=== PATIENT | female | born 1980 | race Caucasian/White ===

== ENCOUNTER 2016-11-13 19:53 | Emergency (ER) | payer BC ==
[~2016-11-13] VITALS: Ht 160 cm; Wt 61.2 kg
[~2016-11-13 19:53] MED LIST: ALPR-557 PO; ATN50T PO; DESV50TA PO; ESCI5TAB; HCTZ12.5T; LABETALOL HCL; LABETOLOL; PROP1TAB77; VALS1TAB43 PO; VLS80C; [UNRECOGNIZED DRUG - CODE] PO
[2016-11-13] MEDS ORDERED: ACETAMINOPHEN 325 MG TABLET/CAPLET (TYLENOL) PO STA (20:29)
[2016-11-13 20:39] LABS: BASOPHILS % (AUTO) 1 % (0-10); EOSINOPHILS # (AUTO) 0.2 10^3/uL (0.0-0.3); EOSINOPHILS % (AUTO) 2 % (0-10); LYMPHOCYTES # (AUTO) 2.6 X 10^3 (1.0-4.0); LYMPHOCYTES % (AUTO) 39 % (12-44); MEAN CORPUSCULAR HEMOGLOBIN 31 PG (25-34); MEAN CORPUSCULAR HGB CONC 35 G/DL (32-36); MEAN CORPUSCULAR VOLUME 88 FL (80-99); MEAN PLATELET VOLUME 9.2 FL (7.4-10.4); MONOCYTES # (AUTO) 0.8 X 10^3 (0.0-1.0); MONOCYTES % (AUTO) 13 % (0-12); NEUTROPHILS % (AUTO) 45 % (42-75); PLATELET COUNT 260 10^3/uL (130-400); RED BLOOD COUNT 4.29 10^6/uL (4.35-5.85); RED CELL DISTRIBUTION WIDTH 12.3 % (10.0-14.5); WHITE BLOOD COUNT 6.5 10^3/uL (4.3-11.0)
--- NOTE | 2016-11-13 20:43 | ED EENT ---
History of Present Illness General Chief Complaint: Oral/Throat Problems Stated Complaint: THROAT PAIN, HEADACHE, CONGESTION Nursing Triage Note: PT TO ED FOR C/O SORE THROAT ONSET X3 DAYS. History of Present Illness Time seen by provider: 20:15 Initial Comments For the past several months patient has had intermittent strep pharyngitis. She reports she'll be off the antibiotic for 2-3 weeks and then get a recurrence. Her teenage son has had 2 cases of strep. Timing/Duration: gradual (over the last 3 days.) Severity: mild Location: throat Prearrival Treatment: over the counter meds (Aleve at 1400) Modifying Factors: Improves With Rest Allergies and Home Medications Allergies Coded Allergies: Penicillins (Verified Allergy, Unknown, 10/25/06) erythromycin base (Verified Allergy, Unknown, 10/25/06) prochlorperazine (Verified Allergy, Unknown, 10/25/06) Home Medications Alprazolam 0.5 Mg Tab, 0.5 MG PO BID PRN for ANXIETY, (Reported) Atenolol 50 Mg Tablet, 50 MG PO DAILY, (Reported) Bupropion Hcl 100 Mg Tabcr, 100 MG PO DAILY, (Reported) Desvenlafaxine Succinate 50 Mg Tab.sr.24h, 50 MG PO DAILY, (Reported) Hctz/Valsartan 1 Tab Tablet, 1 EACH PO DAILY, (Reported) Review of Systems Constitutional: no symptoms reported, see HPI Eyes: No Symptoms Reported, See HPI Ears: No Symptoms Reported, See HPI Nose: no symptoms reported, see HPI Mouth: no symptoms reported, see HPI Throat: see HPI, pain, painful swallowing, denies difficulty with fluids Respiratory: no symptoms reported, see HPI Cardiovascular: no symptoms reported, see HPI Gastrointestinal: no symptoms reported, see HPI Musculoskeletal: no symptoms reported, see HPI Skin: no symptoms reported, see HPI Neurological: No Symptoms Reported, See HPI Hematologic/Lymphatic: No Symptoms Reported, See HPI Immunological/Allergic: no symptoms reported, see HPI All Other Systems Reviewed Negative Unless Noted: Yes Past Rtvkjbp-Wesyhy-Whvdon Hx Patient Social History Alcohol Use: Occasionally Uses Recreational Drug Use: No Smoking Status: Former Smoker Former Smoker/When Quit: Mar 15, 2007 Recent Foreign Travel: No Contact w/Someone Who Travel: No Recent Infectious Disease Expo: No Recent Hopitalizations: No Immunizations Up To Date Tetanus Booster (TDap): More than 5yrs PED Vaccines UTD: No Seasonal Allergies Seasonal Allergies: No Surgeries HX Surgeries: Yes (uterine ablation) Surgeries: Appendectomy Respiratory Hx Respiratory Disorders: No Cardiovascular Hx Cardiac Disorders: Yes (HTN, history of preeclampsia with severe hypertension) Cardiac Disorders: Hypertension Neurological Hx Neurological Disorders: No Reproductive System Hx Reproductive Disorders: No Sexually Transmitted Disease: No HIV/AIDS: No Female Reproductive Disorders: Denies Genitourinary Hx Genitourinary Disorders: No Gastrointestinal Hx Gastrointestinal Disorders: No Musculoskeletal Hx Musculoskeletal Disorders: Yes Musculoskeletal Disorders: Fractures Endocrine Hx Endocrine Disorders: No HEENT HX ENT Disorders: No Cancer Hx Cancer: No Psychosocial Hx Psychiatric Problems: Yes Behavioral Health Disorders: Anxiety, Depression Integumentary HX Skin/Integumentary Disorder: No Blood Transfusions Hx Blood Disorders: No Reviewed Nursing Assessment Reviewed/Agree w Nursing PMH: Yes Family Medical History Significant Family History: Heart Disease, CAD Over 55 Years Old, Hypertension Physical Exam Vital Signs Vital Sign - Last 12Hours 11/13/16 20:03 Temp 98.3 Pulse 74 Resp 18 B/P (MAP) 133/94 Pulse Ox 99 O2 Delivery Room Air General Appearance: WD/WN, no apparent distress Eyes: bilateral eye EOMI, bilateral eye PERRL, bilateral eye normal inspection Ears: bilateral ear TM normal, bilateral ear auricle normal, bilateral ear canal normal Nose: normal inspection, No discharge, No sinus tenderness Mouth/Throat: normal mouth inspection, pharynx normal, No dental tenderness, No mandibular swelling, No maxillary swelling, No pharynx swelling, No pharynx tenderness, No tongue swollen, No tonsillar exudate, No tonsillar swelling, other (no erythema to tonsils.) Neck: non-tender, full range of motion, supple, normal inspection, No lymphadenopathy (R), No lymphadenopathy (L) Cardiovascular: normal peripheral pulses, regular rate, rhythm, no murmur Respiratory: chest non-tender, lungs clear, normal breath sounds Gastrointestinal: normal bowel sounds, non tender, soft Neurologic/Psychiatric: no motor/sensory deficits, alert, normal mood/affect, oriented x 3 Skin: normal color, warm/dry Progress/Results/Core Measures Results/Orders Lab Results Laboratory Tests Test 11/13/16 20:17 11/13/16 20:33 Range/Units Group A Streptococcus Screen NEGATIVE NEGATIVE White Blood Count 6.5 4.3-11.0 10^3/uL Red Blood Count 4.29 L 4.35-5.85 10^6/uL Hemoglobin 13.2 11.5-16.0 G/DL Hematocrit 38 35-52 % Mean Corpuscular Volume 88 80-99 FL Mean Corpuscular Hemoglobin 31 25-34 PG Mean Corpuscular Hemoglobin Concent 35 32-36 G/DL Red Cell Distribution Width 12.3 10.0-14.5 % Platelet Count 260 130-400 10^3/uL Mean Platelet Volume 9.2 7.4-10.4 FL Neutrophils (%) (Auto) 45 42-75 % Lymphocytes (%) (Auto) 39 12-44 % Monocytes (%) (Auto) 13 H 0-12 % Eosinophils (%) (Auto) 2 0-10 % Basophils (%) (Auto) 1 0-10 % Neutrophils # (Auto) 3.0 1.8-7.8 X 10^3 Lymphocytes # (Auto) 2.6 1.0-4.0 X 10^3 Monocytes # (Auto) 0.8 0.0-1.0 X 10^3 Eosinophils # (Auto) 0.2 0.0-0.3 10^3/uL Basophils # (Auto) 0.0 0.0-0.1 10^3/uL Monoscreen NEGATIVE NEGATIVE My Orders Orders - MICHEL HOFFMANN Rapid Strep A Screen (11/13/16 20:16) Cbc With Automated Diff (11/13/16 20:29) Monotest (11/13/16 20:29) Acetaminophen Tablet/Caplet (Tylenol T (11/13/16 20:29) Vital Signs/I&O Vital Sign - Last 12Hours 11/13/16 11/13/16 20:03 21:31 Temp 98.3 Pulse 74 0 Resp 18 0 B/P (MAP) 133/94 Pulse Ox 99 0 O2 Delivery Room Air Blood Pressure Mean: 107 Progress Note : Time: 18:15 Progress Note Initial evaluation completed, discussed with patient that she is afebrile, we will do a CBC, strep screen, and a mono test. Tylenol 650 mg by mouth for pain. We'll reevaluate after studies are completed. 2039 rapid strep A negative 2100 Mon Neg and CBC WNL. 2114 discussed all results with patient, recommended conservative treatment at this time and she agreed with this. Departure Impression Impression: Primary Impression: Sore throat Additional Impression: Viral pharyngitis Disposition: 01 HOME, SELF-CARE Condition: Stable Departure-Patient Inst. Referrals: TAYLOR WRIGHT MD (PCP/Family) Primary Care Physician Patient Instructions: Viral Pharyngitis (DC) Add. Discharge Instructions: All discharge instructions reviewed with patient and/or family. Voiced understanding. Warm salt water gargles every 4-6 hours. Tylenol 650 mg every 6 hours alternating with ibuprofen 600 mg every 8 hours for pain or fever. Follow-up with Dr. Wright if continued throat pain. Return to emergency department if throat pain increases, fever, difficulty breathing, or any other complaints. Copy Copies To 1: TAYLOR WRIGHT MD, [facility] Nov 13, 2016 20:43
[2016-11-13 21:31] VITALS: BP 0/0
--- OUTSIDE RECORDS SUMMARY | 2016-12-07 09:57 | XMS REPORT | Continuity of Care Document ---
Demographics Preferred Language Unknown Marital Status Unknown Baptism Affiliation Unknown Race Unknown Ethnic Group Unknown Author Author [facility] Address Unknown Phone Unavailable Allergies Active Description Code Type Severity Reaction Onset Reported/Identified Relationship to Patient Clinical Status Yes erythromycin base [id number] Drug Allergy Unknown N/A 10/25/2006 Yes Penicillins [id number] Drug Allergy Unknown N/A 10/25/2006 Yes prochlorperazine [id number] Drug Allergy Unknown N/A 10/25/2006 Medications Problems Date Dx Coded Attending Type Code Diagnosis Diagnosed By 08/02/2010 Ot 708.9 URTICARIA NOS 07/18/2012 V04.81 FLU DX (3 YRS AND ABOVE, IM) 04/02/2013 JOHN CONLEY, QUITA Santos Ot 300.00 ANXIETY STATE NOS 04/02/2013 JOHN CONLEY, QUITA Santos Ot 311 DEPRESSIVE DISORDER NEC 04/02/2013 JOHN CONLEY, QUITA Santos Ot 401.9 HYPERTENSION NOS 04/02/2013 JOHN CONLEY, QUITA Santos Ot 786.59 CHEST PAIN NEC 02/19/2015 TAYLOR WRIGHT MD Ot 780.60 02/19/2015 TAYLOR WRIGHT MD Ot 789.09 06/27/2015 Ot V16.3 06/27/2015 Ot V76.12 06/27/2015 Ot 611.71 06/27/2015 Ot V16.3 06/27/2015 Ot 255.9 06/27/2015 Ot 592.0 06/27/2015 Ot 719.41 06/27/2015 Ot 722.4 06/27/2015 Ot 719.41 06/27/2015 Ot 723.1 06/27/2015 TAYLOR WRIGHT MD Ot 784.0 06/27/2015 TAYLOR WRIGHT MD Ot 780.60 06/27/2015 TAYLOR WRIGHT MD Ot 789.09 06/27/2015 LEONEL CONLEY, SARA Vasquez Ot R07.89 OTHER CHEST PAIN 07/22/2015 Ot V16.3 07/22/2015 Ot V76.12 07/22/2015 Ot 611.71 07/22/2015 Ot V16.3 07/22/2015 Ot 255.9 07/22/2015 Ot 592.0 07/22/2015 Ot 719.41 07/22/2015 Ot 722.4 07/22/2015 Ot 719.41 07/22/2015 Ot 723.1 07/22/2015 KYLE CONLEY, TAYLOR Vasquez Ot 784.0 07/22/2015 KYLE CONLEY, TAYLOR Vasquez Ot 780.60 07/22/2015 KYLE CONLEY, TAYLOR Vasquez Ot 789.09 07/22/2015 CASTILLO CONLEY, MOHIT Stevens Ot I10 07/22/2015 CASTILLO CONLEY, MOHIT Stevens Ot R07.9 07/31/2015 CASTILLO CONLEY, MOHIT Stevens Ot I10 07/31/2015 CASTILLO CONLEY, MOHIT Stevens Ot R07.9 10/24/2015 Ot V16.3 10/24/2015 Ot V76.12 10/24/2015 Ot 611.71 10/24/2015 Ot V16.3 10/24/2015 Ot 255.9 10/24/2015 Ot 592.0 10/24/2015 Ot 719.41 10/24/2015 Ot 722.4 10/24/2015 Ot 719.41 10/24/2015 Ot 723.1 10/24/2015 KYLE CONLEY, TAYLOR Vasquez Ot 784.0 10/24/2015 KYLE CONLEY, TAYLOR Vasquez Ot 780.60 10/24/2015 TAYLOR WRIGHT MD Ot 789.09 10/24/2015 CASTILLO CONLEY, MOHIT Stevens Ot I10 10/24/2015 CASTILLO CONLEY, MOHIT Stevens Ot R07.9 12/01/2015 Ot V16.3 FAMILY HX-BREAST MALIG 12/01/2015 Ot V76.12 OTH SCREEN MAMMO-MALIGN NEOPLASM OF AGUSTIN 12/01/2015 Ot 611.71 MASTODYNIA 12/01/2015 Ot V16.3 FAMILY HX-BREAST MALIG 12/01/2015 Ot 255.9 ADRENAL DISORDER N0S 12/01/2015 Ot 592.0 CALCULUS OF KIDNEY 12/01/2015 Ot 719.41 JOINT PAIN-SHLDER 12/01/2015 Ot 722.4 CERVICAL DISC DEGEN 12/01/2015 Ot 719.41 JOINT PAIN-SHLDER 12/01/2015 Ot 723.1 CERVICALGIA 12/01/2015 TAYLOR WRIGHT MD Ot 784.0 HEADACHE 12/01/2015 TAYLOR WRIGHT MD Ot 780.60 FEVER, UNSPECIFIED 12/01/2015 TAYLOR WRIGHT MD Ot 789.09 ABDOMINAL PAIN, OTHER SPECIFIED SITE 12/01/2015 MOHIT CHONG MD Ot I10 ESSENTIAL (PRIMARY) HYPERTENSION 12/01/2015 MOHIT CHONG MD Ot R07.9 CHEST PAIN, UNSPECIFIED 02/02/2016 Ot 255.9 ADRENAL DISORDER N0S 02/02/2016 Ot 592.0 CALCULUS OF KIDNEY 02/02/2016 Ot 719.41 JOINT PAIN-SHLDER 02/02/2016 Ot 722.4 CERVICAL DISC DEGEN 02/02/2016 Ot 719.41 JOINT PAIN-SHLDER 02/02/2016 Ot 723.1 CERVICALGIA 02/02/2016 TAYLOR WRIGHT MD Ot 784.0 HEADACHE 02/02/2016 TAYLOR WRIGHT MD Ot 780.60 FEVER, UNSPECIFIED 02/02/2016 TAYLOR WRIGHT MD Ot 789.09 ABDOMINAL PAIN, OTHER SPECIFIED SITE 02/02/2016 MOHIT CHONG MD Ot I10 ESSENTIAL (PRIMARY) HYPERTENSION 02/02/2016 MOHIT CHONG MD Ot R07.9 CHEST PAIN, UNSPECIFIED 05/18/2016 Ot 719.41 JOINT PAIN-SHLDER 05/18/2016 Ot 722.4 CERVICAL DISC DEGEN 05/18/2016 Ot 719.41 JOINT PAIN-SHLDER 05/18/2016 Ot 723.1 CERVICALGIA 05/18/2016 TAYLOR WRIGHT MD Ot 784.0 HEADACHE 05/18/2016 TAYLOR WRIGHT MD Ot 780.60 FEVER, UNSPECIFIED 05/18/2016 TAYLOR WRIGHT MD Ot 789.09 ABDOMINAL PAIN, OTHER SPECIFIED SITE 05/18/2016 MOHIT CHONG MD Ot I10 ESSENTIAL (PRIMARY) HYPERTENSION 05/18/2016 MOHIT CHONG MD Ot R07.9 CHEST PAIN, UNSPECIFIED 05/20/2016 SHRAVAN DPM, JENI Q Ot S92.351A DISP FX OF FIFTH METATARSAL BONE, RIGHT 05/20/2016 SHRAVAN DPM, JENI Q Ot X58.XXXA EXPOSURE TO OTHER SPECIFIED FACTORS, INI 05/20/2016 SHRAVAN DPM, JENI Q Ot Y99.8 OTHER EXTERNAL CAUSE STATUS 05/20/2016 SHRAVAN DPM, JENI Q Ot Z01.812 ENCOUNTER FOR PREPROCEDURAL LABORATORY E 05/20/2016 SHRAVAN DPM, JENI Q Ot Z11.2 ENCOUNTER FOR SCREENING FOR OTHER BACTER 05/21/2016 SHRAVAN DPM, JENI Q Ot S92.351A DISP FX OF FIFTH METATARSAL BONE, RIGHT 05/21/2016 SHRAVAN DPM, JENI Q Ot X58.XXXA EXPOSURE TO OTHER SPECIFIED FACTORS, INI 05/21/2016 SHRAVAN DPM, JENI Q Ot Y99.8 OTHER EXTERNAL CAUSE STATUS 05/21/2016 SHRAVAN DPM, JENI Q Ot Z01.812 ENCOUNTER FOR PREPROCEDURAL LABORATORY E 05/21/2016 SHRAVAN DPM, JENI Q Ot Z11.2 ENCOUNTER FOR SCREENING FOR OTHER BACTER 05/21/2016 SHRAVAN DPM, JENI Q Ot I10 ESSENTIAL (PRIMARY) HYPERTENSION 05/21/2016 SHRAVAN DPM, JENI Q Ot S92.351A DISP FX OF FIFTH METATARSAL BONE, RIGHT 05/21/2016 SHRAVAN DPM, JENI Q Ot W19.XXXA UNSPECIFIED FALL, INITIAL ENCOUNTER 05/21/2016 SHRAVAN DPM, JENI Q Ot Y99.8 OTHER EXTERNAL CAUSE STATUS 05/24/2016 SHRAVAN DPM, JENI Q Ot I10 ESSENTIAL (PRIMARY) HYPERTENSION 05/24/2016 SHRAVAN DPM, JENI Q Ot S92.351A DISP FX OF FIFTH METATARSAL BONE, RIGHT 05/24/2016 SHRAVAN DPM, JENI Q Ot W19.XXXA UNSPECIFIED FALL, INITIAL ENCOUNTER 05/24/2016 SHRAVAN DPM, JENI Q Ot Y99.8 OTHER EXTERNAL CAUSE STATUS 05/26/2016 SHRAVAN DPM, JENI Q Ot S92.351A DISP FX OF FIFTH METATARSAL BONE, RIGHT 05/26/2016 SHRAVAN DPM, JENI Q Ot X58.XXXA EXPOSURE TO OTHER SPECIFIED FACTORS, INI 05/26/2016 SHRAVAN DPM, JENI Q Ot Y99.8 OTHER EXTERNAL CAUSE STATUS 05/26/2016 SHRAVAN DPM, JENI Q Ot Z01.812 ENCOUNTER FOR PREPROCEDURAL LABORATORY E 05/26/2016 SHRAVAN DPM, JENI Q Ot Z11.2 ENCOUNTER FOR SCREENING FOR OTHER BACTER 06/03/2016 SHRAVAN DPM, JENI Q Ot S92.354A NONDISP FX OF FIFTH METATARSAL BONE, RIG 06/03/2016 SHRAVAN DPM, JENI Q Ot S93.401A SPRAIN OF UNSPECIFIED LIGAMENT OF RIGHT 06/03/2016 SHRAVAN DPM, JENI Q Ot W19.XXXA UNSPECIFIED FALL, INITIAL ENCOUNTER 06/03/2016 SHRAVAN DPM, JENI Q Ot Y92.[address] 06/03/2016 SHRAVAN DPM, JENI Q Ot Y99.8 OTHER EXTERNAL CAUSE STATUS 10/19/2016 Ot 719.41 JOINT PAIN-SHLDER 10/19/2016 Ot 722.4 CERVICAL DISC DEGEN 10/19/2016 Ot 719.41 JOINT PAIN-SHLDER 10/19/2016 Ot 723.1 CERVICALGIA 10/19/2016 KYLE CONLEY, TAYLOR Vasquez Ot 784.0 HEADACHE 10/19/2016 KYLE CONLEY, TAYLOR Vasquez Ot 780.60 FEVER, UNSPECIFIED 10/19/2016 KYLE CONLEY, TAYLOR Vasquez Ot 789.09 ABDOMINAL PAIN, OTHER SPECIFIED SITE 10/19/2016 CASTILLO CONLEY, MOHIT Stevens Ot I10 ESSENTIAL (PRIMARY) HYPERTENSION 10/19/2016 CASTILLO CONLEY, MOHIT Stevens Ot R07.9 CHEST PAIN, UNSPECIFIED 10/19/2016 SHRAVAN DPM, JENI Q Ot S92.354A NONDISP FX OF FIFTH METATARSAL BONE, RIG 10/19/2016 SHRAVAN DPM, JENI Q Ot S93.401A SPRAIN OF UNSPECIFIED LIGAMENT OF RIGHT 10/19/2016 SHRAVAN DPM, JENI Q Ot W19.XXXA UNSPECIFIED FALL, INITIAL ENCOUNTER 10/19/2016 SHRAVAN DPM, JENI Q Ot Y92.[address] 10/19/2016 SHRAVAN DPM, JENI Q Ot Y99.8 OTHER EXTERNAL CAUSE STATUS 10/19/2016 Ot 719.41 JOINT PAIN-SHLDER 10/19/2016 Ot 722.4 CERVICAL DISC DEGEN 10/19/2016 Ot 719.41 JOINT PAIN-SHLDER 10/19/2016 Ot 723.1 CERVICALGIA 10/19/2016 TAYLOR WRIGHT MD Ot 784.0 HEADACHE 10/19/2016 KYLE CONLEY, TAYLOR Vasquez Ot 780.60 FEVER, UNSPECIFIED 10/19/2016 TAYLOR WRIGHT MD Ot 789.09 ABDOMINAL PAIN, OTHER SPECIFIED SITE 10/19/2016 MOHIT CHONG MD Ot I10 ESSENTIAL (PRIMARY) HYPERTENSION 10/19/2016 MOHIT CHONG MD Ot R07.9 CHEST PAIN, UNSPECIFIED 10/19/2016 SHRAVAN DPM, JENI Q Ot S92.354A NONDISP FX OF FIFTH METATARSAL BONE, RIG 10/19/2016 SHRAVAN DPM, JENI Q Ot S93.401A SPRAIN OF UNSPECIFIED LIGAMENT OF RIGHT 10/19/2016 SHRAVAN DPM, JENI Q Ot W19.XXXA UNSPECIFIED FALL, INITIAL ENCOUNTER 10/19/2016 SHRAVAN DPM, JENI Q Ot Y92.[address] 10/19/2016 SHRAVAN DPM, JENI Q Ot Y99.8 OTHER EXTERNAL CAUSE STATUS 11/13/2016 Ot 719.41 JOINT PAIN-SHLDER 11/13/2016 Ot 722.4 CERVICAL DISC DEGEN 11/13/2016 Ot 719.41 JOINT PAIN-SHLDER 11/13/2016 Ot 723.1 CERVICALGIA 11/13/2016 KYLE CONLEY, TAYLOR Vasquez Ot 784.0 HEADACHE 11/13/2016 TAYLOR WRIGHT MD Ot 780.60 FEVER, UNSPECIFIED 11/13/2016 TAYLOR WRIGHT MD Ot 789.09 ABDOMINAL PAIN, OTHER SPECIFIED SITE 11/13/2016 MOHIT CHONG MD Ot I10 ESSENTIAL (PRIMARY) HYPERTENSION 11/13/2016 MOHIT CHONG MD Ot R07.9 CHEST PAIN, UNSPECIFIED 11/13/2016 SHRAVAN DPM, JENI Q Ot S92.354A NONDISP FX OF FIFTH METATARSAL BONE, RIG 11/13/2016 SHRAVAN DPM, JENI Q Ot S93.401A SPRAIN OF UNSPECIFIED LIGAMENT OF RIGHT 11/13/2016 SHRAVAN DPM, JENI Q Ot W19.XXXA UNSPECIFIED FALL, INITIAL ENCOUNTER 11/13/2016 SHRAVAN DPM, JENI Q Ot Y92.[address] 11/13/2016 SHRAVAN DPM, JENI Q Ot Y99.8 OTHER EXTERNAL CAUSE STATUS Procedures Results Test Result Range Urine beta human chorionic gonadotropin (hCG) measurement - 05/20/16 09:20 Urine beta human chorionic gonadotropin (hCG) measurement NEGATIVE NEGATIVE Methicillin resistant Staphylococcus aureus (MRSA) screening culture - 09:20 Methicillin resistant Staphylococcus aureus (MRSA) screening culture NEG [facility] Streptococcus pyogenes antigen detection - 11/13/16 20:17 Streptococcus pyogenes antigen detection NEGATIVE NEGATIVE Bacterial throat culture - 11/13/16 20:17 Bacterial throat culture NBS NRG Complete blood count (CBC) with automated white blood cell (WBC) differential - 11/13/16 20:33 Blood leukocytes automated count (number/volume) 6.5 10*3/ uL 4.3-11.0 Blood erythrocytes automated count (number/volume) 4.29 10*6 /uL 4.35-5.85 Venous blood hemoglobin measurement (mass/volume) 13.2 g/dL 11.5-16.0 Blood hematocrit (volume fraction) 38 % 35-52 Automated erythrocyte mean corpuscular volume 88 [foz_us] 80-99 Automated erythrocyte mean corpuscular hemoglobin (mass per erythrocyte) 31 pg 25-34 Automated erythrocyte mean corpuscular hemoglobin concentration measurement ( mass/volume) 35 g/dL 32-36 Automated erythrocyte distribution width ratio 12.3 % 10.0-14.5 Automated blood platelet count (count/volume) 260 10*3/uL 130-400 Automated blood platelet mean volume measurement 9.2 [foz_us ] 7.4-10.4 Automated blood neutrophils/100 leukocytes 45 % 42-75 Automated blood lymphocytes/100 leukocytes 39 % 12-44 Blood monocytes/100 leukocytes 13 % 0-12 Automated blood eosinophils/100 leukocytes 2 % 0-10 Automated blood basophils/100 leukocytes 1 % 0-10 Blood neutrophils automated count (number/volume) 3.0 10*3 1.8-7.8 Blood lymphocytes automated count (number/volume) 2.6 10*3 1.0-4.0 Blood monocytes automated count (number/volume) 0.8 10*3 0.0-1.0 Automated eosinophil count 0.2 10*3/uL 0.0-0.3 Automated blood basophil count (count/volume) 0.0 10*3/uL 0.0-0.1 Serum heterophile antibody titer - 11/13/16 20:33 Serum heterophile antibody titer NEGATIVE NEGATIVE Encounters ACCT No. Visit Date/Time Discharge Status Pt. Type Provider Facility Loc./Unit Complaint [id number] 07/18/2012 16:04:00 07/18/2012 23: 59:59 CLS Outpatient
== END 2016-11-13 21:31 | disposition home or self-care (01) ==
LOC: EDUNIT# 19:53 → ER 19:55
DX: J02.8 Acute pharyngitis due to other specified organisms (principal)
CPT/HCPCS: 36415; 85025; 86308; 87430; 99283

== ENCOUNTER 2017-05-18 10:05 | Emergency (ER) | payer BC ==
[~2017-05-18] VITALS: Ht 160 cm; Wt 63.5 kg
[2017-05-18] MEDS ORDERED: KETOROLAC 30 MG/ML VIAL IVP STA (10:36)
[2017-05-18] MEDS ORDERED: fentaNYL INJECTION 100 MCG/2 ML AMP IVP STA ×3 (10:36→16:57)
[2017-05-18] MEDS ORDERED: NS IV 1000 ML 1,000 ML IV ONE (10:36)
[2017-05-18 10:43] LABS: BASOPHILS % (AUTO) 0 % (0-10); EOSINOPHILS # (AUTO) 0.1 10^3/uL (0.0-0.3); EOSINOPHILS % (AUTO) 1 % (0-10); LYMPHOCYTES # (AUTO) 1.7 X 10^3 (1.0-4.0); LYMPHOCYTES % (AUTO) 23 % (12-44); MEAN CORPUSCULAR HEMOGLOBIN 30 PG (25-34); MEAN CORPUSCULAR HGB CONC 34 G/DL (32-36); MEAN CORPUSCULAR VOLUME 89 FL (80-99); MEAN PLATELET VOLUME 9.4 FL (7.4-10.4); MONOCYTES # (AUTO) 0.3 X 10^3 (0.0-1.0); MONOCYTES % (AUTO) 4 % (0-12); NEUTROPHILS # (AUTO) 5.1 X 10^3 (1.8-7.8); NEUTROPHILS % (AUTO) 71 % (42-75); PLATELET COUNT 277 10^3/uL (130-400); RED BLOOD COUNT 4.38 10^6/uL (4.35-5.85); RED CELL DISTRIBUTION WIDTH 12.5 % (10.0-14.5); WHITE BLOOD COUNT 7.2 10^3/uL (4.3-11.0)
--- NOTE | 2017-05-18 10:57 | ED General ---
General Chief Complaint: General Problems/Pain Stated Complaint: GENERALIZED PAIN AND NUMBNESS Source of Information: Patient, Family, RN/MD Exam Limitations: No Limitations History of Present Illness Time Seen by Provider: 10:30 Initial Comments Here with complaint of pain and numbness to both sides of her body. This started about 2 weeks ago on the left side and then moved to the right now back to the left. Seen by her primary care provider yesterday and initiated on steroids. Pain is worse today and she feels weakness and tingling in her hands and also now has difficulty swallowing. She is not sure what is going on with all of this. No known injury. Denies fever or chills. Denies nausea, vomiting or diarrhea. Timing/Duration: Changing Over Time, Other (2 weeks) Severity: Moderate Associated Systoms: No Chest Pain, No Fever/Chills, No Headaches, No Nausea/ Vomiting, No Shortness of Air, No Weakness Allergies and Home Medications Allergies Coded Allergies: Penicillins (Verified Allergy, Unknown, 10/25/06) erythromycin base (Verified Allergy, Unknown, 10/25/06) prochlorperazine (Verified Allergy, Unknown, 10/25/06) Home Medications Alprazolam 0.5 Mg Tab, 0.5 MG PO BID PRN for ANXIETY, (Reported) Atenolol 50 Mg Tablet, 50 MG PO DAILY, (Reported) Bupropion Hcl 100 Mg Tabcr, 100 MG PO DAILY, (Reported) Desvenlafaxine Succinate 50 Mg Tab.sr.24h, 50 MG PO DAILY, (Reported) Hctz/Valsartan 1 Tab Tablet, 1 EACH PO DAILY, (Reported) Constitutional: see HPI, No chills, No fever EENTM: no symptoms reported Respiratory: no symptoms reported Cardiovascular: no symptoms reported Gastrointestinal: No nausea, No vomiting Genitourinary: No dysuria, No pain : No Musculoskeletal: no symptoms reported, No back pain, No joint pain, muscle pain , neck pain Skin: No no symptoms reported Psychiatric/Neurological: See HPI, Anxiety, Denies Headache, Paresthesia, Tingling, Denies Weakness Hematologic/Lymphatic: No Symptoms Reported All Other Systems Reviewed Negative Unless Noted: Yes Past Ibadmvs-Pwfygh-Wzymxc Hx Patient Social History Alcohol Use: Occasionally Uses Alcohol Beverage of Choice: Beer Recreational Drug Use: No Smoking Status: Former Smoker Former Smoker, Quit: May 20, 2006 Recent Foreign Travel: No Contact w/Someone Who Travel: No Recent Hopitalizations: No Immunizations Up To Date Tetanus Booster (TDap): More than 5yrs PED Vaccines UTD: No Seasonal Allergies Seasonal Allergies: No Surgeries History of Surgeries: Yes Surgeries: Appendectomy Respiratory History of Respiratory Disorde: Yes Currently Using CPAP: No Currently Using BIPAP: No Cardiovascular History of Cardiac Disorders: Yes Cardiac Disorders: Hypertension Neurological History of Neurological Disord: No Reproductive System : No Hx Reproductive Disorders: No Sexually Transmitted Disease: No HIV/AIDS: No Female Reproductive Disorders: Denies Gastrointestinal History of Gastrointestinal Di: No Musculoskeletal History of Musculoskeletal Dis: Yes Musculoskeletal Disorders: Fractures HEENT History of HEENT Disorders: No Cancer History of Cancer: No Psychosocial History of Psychiatric Problem: Yes Behavioral Health Disorders: Anxiety, Depression Reviewed Nursing Assessment Reviewed/Agree w Nursing PMH: Yes Family Medical History Significant Family History: Heart Disease, CAD Over 55 Years Old, Hypertension Physical Exam Vital Signs Vital Sign - Last 12Hours 05/18/17 10:20 Temp 99.3 Pulse 92 Resp 18 B/P (MAP) 156/87 Pulse Ox 98 Capillary Refill : General Appearance: WD/WN, Anxious, Mild Distress (afraid) HEENT: PERRL/EOMI, Pharynx Normal Neck: Non Tender, Supple Respiratory: Lungs Clear, Normal Breath Sounds Cardiovascular: Regular Rate, Rhythm, No Murmur Gastrointestinal: Non Tender, Soft Back: Normal Inspection, No CVA Tenderness, No Vertebral Tenderness Extremity: Normal Capillary Refill, Normal Inspection, Normal Range of Motion, Non Tender, No Calf Tenderness Neurologic/Psychiatric: Alert, Oriented x3, No Motor/Sensory Deficits, Normal Mood/Affect, order entry representative II-XII Norm as Tested, Other (finger to nose and heel to esparza evaluation normal. No focal deficits on neuro exam. Full strength for all extremities. Gait is normal.) Skin: Normal Color, Warm/Dry Progress/Results/Core Measures Results/Orders Lab Results Laboratory Tests Test 05/18/17 10:30 05/18/17 10:35 Range/Units White Blood Count 7.2 4.3-11.0 10^3/uL Red Blood Count 4.38 4.35-5.85 10^6/uL Hemoglobin 13.3 11.5-16.0 G/DL Hematocrit 39 35-52 % Mean Corpuscular Volume 89 80-99 FL Mean Corpuscular Hemoglobin 30 25-34 PG Mean Corpuscular Hemoglobin Concent 34 32-36 G/DL Red Cell Distribution Width 12.5 10.0-14.5 % Platelet Count 277 130-400 10^3/uL Mean Platelet Volume 9.4 7.4-10.4 FL Neutrophils (%) (Auto) 71 42-75 % Lymphocytes (%) (Auto) 23 12-44 % Monocytes (%) (Auto) 4 0-12 % Eosinophils (%) (Auto) 1 0-10 % Basophils (%) (Auto) 0 0-10 % Neutrophils # (Auto) 5.1 1.8-7.8 X 10^3 Lymphocytes # (Auto) 1.7 1.0-4.0 X 10^3 Monocytes # (Auto) 0.3 0.0-1.0 X 10^3 Eosinophils # (Auto) 0.1 0.0-0.3 10^3/uL Basophils # (Auto) 0.0 0.0-0.1 10^3/uL Sodium Level 138 135-145 MMOL/L Potassium Level 3.6 3.6-5.0 MMOL/L Chloride Level 101 98-107 MMOL/L Carbon Dioxide Level 27 21-32 MMOL/L Anion Gap 10 5-14 MMOL/L Blood Urea Nitrogen 18 7-18 MG/DL Creatinine 0.80 0.60-1.30 MG/DL Estimat Glomerular Filtration Rate > 60 BUN/Creatinine Ratio 23 Glucose Level 98 70-105 MG/DL Calcium Level 9.5 8.5-10.1 MG/DL Total Bilirubin 0.5 0.1-1.0 MG/DL Aspartate Amino Transf (AST/SGOT) 24 5-34 U/L Alanine Aminotransferase (ALT/SGPT) 31 0-55 U/L Alkaline Phosphatase 44 40-136 U/L C-Reactive Protein High Sensitivity 0.09 0.00-0.50 MG/DL Total Protein 7.3 6.4-8.2 GM/DL Albumin 4.3 3.2-4.5 GM/DL Thyroid Stimulating Hormone (TSH) 2.19 0.35-4.94 UIU/ML Urine Color YELLOW Urine Clarity CLEAR Urine pH 6.5 5-9 Urine Specific Hardy 1.010 L 1.016-1.022 Urine Protein NEGATIVE NEGATIVE Urine Glucose (UA) NEGATIVE NEGATIVE Urine Ketones NEGATIVE NEGATIVE Urine Nitrite NEGATIVE NEGATIVE Urine Bilirubin NEGATIVE NEGATIVE Urine Urobilinogen NORMAL NORMAL MG/DL Urine Leukocyte Esterase NEGATIVE NEGATIVE Urine RBC (Auto) NEGATIVE NEGATIVE Urine RBC NONE /HPF Urine WBC NONE /HPF Urine Squamous Epithelial Cells 5-10 /HPF Urine Crystals NONE /LPF Urine Bacteria FEW H /HPF Urine Casts NONE /LPF Urine Mucus NEGATIVE /LPF Urine Culture Indicated NO My Orders Orders - SARA CASTANEDA MD Cbc With Automated Diff (05/18/17 10:36) Comprehensive Metabolic Panel (05/18/17 10:36) Hs C Reactive Protein (05/18/17 10:36) Saline Lock/Iv-Start (05/18/17 10:36) Ns Iv 1000 Ml (Sodium Chloride 0.9%) (05/18/17 10:36) Fentanyl Injection (Sublimaze Injection (05/18/17 10:36) Ketorolac Injection (Toradol Injection) (05/18/17 10:36) Thyroid Stimulating Hormone (05/18/17 10:38) Ct Head W Wo (05/18/17 10:36) Ct Cervical Spine Wo (05/18/17 ) Iohexol Injection (Omnipaque 350 Mg/Ml 1 (05/18/17 11:15) Ns (Ivpb) (Sodium Chloride 0.9% Ivpb Bag (05/18/17 11:15) Ua Culture If Indicated (05/18/17 12:03) Mri Cervical Spine W/O Contras (05/18/17 13:34) Fentanyl Injection (Sublimaze Injection (05/18/17 16:57) Hydrocodone/Apap 7.5/325 Tab (Lortab 7. (05/18/17 16:57) Medications Given in ED Current Medications Medications Dose Ordered Sig/Brigido Route Start Time Stop Time Status Last Admin Dose Admin Iohexol 80 ml ONCE ONCE IV 05/18/17 11:15 05/18/17 11:16 DC 05/18/17 11:22 80 ML Sodium Chloride 100 ml ONCE ONCE IV 05/18/17 11:15 05/18/17 11:16 DC 05/18/17 11:22 80 ML Sodium Chloride 1,000 ml @ 0 mls/hr Q0M ONCE IV 05/18/17 10:36 05/18/17 10:38 DC 05/18/17 10:44 1,000 MLS/HR Vital Signs/I&O Vital Sign - Last 12Hours 05/18/17 10:20 Temp 99.3 Pulse 92 Resp 18 B/P (MAP) 156/87 Pulse Ox 98 Progress Note : Progress Note Seen and evaluated. I did discuss this patient with her primary care doctor, Dr. Wren prior to patient's arrival. He is very concerned about the possibility of a lesion given the difficulty with swallowing. This is reasonable given her presentation. She has no focal weakness or deficit in coordination. MRI is unavailable until later this afternoon. I did discuss the case with the radiologist. We will get initial CT head with and without contrast to evaluate for lesion and we will get CT of the C-spine which will allow for early on initial evaluation given her current presentation. IV, labs and normal saline 1 L bolus ordered. Fentanyl and Toradol ordered for pain. 1200: CT reports noted. I did discuss the case with Dr. Aggarwal. We will get MRI of the C-spine given current findings. There is an open slot at 1445. We will hold patient in the ER pending that slot and have MRI of the C-spine without contrast done and evaluate from there. 1642: MRI results noted. There is no spine orthopedics available to discuss the case. On-call orthopedist has no information and recommends calling somebody else. 1646: I did discuss the case with Dr. Wren, patient's primary care physician. Patient has no surgical emergent needs currently and has full strength to all extremities. She is having difficulty with pain. Dr. Wren will see her in the office tomorrow. Copy of the MRI and emergency department report will be sent to him. 1700: All of the findings were discussed with the patient. Fentanyl 50 g IV ordered and hydrocodone 7.5/325 one tab by mouth given. We will continue outpatient pain medicine. Discharged home with return precautions. Patient verbalize understanding instructions and agreement with plan. Diagnostic Imaging Diagonstic Imaging: CT Plain Films/CT/US/NM/MRI: head Comments NAME: CATRACHO HERNANDEZAlok Gallego MED REC#: [id number] PT STATUS: REG ER : 1980 PHYSICIAN: SARA CASTANEDA MD ADMIT DATE: 05/18/17/ER Signed Date of Exam: 05/18/17 CT HEAD W WO PROCEDURE: CT head with and without contrast. TECHNIQUE: Multiple contiguous axial images were obtained through the brain before and after the administration of intravenous contrast. INDICATION: Left-sided pain and numbness, difficulty swallowing, headache and chills and left hand tingling. 80 mL of Omnipaque 350 administered intravenously. FINDINGS: There is no intracranial hemorrhage, edema, or mass effect. The brain parenchyma and monk-white matter differentiation is preserved. There is no extra-axial fluid collection seen. No enhancing mass is identified. The visualized portions of the paranasal sinuses, orbits and the calvarium appear grossly unremarkable. IMPRESSION: Unremarkable exam. Dictated by: Dictated on workstation # [id number] Dict: 05/18/17 1133 Trans: 05/18/17 1257 Interpreted by: ROSSY AGGARWAL MD Electronically signed by: ROSSY AGGARWAL MD 05/18/17 1257 Diagonstic Imaging: CT Plain Films/CT/US/NM/MRI: c-spine Comments VIA [facility]. [place], [place] NAME: MP HERNANDEZ [facility] REC#: [id number] PT STATUS: REG ER : 1980 PHYSICIAN: SARA CASTANEDA MD ADMIT DATE: 05/18/17/ER Draft Date of Exam:05/18/17 CT CERVICAL SPINE WO PROCEDURE: CT cervical spine without contrast. TECHNIQUE: Multiple contiguous axial images were obtained through the cervical spine without the use of intravenous contrast. Sagittal and coronal reformations were then performed. INDICATION: Generalized neck pain. Left-sided pain and numbness. Trouble swallowing. FINDINGS: There is reversal of the lordotic curvature. The alignment of the posterior spinal line however is satisfactory. There is satisfactory alignment at the facet joints. There is no widening of the predental space. The alignment of the lateral masses of C1 and C2 and at the atlantooccipital joints is satisfactory. The vertebral body heights are preserved. There is no significant disc height loss at any level. There are prominent posterior osteophytes seen at C5/6. Anterior osteophytes are also noted. No significant osteophyte formation at other levels is seen. There is suggestion of disc herniations at C3/4, C4/5, and C5/6 levels. There is suggestion of mild to moderate spinal canal stenosis at C5/6 and suggestion of mild spinal canal stenosis at C4/ 5. This is however better assessed with MRI or CT myelogram. The neural foramina appear to be patent. IMPRESSION: Suggestion of spinal canal stenosis from herniated disc at C4/5 and C5/6 with posterior osteophytes component at C5/6 level. It is probably of moderate degree at C5/6 and of mild degree at C4/5. This can be better evaluated with MRI of the cervical spine if needed. Dictated on workstation # [id number] Dict: 05/18/17 1139 Trans: 05/18/17 1150 [id number] Interpreted by: ROSSY AGGARWAL MD Electronically signed by: Teddy Imaging: MRI Plain Films/CT/US/NM/MRI: c-spine Comments VIA [facility]. [place], [place] NAME: MP HERNANDEZ Julián [facility] REC#: [id number] PT STATUS: REG ER : 1980 PHYSICIAN: SARA CASTANEDA MD ADMIT DATE: 05/18/17/ER Draft Date of Exam:05/18/17 MRI CERVICAL SPINE W/O CONTRAS CLINICAL INDICATION: Patient in the ER 2 weeks ago and had left-sided pain, numbness, and trouble swallowing. Patient now having headaches, chills, left hand tingling, and right side pain. EXAM: MRI of the cervical spine performed without IV contrast. Sequences include sagittal T1, sagittal T2, sagittal stir, axial T2, and axial gradient echo sequence. COMPARISON: CT scan of the cervical spine dated 05/18/2017. MRI of the cervical spine without contrast dated 07/20/2011. FINDINGS: Compared to the prior MRI, there is progression of straightening of the cervical spine posture. There is no acute cervical spine fracture or dislocation. There is again seen suspected intraosseous hemangioma involving the C7 vertebral body. There is progression of cervical spine degenerative spurs anteriorly. The cervical spinal cord has normal anatomic appearance and cord caliber with no abnormal signal. There is no significant paraspinal soft tissue abnormality. Limited visualization of the posterior fossa is unremarkable. C1-C2: Unremarkable. C2-C3: Unremarkable. C3-C4: Interval development of a small broad posterior disc protrusion/herniation which causes moderate central canal narrowing. There is no significant neuroforaminal narrowing. C4-C5: There is slight progression of the diffuse disc bulge with now mild loss of intervertebral disc height. There is slight increased size of the posterior disc herniation component. There is now moderate central canal narrowing which has progressed. There is moderate left neuroforaminal narrowing which has progressed. C5-C6: There is interval progression of a diffuse disc bulge with mild to moderate loss of intervertebral disc height. There is development of a chronic Schmorl's node involving the inferior L5 endplate. There is now moderate to severe central canal narrowing which has developed in the interim. There is no significant neuroforaminal narrowing. C6-C7: There is interval development of a diffuse disc bulge. There is mild to moderate central canal narrowing which has progressed. There is no significant neuroforaminal narrowing. C7-T1: There is mild progression of left facet arthropathy. Otherwise, this level is unremarkable. IMPRESSION: 1: There is interval development of multilevel cervical spine degenerative disease with progression of diffuse disc bulges and posterior disc herniations. This is described in detail above. 2: There is interval progression of multilevel central canal narrowing which is moderate to severe at the C5-C6 level, moderate at the C3-C4 and C4-C5 levels, and mild to moderate at the C6-C7 level which is related to progression of diffuse disc bulge and posterior disc herniations. 3: There is progression of C4-C5 moderate left neuroforaminal narrowing. Dictated on workstation # [id number] Dict: 05/18/17 1515 Trans: 05/18/17 1532 [facility] [id number] Interpreted by: SUSSY THOMPSON MD Electronically signed by: Departure Impression Impression: Primary Impression: Cervical radiculopathy Disposition: 01 HOME, SELF-CARE Condition: Stable Departure-Patient Inst. Referrals: TAYLOR WREN MD (PCP/Family) Primary Care Physician Patient Instructions: Degenerative Disc Disease (DC), Radiculopathy (DC) Add. Discharge Instructions: All discharge instructions reviewed with patient and/or family. Voiced understanding. Continue previously prescribed medications as directed. Take new medications as directed. Follow-up with Dr. Wren tomorrow. Call his office after 8 a.m. for appointment. You do need further evaluation including possible evaluation from a spine surgeon and Dr. Wren will assist you with this. Return for worse pain, fever, vomiting, weakness of the extremities, difficulties with urination or going to the bathroom, or other concerns as needed. Scripts Hydrocodone/Acetaminophen (Hydrocodon -Acetaminophen 5-325) 1 Each Tablet 1-2 EACH PO Q6H Y for PAIN-MODERATE, #20 TAB 0 Refills Prov: SARA CASTANEDA MD 05/18/17 Copy Copies To 1: TAYLOR WREN MD, TIMOTHY D MD May 18, 2017 10:57
[2017-05-18 11:05] LABS: ALANINE AMINOTRANSFERASE 31 U/L (0-55); ALBUMIN 4.3 GM/DL (3.2-4.5); ANION GAP 10 MMOL/L (5-14); ASPARTATE AMINO TRANSFERASE 24 U/L (5-34); BILIRUBIN,TOTAL 0.5 MG/DL (0.1-1.0); BLOOD UREA NITROGEN 18 MG/DL (7-18); BUN/CREATININE RATIO 23; CALCIUM 9.5 MG/DL (8.5-10.1); CARBON DIOXIDE 27 MMOL/L (21-32); CHLORIDE 101 MMOL/L (98-107); GFR ESTIMATED > 60; GLUCOSE 98 MG/DL (70-105); POTASSIUM 3.6 MMOL/L (3.6-5.0); SODIUM 138 MMOL/L (135-145); TOTAL PROTEIN 7.3 GM/DL (6.4-8.2); hs C REACTIVE PROTEIN 0.09 MG/DL (0.00-0.50)
[2017-05-18] MEDS ORDERED: NS 100 ML (IVPB) BAG IV ONE (11:15)
[2017-05-18] MEDS ORDERED: IOHEXOL 350 MG/ML 100 ML (OMNIPAQUE 350) VIAL IV ONE (11:15)
[2017-05-18 11:25] LABS: THYROID STIMULATING HORMONE 2.19 UIU/ML (0.35-4.94)
--- NOTE | 2017-05-18 11:43 | Diagnostic Imaging Report ---
PROCEDURE: CT head with and without contrast. TECHNIQUE: Multiple contiguous axial images were obtained through the brain before and after the administration of intravenous contrast. INDICATION: Left-sided pain and numbness, difficulty swallowing, headache and chills and left hand tingling. 80 mL of Omnipaque 350 administered intravenously. FINDINGS: There is no intracranial hemorrhage, edema, or mass effect. The brain parenchyma and monk-white matter differentiation is preserved. There is no extra-axial fluid collection seen. No enhancing mass is identified. The visualized portions of the paranasal sinuses, orbits and the calvarium appear grossly unremarkable. IMPRESSION: Unremarkable exam. Dictated by: Dictated on workstation # [id number]
--- NOTE | 2017-05-18 11:51 | Diagnostic Imaging Report ---
PROCEDURE: CT cervical spine without contrast. TECHNIQUE: Multiple contiguous axial images were obtained through the cervical spine without the use of intravenous contrast. Sagittal and coronal reformations were then performed. INDICATION: Generalized neck pain. Left-sided pain and numbness. Trouble swallowing. FINDINGS: There is reversal of the lordotic curvature. The alignment of the posterior spinal line however is satisfactory. There is satisfactory alignment at the facet joints. There is no widening of the predental space. The alignment of the lateral masses of C1 and C2 and at the atlantooccipital joints is satisfactory. The vertebral body heights are preserved. There is no significant disc height loss at any level. There are prominent posterior osteophytes seen at C5/6. Anterior osteophytes are also noted. No significant osteophyte formation at other levels is seen. There is suggestion of disc herniations at C3/4, C4/5, and C5/6 levels. There is suggestion of mild to moderate spinal canal stenosis at C5/6 and suggestion of mild spinal canal stenosis at C4/ 5. This is however better assessed with MRI or CT myelogram. The neural foramina appear to be patent. IMPRESSION: Suggestion of spinal canal stenosis from herniated disc at C4/5 and C5/6 with posterior osteophytes component at C5/6 level. It is probably of moderate degree at C5/6 and of mild degree at C4/5. This can be better evaluated with MRI of the cervical spine if needed. Dictated by: Dictated on workstation # [id number]
[2017-05-18 12:08] LABS: BILIRUBIN,URINE NEGATIVE (NEGATIVE); KETONES,URINE NEGATIVE (NEGATIVE); LEUKOCYTE ESTERASE ,URINE NEGATIVE (NEGATIVE); NITRITE,URINE NEGATIVE (NEGATIVE); PH,URINE 6.5 (5-9); PROTEIN,URINE NEGATIVE (NEGATIVE); UROBILINOGEN,URINE NORMAL (NORMAL)
--- NOTE | 2017-05-18 15:32 | Diagnostic Imaging Report ---
CLINICAL INDICATION: Patient in the ER 2 weeks ago and had left-sided pain, numbness, and trouble swallowing. Patient now having headaches, chills, left hand tingling, and right side pain. EXAM: MRI of the cervical spine performed without IV contrast. Sequences include sagittal T1, sagittal T2, sagittal stir, axial T2, and axial gradient echo sequence. COMPARISON: CT scan of the cervical spine dated 05/18/2017. MRI of the cervical spine without contrast dated 07/20/2011. FINDINGS: Compared to the prior MRI, there is progression of straightening of the cervical spine posture. There is no acute cervical spine fracture or dislocation. There is again seen suspected intraosseous hemangioma involving the C7 vertebral body. There is progression of cervical spine degenerative spurs anteriorly. The cervical spinal cord has normal anatomic appearance and cord caliber with no abnormal signal. There is no significant paraspinal soft tissue abnormality. Limited visualization of the posterior fossa is unremarkable. C1-C2: Unremarkable. C2-C3: Unremarkable. C3-C4: Interval development of a small broad posterior disc protrusion/herniation which causes moderate central canal narrowing. There is no significant neuroforaminal narrowing. C4-C5: There is slight progression of the diffuse disc bulge with now mild loss of intervertebral disc height. There is slight increased size of the posterior disc herniation component. There is now moderate central canal narrowing which has progressed. There is moderate left neuroforaminal narrowing which has progressed. C5-C6: There is interval progression of a diffuse disc bulge with mild to moderate loss of intervertebral disc height. There is development of a chronic Schmorl's node involving the inferior L5 endplate. There is now moderate to severe central canal narrowing which has developed in the interim. There is no significant neuroforaminal narrowing. C6-C7: There is interval development of a diffuse disc bulge. There is mild to moderate central canal narrowing which has progressed. There is no significant neuroforaminal narrowing. C7-T1: There is mild progression of left facet arthropathy. Otherwise, this level is unremarkable. IMPRESSION: 1: There is interval development of multilevel cervical spine degenerative disease with progression of diffuse disc bulges and posterior disc herniations. This is described in detail above. 2: There is interval progression of multilevel central canal narrowing which is moderate to severe at the C5-C6 level, moderate at the C3-C4 and C4-C5 levels, and mild to moderate at the C6-C7 level which is related to progression of diffuse disc bulge and posterior disc herniations. 3: There is progression of C4-C5 moderate left neuroforaminal narrowing. Dictated by: Dictated on workstation # [id number]
[2017-05-18] MEDS ORDERED: HYDROcodone/APAP 7.5 MG/325 MG (LORTAB, LORCET PLUS) TABLET PO STA (16:57)
[2017-05-18] MEDS ORDERED: HYDR-3812 PO (17:13)
[2017-05-18 17:19] VITALS: BP 126/64
== END 2017-05-18 17:19 | disposition home or self-care (01) ==
LOC: EDUNIT# 10:05 → ER 10:07
DX: M54.12 Radiculopathy, cervical region (principal); I10 Essential (primary) hypertension; F41.9 Anxiety disorder, unspecified; F32.9 Major depressive disorder, single episode, unspecified; Z87.09 Personal history of other diseases of the respiratory system; Z90.49 Acquired absence of other specified parts of digestive tract; Z87.81 Personal history of (healed) traumatic fracture; Z87.891 Personal history of nicotine dependence; Z82.49 Family history of ischemic heart disease and other diseases of the circulatory system
CPT/HCPCS: 36415; 70470; 72125; 72141; 80053; 81000; 84443; 84703; 85025; 86141; 96361; 96374; 96375; 96376

== ENCOUNTER → 2017-05-26 | Outpatient (CLI) | payer BC ==
[~2017-05-26] MED LIST changes: +HYDR-3812 PO
--- NOTE | 2017-05-27 13:38 | Diagnostic Imaging Report ---
Bilateral screening mammogram 2D views with tomosynthesis. The current study was also evaluated with a Computer Aided Detection (CAD) system. INDICATION: Screening. No current complaints stated on the questionnaire. COMPARISON: 06/26/2010. FINDINGS: The breasts are composed of heterogeneously dense parenchyma which may decrease mammographic sensitivity. There is no mass, architectural distortion or suspicious cluster of calcification. Allowing for technique and positional differences, no suspicious change is seen. IMPRESSION: Dense breasts with no definite change. ACR BI-RADS Category 2: Benign findings. Result letter will be mailed to the patient. Note: At least 10% of breast cancer is not imaged by mammography. Dictated on workstation # [id number]
== END ==
LOC: RAD 13:52
PROVIDERS: ATTEND Internal Medicine
DX: Z12.31 Encounter for screening mammogram for malignant neoplasm of breast (principal)
CPT/HCPCS: 77067

== ENCOUNTER → 2017-05-30 | Outpatient (CLI) | payer BC ==
--- NOTE | 2017-05-30 11:38 | Diagnostic Imaging Report ---
PROCEDURE: MRI lumbar spine. TECHNIQUE: Multiplanar, multisequence MRI of the lumbar spine was performed without contrast. INDICATION: Bilateral arm and leg pain. FINDINGS: There is satisfactory alignment of the lumbar spine at the posterior spinal line. The vertebral body heights are preserved. Disc heights are also preserved. Minimal disc desiccation in the lower lumbar discs is seen. The bone marrow demonstrates no significant abnormality. There is normal appearance of the conus and of the cauda equina. T12-L1: No disc herniation, no spinal canal or foraminal stenosis. L1-L2: No disc herniation. There is mild facet hypertrophy. No central canal, lateral recess, or foraminal stenosis. L2-L3: No disc herniation. There is mild facet hypertrophy. No central canal, lateral recess, or foraminal stenosis. L3-L4: There is minimal disc bulge and mild/ moderate facet hypertrophy. No central canal stenosis. There is minimal bilateral lateral recess stenosis. The foramina demonstrate mild/ moderate stenosis bilaterally. L4-L5: There is mild diffuse disc bulge and an annular tear along the left foraminal aspect of the disc. There is moderate facet hypertrophy. No central canal stenosis. There is bilateral lateral recess stenosis moderate on the left and mild on the right side. The foramina demonstrate moderate stenosis on the left and mild stenosis on the right side. L5-S1: There is no significant disc herniation. There is moderate facet hypertrophy. No central canal stenosis. The lateral recess demonstrates mild/ moderate stenosis on the left and no significant stenosis on the right side. The foramina demonstrates mild stenosis bilaterally. IMPRESSION: There is facet hypertrophy in the mid and lower lumbar spine levels and minimal disc degenerative changes. Moderate lateral recess stenosis on the left at L4-L5 level abutting the descending left L5 nerve root is seen. Other findings as described above. Dictated by: Dictated on workstation # [id number]
--- NOTE | 2017-05-30 11:43 | Diagnostic Imaging Report ---
TECHNIQUE: A multiplanar/multisequence MRI of the thoracic spine was performed without intravenous contrast. INDICATION: Bilateral arm and leg pain. FINDINGS: There is straightening of the thoracic kyphotic curvature which may relate to an element of muscle spasm. The alignment of the posterior spinal line is satisfactory. The AP dimension of the spinal canal is generally around 10 mm which is relatively narrow but does not result in congenital spinal canal stenosis, however. The vertebral bodies have normal height. The discs are also preserved in height. There is mild disc desiccation in the mid thoracic spine, however. At T6-T7, there is a right paracentral disc protrusion with no significant spinal canal stenosis or cord compression, however. The other disc levels demonstrate no significant disc herniation. There is normal caliber, contour, and signal in the spinal cord. The neural foramina appear patent at all levels. The bone marrow demonstrates no suspicious focal lesion or significant marrow edema. Scattered small hemangiomas are seen. The paraspinous soft tissues have normal muscle bulk and signal. IMPRESSION: Right paracentral disc protrusion at the T6-7 level without significant spinal canal stenosis or cord compression seen. No foraminal stenosis is seen at any level. Dictated by: Dictated on workstation # [id number]
== END ==
LOC: RAD 10:01
PROVIDERS: ATTEND Orthopaedic Surgery Orthopaedic Surgery of the Spine
DX: M54.16 Radiculopathy, lumbar region (principal)
CPT/HCPCS: 72146; 72148

== ENCOUNTER 2017-07-14 09:36 | Outpatient (RCR) | payer BC ==
[~2017-07-14 09:36] MED LIST changes: +ACHD5005 PO; -HYDR-3812 PO
== END 2017-08-17 10:07 | disposition home or self-care (01) ==
PROVIDERS: ATTEND Physician Assistant
DX: M48.02 Spinal stenosis, cervical region (principal); M54.12 Radiculopathy, cervical region; M54.16 Radiculopathy, lumbar region

== ENCOUNTER 2017-08-19 05:30 | Outpatient (CLI) | payer BC ==
[~2017-08-19] VITALS: Ht 160 cm; Wt 63.5 kg
[2017-08-19] MEDS ORDERED: VALS1TAB76 PO (15:07)
[2017-08-19] MEDS ORDERED: DESV50TA18 PO (15:07)
[2017-08-19] MEDS ORDERED: ALPR0.5T7 PO (15:07)
[2017-08-19] MEDS ORDERED: ATEN50TA PO (15:07)
[2017-08-19] MEDS ORDERED: BUPR100T15 PO (15:07)
== END 2017-08-19 15:11 ==
LOC: PREOP 05:30
PROVIDERS: ATTEND Internal Medicine
DX: Z01.818 Encounter for other preprocedural examination (principal); K62.5 Hemorrhage of anus and rectum

== ENCOUNTER → 2017-08-26 | Day surgery (SDC) | payer BC ==
--- NOTE | 2017-08-19 06:38 | HISTORY AND PHYSICAL ---
DATE OF SERVICE: COLONOSCOPY HISTORY AND PHYSICAL DATE OF ADMISSION: 08/26/2017 HISTORY OF PRESENT ILLNESS: The patient is a 37-year-old white female who presented to the office on 08/16/2017 reporting burning, especially post-intercourse. This has been going on for the past month. She was concerned that she may have a urinary tract infection. She denies increased frequency, chills or fever. In addition, she has also noted intermittent bright red blood per rectum denying constipation, diarrhea, tenesmus or melena. It has been reportedly small volume on several occasions over the past several weeks. There is a family history of colon cancer and her grandmother diagnosed in her 70s. She has not had period since endometrial ablation, but has noted increasing hot flashes over the last six months. PAST MEDICAL HISTORY: Hypertension for which she takes Diovan HCT 160/25 and atenolol 50 mg daily. She has a history of depression for which she takes Pristiq 100 mg daily. FAMILY HISTORY: Also pertinent for breast cancer in her mother and for this reason she just as soon avoid oral estrogen therapy. SOCIAL HISTORY: She has no past smoking history and no significant alcohol intake. 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 PHYSICAL EXAMINATION: GENERAL: Reveals normal weight white female who does not appear to be in acute distress. VITAL SIGNS: Blood pressure 122/92 at the beginning of the interview, 116/84 at the end of the interview. CHEST: Clear. CARDIOVASCULAR: Regular rate and rhythm without murmur, S3 or S4. ABDOMEN: Soft, supple without mass, organomegaly or tenderness. EXTREMITIES: Reveal no cyanosis, clubbing or edema. HEENT: Oral cavity reveals Mallampati class 2 oropharyngeal configuration without evidence for erythema or exudate. UA: Dipstick revealed no abnormalities. Microscopic evaluation revealed 5 to 10 epithelial cells with no white cells, red cells, bacteria or cast. ASSESSMENT AND PLAN: 1. Likely atrophic vaginitis with borderline early ovarian failure. Estradiol vaginal tablets will be initiated. Expectations were discussed. 2. Bright red blood per rectum with the family history of colon cancer as well as breast cancer. The patient was set up for diagnostic colonoscopy on 08/26/2017. Prep instructions were given and questions were answered. Job ID: [id number] DocumentID: [id number] Dictated Date: 08/16/2017 18:25:46 Surgical Dressing Maker Date: 08/16/2017 19:13:23 Dictated By: TAYLOR WRIGHT MD
[~2017-08-26] VITALS: Ht 160 cm; Wt 63.5 kg
[~2017-08-26] MED LIST changes: +1/2 NS IV SOLUTION 1,000 ML IV PRN; +ALPR0.5T7 PO; +ATEN50TA PO; +BUPR100T15 PO; +DESV50TA18 PO; +LIDOCAINE JELLY 2% (XYLOCAINE) 5 ML TUBE MM PRN; +LIDOCAINE JELLY 2% (XYLOCAINE) 5 ML TUBE ONE; +MIDAZOLAM 2 MG/2 ML (VERSED) VIAL ONE; +VALS1TAB76 PO; +fentaNYL INJECTION 100 MCG/2 ML AMP ONE
[2017-08-26 08:00] VITALS: BP 131/89
--- NOTE | 2017-08-26 08:39 | Pre-Op Note & Conscious Sedat ---
Pre-Operative Progress Note H&P Reviewed The H&P was reviewed, patient examined and no changes noted. Date H&P Reviewed: Aug 26, 2017 Time H&P Reviewed: 08:38 Conscious Sedation Pre-Proced ASA Class: 2 Airway Mallampati Classification: ([place] appropriate class) I. II. III, IV Lungs Heart ASA score ASA 1: a normal healthy patient ASA 2: a patient with a mild systemic disease (mid diabetes, controlled hypertension, obesity ASA 3: a patient with a severe systemic disease that limits activity (angina , COPD, prior Myocardial infarction) ASA 4: a patient with an incapacitating disease that is a constant threat to life (CHF, renal failure) ASA 5: a moribund patient not expected to survive 24 hrs. (ruptured aneurysm) ASA 6: a declared brain patient whose organs are being harvested. For emergent operations, add the letter E after the classification Grade 2 Sedation Plan: Analgesia, Amnesia, Plan communicated to team members, Discussed options with patient/fam, Discussed risks with patient/fam Note The patient is an appropriate candidate to undergo the planned procedure, sedation, and anesthesia. The patient immediately re-assessed prior to indication. TAYLOR WRIGHT MD Aug 26, 2017 08:39
[2017-08-26] MEDS: fentaNYL INJECTION 100 MCG/2 ML AMP IVP PRN ×4 (09:25→09:43)
[2017-08-26] MEDS: MIDAZOLAM 2 MG/2 ML (VERSED) VIAL IVP PRN ×2 (09:30→09:32)
[2017-08-26 10:20] VITALS: BP 125/80
[2017-08-26 10:50] VITALS: BP 123/83
[2017-08-26 11:07] VITALS: BP 123/83
--- NOTE | 2017-08-26 17:26 | OPERATIVE REPORT ---
DATE OF SERVICE: COLONOSCOPY SUMMARY INDICATION FOR THE PROCEDURE: Bright red blood per rectum. FAMILY HISTORY: Colon cancer. The patient was placed in the left lateral decubitus position. Prior to undergoing colonoscopy, digital rectal evaluation was performed. Anal sphincter tone was normal and the perianal reflex was intact. No abnormalities, no additional inspection of the anal canal or distal rectal vault. The colonoscope was then inserted into the rectum and under direct visualization advanced to the cecum. The cecum was identified by identification of the ileocecal valve cecal strap. Photographic documentation of the appendiceal orifice was obtained. Careful inspection was made as the colonoscope was withdrawn. The patient did have an irritable bowel type response to air insufflation and colonic manipulation. FINDINGS: There was no evidence for internal or external hemorrhoids and the rectum, sigmoid colon, descending colon, transverse colon, ascending colon and cecum were normal. ASSESSMENT: Normal colonoscopy to the cecum. The patient had also had exposure to pinworms. There was no evidence for pinworms on careful inspection of the rectum and anal canal. She was reassured by today's findings. Job ID: [id number] DocumentID: [id number] Dictated Date: 08/26/2017 10:10:55 Metal Caster Date: 08/26/2017 17:26:07 Dictated By: TAYLOR WRIGHT MD
== END | disposition home or self-care (01) ==
LOC: ENDO 07:56
PROVIDERS: ATTEND Internal Medicine
DX: K62.5 Hemorrhage of anus and rectum (principal); Z80.0 Family history of malignant neoplasm of digestive organs; Z20.7 Contact with and (suspected) exposure to pediculosis, acariasis and other infestations; I10 Essential (primary) hypertension; F32.9 Major depressive disorder, single episode, unspecified; Z79.899 Other long term (current) drug therapy
CPT/HCPCS: 84703

== ENCOUNTER 2017-10-29 13:02 | Emergency (ER) | payer BC ==
[~2017-10-29] VITALS: Ht 160 cm; Wt 67.6 kg
[~2017-10-29 13:02] MED LIST changes: -1/2 NS IV SOLUTION 1,000 ML IV PRN; -LIDOCAINE JELLY 2% (XYLOCAINE) 5 ML TUBE MM PRN; -LIDOCAINE JELLY 2% (XYLOCAINE) 5 ML TUBE ONE; -MIDAZOLAM 2 MG/2 ML (VERSED) VIAL ONE; -fentaNYL INJECTION 100 MCG/2 ML AMP ONE
--- OUTSIDE RECORDS SUMMARY | 2017-10-29 13:08 | XMS REPORT | Continuity of Care Document ---
Demographics Preferred Language Unknown Marital Status Unknown Voodoo Affiliation Unknown Race Unknown Ethnic Group Unknown Author Author [facility] Address Unknown Phone Unavailable Allergies Active Description Code Type Severity Reaction Onset Reported/Identified Relationship to Patient Clinical Status Yes erythromycin base [id number] Drug Allergy Unknown N/A 10/25/2006 Yes Penicillins [id number] Drug Allergy Unknown N/A 10/25/2006 Yes prochlorperazine [id number] Drug Allergy Unknown N/A 10/25/2006 Medications There is no data. Problems Date Dx Coded Attending Type Code Diagnosis Diagnosed By 07/14/1006 HELENA NAVARRO Ot M48.02 SPINAL STENOSIS, CERVICAL REGION 07/14/1006 HELENA NAVARRO Ot M54.12 RADICULOPATHY, CERVICAL REGION 07/14/1006 HELENA NAVARRO Ot M54.16 RADICULOPATHY, LUMBAR REGION 08/02/2010 Ot 708.9 URTICARIA NOS 07/18/2012 V04.81 [...] 06/27/2015 TAYLOR WRIGHT MD Ot 784.0 06/27/2015 KYLE CONLEY, TAYLOR Vasquez Ot 780.60 06/27/2015 KYLE CONLEY, TAYLOR Vasquez Ot 789.09 06/27/2015 LEONEL CONLEY, SARA Vasquez [...] KYLE CONLEY, TAYLOR Vasquez Ot 780.60 10/24/2015 KYLE CONLEY, TAYLOR Vasquez Ot 789.09 10/24/2015 CASTILLO CONLEY, MOHIT Stevens Ot I10 10/24/2015 CASTILLO CONLEY, MOHIT Stevens Ot R07.9 12/01/2015 Ot V16.3 FAMILY HX- BREAST MALIG 12/01/2015 Ot V76.12 OTH SCREEN MAMMO-MALIGN NEOPLASM OF AGUSTIN 12/01/2015 Ot 611.71 MASTODYNIA 12/01/2015 Ot V16.3 FAMILY HX- BREAST MALIG 12/01/2015 Ot 255.9 ADRENAL DISORDER N0S 12/01/2015 Ot 592.0 CALCULUS OF KIDNEY 12/01/2015 Ot 719.41 JOINT PAIN- SHLDER 12/01/2015 Ot 722.4 CERVICAL DISC DEGEN 12/01/2015 Ot 719.41 JOINT PAIN- SHLDER 12/01/2015 Ot 723.1 CERVICALGIA 12/01/2015 TAYLOR WRIGHT [...] CALCULUS OF KIDNEY 02/02/2016 Ot 719.41 JOINT PAIN- SHLDER 02/02/2016 Ot 722.4 CERVICAL DISC DEGEN 02/02/2016 Ot 719.41 JOINT PAIN- SHLDER 02/02/2016 Ot 723.1 CERVICALGIA 02/02/2016 TAYLOR WRIGHT MD Ot 784.0 HEADACHE 02/02/2016 TAYLOR WRIGHT MD Ot 780.60 FEVER, UNSPECIFIED 02/02/2016 TAYLOR WRIGHT MD Ot 789.09 ABDOMINAL PAIN, OTHER SPECIFIED SITE 02/02/2016 MOHIT CHONG MD Ot I10 ESSENTIAL (PRIMARY) HYPERTENSION 02/02/2016 MOHIT CHONG MD Ot R07.9 CHEST PAIN, UNSPECIFIED 05/18/2016 Ot 719.41 JOINT PAIN- SHLDER 05/18/2016 Ot 722.4 CERVICAL DISC DEGEN 05/18/2016 Ot 719.41 JOINT PAIN- SHLDER 05/18/2016 Ot 723.1 CERVICALGIA 05/18/2016 TAYLOR WRIGHT MD Ot 784.0 HEADACHE 05/18/2016 TAYLOR WRIGHT MD Ot 780.60 FEVER, UNSPECIFIED 05/18/2016 TAYLOR WRIGHT MD Ot 789.09 ABDOMINAL PAIN, OTHER SPECIFIED SITE 05/18/2016 MOHIT CHONG MD Ot I10 ESSENTIAL (PRIMARY) HYPERTENSION 05/18/2016 CASTILLO CONLEY, MOHIT Stevens Ot R07.9 CHEST PAIN, UNSPECIFIED 05/20/2016 SHRAVAN [...] EXTERNAL CAUSE STATUS 10/19/2016 Ot 719.41 JOINT PAIN- SHLDER 10/19/2016 Ot 722.4 CERVICAL DISC DEGEN 10/19/2016 Ot 719.41 JOINT PAIN- SHLDER 10/19/2016 Ot 723.1 CERVICALGIA 10/19/2016 KYLE CONLEY, [...] EXTERNAL CAUSE STATUS 10/19/2016 Ot 719.41 JOINT PAIN- SHLDER 10/19/2016 Ot 722.4 CERVICAL DISC DEGEN 10/19/2016 Ot 719.41 JOINT PAIN- SHLDER 10/19/2016 Ot 723.1 CERVICALGIA 10/19/2016 TAYLOR WRIGHT MD Ot 784.0 HEADACHE 10/19/2016 TAYLOR WRIGHT MD Ot 780.60 FEVER, UNSPECIFIED 10/19/2016 TAYLOR WRIGHT [...] Ot Y99.8 OTHER EXTERNAL CAUSE STATUS 11/13/2016 MICHEL HOFFMANNP Ot J02.8 ACUTE PHARYNGITIS DUE TO OTHER SPECIFIED 11/13/2016 MICHEL HOFFMANNP Ot J02.9 ACUTE PHARYNGITIS, UNSPECIFIED 11/13/2016 Ot 719.41 JOINT PAIN- SHLDER 11/13/2016 Ot 722.4 CERVICAL DISC DEGEN 11/13/2016 Ot 719.41 JOINT PAIN- SHLDER 11/13/2016 Ot 723.1 CERVICALGIA 11/13/2016 KYLE CONLEY, TAYLOR Vasquez Ot 784.0 HEADACHE 11/13/2016 TAYLOR WRIGHT MD Ot 780.60 FEVER, UNSPECIFIED 11/13/2016 TAYLOR WRIGHT MD Ot 789.09 ABDOMINAL PAIN, OTHER SPECIFIED SITE 11/13/2016 MOHIT CHONG MD Ot I10 ESSENTIAL (PRIMARY) HYPERTENSION 11/13/2016 CASTILLO MD, BASHAR J Ot R07.9 CHEST PAIN, UNSPECIFIED 11/13/2016 SHRAVAN [...] Q Ot Y99.8 OTHER EXTERNAL CAUSE STATUS 02/01/2017 KYLE CONLEY, TAYLOR Vasquez Ot 784.0 HEADACHE 02/01/2017 KYLE CONLEY, TAYLOR Vasquez Ot 780.60 FEVER, UNSPECIFIED 02/01/2017 TAYLOR WRIGHT MD Ot 789.09 ABDOMINAL PAIN, OTHER SPECIFIED SITE 02/01/2017 MOHIT CHONG MD, Ot I10 ESSENTIAL (PRIMARY) HYPERTENSION 02/01/2017 MOHIT CHONG MD, Ot R07.9 CHEST PAIN, UNSPECIFIED 02/01/2017 SHRAVAN DPM, JENI Q Ot S92.354A NONDISP FX OF FIFTH METATARSAL BONE, RIG 02/01/2017 SHRAVAN DPM, JENI Q Ot S93.401A SPRAIN OF UNSPECIFIED LIGAMENT OF RIGHT 02/01/2017 SHRAVAN DPM, JENI Q Ot W19.XXXA UNSPECIFIED FALL, INITIAL ENCOUNTER 02/01/2017 SHRAVAN DPM, JENI Q Ot Y92.[address] 02/01/2017 SHRAVAN DPM, JENI Q Ot Y99.8 OTHER EXTERNAL CAUSE STATUS 02/01/2017 KYLE CONLEY, TAYLOR Vasquez Ot 784.0 HEADACHE 02/01/2017 TAYLOR WRIGHT MD Ot 780.60 FEVER, UNSPECIFIED 02/01/2017 TAYLOR WRIGHT MD Ot 789.09 ABDOMINAL PAIN, OTHER SPECIFIED SITE 02/01/2017 MOHIT CHONG MD, Ot I10 ESSENTIAL (PRIMARY) HYPERTENSION 02/01/2017 MOHIT CHONG MD Ot R07.9 CHEST PAIN, UNSPECIFIED 02/01/2017 SHRAVAN DPM, JENI Q Ot S92.354A NONDISP FX OF FIFTH METATARSAL BONE, RIG 02/01/2017 SHRAVAN DPM, JENI Q Ot S93.401A SPRAIN OF UNSPECIFIED LIGAMENT OF RIGHT 02/01/2017 SHRAVAN DPM, JENI Q Ot W19.XXXA UNSPECIFIED FALL, INITIAL ENCOUNTER 02/01/2017 SHRAVAN DPM, JENI Q Ot Y92.[address] 02/01/2017 SHRAVAN DPM, JENI Q Ot Y99.8 OTHER EXTERNAL CAUSE STATUS 05/18/2017 KYLE CONLEY, TAYLOR Vasquez Ot 784.0 HEADACHE 05/18/2017 TAYLOR WRIGHT MD Ot 780.60 FEVER, UNSPECIFIED 05/18/2017 TAYLOR WRIGHT MD Ot 789.09 ABDOMINAL PAIN, OTHER SPECIFIED SITE 05/18/2017 MOHIT CHONG MD Ot I10 ESSENTIAL (PRIMARY) HYPERTENSION 05/18/2017 MOHIT CHONG MD Ot R07.9 CHEST PAIN, UNSPECIFIED 05/18/2017 SHRAVAN DPM, JENI Q Ot S92.354A NONDISP FX OF FIFTH METATARSAL BONE, RIG 05/18/2017 SHRAVAN DPM, JENI Q Ot S93.401A SPRAIN OF UNSPECIFIED LIGAMENT OF RIGHT 05/18/2017 SHRAVAN DPM, JENI Q Ot W19.XXXA UNSPECIFIED FALL, INITIAL ENCOUNTER 05/18/2017 SHRAVAN DPM, JENI Q Ot Y92.[address] 05/18/2017 SHRAVAN DPM, JENI Q Ot Y99.8 OTHER EXTERNAL CAUSE STATUS 05/18/2017 SARA CASTANEDA MD Ot F32.9 MAJOR DEPRESSIVE DISORDER, SINGLE EPISOD 05/18/2017 SARA CASTANEDA MD, Ot F41.9 ANXIETY DISORDER, UNSPECIFIED 05/18/2017 SARA CASTANEDA MD Ot I10 ESSENTIAL (PRIMARY) HYPERTENSION 05/18/2017 SARA CASTANEDA MD Ot M54.12 RADICULOPATHY, CERVICAL REGION 05/18/2017 SARA CASTANEDA MD Ot R20.0 ANESTHESIA OF SKIN 05/18/2017 SARA CASTANEDA MD Ot Z82.49 FAMILY HX OF ISCHEM HEART DIS AND OTH DI 05/18/2017 SARA CASTANEDA MD, Ot Z87.09 PERSONAL HISTORY OF OTHER DISEASES OF TH 05/18/2017 SARA CASTANEDA MD, Ot Z87.81 PERSONAL HISTORY OF (HEALED) TRAUMATIC F 05/18/2017 SARA CASTANEDA MD Ot Z87.891 PERSONAL HISTORY OF NICOTINE DEPENDENCE 05/18/2017 SARA CASTANEDA MD Ot Z90.49 ACQUIRED ABSENCE OF OTHER SPECIFIED PART 05/20/2017 SARA CASTANEDA MD Ot F32.9 MAJOR DEPRESSIVE DISORDER, SINGLE EPISOD 05/20/2017 SARA CASTANEDA MD, Ot F41.9 ANXIETY DISORDER, UNSPECIFIED 05/20/2017 SARA CASTANEDA MD Ot I10 ESSENTIAL (PRIMARY) HYPERTENSION 05/20/2017 SARA CASTANEDA MD Ot M54.12 RADICULOPATHY, CERVICAL REGION 05/20/2017 SARA CASTANEDA MD Ot R20.0 ANESTHESIA OF SKIN 05/20/2017 SARA CASTANEDA MD Ot Z82.49 FAMILY HX OF ISCHEM HEART DIS AND OTH DI 05/20/2017 SARA CASTANEDA MD Ot Z87.09 PERSONAL HISTORY OF OTHER DISEASES OF TH 05/20/2017 SARA CASTANEDA MD Ot Z87.81 PERSONAL HISTORY OF (HEALED) TRAUMATIC F 05/20/2017 SARA CASTANEDA MD Ot Z87.891 PERSONAL HISTORY OF NICOTINE DEPENDENCE 05/20/2017 SARA CASTANEDA MD Ot Z90.49 ACQUIRED ABSENCE OF OTHER SPECIFIED PART 05/30/2017 RENAY KUMARI MD Ot M54.16 RADICULOPATHY, LUMBAR REGION 06/09/2017 TAYLOR WRIGHT MD Ot Z12.31 ENCNTR SCREEN MAMMOGRAM FOR MALIGNANT NE 06/09/2017 RENAY KUMARI MD Ot M54.16 RADICULOPATHY, LUMBAR REGION 06/13/2017 HELENA ANVARRO Ot M48.02 SPINAL STENOSIS, CERVICAL REGION 06/13/2017 HELENA NAVARRO Ot M54.12 RADICULOPATHY, CERVICAL REGION 06/13/2017 HELENA NAVARRO Ot M54.16 RADICULOPATHY, LUMBAR REGION 07/06/2017 HELENA NAVARRO Ot M48.02 SPINAL STENOSIS, CERVICAL REGION 07/06/2017 HELENA NAVARRO Ot M54.12 RADICULOPATHY, CERVICAL REGION 07/06/2017 HELENA NAVARRO Ot M54.16 RADICULOPATHY, LUMBAR REGION 08/30/2017 TAYLOR WRIGHT MD Ot F32.9 MAJOR DEPRESSIVE DISORDER, SINGLE EPISOD 08/30/2017 TAYLOR WRIGHT MD Ot I10 ESSENTIAL (PRIMARY) HYPERTENSION 08/30/2017 TAYLOR WRIGHT MD Ot K62.5 HEMORRHAGE OF ANUS AND RECTUM 08/30/2017 TAYLOR WRIGHT MD Ot Z20.7 CNTCT W EXPSR TO PEDICULOSIS, ACARIASI 08/30/2017 TAYLOR WRIGHT MD Ot Z79.899 OTHER SENIOR CARE (CURRENT) DRUG THERAPY 08/30/2017 TAYLOR WRIGHT MD Ot Z80.0 FAMILY HISTORY OF MALIGNANT NEOPLASM OF 09/01/2017 TAYLOR WRIGHT MD Ot F32.9 MAJOR DEPRESSIVE DISORDER, SINGLE EPISOD 09/01/2017 TAYLOR WRIGHT MD Ot I10 ESSENTIAL (PRIMARY) HYPERTENSION 09/01/2017 TAYLOR WRIGHT MD Ot K62.5 HEMORRHAGE OF ANUS AND RECTUM 09/01/2017 TAYLOR WRIGHT MD Ot Z20.7 CNTCT W EXPSR TO PEDICULOSIS, ACARIASI 09/01/2017 TAYLOR WRIGHT MD Ot Z79.899 OTHER SENIOR CARE (CURRENT) DRUG THERAPY 09/01/2017 TAYLOR WRIGHT MD Ot Z80.0 FAMILY HISTORY OF MALIGNANT NEOPLASM OF 09/07/2017 TAYLOR WRIGHT MD Ot F32.9 MAJOR DEPRESSIVE DISORDER, SINGLE EPISOD 09/07/2017 TAYLOR WRIGHT MD Ot I10 ESSENTIAL (PRIMARY) HYPERTENSION 09/07/2017 TAYLOR WRIGHT MD Ot K62.5 HEMORRHAGE OF ANUS AND RECTUM 09/07/2017 TAYLOR WRIGHT MD Ot Z20.7 CNTCT W EXPSR TO PEDICULOSIS, ACARIASI 09/07/2017 TAYLOR WRIGHT MD Ot 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 Results Test Result Range Urine beta human chorionic gonadotropin (hCG) measurement - 05/20/16 09:20 Urine beta human chorionic gonadotropin (hCG) measurement NEGATIVE NEGATIVE Methicillin resistant Staphylococcus aureus (MRSA) screening culture - 10/06/ 16 09:20 Methicillin resistant Staphylococcus aureus (MRSA) screening culture NEG NR Streptococcus pyogenes antigen detection - 11/13/16 20:17 Streptococcus pyogenes antigen detection NEGATIVE NEGATIVE Bacterial throat culture - 11/13/16 20:17 Bacterial throat culture [facility] Complete blood count (CBC) with automated white blood cell (WBC) differential - 11/13/16 20:33 Blood leukocytes automated count (number/volume) 6.5 10*3/uL 4.3-11.0 Blood erythrocytes automated count (number/volume) 4.29 10*6/uL 4.35-5.85 Venous blood hemoglobin measurement (mass/volume) 13.2 [...] Automated blood platelet mean volume measurement 9.2 [foz_us] 7.4-10.4 Automated blood neutrophils/100 leukocytes 45 % [...] 20:33 Serum heterophile antibody titer NEGATIVE NEGATIVE Complete blood count (CBC) with automated white blood cell (WBC) differential - 05/18/17 10:30 Blood leukocytes automated count (number/volume) 7.2 10*3/uL 4.3-11.0 Blood erythrocytes automated count (number/volume) 4.38 10*6/uL 4.35-5.85 Venous blood hemoglobin measurement (mass/volume) 13.3 g/dL 11.5-16.0 Blood hematocrit (volume fraction) 39 % 35-52 Automated erythrocyte mean corpuscular volume 89 [foz_us] 80-99 Automated erythrocyte mean corpuscular hemoglobin (mass per erythrocyte) 30 pg 25-34 Automated erythrocyte mean corpuscular hemoglobin concentration measurement ( mass/volume) 34 g/dL 32-36 Automated erythrocyte distribution width ratio 12.5 % 10.0-14.5 Automated blood platelet count (count/volume) 277 10*3/uL 130-400 Automated blood platelet mean volume measurement 9.4 [foz_us] 7.4-10.4 Automated blood neutrophils/100 leukocytes 71 % 42-75 Automated blood lymphocytes/100 leukocytes 23 % 12-44 Blood monocytes/100 leukocytes 4 % 0-12 Automated blood eosinophils/100 leukocytes 1 % 0-10 Automated blood basophils/100 leukocytes 0 % 0-10 Blood neutrophils automated count (number/volume) 5.1 10*3 1.8-7.8 Blood lymphocytes automated count (number/volume) 1.7 10*3 1.0-4.0 Blood monocytes automated count (number/volume) 0.3 10*3 0.0-1.0 Automated eosinophil count 0.1 10*3/uL 0.0-0.3 Automated blood basophil count (count/volume) 0.0 10*3/uL 0.0-0.1 Comprehensive metabolic panel - 05/18/17 10:30 Serum or plasma sodium measurement (moles/volume) 138 mmol/L 135-145 Serum or plasma potassium measurement (moles/volume) 3.6 mmol/L 3.6-5.0 Serum or plasma chloride measurement (moles/volume) 101 mmol/L 98-107 Carbon dioxide 27 mmol/L 21-32 Serum or plasma anion gap determination (moles/volume) 10 mmol/L 5-14 Serum or plasma urea nitrogen measurement (mass/volume) 18 mg/dL 7-18 Serum or plasma creatinine measurement (mass/volume) 0.80 mg/dL 0.60-1.30 Serum or plasma urea nitrogen/creatinine mass ratio 23 NRG Serum or plasma creatinine measurement with calculation of estimated glomerular filtration rate > NRG Serum or plasma glucose measurement (mass/volume) 98 mg/dL 70-105 Serum or plasma calcium measurement (mass/volume) 9.5 mg/dL 8.5-10.1 Serum or plasma total bilirubin measurement (mass/volume) 0.5 mg/dL 0.1-1.0 Serum or plasma alkaline phosphatase measurement (enzymatic activity/volume) 44 U/L 40-136 Serum or plasma aspartate aminotransferase measurement (enzymatic activity/ volume) 24 U/L 5-34 Serum or plasma alanine aminotransferase measurement (enzymatic activity/volume ) 31 U/L 0-55 Serum or plasma protein measurement (mass/volume) 7.3 g/dL 6.4-8.2 Serum or plasma albumin measurement (mass/volume) 4.3 g/dL 3.2-4.5 THYROID STIMULATING HORMONE - 05/18/17 10:30 THYROID STIMULATING HORMONE 2.19 u[iU]/mL 0.35-4.94 Serum or plasma C reactive protein measurement (mass/volume) - 05/18/17 10:30 Serum or plasma C reactive protein measurement (mass/volume) 0.09 mg /dL 0.00-0.50 Complete urinalysis with reflex to culture - 05/18/17 10:35 Urine color determination YELLOW NRG Urine clarity determination CLEAR NRG Urine pH measurement by test strip 6.5 5-9 Specific gravity of urine by test strip 1.010 1.016- 1.022 Urine protein assay by test strip, semi-quantitative NEGATIVE NEGATIVE Urine glucose detection by automated test strip NEGATIVE NEGATIVE Erythrocytes detection in urine sediment by light microscopy NEGATIVE NEGATIVE Urine ketones detection by automated test strip NEGATIVE NEGATIVE Urine nitrite detection by test strip NEGATIVE NEGATIVE Urine total bilirubin detection by test strip NEGATIVE NEGATIVE Urine urobilinogen measurement by automated test strip (mass/volume) NORMAL NORMAL Urine leukocyte esterase detection by dipstick NEGATIVE NEGATIVE Automated urine sediment erythrocyte count by microscopy (number/high power field) NONE NRG Automated urine sediment leukocyte count by microscopy (number/high power field ) NONE NRG Bacteria detection in urine sediment by light microscopy FEW NRG Squamous epithelial cells detection in urine sediment by light microscopy 5-10 NRG Crystals detection in urine sediment by light microscopy NONE NRG Casts detection in urine sediment by light microscopy NONE NRG Mucus detection in urine sediment by light microscopy NEGATIVE NRG Complete urinalysis with reflex to culture NO NRG Urine beta human chorionic gonadotropin (hCG) measurement - 08/26/17 08:07 Urine beta human chorionic gonadotropin (hCG) measurement NEGATIVE NEGATIVE Encounters ACCT No. Visit Date/Time Discharge Status Pt. Type Provider Facility Loc./Unit Complaint [id number] 07/18/2012 16:04:00 07/18/2012 23:59:59 CLS Outpatient [id number] 08/26/2017 07:56:00 08/26/2017 23:59:59 CLS Outpatient TAYLOR WRIGHT MD [facility] ENDO RECTAL BLEEDING [id number] 08/19/2017 05:30:00 08/19/2017 15:11:00 DIS Outpatient TAYLOR WRIGHT MD [facility] PREOP COLONOSCOPY [id number] 07/14/2017 09:36:00 08/17/2017 10:07:00 DIS Outpatient HELENA NAVARRO [facility] REHAB CERV STENOSIS W RADICULOPATHY;LUMBAGO;LUMBAR RADIC [id number] 05/30/2017 10:01:00 05/30/2017 23:59:59 CLS Outpatient RENAY KUMARI MD [facility] RAD LUMBAGO [id number] 05/26/2017 13:52:00 05/26/2017 23:59:59 CLS Outpatient TAYLOR WRIGHT MD [facility] RAD SCREENING [id number] 05/18/2017 10:07:00 05/18/2017 17:19:00 DIS Emergency SARA CASTANEDA MD [facility] ER GENERALIZED PAIN AND NUMBNESS [id number] 11/13/2016 19:55:00 11/13/2016 21:31:00 DIS Emergency MICHEL HOFFMANN [facility] ER THROAT PAIN, HEADACHE, CONGESTION [id number] 05/21/2016 11:24:00 05/21/2016 17:15:00 DIS Outpatient SHRAVAN DPM JENI Q [facility] SDC RIGHT 5TH METATARSAL FRACTURE [id number] 05/20/2016 08:55:00 05/20/2016 09:30:00 DIS Outpatient SHRAVAN DPM JENI Q [facility] PREOP RIGHT 5TH METATARSAL FRACTURE [id number] 05/17/2016 15:56:00 05/17/2016 23:59:59 CLS Outpatient SHRAVAN DPM, JENI Q [facility] RAD ANKLE SPRAIN [id number] 07/16/2015 08:22:00 07/16/2015 23:59:59 CLS Outpatient CASTILLO CONLEY, MOHIT Stevens [facility] CARD HTN [id number] 06/27/2015 06:12:00 06/27/2015 07:45:00 DIS Emergency SARA CASTANEDA MD [facility] ER CHEST PAIN [id number] 02/03/2015 12:48:00 02/03/2015 23:59:59 CLS Outpatient TAYLOR WRIGHT MD [facility] LAB PLANK PAIN WITH FEVER [id number] 05/20/2014 16:00:00 05/20/2014 23:59:59 CLS Outpatient TAYLOR WRIGHT MD [facility] RAD SUDDEN ONSET SEVERE LEFT HEADACHE [id number] 04/02/2013 09:09:00 04/02/2013 13:16:00 DIS Emergency JOHN CONLEY, QUITA Santos [facility] ER CHEST PAIN [id number] 07/20/2011 12:37:00 Document Registration [id number] 07/19/2011 10:09:00 Document Registration [id number] 10/29/2010 12:14:00 Document Registration [id number] 08/05/2010 10:55:00 Document Registration [id number] 08/02/2010 09:06:00 Document Registration [id number] 06/26/2010 11:05:00 Document Registration
[2017-10-29] MEDS ORDERED: PRD20T PO (13:23)
[2017-10-29] MEDS ORDERED: HYDR-757 PO (13:23)
--- NOTE | 2017-10-29 13:24 | ED General ---
General Stated Complaint: NECK PAIN/SPASMS Source of Information: Patient Exam Limitations: No Limitations History of Present Illness Date Seen by Provider: Oct 29, 2017 Time Seen by Provider: 13:19 Initial Comments To ER with neck spasms and tightness for about 2-3 days. Pain is worse with any palpation of the neck or turning of the head. She has a history of cervical radiculopathy, she has completed physical therapy here at [facility] for this, she has seen Dr. Recio at [facility] and was told this was nonsurgical at this point. She does occasionally have flareups of pain like this. This pain occasionally radiates down both upper arms. No loss of bowel or bladder control. Timing/Duration: 2-3 Days Severity: Moderate Allergies and Home Medications Allergies Coded Allergies: Penicillins (Verified Allergy, Unknown, 10/25/06) erythromycin base (Verified Allergy, Unknown, 10/25/06) prochlorperazine (Verified Allergy, Unknown, 10/25/06) Home Medications Alprazolam 0.5 Mg Tablet, 0.5 MG PO BID PRN for ANXIETY, (Reported) Atenolol 50 Mg Tablet, 100 MG PO DAILY, (Reported) take 2 (50mg) tabs Bupropion HCl 100 Mg Tablet, 200 MG PO DAILY, (Reported) take 2 (100mg) tab Desvenlafaxine Succinate 50 Mg Tab.er.24h, 50 MG PO DAILY, (Reported) Valsartan/Hydrochlorothiazide 1 Each Tablet, 1 EACH PO DAILY, (Reported) Patient Home Medication List Home Medication List Reviewed: Yes Constitutional: see HPI EENTM: see HPI Respiratory: no symptoms reported Cardiovascular: no symptoms reported Genitourinary: no symptoms reported Musculoskeletal: see HPI, neck pain Skin: no symptoms reported Psychiatric/Neurological: No Symptoms Reported Past Scgzaeq-Axrzij-Ewfhci Hx Patient Social History Alcohol Beverage of Choice: Beer Former Smoker, Quit: May 20, 2006 Recent Foreign Travel: No Contact w/Someone Who Travel: No Recent Hopitalizations: No Immunizations Up To Date Tetanus Booster (TDap): More than 5yrs PED Vaccines UTD: No Date of Influenza Vaccine: May 19, 2017 Seasonal Allergies Seasonal Allergies: No Surgeries History of Surgeries: Yes Surgeries: Appendectomy Respiratory History of Respiratory Disorde: Yes Currently Using CPAP: No Currently Using BIPAP: No Cardiovascular History of Cardiac Disorders: Yes Cardiac Disorders: Hypertension Neurological History of Neurological Disord: No Reproductive System Hx Reproductive Disorders: No Sexually Transmitted Disease: No HIV/AIDS: No Female Reproductive Disorders: Denies Gastrointestinal History of Gastrointestinal Di: No Musculoskeletal History of Musculoskeletal Dis: Yes Musculoskeletal Disorders: Fractures Endocrine History of Endocrine Disorders: No HEENT History of HEENT Disorders: No Cancer History of Cancer: No Psychosocial History of Psychiatric Problem: Yes Behavioral Health Disorders: Anxiety, Depression Integumentary History of Skin or Integumenta: No Blood Transfusions History of Blood Disorders: No Family Medical History Significant Family History: Heart Disease, CAD Over 55 Years Old, Hypertension Physical Exam Vital Signs Capillary Refill : General Appearance: No Apparent Distress, WD/WN Eyes: Bilateral Eye Normal Inspection, Bilateral Eye PERRL, Bilateral Eye EOMI HEENT: PERRL/EOMI Neck: Limited Range of Motion, Tender Lateral Respiratory: Normal Breath Sounds, No Accessory Muscle Use, No Respiratory Distress Cardiovascular: Regular Rate, Rhythm, Normal Peripheral Pulses Gastrointestinal: Normal Bowel Sounds, Non Tender, Soft Extremity: Normal Capillary Refill, Normal Inspection Neurologic/Psychiatric: Alert, Oriented x3, No Motor/Sensory Deficits Skin: Normal Color, Warm/Dry Progress/Results/Core Measures Suspected Sepsis SIRS Temperature: Pulse: Respiratory Rate: Blood Pressure / Mean: Results/Orders My Orders Orders - JAREK BIRD APRN Ketorolac Injection (Toradol Injection) (10/29/17 13:30) Orphenadrine Injection (Norflex Injectio (10/29/17 13:30) Vital Signs/I&O Capillary Refill : Departure Impression Impression: Primary Impression: Torticollis, acute Disposition: 01 HOME, SELF-CARE Condition: Stable Departure-Patient Inst. Decision time for Depature: 13:21 Referrals: TAYLOR WRIGHT MD (PCP) Primary Care Physician Patient Instructions: Torticollis, Adult Add. Discharge Instructions: 1. Return to ER for any worsening 2. Follow-up with your doctor on Tuesday 3. Warm compresses to her neck as tolerated. Scripts Hydrocodone/Acetaminophen (Corona 5-325 Tablet) 1 Each Tablet 1 EACH PO Q4H Y for PAIN-MODERATE TO SEVERE, #14 TAB Prov: JAREK BIRD APRN 10/29/17 Prednisone (Prednisone) 20 Mg Tab 40 MG PO DAILY, #8 TAB Prov: JAREK BIRD APRN 10/29/17 JAREK BIRD [employer]ICER Oct 29, 2017 13:24
[2017-10-29] MEDS ORDERED: ORPHENADRINE 60 MG/2 ML (NORFLEX) AMP IM ONE (13:30)
[2017-10-29] MEDS ORDERED: KETOROLAC 60 MG/2 ML VIAL IM ONE (13:30)
[2017-10-29 13:33] VITALS: BP 171/96
== END 2017-10-29 13:33 | disposition home or self-care (01) ==
LOC: EDUNIT# 13:02 → ER 13:03
DX: M43.6 Torticollis (principal); I10 Essential (primary) hypertension; F41.9 Anxiety disorder, unspecified; F32.9 Major depressive disorder, single episode, unspecified; Z82.49 Family history of ischemic heart disease and other diseases of the circulatory system; Z88.0 Allergy status to penicillin; Z88.1 Allergy status to other antibiotic agents; Z88.8 Allergy status to other drugs, medicaments and biological substances; Z87.891 Personal history of nicotine dependence; Z90.49 Acquired absence of other specified parts of digestive tract
CPT/HCPCS: 96372; 99284

== ENCOUNTER 2018-04-18 10:07 | Emergency (ER) | payer BC ==
[~2018-04-18] VITALS: Ht 160 cm; Wt 68.0 kg
[~2018-04-18 10:07] MED LIST changes: +HYDR-4226 PO; +PRD20T PO
--- OUTSIDE RECORDS SUMMARY | 2018-04-18 10:12 | XMS REPORT ---
Author Author NANCY RILEY Organization [facility] Address [address] [place] [address] Care Team Providers Care Scoreboard Operator Name Role Phone NANCY RILEY Unavailable PROBLEMS Type Condition ICD9-CM Code [id number] Code Onset Dates Condition Status SNOMED Code Problem Acute reaction to stress F43.0 Active 79756028 Problem Need for prophylactic vaccination and inoculation, Influenza V04.81 Active [id number] ALLERGIES No Information ENCOUNTERS Encounter Location Date Diagnosis [place] [id number] [address] Aug, [facility] [address] [address] Jul, [facility] [address] [address] Jul, Parasites in stool B82.9 [facility] WALK IN [address] [address] Jul, Parasites in stool B82.9 [facility] WALK IN [place] [address] [place] [id number] [place] [address] Jul, [facility] WALK IN [facility] [address] [place] [id number] [place] [phone] Jul, Pinworms B80 [facility] [address] [place] [id number] [place] [address] Jul, Acute reaction to stress F43.0 [facility] [address] [address] Jul, [facility] [address] [address] Jul, IMMUNIZATIONS No Known Immunizations SOCIAL HISTORY Never Assessed REASON FOR VISIT Requesting return call PLAN OF CARE VITAL SIGNS MEDICATIONS Medication Instructions Dosage Frequency Start Date End Date Duration Status Biltricide 600 MG Orally Once a day 1 tablet 24h Aug, 1 dose Active RESULTS No Results PROCEDURES No Known procedures INSTRUCTIONS MEDICATIONS ADMINISTERED No Known Medications MEDICAL (GENERAL) HISTORY Type Description Date Surgical History appendectomy
--- OUTSIDE RECORDS SUMMARY | 2018-04-18 10:12 | XMS REPORT ---
Author Author NANCY RILEY Organization [facility] Address [address] [place] [address] Care Team Providers Care Laborer Pipeline Name Role Phone NANCY RILEY Unavailable PROBLEMS Type Condition ICD9-CM Code [id number] Code Onset Dates Condition Status SNOMED Code Problem Acute reaction to stress F43.0 Active 83659966 Problem Need for prophylactic vaccination and inoculation, Influenza V04.81 Active 156724725 ALLERGIES No Information ENCOUNTERS Encounter Location Date Diagnosis [place] [id number] [address] Aug, [facility] [address] [address] Jul, [facility] [address] [address] Jul, Parasites in stool B82.9 [facility] WALK IN [address] [address] Jul, Parasites in stool B82.9 [facility] WALK IN [place] [address] [place] [id number] [place] [phone] Jul, [facility] WALK IN [facility] [address] [place] [id number] [place] [phone] Jul, Pinworms B80 [facility] [address] [place] [id number] [place] [address] Jul, Acute reaction to stress F43.0 [facility] [address] [address] Jul, [facility] [address] [address] Jul, IMMUNIZATIONS No Known Immunizations SOCIAL HISTORY Never Assessed REASON FOR VISIT Lab PLAN OF CARE VITAL SIGNS MEDICATIONS Unknown Medications RESULTS No Results PROCEDURES Procedure Date Ordered Result Body Site OVA AND PARASITES SMEARS Aug 04, 2017 SMEAR, COMPLEX STAIN Aug 04, 2017 INSTRUCTIONS MEDICATIONS ADMINISTERED No Known Medications MEDICAL (GENERAL) HISTORY Type Description Date Surgical History appendectomy
--- OUTSIDE RECORDS SUMMARY | 2018-04-18 10:13 | XMS REPORT ---
Author Author NANCY RILEY Organization [facility] Address [address] [place] [address] Care Team Providers Care Supervisor Typesetting Name Role Phone NANCY RILEY Unavailable PROBLEMS Type Condition ICD9-CM Code [id number] Code Onset Dates Condition Status SNOMED Code Problem Acute reaction to stress F43.0 Active 84543343 Problem Need for prophylactic vaccination and inoculation, Influenza V04.81 Active 278883921 ALLERGIES Substance Reaction Event Type Date Status Compazine Unknown Drug Allergy Jul, Active Penicillin G Sodium Unknown Drug Allergy Jul, Active ENCOUNTERS Encounter Location Date Diagnosis [facility] [address] [place] [id number] [place] [address] Aug, [facility] [address] [place] [id number] [place] [address] Jul, [facility] [address] [address] Jul, Parasites in stool B82.9 [facility] [address] [place] [id number] [place] [phone] Jul, Parasites in stool B82.9 [facility] [address] [place] [id number] [place] [phone] Jul, [facility] [address] [place] [id number] [place] [phone] Jul, Pinworms B80 [facility] [address] [place] [id number] [place] [address] Jul, Acute reaction to stress F43.0 [facility] [address] [place] [id number] [place] [address] Jul, [facility] [address] [place] [id number] [place] [phone] Jul, IMMUNIZATIONS No Known Immunizations SOCIAL HISTORY Never Assessed REASON FOR VISIT Thinks she has pinworms- Edgardo Peter RN PLAN OF CARE VITAL SIGNS Height 63 in 2017-08-03 Weight 145 lbs 2017-08-03 Temperature 98.6 degrees Fahrenheit 2017-08-03 Heart Rate 72 bpm 2017-08-03 Respiratory Rate 2017-08-03 BMI 25.68 kg/m2 2017-08-03 Blood pressure systolic 134 mmHg 2017-08-03 Blood pressure diastolic 78 mmHg 2017-08-03 MEDICATIONS Medication Instructions Dosage Frequency Start Date End Date Duration Status BuPROPion HCl 100 MG Orally Once a day 1 tablet 24h Active Atenolol 100 MG Orally Once a day 1 tablet 24h Active Diovan HCT 80-12.5 MG Orally Once a day 1 tablet 24h Active Pristiq 100 MG Orally Once a day 1 tablet 24h Active RESULTS No Results PROCEDURES No Known procedures INSTRUCTIONS MEDICATIONS ADMINISTERED No Known Medications MEDICAL (GENERAL) HISTORY Type Description Date Surgical History appendectomy
--- OUTSIDE RECORDS SUMMARY | 2018-04-18 10:13 | XMS REPORT ---
Author Author MARYSOL SOTELO Organization [facility] Address [address] [place] [address] Care Team Providers Care Manager User Interface Name Role Phone DEEPAKMAYMARYSOL Unavailable PROBLEMS Type Condition ICD9-CM Code UPP85-[id number] Code Onset Dates Condition Status SNOMED Code Problem Acute reaction to stress F43.0 Active 04331476 Problem Need for prophylactic vaccination and inoculation, Influenza V04.81 Active 600108397 ALLERGIES Substance Reaction Event Type Date Status Compazine Unknown Drug Allergy Jul, Active Penicillin G Sodium Unknown Drug Allergy Jul, Active ENCOUNTERS Encounter Location Date Diagnosis [place] [id number] [address] Aug, [facility] [address] [place] [id number] [place] [address] Jul, [facility] [address] [address] Jul, Parasites in stool B82.9 [facility]ARE [address] [place] [id number] [place] [phone] Jul, Parasites in stool B82.9 [facility] [address] [address] Jul, [facility] [address] [place] [id number] [place] [address] Jul, Pinworms B80 [facility] [address] [address] Jul, Acute reaction to stress F43.0 [facility] [address] [address] Jul, [facility] [address] [facility] [id number] [address] Jul, IMMUNIZATIONS No Known Immunizations SOCIAL HISTORY Never Assessed REASON FOR VISIT Pt daughter has pinworms- pt now is having symptoms. JStrasserRN PLAN OF CARE Activity Details Follow Up prn Reason:est care VITAL SIGNS Height 63 in 2017-07-18 Weight 146 lbs 2017-07-18 Temperature 98.1 degrees Fahrenheit 2017-07-18 Heart Rate 62 bpm 2017-07-18 Respiratory Rate 18 2017-07-18 BMI 25.86 kg/m2 2017-07-18 Blood pressure systolic 140 mmHg 2017-07-18 Blood pressure diastolic 92 mmHg 2017-07-18 MEDICATIONS Medication Instructions Dosage Frequency Start Date End Date Duration Status Diovan HCT 80-12.5 MG Orally Once a day 1 tablet 24h Active Albenza 200 mg Orally Once a day 2 tablets today and repeat in 2 weeks 24h Jul, Jul, 2 days Active Pristiq 100 MG Orally Once a day 1 tablet 24h Active BuPROPion HCl 100 MG Orally Once a day 1 tablet 24h Active Atenolol 100 MG Orally Once a day 1 tablet 24h Active RESULTS No Results PROCEDURES No Known procedures INSTRUCTIONS MEDICATIONS ADMINISTERED No Known Medications MEDICAL (GENERAL) HISTORY Type Description Date Surgical History appendectomy
--- OUTSIDE RECORDS SUMMARY | 2018-04-18 10:14 | XMS REPORT ---
Author Author NANCY RILEY Organization [facility] Address [address] [place] [address] Care Team Providers Care Appointment Scheduler Name Role Phone NANCY RILEY Unavailable PROBLEMS Type Condition ICD9-CM Code [id number] Code Onset Dates Condition Status SNOMED Code Problem Acute reaction to stress F43.0 Active 29524309 Problem Need for prophylactic vaccination and inoculation, Influenza V04.81 Active [id number] ALLERGIES No Information ENCOUNTERS Encounter Location Date Diagnosis [place] [address] [address] Aug, [facility] [address] [address] Jul, [facility] [address] [address] Jul, Parasites in stool B82.9 [facility] WALK IN [address] [address] Jul, Parasites in stool B82.9 [facility] WALK IN [place] [address] [address] [place] [id number] [place] [address] Jul, [facility] WALK IN [facility] [address] [place] [id number] [place] [address] Jul, Pinworms B80 [facility] [address] [place] [id number] [place] [address] Jul, Acute reaction to stress F43.0 [facility] [address] [address] Jul, [facility] [address] [address] Jul, IMMUNIZATIONS No Known Immunizations SOCIAL HISTORY Never Assessed REASON FOR VISIT Requests return call PLAN OF CARE VITAL SIGNS MEDICATIONS Unknown Medications RESULTS No Results PROCEDURES No Known procedures INSTRUCTIONS MEDICATIONS ADMINISTERED No Known Medications MEDICAL (GENERAL) HISTORY Type Description Date Surgical History appendectomy
--- OUTSIDE RECORDS SUMMARY | 2018-04-18 10:14 | XMS REPORT ---
Author Author ALICE DINERO [facility] Address [address] [place] [address] Care Team Providers Care Insole Cementer Name Role Phone ALICE DINERO Unavailable PROBLEMS Type Condition ICD9-CM Code [id number] Code Onset Dates Condition Status SNOMED Code Problem Acute reaction to stress F43.0 Active 75824769 Problem Need for prophylactic vaccination and inoculation, Influenza V04.81 Active 151148229 ALLERGIES No Information ENCOUNTERS Encounter Location Date Diagnosis [facility] [address] [address] Aug, [facility] [address] [address] Jul, [facility] [address] [address] Jul, Parasites in stool B82.9 [facility] WALK IN [facility] [address] [address] Jul, Parasites in stool B82.9 [facility] WALK IN [facility] [address] [place] [id number] [place] [address] Jul, [facility] IN [facility]ARE [address] [address] Jul, Pinworms B80 [facility] [address] [address] Jul, Acute reaction to stress F43.0 [facility] [address] [address] Jul, [facility] [address] [address] Jul, IMMUNIZATIONS No Known Immunizations SOCIAL HISTORY Never Assessed REASON FOR VISIT intake PLAN OF CARE Activity Details Follow Up prn Reason: VITAL SIGNS MEDICATIONS Unknown Medications RESULTS No Results PROCEDURES Procedure Date Ordered Result Body Site Psych diagnostic evaluation, established patient Jul 15, 2017 INSTRUCTIONS MEDICATIONS ADMINISTERED No Known Medications MEDICAL (GENERAL) HISTORY Type Description Date Surgical History appendectomy
--- OUTSIDE RECORDS SUMMARY | 2018-04-18 10:14 | XMS REPORT ---
Author Author MARYSOL SOTELO Organization [facility] Address [address] [place] [address] Care Team Providers Care Completion Manager Name Role Phone SOTELOMARYSOL Jalloh Unavailable PROBLEMS Type Condition ICD9-CM Code [id number] Code Onset Dates Condition Status SNOMED Code Problem Acute reaction to stress F43.0 Active 96040787 Problem Need for prophylactic vaccination and inoculation, Influenza V04.81 Active 236709041 ALLERGIES No Information ENCOUNTERS Encounter Location Date Diagnosis [facility] [address] [address] Aug, [facility] [address] [address] Jul, [facility] [address] [address] Jul, Parasites in stool B82.9 [facility] WALK IN [place] [address] [address] Jul, Parasites in stool B82.9 [facility] WALK IN [facility] [address] [place] [id number] [place] [phone] Jul, [facility] WALK IN [facility] [address] [address] Jul, Pinworms B80 [facility] [address] [address] Jul, Acute reaction to stress F43.0 [facility] [address] [address] Jul, [facility] [address] [address] Jul, IMMUNIZATIONS No Known Immunizations SOCIAL HISTORY Never Assessed REASON FOR VISIT Rx request PLAN OF CARE VITAL SIGNS MEDICATIONS Unknown Medications RESULTS No Results PROCEDURES No Known procedures INSTRUCTIONS MEDICATIONS ADMINISTERED No Known Medications MEDICAL (GENERAL) HISTORY Type Description Date Surgical History appendectomy
--- OUTSIDE RECORDS SUMMARY | 2018-04-18 10:17 | XMS REPORT | Continuity of Care Document ---
Demographics Preferred Language Unknown Marital Status Unknown Yazidism Affiliation Unknown Race Unknown Ethnic Group Unknown Author Author [facility] Address Unknown Phone Unavailable Allergies Active Description Code Type Severity Reaction Onset Reported/Identified Relationship to Patient Clinical Status Yes erythromycin base [id number] Drug Allergy Unknown N/A 10/25/2006 Yes Penicillins [id number] Drug Allergy Unknown N/A 10/25/2006 Yes prochlorperazine [id number] Drug Allergy Unknown N/A 10/25/2006 Medications There [...] TAYLOR Vasquez Ot 789.09 07/22/2015 CASTILLO CONLEY, MOHTI Stevens Ot I10 07/22/2015 CASTILLO CONLEY, MOHIT [...] MD, Ot I10 ESSENTIAL (PRIMARY) HYPERTENSION 02/01/2017 MOHTI CHONG MD, Ot R07.9 CHEST PAIN, UNSPECIFIED [...] Ot M54.16 RADICULOPATHY, LUMBAR REGION 06/13/2017 HELENA NAVARRO Ot M48.02 SPINAL STENOSIS, CERVICAL REGION 06/13/2017 HELENA NAVARRO Ot M54.12 RADICULOPATHY, CERVICAL REGION 06/13/2017 HELENA NAVARRO Ot M54.16 RADICULOPATHY, LUMBAR REGION 07/06/2017 HELENA NAVARRO Ot M48.02 SPINAL STENOSIS, CERVICAL REGION 07/06/2017 HELENA NAVARRO Ot M54.12 RADICULOPATHY, CERVICAL REGION 07/06/2017 HELENA NAVARRO Ot M54.16 RADICULOPATHY, LUMBAR REGION 08/17/2017 HELENA NAVARRO Ot M48.02 SPINAL STENOSIS, CERVICAL REGION 08/17/2017 HELENA NAVARRO Ot M54.12 RADICULOPATHY, CERVICAL REGION 08/17/2017 HELENA NAVARRO Ot M54.16 RADICULOPATHY, LUMBAR REGION 08/19/2017 TAYLOR WRIGHT MD Ot K62.5 HEMORRHAGE OF ANUS AND RECTUM 08/19/2017 TAYLOR WRIGHT MD Ot Z01.818 ENCOUNTER FOR OTHER PREPROCEDURAL EXAMIN 08/30/2017 TAYLOR WRIGHT MD Ot F32.9 MAJOR DEPRESSIVE DISORDER, SINGLE EPISOD 08/30/2017 TAYLOR WRIGHT MD Ot I10 ESSENTIAL (PRIMARY) HYPERTENSION 08/30/2017 TAYLOR WRIGHT MD Ot K62.5 HEMORRHAGE OF ANUS AND RECTUM 08/30/2017 TAYLOR WRIGHT MD Ot Z20.7 CNTCT W EXPSR TO PEDICULOSIS, ACARIASI 08/30/2017 TAYLOR WRIGHT MD Ot Z79.899 OTHER HOUSING MANAGER (CURRENT) DRUG THERAPY 08/30/2017 TAYLOR WRIGHT MD [...] 09/01/2017 TAYLOR WRIGHT MD Ot Z79.899 OTHER [facility] (CURRENT) DRUG THERAPY 09/01/2017 TAYLOR WRIGHT MD [...] 09/07/2017 TAYLOR WRIGHT MD Ot Z79.899 OTHER [facility] (CURRENT) DRUG THERAPY 09/07/2017 TAYLOR WRIGHT MD Ot Z80.0 FAMILY HISTORY OF MALIGNANT NEOPLASM OF 10/29/2017 JAREK BIRD APRN Ot F32.9 MAJOR DEPRESSIVE DISORDER, SINGLE EPISOD 10/29/2017 JAREK BIRD APRN Ot F41.9 ANXIETY DISORDER, UNSPECIFIED 10/29/2017 JAREK BIRD APRN Ot I10 ESSENTIAL (PRIMARY) HYPERTENSION 10/29/2017 JAREK BIRD APRN Ot M43.6 TORTICOLLIS 10/29/2017 JAREK BIRD APRN Ot M62.838 OTHER MUSCLE SPASM 10/29/2017 JAREK BIRD APRN Ot Z82.49 FAMILY HX OF ISCHEM HEART DIS AND OTH DI 10/29/2017 JAREK BIRD APRN Ot Z87.891 PERSONAL HISTORY OF NICOTINE DEPENDENCE 10/29/2017 JAREK BIRD APRN Ot Z88.0 ALLERGY STATUS TO PENICILLIN 10/29/2017 JAREK BIRD APRN Ot Z88.1 ALLERGY STATUS TO OTHER ANTIBIOTIC AGENT 10/29/2017 JAREK BIRD APRN Ot Z88.8 ALLERGY STATUS TO OT DRUG/MEDS/BIOL SUB 10/29/2017 JAREK BIRD APRN Ot Z90.49 ACQUIRED ABSENCE OF OTHER SPECIFIED PART 10/29/2017 KYLE CONLEY, TAYLOR Vasquez Ot 784.0 HEADACHE 10/29/2017 TAYLOR WRIGHT MD Ot 780.60 FEVER, UNSPECIFIED 10/29/2017 TAYLOR WRIGHT MD Ot 789.09 ABDOMINAL PAIN, OTHER SPECIFIED SITE 10/29/2017 MOHIT CHONG MD Ot I10 ESSENTIAL (PRIMARY) HYPERTENSION 10/29/2017 MOHIT CHONG MD Ot R07.9 CHEST PAIN, UNSPECIFIED 10/29/2017 SHRAVAN DPM, JENI Q Ot S92.354A NONDISP FX OF FIFTH METATARSAL BONE, RIG 10/29/2017 SHRAVAN DPM, JENI Q Ot S93.401A SPRAIN OF UNSPECIFIED LIGAMENT OF RIGHT 10/29/2017 SHRAVAN DPM, JENI Q Ot W19.XXXA UNSPECIFIED FALL, INITIAL ENCOUNTER 10/29/2017 SHRAVAN DPM, JENI Q Ot Y92.[address] 10/29/2017 SHRAVAN DPM, JENI Q Ot Y99.8 OTHER EXTERNAL CAUSE STATUS 10/29/2017 KYLE CONLEY, TAYLOR Vasquez Ot Z12.31 ENCNTR SCREEN MAMMOGRAM FOR MALIGNANT NE 10/29/2017 QUOC CONLEY, RENAY Stevens Ot M54.16 RADICULOPATHY, LUMBAR REGION 10/29/2017 TAYLOR WRIGHT MD Ot F32.9 MAJOR DEPRESSIVE DISORDER, SINGLE EPISOD 10/29/2017 TAYLOR WRIGHT MD Ot I10 ESSENTIAL (PRIMARY) HYPERTENSION 10/29/2017 TAYLOR WRIGHT MD Ot K62.5 HEMORRHAGE OF ANUS AND RECTUM 10/29/2017 TAYLOR WRIGHT MD Ot Z20.7 CNTCT W EXPSR TO PEDICULOSIS, ACARIASI 10/29/2017 TAYLOR WRIGHT MD Ot Z79.899 OTHER HOUSING MANAGER (CURRENT) DRUG THERAPY 10/29/2017 TAYLOR WRIGHT MD Ot Z80.0 FAMILY HISTORY OF MALIGNANT NEOPLASM OF 11/01/2017 JAREK BIRD APRN Ot F32.9 MAJOR DEPRESSIVE DISORDER, SINGLE EPISOD 11/01/2017 JAREK BIRD APRN Ot F41.9 ANXIETY DISORDER, UNSPECIFIED 11/01/2017 JAREK BIRD APRN Ot I10 ESSENTIAL (PRIMARY) HYPERTENSION 11/01/2017 JAREK BIRD APRN Ot M43.6 TORTICOLLIS 11/01/2017 JAREK BIRD APRN Ot M62.838 OTHER MUSCLE SPASM 11/01/2017 JAREK BIRD APRN Ot Z82.49 FAMILY HX OF ISCHEM HEART DIS AND OTH DI 11/01/2017 JAREK BIRD APRN Ot Z87.891 PERSONAL HISTORY OF NICOTINE DEPENDENCE 11/01/2017 JAREK BIRD APRN Ot Z88.0 ALLERGY STATUS TO PENICILLIN 11/01/2017 JAREK BIRD APRN Ot Z88.1 ALLERGY STATUS TO OTHER ANTIBIOTIC AGENT 11/01/2017 JAREK BIRD APRN Ot Z88.8 ALLERGY STATUS TO OTH DRUG/MEDS/BIOL SUB 11/01/2017 JAREK BIRD APRN Ot Z90.49 ACQUIRED ABSENCE OF OTHER SPECIFIED PART 01/30/2018 TAYLOR WRIGHT MD Ot 784.0 HEADACHE 01/30/2018 TAYLOR WRIGHT MD Ot 780.60 FEVER, UNSPECIFIED 01/30/2018 TAYLOR WRIGHT MD Ot 789.09 ABDOMINAL PAIN, OTHER SPECIFIED SITE 01/30/2018 MOHIT CHONG MD, Ot I10 ESSENTIAL (PRIMARY) HYPERTENSION 01/30/2018 MOHIT CHONG MD Ot R07.9 CHEST PAIN, UNSPECIFIED 01/30/2018 SHRAVAN DPM, JENI Q Ot S92.354A NONDISP FX OF FIFTH METATARSAL BONE, RIG 01/30/2018 SHRAVAN DPM, JENI Q Ot S93.401A SPRAIN OF UNSPECIFIED LIGAMENT OF RIGHT 01/30/2018 SHRAVAN DPM, JENI Q Ot W19.XXXA UNSPECIFIED FALL, INITIAL ENCOUNTER 01/30/2018 SHRAVAN DPM, JENI Q Ot Y92.[address] 01/30/2018 SHRAVAN DPM, JENI Q Ot Y99.8 OTHER EXTERNAL CAUSE STATUS 01/30/2018 KYLE CONLEY, TAYLOR Vasquez Ot Z12.31 ENCNTR SCREEN MAMMOGRAM FOR MALIGNANT NE 01/30/2018 QUOC CONLEY, RENAY Stevens Ot M54.16 RADICULOPATHY, LUMBAR REGION 01/30/2018 TAYLOR WRIGHT MD Ot F32.9 MAJOR DEPRESSIVE DISORDER, SINGLE EPISOD 01/30/2018 TAYLOR WRIGHT MD Ot I10 ESSENTIAL (PRIMARY) HYPERTENSION 01/30/2018 TAYLOR WRIGHT MD Ot K62.5 HEMORRHAGE OF ANUS AND RECTUM 01/30/2018 TAYLOR WRIGHT MD Ot Z20.7 CNTCT W EXPSR TO PEDICULOSIS, ACARIASI 01/30/2018 TAYLOR WRIGHT MD, Ot Z79.899 OTHER [facility] (CURRENT) DRUG THERAPY 01/30/2018 TAYLOR WRIGHT MD Ot Z80.0 FAMILY HISTORY OF MALIGNANT NEOPLASM OF 02/07/2018 TAYLOR WRIGHT MD Ot 784.0 HEADACHE 02/07/2018 TAYLOR WRIGHT MD Ot 780.60 FEVER, UNSPECIFIED 02/07/2018 TAYLOR WRIGHT MD Ot 789.09 ABDOMINAL PAIN, OTHER SPECIFIED SITE 02/07/2018 MOHIT CHONG MD Ot I10 ESSENTIAL (PRIMARY) HYPERTENSION 02/07/2018 CASTILLO MD, BASHAR J Ot R07.9 CHEST PAIN, UNSPECIFIED 02/07/2018 SHRAVAN DPM, JENI Q Ot S92.354A NONDISP FX OF FIFTH METATARSAL BONE, RIG 02/07/2018 SHRAVAN DPM, JENI Q Ot S93.401A SPRAIN OF UNSPECIFIED LIGAMENT OF RIGHT 02/07/2018 SHRAVAN DPM, JENI Q Ot W19.XXXA UNSPECIFIED FALL, INITIAL ENCOUNTER 02/07/2018 SHRAVAN DPM, JENI Q Ot Y92.[address] 02/07/2018 SHRAVAN DPM, JENI Q Ot Y99.8 OTHER EXTERNAL CAUSE STATUS 02/07/2018 KYLE CONLEY, TAYLOR Vasquez Ot Z12.31 ENCNTR SCREEN MAMMOGRAM FOR MALIGNANT NE 02/07/2018 QUOC CONLEY, RENAY Stevens Ot M54.16 RADICULOPATHY, LUMBAR REGION 02/07/2018 TAYLOR WRIGHT MD Ot F32.9 MAJOR DEPRESSIVE DISORDER, SINGLE EPISOD 02/07/2018 TAYLOR WRIGHT MD Ot I10 ESSENTIAL (PRIMARY) HYPERTENSION 02/07/2018 TAYLOR WRIGHT MD Ot K62.5 HEMORRHAGE OF ANUS AND RECTUM 02/07/2018 TAYLOR WRIGHT MD Ot Z20.7 CNTCT W EXPSR TO PEDICULOSIS, ACARIASI 02/07/2018 TAYLOR WRIGHT MD, Ot Z79.899 OTHER [facility] (CURRENT) DRUG THERAPY 02/07/2018 TAYLOR WRIGHT MD Ot Z80.0 FAMILY HISTORY OF MALIGNANT NEOPLASM OF Procedures There is no data. Results Test Result Range Urine beta human chorionic gonadotropin (hCG) measurement - 05/20/16 09:20 Urine beta human chorionic gonadotropin (hCG) measurement NEGATIVE NEGATIVE Methicillin resistant Staphylococcus aureus (MRSA) screening culture - 09:20 Methicillin resistant Staphylococcus aureus (MRSA) screening culture NEG NRG Streptococcus pyogenes antigen detection - 11/13/16 20:17 [...] urinalysis with reflex to culture NO NRG STOOL (O T P) - 08/04/17 13:00 OVA AND PARASITES, CONC AND PERM SMEAR SEE NOTE NRG Urine beta human chorionic gonadotropin (hCG) measurement - 08/26/17 08:07 Urine beta human chorionic gonadotropin (hCG) measurement NEGATIVE NEGATIVE Encounters ACCT No. Visit Date/Time Discharge Status Pt. Type Provider Facility Loc./Unit Complaint [id number] 07/18/2012 16:04:00 07/18/2012 23:59:59 CLS Outpatient [id number] 03/21/2018 11:00:00 03/21/2018 23:59:59 CLS Outpatient CINDY ALARCON [facility] [id number] 08/04/2017 12:40:00 Document Registration [id number] 02/28/2018 15:43:00 02/28/2018 23:59:59 CLS Preadmit ADI GORDILLO MD Via [facility] RAD SCREENING [id number] 10/29/2017 13:03:00 10/29/2017 13:33:00 DIS Emergency JAREK BIRD APRN [facility] ER NECK PAIN/SPASMS [id number] 08/26/2017 07:56:00 08/26/2017 23:59:59 CLS Outpatient TAYLOR WRIGHT MD [facility] ENDO RECTAL BLEEDING [id number] 08/19/2017 05:30:00 08/19/2017 15:11:00 DIS Outpatient TAYLOR WRIGHT MD [facility] PREOP COLONOSCOPY [id number] 07/14/2017 09:36:00 08/17/2017 10:07:00 DIS Outpatient HELENA NAVARRO [facility] REHAB CERV STENOSIS W RADICULOPATHY;LUMBAGO;LUMBAR RADIC [id number] 05/30/2017 10:01:00 05/30/2017 23:59:59 CLS Outpatient RENAY KUMARI MD [facility] RAD LUMBAGO [id number] 05/26/2017 13:52:00 05/26/2017 23:59:59 CLS Outpatient TAYLOR WRIGHT MD [facility] RAD SCREENING [id number] 05/18/2017 10:07:00 05/18/2017 17:19:00 DIS Emergency SARA CASTANEDA MD [facility] ER GENERALIZED PAIN AND NUMBNESS [id number] 11/13/2016 19:55:00 11/13/2016 21:31:00 DIS Emergency MICHEL HOFFMANN [facility] ER THROAT PAIN, HEADACHE, CONGESTION [id number] 05/21/2016 11:24:00 05/21/2016 17:15:00 DIS Outpatient JENI CHENEY DPM Via [facility] SDC RIGHT 5TH METATARSAL FRACTURE [id number] 05/20/2016 08:55:00 05/20/2016 09:30:00 DIS Outpatient SHRAVAN DPM, JENI Q [facility] PREOP RIGHT 5TH METATARSAL FRACTURE [id number] 05/17/2016 15:56:00 05/17/2016 23:59:59 CLS Outpatient SHRAVAN DPM, JENI Q [facility] RAD ANKLE SPRAIN [id number] 07/16/2015 08:22:00 07/16/2015 23:59:59 CLS Outpatient CASTILLO CONLEY, MOHIT Stevens [facility] CARD HTN [id number] 06/27/2015 06:12:00 06/27/2015 07:45:00 DIS Emergency SARA CASTANEDA MD [facility] ER CHEST PAIN [id number] 02/03/2015 12:48:00 02/03/2015 23:59:59 CLS Outpatient TAYLOR WRIGHT MD [facility] LAB PLANK PAIN WITH FEVER [id number] 05/20/2014 16:00:00 05/20/2014 23:59:59 CLS Outpatient TAYLOR WRIGHT MD [facility] RAD SUDDEN ONSET SEVERE LEFT HEADACHE [id number] 04/02/2013 09:09:00 04/02/2013 13:16:00 DIS Emergency QUITA LOPEZ MD [facility] ER CHEST PAIN [id number] 07/20/2011 12:37:00 Document Registration [id number] 07/19/2011 10:09:00 Document Registration [id number] 10/29/2010 12:14:00 Document Registration [id number] 08/05/2010 10:55:00 Document Registration [id number] 08/02/2010 09:06:00 Document Registration [id number] 06/26/2010 11:05:00 Document Registration [id number] 02/03/2015 12:50:49 ACT Document Registration
[2018-04-18] MEDS ORDERED: LORazepam INJ 2 MG/ML (ATIVAN) VIAL IVP ONE (10:30)
[2018-04-18] MEDS ORDERED: ASPIRIN 81 MG CHEW (CHILDREN'S ASA) PO ONE (10:30)
[2018-04-18] MEDS ORDERED: CLON0.5T13 (10:35)
[2018-04-18] MEDS ORDERED: SERT100T8 (10:35)
[2018-04-18] MEDS ORDERED: TRAZ-189 (10:35)
[2018-04-18] MEDS ORDERED: LORA1TAB (10:35)
[2018-04-18 10:36] LABS: BASOPHILS % (AUTO) 1 % (0-10); EOSINOPHILS # (AUTO) 0.1 10^3/uL (0.0-0.3); EOSINOPHILS % (AUTO) 2 % (0-10); HEMATOCRIT 39 % (35-52); HEMOGLOBIN 13.5 G/DL (11.5-16.0); LYMPHOCYTES # (AUTO) 1.5 X 10^3 (1.0-4.0); LYMPHOCYTES % (AUTO) 37 % (12-44); MEAN CORPUSCULAR HEMOGLOBIN 31 PG (25-34); MEAN CORPUSCULAR HGB CONC 35 G/DL (32-36); MEAN CORPUSCULAR VOLUME 88 FL (80-99); MEAN PLATELET VOLUME 9.6 FL (7.4-10.4); MONOCYTES # (AUTO) 0.3 X 10^3 (0.0-1.0); MONOCYTES % (AUTO) 8 % (0-12); NEUTROPHILS # (AUTO) 2.2 X 10^3 (1.8-7.8); NEUTROPHILS % (AUTO) 53 % (42-75); PLATELET COUNT 272 10^3/uL (130-400); RED BLOOD COUNT 4.38 10^6/uL (4.35-5.85); RED CELL DISTRIBUTION WIDTH 12.3 % (10.0-14.5); WHITE BLOOD COUNT 4.2 10^3/uL (4.3-11.0)
--- NOTE | 2018-04-18 10:40 | ED Chest Pain ---
General Chief Complaint: Chest Pain Stated Complaint: CP,SOB Source: patient Exam Limitations: no limitations History of Present Illness Date Seen by Provider: Apr 18, 2018 Time Seen by Provider: 10:18 Initial Comments Patient presents to the ER by private conveyance with chief complaint she's having some chest pain off and on for the last 2 weeks. This latest episode started about an hour prior to arrival. She describes the chest pain as being sharp in her left upper chest, left shoulder left neck and jaw. She says she also has a strong history of anxiety and has recently been making some changes to her anxiety medicines and thought that might be part of it. She is known to Dr. Yee because she has a history of high blood pressure since she was 14 years old and family history of mom and brother both in their 40s when they had their first heart attack. Resting and exerting herself does not make the pain better or worse. She was not doing anything in particular to sitting at home when the pain came on. She says she always has shortness of breath and has had a nonproductive occasional cough for the past 2-3 weeks when this pain started coming on. She has no pulmonary history. No fevers chills nausea vomiting. She was given Klonopin for breakthrough anxiety and she took a tablet about 2-3 hours ago and it did not help her anxiety. Her chest pain has been linked to her anxiety in the past. She does not have indigestion or acid reflux. She has no primary history of coronary disease. She had a stress test 2 or 3 years ago. She has quit smoking 12 years ago. No history of thyroid or cholesterol disorders. She claims to having some occasional swelling in her feet but she relates that her blood pressure. She's not having any tinnitus but she can hear her heart pounding in her ear.. Pain is quite severe and comes and goes in her neck. Allergies and Home Medications Allergies Coded Allergies: Penicillins (Verified Allergy, Unknown, 10/25/06) erythromycin base (Verified Allergy, Unknown, 10/25/06) prochlorperazine (Verified Allergy, Unknown, 10/25/06) Home Medications Alprazolam 0.5 Mg Tablet, 0.5 MG PO BID PRN for ANXIETY, (Reported) Atenolol 50 Mg Tablet, 100 MG PO DAILY, (Reported) take 2 (50mg) tabs Bupropion HCl 100 Mg Tablet, 200 MG PO DAILY, (Reported) take 2 (100mg) tab Desvenlafaxine Succinate 50 Mg Tab.er.24h, 50 MG PO DAILY, (Reported) Hydrocodone/Acetaminophen 1 Each Tablet, 1 EACH PO Q4H PRN for PAIN-MODERATE TO SEVERE Prescribed by: JAREK BIRD on 10/29/17 1323 Valsartan/Hydrochlorothiazide 1 Each Tablet, 1 EACH PO DAILY, (Reported) Patient Home Medication List Home Medication List Reviewed: Yes Review of Systems Review of Systems Constitutional: No chills, No diaphoresis, No fever EENTM: No Blurred Vision, No Double Vision Respiratory: Cough, Shortness of Air; Denies Stridor, Denies Wheezing Cardiovascular: See HPI, Chest Pain; Denies Edema; Palpitations; Denies Syncope Gastrointestinal: Denies Abdomen Distended, Denies Abdominal Pain Genitourinary: Denies Burning, Denies Discharge Musculoskeletal: No back pain, No joint pain Skin: No pruritus, No rash Psychiatric/Neurological: Denies Headache, Denies Numbness Past Eoqrsuz-Fvlulg-Csvpes Hx Patient Social History Alcohol Use: Occasionally Uses Number of Drinks Today: AA Alcohol Beverage of Choice: Beer, Wine Recreational Drug Use: No Smoking Status: Former Smoker Former Smoker, Quit: May 20, 2006 Recent Foreign Travel: No Contact w/Someone Who Travel: No Recent Hopitalizations: No Immunizations Up To Date Tetanus Booster (TDap): More than 5yrs PED Vaccines UTD: No Date of Influenza Vaccine: May 19, 2017 Seasonal Allergies Seasonal Allergies: No Past Medical History Surgeries: Yes (uterine ablation) Appendectomy Respiratory: No Currently Using CPAP: No Currently Using BIPAP: No Cardiac: Yes ( history of preeclampsia with severe hypertension) Hypertension Neurological: No Reproductive Disorders: No Female Reproductive Disorders: Denies Sexually Transmitted Disease: No HIV/AIDS: No Gastrointestinal: Yes (rectal bleeding) Musculoskeletal: Yes Fractures Endocrine: No HEENT: No Cancer: No Psychosocial: Yes Anxiety, Depression Integumentary: No Blood Disorders: No Family Medical History Heart Disease, CAD Over 55 Years Old, Hypertension Physical Exam Vital Signs Vital Signs - First Documented 04/18/18 10:07 Temp 98.7 Pulse 72 Resp 18 B/P (MAP) 153/97 (115) Pulse Ox 98 O2 Delivery Room Air Capillary Refill : Height, Weight, BMI Height: 5'3.00" Weight: 149lbs. 0.0oz. 67.038988nl; 24.8 BMI Method:Stated General Appearance: WD/WN, Moderate Distress HEENT: PERRL/EOMI, TMs Normal, Normal ENT Inspection, Pharynx Normal, Moist Mucous Membranes Neck: Full Range of Motion, Normal Inspection, Non Tender, Supple; No Carotid Bruit Respiratory: Chest Non Tender, Lungs Clear, Normal Breath Sounds, No Accessory Muscle Use, No Respiratory Distress Cardiovascular: Regular Rate, Rhythm, No Edema, No JVD, No Murmur, Normal Peripheral Pulses Gastrointestinal: Normal Bowel Sounds, Non Tender, Soft Extremity: Normal Capillary Refill, Non Tender, No Pedal Edema Neurologic/Psychiatric: Alert, Oriented x3, Other (tearful and anxious) Skin: Normal Color, Warm/Dry Progress/Results/Core Measures Results/Orders Lab Results Laboratory Tests Test 04/18/18 10:16 04/18/18 11:35 Range/Units White Blood Count 4.2 L 4.3-11.0 10^3/uL Red Blood Count 4.38 4.35-5.85 10^6/uL Hemoglobin 13.5 11.5-16.0 G/DL Hematocrit 39 35-52 % Mean Corpuscular Volume 88 80-99 FL Mean Corpuscular Hemoglobin 31 25-34 PG Mean Corpuscular Hemoglobin Concent 35 32-36 G/DL Red Cell Distribution Width 12.3 10.0-14.5 % Platelet Count 272 130-400 10^3/uL Mean Platelet Volume 9.6 7.4-10.4 FL Neutrophils (%) (Auto) 53 42-75 % Lymphocytes (%) (Auto) 37 12-44 % Monocytes (%) (Auto) 8 0-12 % Eosinophils (%) (Auto) 2 0-10 % Basophils (%) (Auto) 1 0-10 % Neutrophils # (Auto) 2.2 1.8-7.8 X 10^3 Lymphocytes # (Auto) 1.5 1.0-4.0 X 10^3 Monocytes # (Auto) 0.3 0.0-1.0 X 10^3 Eosinophils # (Auto) 0.1 0.0-0.3 10^3/uL Basophils # (Auto) 0.0 0.0-0.1 10^3/uL Prothrombin Time 13.4 12.2-14.7 SEC INR Comment 1.0 0.8-1.4 Activated Partial Thromboplast Time 26 24-35 SEC D-Dimer 0.74 H 0.00-0.49 UG/ML Sodium Level 139 135-145 MMOL/L Potassium Level 3.7 3.6-5.0 MMOL/L Chloride Level 105 98-107 MMOL/L Carbon Dioxide Level 27 21-32 MMOL/L Anion Gap 7 5-14 MMOL/L Blood Urea Nitrogen 16 7-18 MG/DL Creatinine 0.78 0.60-1.30 MG/DL Estimat Glomerular Filtration Rate > 60 BUN/Creatinine Ratio 21 Glucose Level 63 L 70-105 MG/DL Calcium Level 9.3 8.5-10.1 MG/DL Corrected Calcium 9.1 8.5-10.1 MG/DL Magnesium Level 2.5 H 1.8-2.4 MG/DL Total Bilirubin 0.9 0.1-1.0 MG/DL Aspartate Amino Transf (AST/SGOT) 23 5-34 U/L Alanine Aminotransferase (ALT/SGPT) 22 0-55 U/L Alkaline Phosphatase 49 40-136 U/L Myoglobin 33.5 10.0-92.0 NG/ML Troponin I < 0.30 <0.30 NG/ML Total Protein 7.1 6.4-8.2 GM/DL Albumin 4.2 3.2-4.5 GM/DL Urine Color YELLOW Urine Clarity CLEAR Urine pH 7 5-9 Urine Specific [place] 1.010 L 1.016-1.022 Urine Protein NEGATIVE NEGATIVE Urine Glucose (UA) NEGATIVE NEGATIVE Urine Ketones NEGATIVE NEGATIVE Urine Nitrite NEGATIVE NEGATIVE Urine Bilirubin NEGATIVE NEGATIVE Urine Urobilinogen NORMAL NORMAL MG/DL Urine Leukocyte Esterase NEGATIVE NEGATIVE Urine RBC (Auto) NEGATIVE NEGATIVE Urine RBC NONE /HPF Urine WBC RARE /HPF Urine Squamous Epithelial Cells RARE /HPF Urine Crystals NONE /LPF Urine Bacteria TRACE /HPF Urine Casts NONE /LPF Urine Mucus SMALL H /LPF Urine Culture Indicated NO Urine Opiates Screen NEGATIVE NEGATIVE Urine Oxycodone Screen NEGATIVE NEGATIVE Urine Methadone Screen NEGATIVE NEGATIVE Urine Propoxyphene Screen NEGATIVE NEGATIVE Urine Barbiturates Screen NEGATIVE NEGATIVE Ur Tricyclic Antidepressants Screen NEGATIVE NEGATIVE Urine Phencyclidine Screen NEGATIVE NEGATIVE Urine Amphetamines Screen NEGATIVE NEGATIVE Urine Methamphetamines Screen NEGATIVE NEGATIVE Urine Benzodiazepines Screen NEGATIVE NEGATIVE Urine Cocaine Screen NEGATIVE NEGATIVE Urine Cannabinoids Screen NEGATIVE NEGATIVE My Orders Orders - JEANNE,ZOILA J Ekg Tracing (04/18/18 10:11) Cbc With Automated Diff (04/18/18 10:26) Magnesium (04/18/18 10:26) Cardiac Profile 1 (04/18/18 10:26) Comprehensive Metabolic Panel (04/18/18 10:26) Myoglobin Serum (04/18/18 10:26) Protime With Inr (04/18/18 10:26) Partial Thromboplastin Time (04/18/18 10:26) O2 (04/18/18 10:26) Monitor-Rhythm Ecg Trace Only (04/18/18 10:26) Lipid Panel (04/19/18 06:00) Aspirin Chewable Tablet (Baby Aspirin Ch (04/18/18 10:30) Nitroglycerin 0.4 Mg Btl 25's (Nitrostat (04/18/18 10:30) Saline Lock/Iv-Start (04/18/18 10:26) Fibrin Degradation Products (04/18/18 10:26) Lorazepam Injection (Ativan Injection) (04/18/18 10:30) Ct Angio Chest W (04/18/18 11:04) Ct Angio Head/Neck (04/18/18 11:04) Chest 1 View, Ap/Pa Only (04/18/18 11:04) Iohexol Injection (Omnipaque 350 Mg/Ml 1 (04/18/18 11:30) Ns (Ivpb) (Sodium Chloride 0.9% Ivpb Bag (04/18/18 11:30) Iohexol Injection (Omnipaque 350 Mg/Ml 1 (04/18/18 11:30) Ua Culture If Indicated (04/18/18 11:18) Drug Screen Stat (Urine) (04/18/18 11:18) Morphine Injection (Morphine Injection (04/18/18 11:30) Ondansetron Injection (Zofran Injectio (04/18/18 11:30) Medications Given in ED Current Medications Medications Dose Ordered Sig/Brigido Route Start Time Stop Time Status Last Admin Dose Admin Aspirin 324 mg ONCE ONCE PO 04/18/18 10:30 04/18/18 10:31 DC 04/18/18 10:41 324 MG Iohexol 75 ml ONCE ONCE IV 04/18/18 11:30 04/18/18 11:31 DC 04/18/18 11:52 75 ML Iohexol 75 ml ONCE ONCE IV 04/18/18 11:30 04/18/18 11:31 DC 04/18/18 11:52 75 ML Lorazepam 1 mg ONCE ONCE IVP 04/18/18 10:30 04/18/18 10:31 DC 04/18/18 10:39 1 MG Morphine Sulfate 4 mg ONCE ONCE IVP 04/18/18 11:30 04/18/18 11:31 DC 04/18/18 11:33 4 MG Nitroglycerin 0.4 mg UD PRN SL 04/18/18 10:30 04/18/18 10:54 0.4 MG Ondansetron HCl 4 mg ONCE ONCE IVP 04/18/18 11:30 04/18/18 11:31 DC 04/18/18 11:32 4 MG Sodium Chloride 100 ml ONCE ONCE IV 04/18/18 11:30 04/18/18 11:31 DC 04/18/18 11:52 100 ML Vital Signs/I&O 04/18/18 04/18/18 04/18/18 10:07 11:09 12:26 Temp 98.7 Pulse 72 65 65 Resp 18 18 18 B/P (MAP) 153/97 (115) 128/73 (91) 124/91 (102) Pulse Ox 98 98 97 O2 Delivery Room Air Room Air Room Air Progress Progress Note : Time: 11:01 Progress Note Patient's initial troponin is negative and yet she still having this persistent neck pain. The throbbing of her heart could be construed as tinnitus. Concerned about her carotid artery system given her age and history of high blood pressure and history of coronary disease and other vascular disease in her family early age. The d-dimer is elevated she does have a cough and describes this chest pain but I would like to get a CT angiogram of her chest as well as her head and neck to rule out vascular problems or could be causing her symptoms. She is calm down with the Ativan some. Her pain was not changed by the nitroglycerin. Initial ECG Impression Date: Apr 18, 2018 Initial ECG Impression Time: 10:13 Initial ECG Rate: 78 Initial ECG Rhythm: Normal Sinus Initial ECG Intervals: Normal Initial ECG Impression: Normal Initial ECG Comparisson: Unchanged Comment No ST elevation or depression. Diagnostic Imaging Diagonstic Imaging: Xray Plain Films/CT/US/NM/MRI: chest (2v) Comments [facility] [place] [place] NAME: MP HERNANDEZ [facility] REC#: [id number] PT STATUS: REG ER : 1980 PHYSICIAN: ZOILA ANGEL MD ADMIT DATE: 04/18/18/ER Draft Date of Exam:04/18/18 CHEST 1 VIEW, AP/PA ONLY INDICATION: Chest pain. COMPARISON: 04/02/2013. FINDINGS: The lungs are clear. The heart size and vascularity normal. There is no effusion or pneumothorax. IMPRESSION: No acute appearing abnormality. Dictated on workstation # [id number] Dict: 04/18/18 1132 Trans: 04/18/18 1138 [id number] Interpreted by: ZAIDA ALLEN Electronically signed by: Reviewed: Reviewed by Mo Diagonstic Imaging: CT (a) Plain Films/CT/US/NM/MRI: chest, head (neck) Comments [facility] [place], [place] NAME: MP HERNANDEZ [facility] REC#: [id number] PT STATUS: REG ER : 1980 PHYSICIAN: ZOILA ANGEL MD ADMIT DATE: 04/18/18/ER Draft Date of Exam:04/18/18 CT ANGIO CHEST W PROCEDURE: CT angiography of the chest with contrast. TECHNIQUE: Multiple contiguous axial images were obtained through the chest after uneventful bolus administration of intravenous contrast. Reconstructed CTA MIP acquisitions were also performed. INDICATION: Chest pain with hypertension and cardiac arrhythmia. FINDINGS: There is good opacification of the aorta and pulmonary arteries. There is no evidence of aortic aneurysm or dissection. Pulmonary arteries show no filling defects to suggest pulmonary emboli. The lungs are well aerated and clear. There is no pleural effusion or pericardial effusion. No mediastinal or hilar adenopathy. No bony lesion. IMPRESSION: Normal CT angiography of the chest. Dictated on workstation # [id number] Dict: 04/18/18 1228 Trans: 04/18/18 1237 [id number] Interpreted by: CALEB TERRAZAS MD Electronically signed by: [facility] [place], [place] NAME: MP HERNANDEZ [facility] REC#: [id number] PT STATUS: REG ER : 1980 PHYSICIAN: ZOILA ANGEL MD ADMIT DATE: 04/18/18/ER Draft Date of Exam:04/18/18 CT ANGIO HEAD/NECK INDICATION: Dizziness and chest pain. CTA of the head and neck was obtained. A precontrast brain CT was performed followed by post IV contrast CT of the neck and head with multiplanar MIP reconstructions. FINDINGS: Precontrast brain CT demonstrates no extra-axial fluid collection. No intracranial hemorrhage. No intracranial mass or mass effect. No midline shift. The ventricles are normal in size and position. There were no focal parenchymal abnormalities in the brain. Calvarial windows appear unremarkable. CTA neck findings: Aortic arch and great vessels are unremarkable. The common carotid arteries, carotid bifurcations, internal carotid arteries, and external carotids are patent. The vertebral arteries on both sides are patent and appear unremarkable. There is no soft tissue mass or adenopathy in the neck soft tissues. CTA head findings: The distal internal carotid arteries, anterior cerebral arteries, and middle cerebral arteries are patent. The distal vertebral arteries and basilar artery and posterior cerebral arteries are patent. There is no major vessel occlusion or overt aneurysmal disease. There is patency of the dural venous sinuses. IMPRESSION: Precontrast brain CT was unremarkable. CTA head and neck were unremarkable. Dictated on workstation # [id number] Dict: 04/18/18 1245 Trans: 04/18/18 1253 [facility] [id number] Interpreted by: HARMAN VASQUEZ MD Electronically signed by: Reviewed: Reviewed by Me Departure Impression Primary Impression: Chest pain Qualified Codes: R07.9 - Chest pain, unspecified Additional Impression: Anxiety Disposition: 01 HOME, SELF-CARE Condition: Stable Departure-Patient Inst. Decision time for Depature: 13:07 Referrals: TAYLOR WRIGHT MD (PCP) Primary Care Physician Patient Instructions: Chest Pain That Is Not Caused by the Heart (DC) Add. Discharge Instructions: Please follow-up with her primary care provider or psychiatrist to review your medications and work on symptom control. Consider counseling if you're not already participating. All discharge instructions reviewed with patient and/or family. Voiced understanding. Work/School Note: School/Childcare Release Date Seen in the Emergency Department: Apr 18, 2018 Time Dismissed from Emergency Department: 13:22 Return to School: Apr 19, 2018 Restrictions: No Restrictions ZOILA ANGEL Apr 18, 2018 10:40
[2018-04-18 10:41] LABS: PROTHROMBIN TIME PATIENT 13.4 SEC (12.2-14.7)
[2018-04-18] MEDS: NITROGLYCERIN 0.4 MG SL TABS BTL 25'S SL PRN ×2 (10:42→10:54)
[2018-04-18 10:47] LABS: BUN/CREATININE RATIO 21; CALCIUM 9.3 MG/DL (8.5-10.1); CARBON DIOXIDE 27 MMOL/L (21-32); CHLORIDE 105 MMOL/L (98-107); CREATININE SERUM 0.78 MG/DL (0.60-1.30); GFR ESTIMATED > 60; GLUCOSE 63 MG/DL (70-105); MAGNESIUM 2.5 MG/DL (1.8-2.4); POTASSIUM 3.7 MMOL/L (3.6-5.0); SODIUM 139 MMOL/L (135-145)
[2018-04-18 10:48] LABS: ALANINE AMINOTRANSFERASE 22 U/L (0-55); ALBUMIN 4.2 GM/DL (3.2-4.5); ALKALINE PHOSPHATASE 49 U/L (40-136); BILIRUBIN,TOTAL 0.9 MG/DL (0.1-1.0); TOTAL PROTEIN 7.1 GM/DL (6.4-8.2)
[2018-04-18 10:54] LABS: MYOGLOBIN SERUM 33.5 NG/ML (10.0-92.0)
[2018-04-18 11:09] VITALS: BP 128/73
[2018-04-18] MEDS ORDERED: IOHEXOL 350 MG/ML 100 ML (OMNIPAQUE 350) VIAL IV ONE ×2 (11:30)
[2018-04-18] MEDS ORDERED: NS 100 ML (IVPB) BAG IV ONE (11:30)
[2018-04-18] MEDS ORDERED: morphine INJ 10 MG/ML 1ML (SYR OR VIAL) IVP ONE (11:30)
[2018-04-18] MEDS ORDERED: ONDANSETRON 4 MG/2 ML (SDV) Z0FRAN IVP ONE (11:30)
--- NOTE | 2018-04-18 11:39 | Diagnostic Imaging Report ---
INDICATION: Chest pain. COMPARISON: 04/02/2013. FINDINGS: The lungs are clear. The heart size and vascularity normal. There is no effusion or pneumothorax. IMPRESSION: No acute appearing abnormality. Dictated by: Dictated on workstation # [id number]
[2018-04-18 11:41] LABS: BILIRUBIN,URINE NEGATIVE (NEGATIVE); CLARITY,URINE CLEAR; COLOR,URINE YELLOW; GLUCOSE, URINE (UA) NEGATIVE (NEGATIVE); KETONES,URINE NEGATIVE (NEGATIVE); LEUKOCYTE ESTERASE ,URINE NEGATIVE (NEGATIVE); NITRITE,URINE NEGATIVE (NEGATIVE); PH,URINE 7 (5-9); PROTEIN,URINE NEGATIVE (NEGATIVE); UROBILINOGEN,URINE NORMAL (NORMAL)
[2018-04-18 11:49] LABS: BACTERIA,URINE TRACE /HPF; SQUAMOUS EPITHELIAL CELL,UR RARE /HPF; WBC,URINE RARE /HPF
[2018-04-18 11:53] LABS: AMPHETAMINE SCREEN, URINE NEGATIVE (NEGATIVE); BARBITURATE SCREEN URINE NEGATIVE (NEGATIVE); BENZODIAZEPINES SCREEN URINE NEGATIVE (NEGATIVE); CANNABINOID SCREEN, URINE NEGATIVE (NEGATIVE); COCAINE SCREEN URINE NEGATIVE (NEGATIVE); METHADONE STAT NEGATIVE (NEGATIVE); METHAMPHETAMINE SCREEN URINE S NEGATIVE (NEGATIVE); OPIATE SCREEN URINE NEGATIVE (NEGATIVE); OXYCODONE STAT NEGATIVE (NEGATIVE); PROPOXYPHENE STAT NEGATIVE (NEGATIVE); TRICYCLIC ANTIDEPRESSANTS SCRE NEGATIVE (NEGATIVE)
[2018-04-18 12:26] VITALS: BP 124/91
--- NOTE | 2018-04-18 12:37 | Diagnostic Imaging Report ---
PROCEDURE: CT angiography of the chest with contrast. TECHNIQUE: Multiple contiguous axial images were obtained through the chest after uneventful bolus administration of intravenous contrast. Reconstructed CTA MIP acquisitions were also performed. INDICATION: Chest pain with hypertension and cardiac arrhythmia. FINDINGS: There is good opacification of the aorta and pulmonary arteries. There is no evidence of aortic aneurysm or dissection. Pulmonary arteries show no filling defects to suggest pulmonary emboli. The lungs are well aerated and clear. There is no pleural effusion or pericardial effusion. No mediastinal or hilar adenopathy. No bony lesion. IMPRESSION: Normal CT angiography of the chest. Dictated by: Dictated on workstation # [id number]
--- NOTE | 2018-04-18 12:54 | Diagnostic Imaging Report ---
INDICATION: Dizziness and chest pain. CTA of the head and neck was obtained. A precontrast brain CT was performed followed by post IV contrast CT of the neck and head with multiplanar MIP reconstructions. FINDINGS: Precontrast brain CT demonstrates no extra-axial fluid collection. No intracranial hemorrhage. No intracranial mass or mass effect. No midline shift. The ventricles are normal in size and position. There were no focal parenchymal abnormalities in the brain. Calvarial windows appear unremarkable. CTA neck findings: Aortic arch and great vessels are unremarkable. The common carotid arteries, carotid bifurcations, internal carotid arteries, and external carotids are patent. The vertebral arteries on both sides are patent and appear unremarkable. There is no soft tissue mass or adenopathy in the neck soft tissues. CTA head findings: The distal internal carotid arteries, anterior cerebral arteries, and middle cerebral arteries are patent. The distal vertebral arteries and basilar artery and posterior cerebral arteries are patent. There is no major vessel occlusion or overt aneurysmal disease. There is patency of the dural venous sinuses. IMPRESSION: Precontrast brain CT was unremarkable. CTA head and neck were unremarkable. Dictated by: Dictated on workstation # [id number]
[2018-04-18 13:26] VITALS: BP 106/69
== END 2018-04-18 13:30 | disposition home or self-care (01) ==
LOC: EDUNIT# 10:07 → ER 10:09
DX: R07.89 Other chest pain (principal); F41.9 Anxiety disorder, unspecified; F32.9 Major depressive disorder, single episode, unspecified; I10 Essential (primary) hypertension; Z90.89 Acquired absence of other organs; Z87.19 Personal history of other diseases of the digestive system; Z87.891 Personal history of nicotine dependence; Z88.0 Allergy status to penicillin; Z88.8 Allergy status to other drugs, medicaments and biological substances
CPT/HCPCS: 36415; 70496; 70498; 71045; 71275; 80053; 80306; 81000; 83735; 83874; 84484; 85025; 85379; 85610; 85730; 93005; 93041; 96374; 96375

== ENCOUNTER → 2018-05-10 | Outpatient (CLI) | payer BC ==
[~2018-05-10] MED LIST changes: +CLON0.5T13; +LORA1TAB; +SERT100T8; +TRAZ-189
--- NOTE | 2018-05-10 12:48 | Diagnostic Imaging Report ---
PROCEDURE: CT urinary tract, rule out kidney stone. TECHNIQUE: Multiple contiguous axial images were obtained through the abdomen and pelvis without the use of intravenous contrast. DATE: May 10, 2018. COMPARISON: CT abdomen without and with intravenous contrast October 29, 2010. INDICATION: 38-year-old female, right flank and right lower quadrant abdominal pain for 2 weeks. FINDINGS: There are limitations for evaluation of the abdominal organs, neoplastic processes, abscess, and limited evaluation of the vasculature relating to the lack of intravenous contrast. The visualized portions of the lung bases are clear. The heart is not enlarged. There is no pericardial effusion. The liver is normal in size and contour. The gallbladder is unremarkable. There is no intrahepatic or extrahepatic bile duct dilation. The main pancreatic duct is not abnormally dilated. Unremarkable noncontrast appearance of the pancreatic parenchyma. The spleen is normal in size. The adrenal glands are unremarkable. There is a 1-2 mm nonobstructing right renal stone on axial image 45. The urinary collecting systems are not distended. There is no identified ureteral stone. The urinary bladder is unremarkable in appearance. There are sutures at the expected location of the appendix. The appendix is likely surgically absent and not identified. The intestinal tract is not distended. There is no free intraperitoneal air. There is no drainable fluid collection. There is a trace amount of free pelvic fluid which may potentially be physiologic in etiology. There is no identified abnormally enlarged lymph node in the abdomen or pelvis which meet CT size criteria for adenopathy. There is no identified acute bony abnormality. IMPRESSION: CT ABDOMEN AND PELVIS. 1. 1 to 2 mm nonobstructing right renal stone. 2. No ureteral stone or hydronephrosis. 3. Trace amount of free pelvic fluid which is potentially physiologic. Dictated by: Dictated on workstation # [id number]
== END ==
LOC: RAD 12:08
PROVIDERS: ATTEND Internal Medicine
DX: N20.0 Calculus of kidney (principal)
CPT/HCPCS: 74176

== ENCOUNTER 2018-06-21 15:57 | Outpatient (CLI) | payer BC ==
[~2018-06-21] VITALS: Ht 160 cm; Wt 65.8 kg
[2018-06-21] MEDS ORDERED: SERT50TA9 PO (16:20)
[2018-06-21] MEDS ORDERED: OXYC-471 PO (16:20)
[2018-06-21] MEDS ORDERED: ONDA4TAB11 PO (16:20)
[2018-06-22] MEDS ORDERED: ACHD5005 PO (13:22)
[2018-06-22] MEDS ORDERED: ONDA8TAB6 PO (16:27)
== END 2018-06-21 16:28 | disposition home or self-care (01) ==
LOC: PREOP 15:57
PROVIDERS: ATTEND Surgery
DX: Z01.818 Encounter for other preprocedural examination (principal)

== ENCOUNTER 2018-06-22 10:26 | Day surgery (SDC) | payer BC ==
[~2018-06-22] VITALS: Ht 160 cm; Wt 65.8 kg
[~2018-06-22 10:26] MED LIST changes: +ONDA4TAB11 PO; +OXYC-471 PO; +SERT50TA9 PO
[2018-06-22 10:35] VITALS: BP 146/95
[2018-06-22] MEDS ORDERED: CLINDAMYCIN 600 MG/50 ML IVPB 50 ML IV ONE ×2 (10:45→10:57)
[2018-06-22] MEDS: LACTATED RINGERS 1,000 ML IV PRN ×2 (10:50→12:45)
[2018-06-22] MEDS ORDERED: fentaNYL INJECTION 100 MCG/2 ML AMP ONE ×3 (10:56→13:49)
[2018-06-22] MEDS ORDERED: ONDANSETRON 4 MG/2 ML (SDV) Z0FRAN ONE ×3 (10:56→13:14)
[2018-06-22] MEDS ORDERED: MIDAZOLAM 2 MG/2 ML (VERSED) VIAL ONE ×2 (10:56→11:34)
[2018-06-22] MEDS ORDERED: FAMOTIDINE 20MG/2ML IV (PEPCID) ONE (10:57)
[2018-06-22] MEDS ORDERED: fentaNYL INJECTION 100 MCG/2 ML AMP IV ONE (11:00)
[2018-06-22] MEDS ORDERED: ONDANSETRON 4 MG/2 ML (SDV) Z0FRAN IV ONE (11:00)
[2018-06-22] MEDS ORDERED: MIDAZOLAM 2 MG/2 ML (VERSED) VIAL IV ONE (11:00)
[2018-06-22] MEDS ORDERED: FAMOTIDINE 20MG/2ML IV (PEPCID) IV ONE (11:00)
--- OUTSIDE RECORDS SUMMARY | 2018-06-22 11:12 | XMS REPORT ---
Author Author FARAZ RAMIREZ [facility] Address [address] [place] [address] Care Team Providers Care Licensed Prosthetist Name Role Phone JAMESFARAZ Unavailable PROBLEMS Type Condition ICD9-CM Code ONT13-QH Code Onset Dates Condition Status SNOMED Code Problem Generalized anxiety disorder F41.1 Active 49577220 Problem Persistent depressive disorder with anxious distress, currently severe F34.1 Active 70743587 Problem Acute reaction to stress F43.0 Active 24388706 Problem Need for prophylactic vaccination and inoculation, Influenza V04.81 Active [id number] ALLERGIES No Information ENCOUNTERS Encounter Location Date Diagnosis [facility] [id number] [place] [phone] May, [facility] [id number] [place] [phone] Apr, [facility] [id number] [place] [phone] Mar, [place] [id number] [place] [phone] Mar, Persistent depressive disorder with anxious distress, currently severe F34.1 and Generalized anxiety disorder F41.1 [facility] [id number] [place] [phone] Mar, Persistent depressive disorder with anxious distress, currently severe F34.1 and Generalized anxiety disorder F41.1 [facility] [id number] [place] [phone] Mar, Persistent depressive disorder with anxious distress, currently severe F34.1 and Generalized anxiety disorder F41.1 [place] [id number] [place] [address] [phone] Aug, [facility] [id number], [place] [address] Jul, [place] [id number] [place] [phone] Jul, Parasites in stool B82.9 [facility] [id number] [place] [phone] Jul, Parasites in stool B82.9 [facility] [id number] [place] [phone] Jul, [facility] [place] [id number] [place] [phone] Jul, Pinworms [address] [place] [id number] [place] [address] [phone] Jul, Acute reaction to stress F43.0 [place] [id number] [place] [phone] Jul, [place] [id number], [place] [address] Jul, IMMUNIZATIONS No Known Immunizations SOCIAL HISTORY Never Assessed REASON FOR VISIT PLAN OF CARE VITAL SIGNS MEDICATIONS Medication Instructions Dosage Frequency Start Date End Date Duration Status Klonopin 0.5 MG Orally twice a day as needed for anxiety 1/2 tablet Mar, 14 days Active RESULTS No Results PROCEDURES No Known procedures INSTRUCTIONS MEDICATIONS ADMINISTERED No Known Medications MEDICAL (GENERAL) HISTORY Type Description Date Surgical History appendectomy
--- OUTSIDE RECORDS SUMMARY | 2018-06-22 11:12 | XMS REPORT ---
Author Author FARAZ RAMIREZ [facility] Address [address] [place] [address] Care Team Providers Care Vp Patient Name Role Phone JAMESFARAZ Unavailable PROBLEMS Type Condition ICD9-CM Code [id number] Code Onset Dates Condition Status SNOMED Code Problem Generalized anxiety disorder F41.1 Active 15064659 Problem Persistent depressive disorder with anxious distress, currently severe F34.1 Active 99590760 Problem Acute reaction to stress F43.0 Active 55420997 Problem Need for prophylactic vaccination and inoculation, Influenza V04.81 Active 251453315 ALLERGIES Substance Reaction Event Type Date Status Compazine Unknown Drug Allergy Mar, Active Penicillin G Sodium Unknown Drug Allergy Mar, Active ENCOUNTERS Encounter Location Date Diagnosis [facility] [id number] [place] [address] 12689- 5064 May, [facility] [id number] [place] [address] 68187- 1440 Apr, [facility] [id number] [place] [address] 03895- 7455 Mar, [facility] [id number] [place] [address] 36224- 3659 Mar, Persistent depressive disorder with anxious distress, currently severe F34.1 and Generalized anxiety disorder F41.1 [facility] [address] [address] Mar, Persistent depressive disorder with anxious distress, currently severe F34.1 and Generalized anxiety disorder F41.1 [facility] [address] [address] Mar, Persistent depressive disorder with anxious distress, currently severe F34.1 and Generalized anxiety disorder F41.1 [place] [address] [address] Aug, [place] [id number] [place] [address] 74499- 2523 Jul, [place] [id number] [place] [address] 21804- 0328 Jul, Parasites in stool B82.9 [facility] [place] [address] [address] Jul, Parasites in stool B82.9 [facility] [place] [id number] [place] [address] 02254 -4485 Jul, [facility] [place] [address] [address][phone] Jul, Pinworms B[address] [place] [address] 25396- 0389 Jul, Acute reaction to stress F43.0 [place] [address] [id number] [place] [address] 29785- 0642 Jul, [place] [id number] [place] [address] 12892- 3269 Jul, IMMUNIZATIONS No Known Immunizations SOCIAL HISTORY Never Assessed REASON FOR VISIT Psychiatric f/u, pt still on 1/2 of trintelix dose states she is still on the 10 mg of the vibryd as the 20 mg caused chest pain and palpitations, LAURI Johnson PLAN OF CARE Activity Details Follow Up 4 Weeks Reason: f/u VITAL SIGNS Height 63 in 2018-04-10 Weight 156.2 lbs 2018-04-10 Heart Rate 64 bpm 2018-04-10 Respiratory Rate 18 2018-04-10 BMI 27.67 kg/m2 2018-04-10 Blood pressure systolic 140 mmHg 2018-04-10 Blood pressure diastolic 68 mmHg 2018-04-10 MEDICATIONS Medication Instructions Dosage Frequency Start Date End Date Duration Status GIOVANNI-e 200 mg Active Diovan HCT 80-12.5 MG Orally Once a day 1 tablet 24h Active Zoloft 100 MG Orally Once a day for two weeks, then 1 tablet daily 1/2 tablet Mar, 30 day(s) Active Trazodone HCl 50 mg Orally Once a day at bedtime as needed for sleep 1/2 tablet Mar, 30 days Active Biltricide 600 MG Orally Once a day 1 tablet 24h Aug, 1 dose Not-Taking Atenolol 100 MG Orally Once a day 1 tablet 24h Active RESULTS No Results PROCEDURES No Known procedures INSTRUCTIONS MEDICATIONS ADMINISTERED No Known Medications MEDICAL (GENERAL) HISTORY Type Description Date Surgical History appendectomy
--- OUTSIDE RECORDS SUMMARY | 2018-06-22 11:12 | XMS REPORT ---
Author Author WILL MARTIN Organization [facility] Address [address] [place] [address] Care Team Providers Care Clinical Phlebotomist Name Role Phone WILL MARTIN Unavailable PROBLEMS Type Condition ICD9-CM Code IMR31-LP Code Onset Dates Condition Status SNOMED Code Problem Generalized anxiety disorder F41.1 Active 39766710 Problem Persistent depressive disorder with anxious distress, currently severe F34.1 Active 04798733 Problem Acute reaction to stress F43.0 Active 63108871 Problem Need for prophylactic vaccination and inoculation, Influenza V04.81 Active 306448764 ALLERGIES No Information ENCOUNTERS Encounter Location Date Diagnosis [place] [id number] [place] [id number] [place] [address] 67286- 6397 May, [facility] [id number] [place] [address] 81894- 4303 Apr, [place] [id number] [place] [address] 60838- 0720 Apr, [facility] [id number] [place] [address] 42739- 1831 Apr, [place] [id number] [place] [address] 46381- 8841 Mar, [place] [id number] [place] [address] 48637- 3147 Mar, Persistent depressive disorder with anxious distress, currently severe F34.1 and Generalized anxiety disorder F41.1 [facility] [id number] [place] [address] 86358- 0991 Mar, Persistent depressive disorder with anxious distress, currently severe F34.1 and Generalized anxiety disorder F41.1 [place] [id number] [place] [address] 26323- 2078 Mar, Persistent depressive disorder with anxious distress, currently severe F34.1 and Generalized anxiety disorder F41.1 [facility] [address] [place] [address] 06388- 0857 Aug, [facility] [id number] [place] [address] 56168- 8450 Jul, [facility] [id number] [place] [address] 11029- 1301 Jul, Parasites in stool B82.9 [facility] [address] [id number] [place] [address] 33347 -0282 Jul, Parasites in stool B82.9 [facility] [address] [place] [address] [id number] [place] [address] 02685 -5841 Jul, [facility] [address] [id number] [place] [address] 50660 -6658 Jul, Pinworms [address] [place] [id number] [place] [address] 21895- 9177 Jul, Acute reaction to stress F43.0 [place] [id number] [place] [address] 65631- 3093 Jul, [place] [address] [place] [address] 77360- 3749 Jul, IMMUNIZATIONS No Known Immunizations SOCIAL HISTORY Never Assessed REASON FOR VISIT intake PLAN OF CARE Activity Details Follow Up next available Reason:depression & anxiety VITAL SIGNS MEDICATIONS Unknown Medications RESULTS No Results PROCEDURES Procedure Date Ordered Result Body Site Psych diagnostic evaluation, established patient Mar 20, 2018 INSTRUCTIONS MEDICATIONS ADMINISTERED No Known Medications MEDICAL (GENERAL) HISTORY Type Description Date Surgical History appendectomy
--- OUTSIDE RECORDS SUMMARY | 2018-06-22 11:12 | XMS REPORT ---
Author Author FARAZ RAMIREZ [facility] Address [address] [place] [address] Care Team Providers Care Field Trainer Name Role Phone JAMESFARAZ Unavailable PROBLEMS Type Condition ICD9-CM Code VCO98-OR Code Onset Dates Condition Status SNOMED Code Problem Generalized anxiety disorder F41.1 Active 90521971 Problem Persistent depressive disorder with anxious distress, currently severe F34.1 Active 82684420 Problem Acute reaction to stress F43.0 Active 00568284 Problem Need for prophylactic vaccination and inoculation, Influenza V04.81 Active 155696129 ALLERGIES Substance Reaction Event Type Date Status Compazine Unknown Drug Allergy Mar, Active Penicillin G Sodium Unknown Drug Allergy Mar, Active ENCOUNTERS Encounter Location Date Diagnosis [facility] [id number] [place] [address] 81027- 4876 May, [facility] [address] [place] [id number] [place] [address] 61146- 3732 Apr, [facility] [id number] [place] [address] 29116- 3568 Apr, [facility] [id number] [place] [address] 76015- 2824 Apr, [facility] [id number] [place] [address] 61226- 8298 Mar, [facility] [id number] [place] [address] 26648- 1020 Mar, Persistent depressive disorder with anxious distress, currently severe F34.1 and Generalized anxiety disorder F41.1 [facility] [id number] [place] [address] 00034- 6672 Mar, Persistent depressive disorder with anxious distress, currently severe F34.1 and Generalized anxiety disorder F41.1 [place] [address] [place] [address] 24542- 7489 Mar, Persistent depressive disorder with anxious distress, currently severe F34.1 and Generalized anxiety disorder F41.1 [facility] [id number] [place] [address] 69431- 8471 Aug, [place] [address] [address] [id number] [place] [address] 86047- 9328 Jul, [place] [address] [address] [id number] [place] [address] 44502- 1780 Jul, Parasites in stool B82.9 [facility] [place] [id number] [place] [address] 53939 -4201 Jul, Parasites in stool B82.9 [facility] [place] [id number] [place] [address] 01010 -3745 Jul, [facility] [place] [id number] [place] [address] 39942 -5326 Jul, Pinworms [address] [place] [id number] [place] [address] 70167- 0934 Jul, Acute reaction to stress F43.0 [place] [id number] [place] [address] 95091- 9405 Jul, [place] [address] [place] [id number] [place] [address] 85748- 6356 Jul, IMMUNIZATIONS No Known Immunizations SOCIAL HISTORY Never Assessed REASON FOR VISIT intake Chavez PLAN OF CARE Activity Details Follow Up 4 Weeks Reason: f/u VITAL SIGNS Height 63 in 2018-03-21 Weight 153.2 lbs 2018-03-21 Heart Rate 68 bpm 2018-03-21 Respiratory Rate 20 2018-03-21 BMI 27.14 kg/m2 2018-03-21 Blood pressure systolic 124 mmHg 2018-03-21 Blood pressure diastolic 82 mmHg 2018-03-21 MEDICATIONS Medication Instructions Dosage Frequency Start Date End Date Duration Status GIOVANNI-e 200 mg Active Biltricide 600 MG Orally Once a day 1 tablet 24h Aug, 1 dose Not-Taking Diovan HCT 80-12.5 MG Orally Once a day 1 tablet 24h Active Atenolol 100 MG Orally Once a day 1 tablet 24h Active Viibryd Starter Pack 10 & 20 MG as directed Mar, Active Trazodone HCl 50 mg Orally Once a day 1 tablet at bedtime as needed 24h Mar, 30 day(s) Active RESULTS No Results PROCEDURES No Known procedures INSTRUCTIONS MEDICATIONS ADMINISTERED No Known Medications MEDICAL (GENERAL) HISTORY Type Description Date Surgical History appendectomy
--- OUTSIDE RECORDS SUMMARY | 2018-06-22 11:12 | XMS REPORT ---
Author Author FARAZ RAMIREZ [facility] Address [address] [place] [address] Care Team Providers Care Data Base Design Analyst Name Role Phone JAMESFARAZ Unavailable PROBLEMS Type Condition ICD9-CM Code [id number] Code Onset Dates Condition Status SNOMED Code Problem Generalized anxiety disorder F41.1 Active 35508178 Problem Persistent depressive disorder with anxious distress, currently severe F34.1 Active 77558426 Problem Acute reaction to stress F43.0 Active 13053237 Problem Need for prophylactic vaccination and inoculation, Influenza V04.81 Active 407053914 ALLERGIES No Information ENCOUNTERS Encounter Location Date Diagnosis [facility] [place] [id number] [place] [address] 75368- 2144 May, [facility] [place] [id number] [place] [address] 83672- 6518 Apr, [facility] [place] [id number] [place] [address] 83216- 4560 Mar, [place] [address] [id number] [place] [address] 98551- 7953 Mar, Persistent depressive disorder with anxious distress, currently severe F34.1 and Generalized anxiety disorder F41.1 [facility] [place] [id number] [place] [address] 48800- 9422 Mar, Persistent depressive disorder with anxious distress, currently severe F34.1 and Generalized anxiety disorder F41.1 [facility] [place] [id number] [place] [address] 53003- 0825 Mar, Persistent depressive disorder with anxious distress, currently severe F34.1 and Generalized anxiety disorder F41.1 [place] [address] [place] [address] [id number] [place] [address] 80080- 3012 Aug, [facility] [place] [address] [address] Jul, [facility] [place] [address] [place] [address] 80975- 0645 Jul, Parasites in stool B82.9 [facility] [address] [address] [id number] [place] [address] [phone] -[phone] Jul, Parasites in stool B82.9 [facility] [address] [place] [address] [id number] [place] [address] 84617 -0231 Jul, [facility] [place] [address] [id number] [place] [address] 97555 -[phone] Jul, Pinworms [address] [place] [address] [place] [address] 13017- 9414 Jul, Acute reaction to stress F43.0 [place] [address] [place] [address] 19352- 1003 Jul, [place] [id number] [place] [address] 60282- 5877 Jul, IMMUNIZATIONS No Known Immunizations SOCIAL HISTORY Never Assessed REASON FOR VISIT medication PLAN OF CARE VITAL SIGNS MEDICATIONS Unknown Medications RESULTS No Results PROCEDURES No Known procedures INSTRUCTIONS MEDICATIONS ADMINISTERED No Known Medications MEDICAL (GENERAL) HISTORY Type Description Date Surgical History appendectomy
--- OUTSIDE RECORDS SUMMARY | 2018-06-22 11:14 | XMS REPORT | Continuity of Care Document ---
Demographics Preferred Language Unknown Marital Status Unknown Adventism Affiliation Unknown Race Unknown Ethnic Group Unknown Author Author [facility] Address Unknown Phone Unavailable Allergies Active Description Code Type Severity Reaction Onset Reported/Identified Relationship to Patient Clinical Status Yes erythromycin base [id number] Drug Allergy Unknown N/A 10/25/2006 Yes Penicillins [id number] Drug Allergy Unknown N/A 10/25/2006 Yes prochlorperazine [id number] Drug Allergy Unknown N/A 10/25/2006 Medications There [...] Z01.812 ENCOUNTER FOR PREPROCEDURAL LABORATORY E 05/20/2016 HSRAVAN DPM, JENI Q Ot Z11.2 ENCOUNTER FOR [...] 789.09 ABDOMINAL PAIN, OTHER SPECIFIED SITE 10/19/2016 MHOIT CHONG MD Ot I10 ESSENTIAL (PRIMARY) HYPERTENSION [...] MD Ot 780.60 FEVER, UNSPECIFIED 05/18/2017 TAYLOR WIRGHT MD Ot 789.09 ABDOMINAL PAIN, OTHER SPECIFIED [...] HISTORY OF (HEALED) TRAUMATIC F 05/18/2017 SARA ACSTANEDA MD Ot Z87.891 PERSONAL HISTORY OF NICOTINE [...] 08/30/2017 TAYLOR WRIGHT MD Ot 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 08/30/2017 TAYLOR WRIGHT MD [...] 09/01/2017 TAYLOR WRIGHT MD Ot Z79.899 OTHER DETENTION (CURRENT) DRUG THERAPY 09/01/2017 TAYLOR WRIGHT MD [...] 09/07/2017 TAYLOR WRIGHT MD Ot Z79.899 OTHER DETENTION (CURRENT) DRUG THERAPY 09/07/2017 TAYLOR WRIGHT MD [...] MAJOR DEPRESSIVE DISORDER, SINGLE EPISOD 10/29/2017 TAYLOR RWIGHT MD Ot I10 ESSENTIAL (PRIMARY) HYPERTENSION 10/29/2017 TAYLOR WRIGHT MD Ot K62.5 HEMORRHAGE OF ANUS AND RECTUM 10/29/2017 TAYLOR WRIGHT MD Ot Z20.7 CNTCT W EXPSR TO PEDICULOSIS, ACARIASI 10/29/2017 TAYLOR WRIGHT MD Ot 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 10/29/2017 TAYLOR WRIGHT MD [...] 01/30/2018 TAYLOR WRIGHT MD, Ot Z79.899 OTHER DETENTION (CURRENT) DRUG THERAPY 01/30/2018 TAYLOR WRIGHT MD Ot Z80.0 FAMILY HISTORY OF MALIGNANT NEOPLASM OF 02/07/2018 TAYLOR WRIGHT MD Ot 784.0 HEADACHE 02/07/2018 TAYLOR WRIGHT MD Ot 780.60 FEVER, UNSPECIFIED 02/07/2018 TAYLOR WRIGHT MD Ot 789.09 ABDOMINAL PAIN, OTHER SPECIFIED SITE 02/07/2018 MOHIT CHONG MD Ot I10 ESSENTIAL (PRIMARY) HYPERTENSION 02/07/2018 MOHIT CHONG MD Ot R07.9 CHEST PAIN, UNSPECIFIED 02/07/2018 SHRAVAN [...] EXPSR TO PEDICULOSIS, ACARIASI 02/07/2018 TAYLOR WRIGHT MD Ot Z79.899 OTHER DETENTION (CURRENT) DRUG THERAPY 02/07/2018 TAYLOR WRIGHT MD Ot Z80.0 FAMILY HISTORY OF MALIGNANT NEOPLASM OF 04/18/2018 ZOILA ANGEL MD Ot F32.9 MAJOR DEPRESSIVE DISORDER, SINGLE EPISOD 04/18/2018 ZOILA ANGEL MD Ot F41.9 ANXIETY DISORDER, UNSPECIFIED 04/18/2018 ZOILA ANGEL MD Ot I10 ESSENTIAL (PRIMARY) HYPERTENSION 04/18/2018 ZOILA ANGEL MD Ot R07.89 OTHER CHEST PAIN 04/18/2018 ZOILA ANGEL MD Ot Z87.19 PERSONAL HISTORY OF OTHER DISEASES OF TH 04/18/2018 ZOILA ANGEL MD Ot Z87.891 PERSONAL HISTORY OF NICOTINE DEPENDENCE 04/18/2018 ZOILA ANGEL MD Ot Z88.0 ALLERGY STATUS TO PENICILLIN 04/18/2018 ZOILA ANGEL MD Ot Z88.8 ALLERGY STATUS TO OTH DRUG/MEDS/BIOL SUB 04/18/2018 ZOILA ANGEL MD Ot Z90.89 ACQUIRED ABSENCE OF OTHER ORGANS 04/20/2018 ZOILA ANGEL MD Ot F32.9 MAJOR DEPRESSIVE DISORDER, SINGLE EPISOD 04/20/2018 ZOILA ANGEL MD Ot F41.9 ANXIETY DISORDER, UNSPECIFIED 04/20/2018 ZOILA ANGEL MD Ot I10 ESSENTIAL (PRIMARY) HYPERTENSION 04/20/2018 ZOILA ANGEL MD Ot R07.89 OTHER CHEST PAIN 04/20/2018 ZOILA ANGEL MD Ot Z87.19 PERSONAL HISTORY OF OTHER DISEASES OF TH 04/20/2018 ZOILA ANGEL MD Ot Z87.891 PERSONAL HISTORY OF NICOTINE DEPENDENCE 04/20/2018 ZOILA ANGEL MD Ot Z88.0 ALLERGY STATUS TO PENICILLIN 04/20/2018 ZOILA ANGEL MD Ot Z88.8 ALLERGY STATUS TO OTH DRUG/MEDS/BIOL SUB 04/20/2018 ZOILA ANGEL MD Ot Z90.89 ACQUIRED ABSENCE OF OTHER ORGANS 05/11/2018 TAYLOR WRIGHT MD Ot N20.0 CALCULUS OF KIDNEY 05/24/2018 TAYLOR WRIGHT MD Ot N20.0 CALCULUS OF KIDNEY Procedures There is no data. Results Test [...] culture - 11/13/16 20:17 Bacterial throat culture [facility] Complete blood count (CBC) with automated white [...] human chorionic gonadotropin (hCG) measurement NEGATIVE NEGATIVE Complete blood count (CBC) with automated white blood cell (WBC) differential - 04/18/18 10:16 Blood leukocytes automated count (number/volume) 4.2 10*3/uL 4.3-11.0 Blood erythrocytes automated count (number/volume) 4.38 10*6/uL 4.35-5.85 Venous blood hemoglobin measurement (mass/volume) 13.5 g/dL 11.5-16.0 Blood hematocrit (volume fraction) 39 % 35-52 Automated erythrocyte mean corpuscular volume 88 [foz_us] 80-99 Automated erythrocyte mean corpuscular hemoglobin (mass per erythrocyte) 31 pg 25-34 Automated erythrocyte mean corpuscular hemoglobin concentration measurement ( mass/volume) 35 g/dL 32-36 Automated erythrocyte distribution width ratio 12.3 % 10.0-14.5 Automated blood platelet count (count/volume) 272 10*3/uL 130-400 Automated blood platelet mean volume measurement 9.6 [[facility]_us] 7.4-10.4 Automated blood neutrophils/100 leukocytes 53 % 42-75 Automated blood lymphocytes/100 leukocytes 37 % 12-44 Blood monocytes/100 leukocytes 8 % 0-12 Automated blood eosinophils/100 leukocytes 2 % 0-10 Automated blood basophils/100 leukocytes 1 % 0-10 Blood neutrophils automated count (number/volume) 2.2 10*3 1.8-7.8 Blood lymphocytes automated count (number/volume) 1.5 10*3 1.0-4.0 Blood monocytes automated count (number/volume) 0.3 10*3 0.0-1.0 Automated eosinophil count 0.1 10*3/uL 0.0-0.3 Automated blood basophil count (count/volume) 0.0 10*3/uL 0.0-0.1 PT panel in platelet poor plasma by coagulation assay - 04/18/18 10:16 Prothrombin time (PT) in platelet poor plasma by coagulation assay 13.4 s 12.2-14.7 INR in platelet poor plasma or blood by coagulation assay 1.0 0.8-1.4 Activated partial thromboplastin time (aPTT) in platelet poor plasma bycoagulation assay - 04/18/18 10:16 Activated partial thromboplastin time (aPTT) in platelet poor plasma bycoagulation assay 26 s 24-35 Comprehensive metabolic panel - 04/18/18 10:16 Serum or plasma sodium measurement (moles/volume) 139 mmol/L 135-145 Serum or plasma potassium measurement (moles/volume) 3.7 mmol/L 3.6-5.0 Serum or plasma chloride measurement (moles/volume) 105 mmol/L 98-107 Carbon dioxide 27 mmol/L 21-32 Serum or plasma anion gap determination (moles/volume) 7 mmol/L 5-14 Serum or plasma urea nitrogen measurement (mass/volume) 16 mg/dL 7-18 Serum or plasma creatinine measurement (mass/volume) 0.78 mg/dL 0.60-1.30 Serum or plasma urea nitrogen/creatinine mass ratio 21 NRG Serum or plasma creatinine measurement with calculation of estimated glomerular filtration rate > NRG Serum or plasma glucose measurement (mass/volume) 63 mg/dL 70-105 Serum or plasma calcium measurement (mass/volume) 9.3 mg/dL 8.5-10.1 Serum or plasma total bilirubin measurement (mass/volume) 0.9 mg/dL 0.1-1.0 Serum or plasma alkaline phosphatase measurement (enzymatic activity/volume) 49 U/L 40-136 Serum or plasma aspartate aminotransferase measurement (enzymatic activity/ volume) 23 U/L 5-34 Serum or plasma alanine aminotransferase measurement (enzymatic activity/volume ) 22 U/L 0-55 Serum or plasma protein measurement (mass/volume) 7.1 g/dL 6.4-8.2 Serum or plasma albumin measurement (mass/volume) 4.2 g/dL 3.2-4.5 CALCIUM CORRECTED 9.1 mg/dL 8.5-10.1 Magnesium - 04/18/18 10:16 Magnesium 2.5 mg/dL 1.8-2.4 Fibrin D-dimer FEU measurement in platelet poor plasma (mass/volume) - 10:16 Fibrin D-dimer FEU measurement in platelet poor plasma (mass/volume) 0.74 ug/mL 0.00-0.49 Serum or plasma troponin i.cardiac measurement (mass/volume) - 04/18/18 10:16 Serum or plasma troponin i.cardiac measurement (mass/volume) < ng/ mL <0.30 Myoglobin, serum - 04/18/18 10:16 Myoglobin, serum 33.5 ng/mL 10.0-92.0 Complete urinalysis with reflex to culture - 04/18/18 11:35 Urine color determination YELLOW NRG Urine clarity determination CLEAR NRG Urine pH measurement by test strip 7 5-9 Specific gravity of urine by test [...] count by microscopy (number/high power field ) RARE NRG Bacteria detection in urine sediment by light microscopy TRACE NRG Squamous epithelial cells detection in urine sediment by light microscopy RARE NRG Crystals detection in urine sediment by light microscopy NONE NRG Casts detection in urine sediment by light microscopy NONE NRG Mucus detection in urine sediment by light microscopy SMALL NRG Complete urinalysis with reflex to culture NO NRG Urine drug screening test - 04/18/18 11:35 Urine phencyclidine detection by screening method NEGATIVE NEGATIVE Urine benzodiazepines detection by screening method NEGATIVE NEGATIVE Urine cocaine detection NEGATIVE NEGATIVE Urine amphetamines detection by screening method NEGATIVE NEGATIVE Urine methamphetamine detection by screening method NEGATIVE NEGATIVE Urine cannabinoids detection by screening method NEGATIVE NEGATIVE Urine opiates detection by screening method NEGATIVE NEGATIVE Urine barbiturates detection NEGATIVE NEGATIVE Screening urine tricyclic antidepressants detection NEGATIVE NEGATIVE Urine methadone detection by screening method NEGATIVE NEGATIVE Urine oxycodone detection NEGATIVE NEGATIVE Urine propoxyphene detection NEGATIVE NEGATIVE Encounters ACCT No. Visit Date/Time Discharge Status Pt. Type Provider Facility Loc./Unit Complaint [id number] 07/18/2012 16:04:00 07/18/2012 23:59:59 CLS Outpatient [id number] 03/21/2018 11:00:00 03/21/2018 23:59:59 [id number] 08/04/2017 12:40:00 Document Registration [id number] 05/12/2018 11:35:00 05/12/2018 23:59:59 CLS Preadmit ADI GORDILLO MD [facility] RAD ABD PAIN [id number] 05/10/2018 12:08:00 05/10/2018 23:59:59 CLS Outpatient KYLE CONLEY, TAYLOR Vasquez [facility] RAD R FLANK/RLQ ABD PAIN [id number] 04/18/2018 10:09:00 04/18/2018 13:30:00 DIS Emergency JEANNE CONLEY, ZOILA Stevens [facility] ER CP,SOB [id number] 02/28/2018 15:43:00 02/28/2018 23:59:59 CLS Preadmit ADI GORDILLO MD [facility] RAD SCREENING [id number] 10/29/2017 13:03:00 10/29/2017 13:33:00 DIS Emergency JAREK BIRD APRN [facility] ER NECK PAIN/SPASMS [id number] 08/26/2017 07:56:00 08/26/2017 23:59:59 CLS Outpatient TAYLOR WRIGHT MD [facility] ENDO RECTAL BLEEDING [id number] 08/19/2017 05:30:00 08/19/2017 15:11:00 DIS Outpatient TAYLOR WRIGHT MD [facility] PREOP COLONOSCOPY [id number] 07/14/2017 09:36:00 08/17/2017 10:07:00 DIS Outpatient HELENA NAVARRO [facility] REHAB CERV STENOSIS W RADICULOPATHY;LUMBAGO;LUMBAR RADIC [id number] 05/30/2017 10:01:00 05/30/2017 23:59:59 CLS Outpatient RENAY KUMARI MD [facility] RAD LUMBAGO [id number] 05/26/2017 13:52:00 05/26/2017 23:59:59 CLS Outpatient TAYLOR WRIGHT MD [facility] RAD SCREENING [id number] 05/18/2017 10:07:00 05/18/2017 17:19:00 DIS Emergency SARA CASTANEDA MD [facility] ER GENERALIZED PAIN AND NUMBNESS [id number] 11/13/2016 19:55:00 11/13/2016 21:31:00 DIS Emergency MICHEL HOFFMANN HEREDITARY CANCER PROGRAM COORDINATOR [facility] ER THROAT PAIN, HEADACHE, CONGESTION [id number] 05/21/2016 11:24:00 05/21/2016 17:15:00 DIS Outpatient SHRAVAN DPM, JENI Q [facility] SDC RIGHT 5TH METATARSAL FRACTURE [id number] 05/20/2016 08:55:00 05/20/2016 09:30:00 DIS Outpatient SHRAVAN DPM, JENI Q [facility] PREOP RIGHT 5TH METATARSAL FRACTURE [id number] 05/17/2016 15:56:00 05/17/2016 23:59:59 CLS Outpatient SHRAVAN DPM, JENI Q [facility] RAD ANKLE SPRAIN [id number] 07/16/2015 08:22:00 07/16/2015 23:59:59 CLS Outpatient ACSTILLO CONLEY, MOHIT Stevens [facility] CARD HTN [id number] 06/27/2015 06:12:00 06/27/2015 07:45:00 DIS Emergency SARA CASTANEDA MD [facility] ER CHEST PAIN [id number] 02/03/2015 12:48:00 02/03/2015 23:59:59 CLS Outpatient TAYLOR WRIGHT MD [facility] LAB PLANK PAIN WITH FEVER [id number] 05/20/2014 16:00:00 05/20/2014 23:59:59 CLS Outpatient TAYLOR WRIGHT MD [facility] RAD SUDDEN ONSET SEVERE LEFT HEADACHE [id number] 04/02/2013 09:09:00 04/02/2013 13:16:00 DIS Emergency JOHN CONLEY, QUITA Santos [facility] ER CHEST PAIN [id number] 07/20/2011 12:37:00 Document Registration [id number] 07/19/2011 10:09:00 Document Registration [id number] 10/29/2010 12:14:00 Document Registration [id number] 08/05/2010 10:55:00 Document Registration [id number] 08/02/2010 09:06:00 Document Registration [id number] 06/26/2010 11:05:00 Document Registration [email or web address] 02/03/2015 12:50:49 ACT Document Registration
[2018-06-22] MEDS ORDERED: SEVOFLURANE (ULTANE) 15 ML INHAL SOLN ONE (11:33)
[2018-06-22] MEDS ORDERED: proPOfol 200 MG/20 ML (DIPRIVAN) VIAL IV ONE (11:33)
[2018-06-22] MEDS ORDERED: LIDOCAINE PF 2% 5 ML (XYLOCAINE) VIAL ONE (11:33)
[2018-06-22] MEDS ORDERED: DEXAMETHASONE 10 MG/ML (DECADRON) 1 ML VIAL ONE (11:33)
[2018-06-22] MEDS ORDERED: ROCURONIUM 10 MG/ML 5 ML SYRINGE IV ONE (11:34)
[2018-06-22] MEDS ORDERED: LIDOCAINE/EPI 1%-1:200,000 (XYLOCAINE) 10 ML VIAL ONE ×2 (11:38→11:39)
[2018-06-22] MEDS ORDERED: NEOSTIGMINE 1 MG/ML 5 ML SYRINGE ONE (12:24)
[2018-06-22] MEDS ORDERED: GLYCOPYRROLATE 0.2 MG/ML (ROBINUL) 2 ML VIAL ONE ×2 (12:24→12:53)
[2018-06-22] MEDS ORDERED: SUCCINYLCHOLINE INJ 100 MG/5 ML SYR ONE (12:28)
--- NOTE | 2018-06-22 12:48 | Progress Note-Post Operative ---
Post-Operative Progess Note Surgeon (s)/Die Sinker Apprentice (s) Surgeon CALEB LYLE DO Die Sinker Apprentice: Dr. June Pre-Operative Diagnosis biliary dyskinesia Post-Operative Diagnosis Same Procedure & Operative Findings Date of Procedure 06/22/18 Procedure Performed/Findings Lap Dariana with IOC Anesthesia Type GET Estimated Blood Loss Estimated blood loss (mL): scant Specimens/Packing Specimens Removed GB and contents CALEB LYLE DO Jun 22, 2018 12:48
--- NOTE | 2018-06-22 12:51 | Discharge Inst-Surgical ---
Discharge Inst-Surgical Depart Medication/Instructions New, Converted or Re-Newed RX: Other (Pt still has pain meds left from last surgery, ok to take those) Patient Instructions Follow up Appt: Make appointment for 1 week. Instructions: No lifting greater than 10 pounds. No strenuous activity. May shower in 24 hours, no tub bath or soaking. Use incentive spirometer at home as directed. No Smoking Skin/Wound Care: May remove bandages in am. You need to leave the Dermabond on over incision it will fall off on its own. Symptoms to Report: Appetite Changes, Extremity Discoloration, Numbness/Tingling, Swelling Increased , Bleeding Excessive, Eyesight Changes, Pain Increased, Urine Color Change, Constipation(Persistent), Fever over 101 degree F, Pain/Pressure in chest, Urinating Difficulty, Cough Up/Vomit Blood, Heart Beat Irreg/Pounding, Pain/ Pressure in jaw, Vaginal Bleeding Increase, Cramps in feet or legs, Lightheadedness, Pain/Pressure in shoulder, Diarrhea(Persistent), Memory Changes Suddenly, Questions/Concerns, Weight gain consecutive days, Dizziness/ Fainting, Nausea/Vomiting, Shortness of Breath, Weight gain over 2 pounds. If eyes or skin turn yellow notify physician. If questions or concerns contact your physician Or seek help at emergency department. Activity Activity as Tolerated: Yes Activity Instructions: Avoid Stress to Incision Driving Instructions: No Driving/Refer to Diet Discharge Diet: Avoid Fatty Foods, Low Fat/Low Cholesterol Diet After 24 Hours: Clear Liquid if Nauseous If Any Problems/Questions/Issu: Contact Your Physician, Go to Emergency Room Skin/Wound Care Infection Signs and Symptoms: Increased Redness, Foul Odor of Wound, Increased Drainage, Skin Itchy or Has a Rash, Increased Swelling, Temperature Above 101 F Wound Care Comment: Heating pad to neck or shoulder tonight for pain Bathing Instructions: Shower Stitches/Navya/Dermabond Dis: Dermabond Ice Pack: Ice On and Off Site (as needed for pain) CALEB LYLE DO Jun 22, 2018 12:51
[2018-06-22] MEDS ORDERED: SUGAMMADEX 500 MG/5 ML VIAL (BRIDION) IV ONE (13:11)
[2018-06-22] MEDS ORDERED: HYDROmorphone 2 MG/ML VIAL (DILAUDID) IV ONE ×2 (13:15→15:30)
[2018-06-22] MEDS ORDERED: MEPERIDINE (DEMEROL) INJ 50 MG/ML IVP ONE (13:15)
[2018-06-22] MEDS ORDERED: ONDANSETRON 4 MG/2 ML (SDV) Z0FRAN IVP PRN (13:15)
[2018-06-22] MEDS ORDERED: ACHD5005 PO (13:22)
[2018-06-22] MEDS ORDERED: PROMETHAZINE INJ 25 MG/ML (PHENERGAN) AMP ONE (13:44)
[2018-06-22] MEDS ORDERED: fentaNYL INJECTION 100 MCG/2 ML AMP IVP ONE (13:45)
[2018-06-22 14:25] VITALS: BP 146/97
[2018-06-22 14:55] VITALS: BP 156/101
[2018-06-22] MEDS ORDERED: PROMETHAZINE INJ 25 MG/ML (PHENERGAN) AMP IVP ONE (15:30)
[2018-06-22 15:35] VITALS: BP 137/88
--- NOTE | 2018-06-22 15:37 | Anesthesia-General Post-Op ---
General Patient Condition Mental Status/LOC: Same as Preop Cardiovascular: Satisfactory Nausea/Vomiting: Present (Being treated by nursing staff) Respiratory: Satisfactory Pain: Controlled Complications: Absent Post Op Complications Complications None Follow Up Care/Instructions Patient Instructions None needed. Anesthesia/Patient Condition Patient Condition Patient is doing well, no complaints, stable vital signs, no apparent adverse anesthesia problems. No complications reported per nursing. MICHEL RODRÍGUEZ CRNA Jun 22, 2018 15:37
--- NOTE | 2018-06-22 15:48 | Diagnostic Imaging Report ---
Indication: Cholecystectomy. Fluoroscopy was provided in the OR during intraoperative cholangiogram. 13 seconds of fluoroscopy was utilized. Images demonstrate contrast being injected via the cystic duct remnant. Intrahepatic and extrahepatic bile ducts are normal in caliber. No filling defects are seen. Contrast passes into the small bowel. Impression: Fluoroscopy during intraoperative cholangiogram. Dictated by: Dictated on workstation # [id number]
[2018-06-22] MEDS ORDERED: ONDA8TAB6 PO (16:27)
--- NOTE | 2018-06-22 19:49 | OPERATIVE REPORT ---
DATE OF SERVICE: PREOPERATIVE DIAGNOSES: 1. Cholelithiasis sludge as well as biliary dyskinesia. 2. Right upper quadrant pain. 3. Nausea, vomiting. POSTOPERATIVE DIAGNOSES: 1. Cholelithiasis sludge as well as biliary dyskinesia. 2. Right upper quadrant pain. 3. Nausea, vomiting, pending pathology. PROCEDURE: Laparoscopic cholecystectomy, intraoperative cholangiogram. SURGEON: Jg Valderrama DO. POULTRY HATCHERY SUPERVISOR: Manuel June DO. ANESTHESIA: General endotracheal tube. BLOOD LOSS: Scant. SPECIMEN: Gallbladder and contents. FLUIDS: Per anesthesia. POSTOPERATIVE CONDITION: Stable. INDICATION FOR PROCEDURE: The patient is a 38-year-old female who over the past month and a half has been having abdominal pain, was mainly in the right upper quadrant. First she was diagnosed with a kidney stone, which she passed then diagnosed with endometriosis, had a hysterectomy, but had an ultrasound that showed sludge and then had a HIDA scan, which showed a 29% ejection fraction. She had pain with fried and fatty foods, which is indicative of gallbladder attacks. FINDINGS: The patient had a very distended gallbladder, which usually occurs with a nonfunctioning and as well she had adhesions of the gallbladder. Pictures were taken of these. Adhesions general indicate previous gallbladder attacks. No other obvious pathology in the abdomen. PROCEDURE NOTE: After informed consent was obtained, the patient was brought to the operating room, placed on table in supine position. She was sterilely prepped and draped in normal fashion. Local lidocaine was used to infiltrate the skin above the umbilicus. Made incision with #11 blade, carried down through the skin and subcutaneous tissue then deepened through subcutaneous tissue with Bovie electrocautery down the fascia. Fascia incised with Bovie electrocautery and bluntly entered the abdomen, swept the finger around, placed 0 Vicryl [id number] suture, then placed 11 mm trocar port under direct visualization. Created pneumoperitoneum and then placed 3 more ports in normal fashion using local lidocaine, 11 blade for stab incision and the VersaStep system all done under direct visualization, one subxiphoid and two in the right upper quadrant. The patient was placed slightly reverse Trendelenburg and rotated to the left. Able to grasp the gallbladder at the fundus and upon entry, we noted there was a distended, took a picture of this, pushed the fundus superiorly, looking down to Silva's pouch, there were adhesions, pictures were taken. These were then carefully taken down with Bovie electrocautery as well as blunt dissection. These adhesions usually indicate previous gallbladder attacks. Able to grasp down to Silva's pouch and pulled in the inferolateral direction and start dissecting out cystic duct and cystic artery. Able to get around the cystic duct and the cystic artery, placed one clip proximally on the cystic duct and then one proximally and one distally on the cystic artery. Cut the cystic duct assisted through Metzenbaum scissors. Placed a cholangiogram catheter and shot a cholangiogram. Good spillage of dye into the cystic duct down the common bile duct into the small intestines as well as up into common hepatic and right and left hepatics. At this point, then removed the cholangiogram catheter, placed 2 clips proximally on the cystic duct and cut the cystic duct and cystic artery with Metzenbaum scissors. Then removed the gallbladder from bed of the liver with the L-hook cautery. Once it was completely removed, placed a bag in the abdomen, placed the gallbladder in the bag and then removed this through a supraumbilical incision. Looked around the abdomen, there is beginnings of a very small indirect right inguinal hernia, nothing seen on the left side. Did not move the intestines around, but denies any other obvious pathology. At this point, the patient was then placed supine, removed all ports under direct visualization, allowed the pneumoperitoneum to escape as well as suction it out and then closed the supraumbilical incision, closing the fascia with 0 Vicryl suture previously placed. Copiously irrigated all incisions with normal saline and closed the three small 5 mm incisions with a single interrupted 4-0 undyed Monocryl subcuticular stitch, closed the umbilical incision with 3 interrupted 4-0 undyed Monocryl subcuticular stitches. Area was cleaned and dried. Dermabond placed as well as Band-Aids. The patient was then transferred to recovery room in stable condition. Sponge and needle counts correct at the end of the case. Dr. June assisted on this case helping to make incisions, close incisions, hold the anatomy out of the way and identify the anatomy. Job ID: [id number] DocumentID: [id number] Dictated Date: 06/22/2018 17:03:50 Product Merchandiser Date: 06/22/2018 19:48:38 Dictated By: JG VALDERRAMA DO
== END 2018-06-22 17:06 | disposition home or self-care (01) ==
LOC: SDC 10:26
PROVIDERS: ATTEND Surgery
DX: K81.1 Chronic cholecystitis (principal); K82.8 Other specified diseases of gallbladder; Z11.2 Encounter for screening for other bacterial diseases; K40.90 Unilateral inguinal hernia, without obstruction or gangrene, not specified as recurrent; I10 Essential (primary) hypertension; F41.9 Anxiety disorder, unspecified; F32.9 Major depressive disorder, single episode, unspecified; K21.9 Gastro-esophageal reflux disease without esophagitis; Z88.0 Allergy status to penicillin; Z80.0 Family history of malignant neoplasm of digestive organs; Z87.891 Personal history of nicotine dependence
CPT/HCPCS: 87081; 88304; 94664

== ENCOUNTER → 2018-07-19 | Outpatient (CLI) | payer BC ==
[~2018-07-19] MED LIST changes: +ONDA8TAB6 PO
--- NOTE | 2018-07-19 21:57 | Diagnostic Imaging Report ---
INDICATION: Routine screening. Comparison is made with prior mammogram from 05/26/2017 and 06/26/2010. 2-D and 3-D bilateral screening mammography was performed. The current study was also evaluated with a Computer Aided Detection (CAD) system. FINDINGS: Both breasts are heterogeneously dense, limiting the sensitivity of mammography. There is a density in the lateral portion of the left breast at mid depth best seen on the CC view. No definite correlate on the MLO view seen. Additional views are recommended. Right breast is unremarkable. No suspicious calcifications are seen. Axillae are unremarkable. IMPRESSION: Left breast density. Additional views are recommended. ACR BI-RADS Category 0: Incomplete. (Needs additional imaging evaluation). Result letter will be mailed to the patient. Note: At least 10% of breast cancer is not imaged by mammography. Dictated by: Dictated on workstation # [id number]
== END ==
LOC: RAD 10:54
PROVIDERS: ATTEND Obstetrics & Gynecology
DX: Z12.31 Encounter for screening mammogram for malignant neoplasm of breast (principal); R92.8 Other abnormal and inconclusive findings on diagnostic imaging of breast
CPT/HCPCS: 77067

== ENCOUNTER 2018-07-30 13:14 | Emergency (ER) | payer BC ==
[~2018-07-30] VITALS: Ht 160 cm; Wt 63.5 kg
--- OUTSIDE RECORDS SUMMARY | 2018-07-30 13:20 | XMS REPORT | Continuity of Care Document ---
Demographics Preferred Language Unknown Marital Status Unknown Advent Affiliation Unknown Race Unknown Ethnic Group Unknown Author Author Formerly [facility] Address Unknown Phone Unavailable Allergies Active Description Code Type Severity Reaction Onset Reported/Identified Relationship to Patient Clinical Status Yes erythromycin base [id number] Drug Allergy Unknown N/A 10/25/2006 Yes Penicillins [id number] Drug Allergy Unknown N/A 10/25/2006 Yes prochlorperazine [id number] Drug Allergy Unknown N/A 10/25/2006 Medications There [...] Ot 784.0 HEADACHE 02/01/2017 KYLE CONLEY, TAYLOR Vsaquez Ot 780.60 FEVER, UNSPECIFIED 02/01/2017 TAYLOR WRIGHT [...] 08/30/2017 TAYLOR WRIGHT MD Ot Z79.899 OTHER OXYGEN THERAPY TEACHER (CURRENT) DRUG THERAPY 08/30/2017 TAYLOR WRIGHT MD [...] TAYLOR WRIGHT MD Ot Z79.899 OTHER SENIOR LIVING (CURRENT) DRUG THERAPY 09/01/2017 TAYLOR WRIGHT MD [...] 09/07/2017 TAYLOR WRIGHT MD Ot Z79.899 OTHER SENIOR LIVING (CURRENT) DRUG THERAPY 09/07/2017 TAYLOR WRIGHT MD [...] MD Ot R07.9 CHEST PAIN, UNSPECIFIED 10/29/2017 SHARVAN DPM, JENI Q Ot S92.354A NONDISP FX [...] 10/29/2017 TAYLOR WRIGHT MD Ot Z79.899 OTHER OXYGEN THERAPY TEACHER (CURRENT) DRUG THERAPY 10/29/2017 TAYLOR WRIGHT MD [...] K62.5 HEMORRHAGE OF ANUS AND RECTUM 01/30/2018 TAYLRO WRIGHT MD Ot Z20.7 CNTCT W EXPSR TO PEDICULOSIS, ACARIASI 01/30/2018 TAYLOR WRIGHT MD, Ot Z79.899 OTHER SENIOR LIVING (CURRENT) DRUG THERAPY 01/30/2018 TAYLOR WRIGHT MD [...] 02/07/2018 TAYLOR WRIGHT MD Ot Z79.899 OTHER SENIOR LIVING (CURRENT) DRUG THERAPY 02/07/2018 TAYLOR WRIGHT MD [...] WRIGHT MD Ot N20.0 CALCULUS OF KIDNEY 06/21/2018 CALEB LYLE DO Ot Z01.818 ENCOUNTER FOR OTHER PREPROCEDURAL EXAMIN 06/22/2018 CALEB LYLE DO Ot Z01.818 ENCOUNTER FOR OTHER PREPROCEDURAL EXAMIN 06/22/2018 CALEB LYLE DO Ot F32.9 MAJOR DEPRESSIVE DISORDER, SINGLE EPISOD 06/22/2018 CALEB LYLE DO Ot F41.9 ANXIETY DISORDER, UNSPECIFIED 06/22/2018 CALEB LYLE DO Ot I10 ESSENTIAL (PRIMARY) HYPERTENSION 06/22/2018 CALEB LYLE DO Ot K21.9 GASTRO-ESOPHAGEAL REFLUX DISEASE WITHOUT 06/22/2018 CALEB LYLE DO Ot K40.90 UNIL INGUINAL HERNIA, W/O OBST OR GANGR, 06/22/2018 CALEB LYLE DO Ot K81.1 CHRONIC CHOLECYSTITIS 06/22/2018 CALEB LYLE DO Ot K82.8 OTHER SPECIFIED DISEASES OF GALLBLADDER 06/22/2018 DELMAN DO, CALEB B Ot Z11.2 ENCOUNTER FOR SCREENING FOR OTHER BACTER 06/22/2018 LAURITA LYLE DOIC B Ot Z80.0 FAMILY HISTORY OF MALIGNANT NEOPLASM OF 06/22/2018 CALEB LYLE DO B Ot Z87.891 PERSONAL HISTORY OF NICOTINE DEPENDENCE 06/22/2018 CALEB LYLE DO B Ot Z88.0 ALLERGY STATUS TO PENICILLIN 06/29/2018 LAURITA LYLE DOIC B Ot F32.9 MAJOR DEPRESSIVE DISORDER, SINGLE EPISOD 06/29/2018 LAURITA LYLE DOIC B Ot F41.9 ANXIETY DISORDER, UNSPECIFIED 06/29/2018 LAURITA LYLE DOIC B Ot I10 ESSENTIAL (PRIMARY) HYPERTENSION 06/29/2018 LAURITA LYLE DOIC B Ot K21.9 GASTRO-ESOPHAGEAL REFLUX DISEASE WITHOUT 06/29/2018 LAURITA LYLE DOIC B Ot K40.90 UNIL INGUINAL HERNIA, W/O OBST OR GANGR, 06/29/2018 LAURITA LYLE DOIC B Ot K81.1 CHRONIC CHOLECYSTITIS 06/29/2018 LAURITA LYLE DOIC B Ot K82.8 OTHER SPECIFIED DISEASES OF GALLBLADDER 06/29/2018 CALEB LYLE DO B Ot Z11.2 ENCOUNTER FOR SCREENING FOR OTHER BACTER 06/29/2018 CALEB LLYE DO B Ot Z80.0 FAMILY HISTORY OF MALIGNANT NEOPLASM OF 06/29/2018 CALEB LYLE DO B Ot Z87.891 PERSONAL HISTORY OF NICOTINE DEPENDENCE 06/29/2018 CALEB LYLE DO B Ot Z88.0 ALLERGY STATUS TO PENICILLIN Procedures There is no data. Results Test [...] Automated blood platelet mean volume measurement 9.6 [foz_us] 7.4-10.4 Automated blood neutrophils/100 leukocytes 53 % [...] NEGATIVE NEGATIVE Urine propoxyphene detection NEGATIVE NEGATIVE Methicillin resistant Staphylococcus aureus (MRSA) screening culture - 10:50 Methicillin resistant Staphylococcus aureus (MRSA) screening culture NEG NRG Encounters ACCT No. Visit Date/Time Discharge Status Pt. Type Provider Facility Loc./Unit Complaint [id number] 07/18/2012 16:04:00 07/18/2012 23:59:59 CLS Outpatient [id number] 03/21/2018 11:00:00 03/21/2018 23:59:59 CLS Outpatient CINDY ALARCON LAC [facility] [id number] 08/04/2017 12:40:00 Document Registration [id number] 07/19/2018 10:54:00 07/19/2018 23:59:59 CLS Outpatient ADI GORDILLO MD [facility] RAD SCREENING [id number] 06/22/2018 10:26:00 06/22/2018 23:59:59 CLS Outpatient CALEB LYLE DO [facility] SDC BILIARY DYSKINESIA [id number] 06/21/2018 15:57:00 06/21/2018 16:28:00 DIS Outpatient CALEB LYLE DO [facility] PREOP BILIARY DYSKINESIA [id number] 05/12/2018 11:35:00 05/12/2018 23:59:59 CLS Preadmit ADI GORDILLO MD [facility] RAD ABD PAIN [id number] 05/10/2018 12:08:00 05/10/2018 23:59:59 CLS Outpatient TAYLOR WRIGHT MD [facility] RAD R FLANK/RLQ ABD PAIN [id number] 04/18/2018 10:09:00 04/18/2018 13:30:00 DIS Emergency ZOILA ANGEL MD [facility] ER CP,SOB [id number] 10/29/2017 13:03:00 10/29/2017 13:33:00 DIS Emergency JAREK BIRD REMOTELY OPERATED VEHICLE [facility] ER NECK PAIN/SPASMS [id number] 08/26/2017 07:56:00 08/26/2017 23:59:59 CLS Outpatient TAYLOR WRIGHT MD [facility] ENDO RECTAL BLEEDING [id number] 08/19/2017 05:30:00 08/19/2017 15:11:00 DIS Outpatient TAYLOR WRIGHT MD [facility] PREOP COLONOSCOPY [id number] 07/14/2017 09:36:00 08/17/2017 10:07:00 DIS Outpatient HELENA NAVARRO [facility] REHAB CERV STENOSIS W RADICULOPATHY;LUMBAGO;LUMBAR RADIC [id number] 05/30/2017 10:01:00 05/30/2017 23:59:59 CLS Outpatient RENAY KUMARI MD [facility] RAD LUMBAGO [id number] 05/26/2017 13:52:00 05/26/2017 23:59:59 CLS Outpatient TAYLOR WRIGHT MD [facility] RAD SCREENING [id number] 05/18/2017 10:07:00 05/18/2017 17:19:00 DIS Emergency LEONEL MD, SARA D [facility] ER GENERALIZED PAIN AND NUMBNESS [id number] 11/13/2016 19:55:00 11/13/2016 21:31:00 DIS Emergency MICHEL HOFFMANN [facility] ER THROAT PAIN, HEADACHE, CONGESTION [id number] 05/21/2016 11:24:00 05/21/2016 17:15:00 DIS Outpatient SHRAVAN DPM, JENI Q [facility] SDC RIGHT 5TH METATARSAL FRACTURE [id number] 05/20/2016 08:55:00 05/20/2016 09:30:00 DIS Outpatient SHRAVAN DPM, JENI Q [facility] PREOP RIGHT 5TH METATARSAL FRACTURE [id number] 05/17/2016 15:56:00 05/17/2016 23:59:59 CLS Outpatient SHRAVAN DPM, JENI Q [facility] RAD ANKLE SPRAIN [id number] 07/16/2015 08:22:00 07/16/2015 23:59:59 CLS Outpatient MOHIT CHONG MD [facility] CARD HTN [id number] 06/27/2015 06:12:00 06/27/2015 07:45:00 DIS Emergency SARA CASTANEDA MD [facility] ER CHEST PAIN [id number] 02/03/2015 12:48:00 02/03/2015 23:59:59 CLS Outpatient TAYLOR WRIGHT MD [facility] LAB PLANK PAIN WITH FEVER [id number] 05/20/2014 16:00:00 05/20/2014 23:59:59 CLS Outpatient TAYLOR WRIGHT MD [facility] RAD SUDDEN ONSET SEVERE LEFT HEADACHE [id number] 04/02/2013 09:09:00 04/02/2013 13:16:00 DIS Emergency QUITA LOPEZ MD [facility] ER CHEST PAIN [id number] 08/03/2018 08:45:00 PEN Preadmit ADI GORDILLO MD [facility] RAD ABNORMAL MAMMO [id number] 07/20/2011 12:37:00 Document Registration [id number] 07/19/2011 10:09:00 Document Registration [id number] 10/29/2010 12:14:00 Document Registration [id number] 08/05/2010 10:55:00 Document Registration [id number] 08/02/2010 09:06:00 Document Registration [id number] 06/26/2010 11:05:00 Document Registration [id number] 02/03/2015 12:50:49 ACT Document Registration
--- NOTE | 2018-07-30 13:42 | ED Neck-Back Pain/Injury ---
General Chief Complaint: Head/Cervical Problems Stated Complaint: NECK PAIN Nursing Triage Note: ARRIVED VIA AMB TO ROOM 10 WITH COMPLAINTS OF CHRONIC NECK BACK PAIN THAT HAS BECAME WORSE TODAY. 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 STATES SHE IS SCHEDULED FOR A MRI OF THE SPINE AND IS WANTING IN DONE SOONER HERE AND WOULD LIKE TO KNOW THE RESULTS OF THE MRI FROM [place]. PT HAS ONLY TAKEN TWO ALEEVE THIS AM AND HAS NOT TAKEN HER MUSCLE RELAXER SINCE LAST NIGHT. Nursing Sepsis Screen: No Definite Risk Source of Information: Patient Exam Limitations: No Limitations History of Present Illness Date Seen by Provider: Jul 30, 2018 Time Seen by Provider: 13:42 Initial Comments Patient is a 38-year-old female who presents to the emergency room with complaints of chronic neck and upper back pain that has became worse today. She sees neuro spine surgeon Dr. Recio in [place] and recently had an MRI done of the C-spine and is needing Allergies and Home Medications Allergies Coded Allergies: Penicillins (Verified Allergy, Unknown, 10/25/06) erythromycin base (Verified Allergy, Unknown, 10/25/06) prochlorperazine (Verified Allergy, Unknown, 10/25/06) Home Medications Atenolol 50 Mg Tablet, 50 MG PO DAILY, (Reported) Desvenlafaxine Succinate 50 Mg Tab.er.24h, 50 MG PO DAILY, (Reported) Hydrocodone Bit/Acetaminophen 1 Tab Tab, 1 EACH PO Q4-6HR PRN for PAIN-MODERATE Prescribed by: WENCESLAO AUSTIN on 07/30/18 1515 Ondansetron 4 Mg Tab.rapdis, 4 MG PO Q6H PRN for NAUSEA/VOMITING, (Reported) Ondansetron HCl 8 Mg Tablet, 8 MG PO Q6H Prescribed by: MICHEL RAYO on 06/22/18 1627 Sertraline HCl 50 Mg Tablet, 50 MG PO DAILY, (Reported) Valsartan/Hydrochlorothiazide 1 Each Tablet, 1 EACH PO DAILY, (Reported) Past Csycfim-Omcgha-Mkabst Hx Patient Social History Alcohol Use: Denies Use Alcohol Beverage of Choice: Wine Recreational Drug Use: No Smoking Status: Former Smoker Former Smoker, Quit: May 20, 2006 Recent Foreign Travel: No Contact w/Someone Who Travel: No Recent Infectious Disease Expo: No Recent Hopitalizations: No Immunizations Up To Date Tetanus Booster (TDap): More than 5yrs PED Vaccines UTD: No Date of Influenza Vaccine: May 19, 2017 Seasonal Allergies Seasonal Allergies: No Past Medical History Surgeries: Yes (uterine ablation) Appendectomy, Hysterectomy Respiratory: No Currently Using CPAP: No Currently Using BIPAP: No Cardiac: Yes ( history of preeclampsia with severe hypertension) Hypertension Neurological: No Reproductive Disorders: No Female Reproductive Disorders: Denies Sexually Transmitted Disease: No HIV/AIDS: No Gastrointestinal: Yes (rectal bleeding) Gall Bladder Disease Musculoskeletal: Yes (CHRONIC NECK PAIN) Chronic Back Pain, Fractures, Spasms Endocrine: No HEENT: No Cancer: No Did You Recieve Any Treatments: No Psychosocial: Yes Anxiety, Depression Integumentary: No Blood Disorders: No Family Medical History Heart Disease, CAD Over 55 Years Old, Hypertension Physical Exam Vital Signs Vital Signs - First Documented 07/30/18 13:26 Temp 98.0 Pulse 86 Resp 16 B/P (MAP) 144/99 (114) Pulse Ox 97 O2 Delivery Room Air Capillary Refill : Less Than 3 Seconds Height, Weight, BMI Height: 5'3.00" Weight: 140lbs. 0.0oz. 63.452206gd; 25.7 BMI Method:Stated Progress/Results/Core Measures Results/Orders My Orders Orders - BERNOT,WENCESLAO Orphenadrine Injection (Norflex Injectio (07/30/18 13:45) Hydrocodone/Apap 7.5/325 Tab (Lortab 7. (07/30/18 13:45) Medications Given in ED Vital Signs/I&O 07/30/18 07/30/18 13:26 15:17 Temp 98.0 98.0 Pulse 86 86 Resp 16 16 B/P (MAP) 144/99 (114) 144/99 (114) Pulse Ox 97 97 O2 Delivery Room Air Blood Pressure Mean: 114 Departure Impression Primary Impression: Neck pain Disposition: 01 HOME, SELF-CARE Condition: Stable/Unchanged Departure-Patient Inst. Decision time for Depature: 15:11 Referrals: TAYLOR WRIGHT MD (PCP/Family) Primary Care Physician Patient Instructions: Cervical Muscle Strain (DC) Add. Discharge Instructions: Take medication as directed. In addition to the hydrocodone you can use ibuprofen and Tylenol as directed by the bottle for additional pain relief, be sure that she do not exceed your daily limit of Tylenol. Keep your appointment on Tuesday for your MRI of your lower spine. Follow-up with your primary care provider and your neuro non destructive evaluation specialist within 1 week for recheck. Return back to the emergency room for any worsening symptoms or concerns as needed. All discharge instructions reviewed with patient and/or family. Voiced understanding. Scripts Hydrocodone Bit/Acetaminophen (Hydrocodone/Acetaminophen 5/325mg Tablet) 1 Tab Tab 1 EACH PO Q4-6HR PRN for PAIN-MODERATE MDD 10, #14 TAB Prov: WENCESLAO AUSTIN 07/30/18 WENCESLAO AUSTIN Jul 30, 2018 13:42
[2018-07-30] MEDS ORDERED: MELO15TA39 (13:43)
[2018-07-30] MEDS ORDERED: METH4TAB10 (13:43)
[2018-07-30] MEDS ORDERED: BACL10TA (13:43)
[2018-07-30] MEDS ORDERED: ORPHENADRINE 60 MG/2 ML (NORFLEX) AMP IM ONE (13:45)
[2018-07-30] MEDS ORDERED: HYDROcodone/APAP 7.5 MG/325 MG (LORTAB, LORCET PLUS) TABLET PO ONE (13:45)
[2018-07-30] MEDS ORDERED: ACHD5005 PO (15:15)
[2018-07-30 15:17] VITALS: BP 144/99
== END 2018-07-30 15:17 | disposition home or self-care (01) ==
LOC: EDUNIT# 13:14 → ER 13:15
DX: M54.2 Cervicalgia (principal); I10 Essential (primary) hypertension; F41.9 Anxiety disorder, unspecified; F32.9 Major depressive disorder, single episode, unspecified; Z87.19 Personal history of other diseases of the digestive system; Z87.448 Personal history of other diseases of urinary system; Z88.0 Allergy status to penicillin; Z88.8 Allergy status to other drugs, medicaments and biological substances; Z82.49 Family history of ischemic heart disease and other diseases of the circulatory system; Z87.891 Personal history of nicotine dependence; Z90.49 Acquired absence of other specified parts of digestive tract; Z90.710 Acquired absence of both cervix and uterus; Z98.890 Other specified postprocedural states
CPT/HCPCS: 99282

== ENCOUNTER → 2018-08-03 | Outpatient (CLI) | payer BC ==
[~2018-08-03] MED LIST changes: +BACL10TA; +MELO15TA39; +METH4TAB10
--- NOTE | 2018-08-03 19:24 | Diagnostic Imaging Report ---
INDICATION: Left breast density. Patient presents for additional views. COMPARISON: Correlation is made with recent screening study from 07/19/2018 as well as prior mammogram from 05/26/2017. TECHNIQUE: Unilateral left 2D and 3D diagnostic mammography was performed with computer-aided detection (CAD) system. This included spot compression CC, mediolateral views as well as rolled CC views. FINDINGS: Additional views show persistent nodular density in the outer left breast at mid depth, approximately 5 cm from the nipple. This may be superiorly located on the ML view. No other masses are seen. No suspicious calcifications are identified. IMPRESSION: Persistent nodular density in the outer left breast. Further evaluation with ultrasound is recommended and will be performed today. ACR BI-RADS Category 0: Incomplete. (Needs additional imaging evaluation). Result letter will be mailed to the patient. Note: At least 10% of breast cancer is not imaged by mammography. Dictated by: Dictated on workstation # [id number]
--- NOTE | 2018-08-03 19:27 | Diagnostic Imaging Report ---
INDICATION: Left breast density. Correlation is made with diagnostic mammogram earlier the same day and screening mammogram from 07/19/2018. FINDINGS: Sonographic interrogation of the outer left breast was performed. There are 2 cysts located at the 2:30 location of the left breast approximately 3 cm from the nipple. Each cyst is approximately 5-6 mm in size. This may account for the mammographic density. No suspicious abnormality is seen. IMPRESSION: Cyst located at the 2:30 to 3 o'clock location of the left breast 3 cm from the nipple. This may account for the mammographic density although followup left mammogram and left breast ultrasound in 6 months is recommended to show continued stability. ACR BI-RADS Category 3: Probably benign findings. Dictated by: Dictated on workstation # [id number]
== END ==
LOC: RAD 08:28
PROVIDERS: ATTEND Obstetrics & Gynecology
DX: N60.02 Solitary cyst of left breast (principal)
CPT/HCPCS: 76642

== ENCOUNTER 2018-12-28 17:36 | Emergency (ER) | payer BC ==
[~2018-12-28] VITALS: Ht 160 cm; Wt 65.8 kg
[2018-12-28] MEDS ORDERED: ASPIRIN 81 MG CHEW (CHILDREN'S ASA) PO ONE (18:15)
[2018-12-28] MEDS ORDERED: LORazepam INJ 2 MG/ML (ATIVAN) VIAL IVP ONE ×2 (18:15→19:30)
--- NOTE | 2018-12-28 18:23 | ED Psychosocial ---
General Stated Complaint: ANXIETY Source: patient Exam Limitations: no limitations History of Present Illness Date Seen by Provider: December 28, 2018 Time Seen by Provider: 17:57 Initial Comments The patient presents by private conveyance with chief complaint that all day today she's been having a state of panic, tingling fingers and about 2 hours ago she began to have some pain in the middle of her chest that did not radiate. She has a history of coronary disease but she does have high blood pressure. She doesn't smoke have diabetes, hypercholesterolemia or a particularly interesting family history. She does have a history of anxiety with panic attack disorder and uses Ativan 1/2 mg twice a day as needed. She did take one earlier today but it didn't help. She said she was having a hard time with the molar not behaving correctly and she had a run and chart picker one of her kids from school and her was not answering the phone and that precipitated her symptoms. She did some cognitive behavioral therapy, breathing exercises etc. and got more concerned than the Ativan did not help. She is not really short of breath wheezing or coughing. The patient states that recently she had been stable on a beta sergei for her blood pressure and also was helping with her panic attacks but she said in the past few weeks she has been feeling very low energy of yesterday when she talked to Dr. Wren her primary care doctor who switched to a different beta sergei at night and started that yesterday. Allergies and Home Medications Allergies Coded Allergies: Penicillins (Verified Allergy, Unknown, 10/25/06) erythromycin base (Verified Allergy, Unknown, 10/25/06) prochlorperazine (Verified Allergy, Unknown, 10/25/06) Home Medications Atenolol 50 Mg Tablet, 50 MG PO DAILY, (Reported) Desvenlafaxine Succinate 50 Mg Tab.er.24h, 50 MG PO DAILY, (Reported) Hydrocodone Bit/Acetaminophen 1 Tab Tab, 1 EACH PO Q4-6HR PRN for PAIN-MODERATE Prescribed by: WENCESLAO AUSTIN on 07/30/18 1515 Ondansetron 4 Mg Tab.rapdis, 4 MG PO Q6H PRN for NAUSEA/VOMITING, (Reported) Ondansetron HCl 8 Mg Tablet, 8 MG PO Q6H Prescribed by: MICHEL RAYO on 06/22/18 1627 Sertraline HCl 50 Mg Tablet, 50 MG PO DAILY, (Reported) Valsartan/Hydrochlorothiazide 1 Each Tablet, 1 EACH PO DAILY, (Reported) Patient Home Medication List Home Medication List Reviewed: Yes Review of Systems Constitutional: No chills, No fever EENTM: No hearing loss, No ear pain Respiratory: No cough, No phlegm, No short of breath Cardiovascular: see HPI, chest pain; No edema, No Hx of Intervention, No syncope, No vascular heart diseas Gastrointestinal: No abdominal pain, No constipation, No diarrhea Genitourinary: No discharge, No dysuria : No (status post hysterectomy) Musculoskeletal: No back pain, No joint pain Past Wvbuzcp-Vzgshi-Izffmm Hx Patient Social History Alcohol Use: Occasionally Uses Alcohol Beverage of Choice: Wine Recreational Drug Use: No Smoking Status: Former Smoker Former Smoker, Quit: May 20, 2006 Recent Foreign Travel: No Contact w/Someone Who Travel: No Recent Hopitalizations: No Immunizations Up To Date Tetanus Booster (TDap): More than 5yrs PED Vaccines UTD: No Date of Influenza Vaccine: May 19, 2017 Seasonal Allergies Seasonal Allergies: No Past Medical History Surgeries: Yes (uterine ablation) Appendectomy, Hysterectomy Respiratory: No Currently Using CPAP: No Currently Using BIPAP: No Cardiac: Yes ( history of preeclampsia with severe hypertension) Hypertension Neurological: No Reproductive Disorders: No Female Reproductive Disorders: Denies Sexually Transmitted Disease: No HIV/AIDS: No Gastrointestinal: Yes (rectal bleeding) Gall Bladder Disease Musculoskeletal: Yes (CHRONIC NECK PAIN) Chronic Back Pain, Fractures, Spasms Endocrine: No HEENT: No Cancer: No Did You Recieve Any Treatments: No Psychosocial: Yes Anxiety, Depression Integumentary: No Blood Disorders: No Family Medical History Heart Disease, CAD Over 55 Years Old, Hypertension Physical Exam Vital Signs - First Documented Capillary Refill : Height, Weight, BMI Height: 5'3.00" Weight: 140lbs. 0.0oz. [id number]; 25.7 BMI Method:Stated General Appearance: WD/WN, no apparent distress HEENT: PERRL/EOMI, pharynx normal Neck: full range of motion, normal inspection Respiratory: chest non-tender, lungs clear, normal breath sounds, no respiratory distress, no accessory muscle use Cardiovascular: normal peripheral pulses, regular rate, rhythm Neurologic/Psychiatric: alert, oriented x 3, other (anxious affect) Appearance/Memory: appropriate appearance, appropriate insight Behavior/Eye Contact: cooperative Skin: normal color, warm/dry Progress/Results/Core Measures Results/Orders Lab Results Laboratory Tests Test 12/28/18 18:41 Range/Units White Blood Count 6.5 4.3-11.0 10^3/uL Red Blood Count 4.53 4.35-5.85 10^6/uL Hemoglobin 13.5 11.5-16.0 G/DL Hematocrit 40 35-52 % Mean Corpuscular Volume 87 80-99 FL Mean Corpuscular Hemoglobin 30 25-34 PG Mean Corpuscular Hemoglobin Concent 34 32-36 G/DL Red Cell Distribution Width 13.2 10.0-14.5 % Platelet Count 275 130-400 10^3/uL Mean Platelet Volume 9.2 7.4-10.4 FL Neutrophils (%) (Auto) 57 42-75 % Lymphocytes (%) (Auto) 33 12-44 % Monocytes (%) (Auto) 9 0-12 % Eosinophils (%) (Auto) 1 0-10 % Basophils (%) (Auto) 0 0-10 % Neutrophils # (Auto) 3.7 1.8-7.8 X 10^3 Lymphocytes # (Auto) 2.1 1.0-4.0 X 10^3 Monocytes # (Auto) 0.6 0.0-1.0 X 10^3 Eosinophils # (Auto) 0.1 0.0-0.3 10^3/uL Basophils # (Auto) 0.0 0.0-0.1 10^3/uL Prothrombin Time 12.8 12.2-14.7 SEC INR Comment 0.9 0.8-1.4 Activated Partial Thromboplast Time 25 24-35 SEC Sodium Level 139 135-145 MMOL/L Potassium Level 3.9 3.6-5.0 MMOL/L Chloride Level 101 98-107 MMOL/L Carbon Dioxide Level 26 21-32 MMOL/L Anion Gap 12 5-14 MMOL/L Blood Urea Nitrogen 13 7-18 MG/DL Creatinine 0.76 0.60-1.30 MG/DL Estimat Glomerular Filtration Rate > 60 BUN/Creatinine Ratio 17 Glucose Level 91 70-105 MG/DL Calcium Level 10.0 8.5-10.1 MG/DL Corrected Calcium 9.6 8.5-10.1 MG/DL Magnesium Level 2.1 1.8-2.4 MG/DL Total Bilirubin 0.4 0.1-1.0 MG/DL Aspartate Amino Transf (AST/SGOT) 24 5-34 U/L Alanine Aminotransferase (ALT/SGPT) 33 0-55 U/L Alkaline Phosphatase 48 40-136 U/L Myoglobin 17.8 10.0-92.0 NG/ML Troponin I < 0.028 <0.028 NG/ML Total Protein 7.7 6.4-8.2 GM/DL Albumin 4.5 3.2-4.5 GM/DL Thyroid Stimulating Hormone (TSH) 1.57 0.35-4.94 UIU/ML My Orders Orders - ZOILA ANGEL Cbc With Automated Diff (12/28/18 18:15) Magnesium (12/28/18 18:15) Chest 1 View, Ap/Pa Only (12/28/18 18:15) Ekg Tracing (12/28/18 18:15) Cardiac Profile 1 (12/28/18 18:15) Comprehensive Metabolic Panel (12/28/18 18:15) Myoglobin Serum (12/28/18 18:15) Protime With Inr (12/28/18 18:15) Partial Thromboplastin Time (12/28/18 18:15) O2 (12/28/18 18:15) Monitor-Rhythm Ecg Trace Only (12/28/18 18:15) Ed Iv/Invasive Line Start (12/28/18 18:15) Aspirin Chewable Tablet (Baby Aspirin Ch (12/28/18 18:15) Lorazepam Injection (Ativan Injection) (12/28/18 18:15) Thyroid Stimulating Hormone (12/28/18 18:25) Lorazepam Injection (Ativan Injection) (12/28/18 19:30) Medications Given in ED Current Medications Medications Dose Ordered Sig/Brgiido Route Start Time Stop Time Status Last Admin Dose Admin Aspirin 324 mg ONCE ONCE PO 12/28/18 18:15 12/28/18 18:18 DC 12/28/18 18:47 324 MG Lorazepam 0.5 mg ONCE ONCE IVP 12/28/18 18:15 12/28/18 18:18 DC 12/28/18 18:48 0.5 MG Lorazepam 0.5 mg ONCE ONCE IVP 12/28/18 19:30 12/28/18 19:31 DC 12/28/18 19:32 0.5 MG Vital Signs/I&O 12/28/18 12/28/18 17:36 17:36 Temp 97.6 Pulse 69 Resp 18 B/P (MAP) 143/86 (105) Pulse Ox 99 100 O2 Delivery Room Air Room Air Progress Progress Note : Time: 18:23 Progress Note We have agreed to perform so battery of laboratory tests and EKG as well as chest x-ray looking for any evidence of other pathology. At this time she seems to be having a classic panic attack. We made recommendations that she could double up if she is not seeing improvement from her Ativan and 20-30 minutes after she takes 0.5 mg. We've also suggested to her some cognitive behavioral therapy techniques, breathing exercises, focus exercise, body techniques and that the recent change of her beta sergei may have precipitated today's panic attack being a little worse than usual. She would elect to do a laboratory and EKG workup. We'll give her half a milligram IV Ativan and reassess 15-20 minutes. 1920: Still waiting on some blood work. We assessed the patient and she does seem more calm and relaxed however she says she still has quite a bit of anxiety so we'll let her have a second dose one half milligram Ativan. Initial ECG Impression Date: December 28, 2018 Initial ECG Impression Time: 18:22 Initial ECG Rate: 64 Initial ECG Rhythm: Normal Sinus Initial ECG Intervals: Normal Initial ECG Impression: Normal, Nonspecific Changes Comment Left ventricular hypertrophy. No ST elevation or depression. Diagnostic Imaging Diagonstic Imaging: Xray Plain Films/CT/US/NM/MRI: chest (1v) Comments [facility] [place], [place] NAME: MP HERNANDEZ [facility] REC#: [id number] PT STATUS: REG ER : 1980 PHYSICIAN: ZOILA ANGEL MD ADMIT DATE: 12/28/18/ER Draft Date of Exam:12/28/18 CHEST 1 VIEW, AP/PA ONLY INDICATION: Chest pain EXAMINATION: Frontal chest was obtained at 7:06 p.m. COMPARISON: 04/18/2018. FINDINGS: Heart and mediastinal silhouette are normal in appearance. The lungs are clear. There is no pneumothorax or pleural fluid. IMPRESSION: Negative chest. Dictated on workstation # [id number] Dict: 12/28/181914 Trans: 12/28/181916 PJE [id number] Interpreted by: HARMAN VASQUEZ MD Electronically signed by: Reviewed: Reviewed by Me Departure Impression Primary Impression: Panic attack Additional Impression: Generalized anxiety disorder with panic attacks Disposition: HOME, SELF-CARE Condition: Improved Departure-Patient Inst. Decision time for Depature: 19:59 Referrals: TAYLOR WREN MD (PCP/Family) Primary Care Physician Patient Instructions: Panic Disorder (DC) Add. Discharge Instructions: It would be okay to take an extra dose of Ativan 0.5 mg if you're not seeing improvement with your first dose within the first 30 minutes. Do not take more than 2 mg per day total without speaking to your primary care doctor first. Discuss other coping mechanisms with your counselor. Continue taking your other medications as prescribed. Follow-up with Dr. Wren and discuss whether you're maintenance antianxiety medications doses could be adjusted. ZOILA ANGEL December 28, 2018 18:23
[2018-12-28 18:48] LABS: BASOPHILS % (AUTO) 0 % (0-10); EOSINOPHILS # (AUTO) 0.1 10^3/uL (0.0-0.3); EOSINOPHILS % (AUTO) 1 % (0-10); HEMATOCRIT 40 % (35-52); HEMOGLOBIN 13.5 G/DL (11.5-16.0); LYMPHOCYTES # (AUTO) 2.1 X 10^3 (1.0-4.0); LYMPHOCYTES % (AUTO) 33 % (12-44); MEAN CORPUSCULAR HEMOGLOBIN 30 PG (25-34); MEAN CORPUSCULAR HGB CONC 34 G/DL (32-36); MEAN CORPUSCULAR VOLUME 87 FL (80-99); MEAN PLATELET VOLUME 9.2 FL (7.4-10.4); MONOCYTES # (AUTO) 0.6 X 10^3 (0.0-1.0); MONOCYTES % (AUTO) 9 % (0-12); NEUTROPHILS # (AUTO) 3.7 X 10^3 (1.8-7.8); NEUTROPHILS % (AUTO) 57 % (42-75); PLATELET COUNT 275 10^3/uL (130-400); RED CELL DISTRIBUTION WIDTH 13.2 % (10.0-14.5); WHITE BLOOD COUNT 6.5 10^3/uL (4.3-11.0)
[2018-12-28 19:06] LABS: INR 0.9 (0.8-1.4); PROTHROMBIN TIME PATIENT 12.8 SEC (12.2-14.7)
[2018-12-28 19:13] LABS: ALANINE AMINOTRANSFERASE 33 U/L (0-55); ALBUMIN 4.5 GM/DL (3.2-4.5); ALKALINE PHOSPHATASE 48 U/L (40-136); BILIRUBIN,TOTAL 0.4 MG/DL (0.1-1.0); BUN/CREATININE RATIO 17; CARBON DIOXIDE 26 MMOL/L (21-32); CHLORIDE 101 MMOL/L (98-107); CREATININE SERUM 0.76 MG/DL (0.60-1.30); GFR ESTIMATED > 60; GLUCOSE 91 MG/DL (70-105); MAGNESIUM 2.1 MG/DL (1.8-2.4); POTASSIUM 3.9 MMOL/L (3.6-5.0); SODIUM 139 MMOL/L (135-145); TOTAL PROTEIN 7.7 GM/DL (6.4-8.2)
--- NOTE | 2018-12-28 19:17 | Diagnostic Imaging Report ---
INDICATION: Chest pain EXAMINATION: Frontal chest was obtained at 7:06 p.m. COMPARISON: 04/18/2018. FINDINGS: Heart and mediastinal silhouette are normal in appearance. The lungs are clear. There is no pneumothorax or pleural fluid. IMPRESSION: Negative chest. Dictated by: Dictated on workstation # [id number]
[2018-12-28 20:12] VITALS: BP 143/86
== END 2018-12-28 20:14 | disposition home or self-care (01) ==
LOC: EDUNIT# 17:36 → ER 17:37
DX: F41.0 Panic disorder [episodic paroxysmal anxiety] (principal); I25.10 Atherosclerotic heart disease of native coronary artery without angina pectoris; E11.9 Type 2 diabetes mellitus without complications; I10 Essential (primary) hypertension; F41.9 Anxiety disorder, unspecified; F32.9 Major depressive disorder, single episode, unspecified; E78.00 Pure hypercholesterolemia, unspecified; Z90.49 Acquired absence of other specified parts of digestive tract; Z90.710 Acquired absence of both cervix and uterus; Z87.19 Personal history of other diseases of the digestive system; Z98.890 Other specified postprocedural states; Z87.891 Personal history of nicotine dependence; Z82.49 Family history of ischemic heart disease and other diseases of the circulatory system; Z88.0 Allergy status to penicillin; Z91.041 Radiographic dye allergy status; Z88.8 Allergy status to other drugs, medicaments and biological substances
CPT/HCPCS: 36415; 71045; 80053; 83735; 83874; 84443; 84484; 85025; 85610; 85730; 93041

== ENCOUNTER → 2019-01-24 | Outpatient (CLI) | payer BC ==
[~2019-01-24] MED LIST changes: -TRAZ-189; +TRAZ-222
--- NOTE | 2019-01-24 18:52 | Diagnostic Imaging Report ---
INDICATION: Followup exam. EXAMINATION: Unilateral left breast digital diagnostic mammogram with CAD. The current study was also evaluated with a Computer Aided Detection (CAD) system. FINDINGS: The screening mammogram performed on 07/19/2018 noted a nodular density in the lateral aspect of the left breast. The subsequent diagnostic mammogram and ultrasound exam of 08/03/2018 suggested a few small cysts in this area. On this exam, the density in question is not well visualized. This may well have been a cyst/cysts which have subsequently resolved. Ultrasound is pending for further study. The overall appearance of the left breast has not changed significantly otherwise. The fibroglandular tissue in the breast is heterogeneously dense and this does limit the sensitivity of this exam. There is no primary or secondary sign of malignancy noted however. IMPRESSION: The suspected cyst/cysts in the left breast, seen previously, may have diminished in size or resolved. Ultrasound is pending for further study. ACR BI-RADS Category 0: Incomplete. (Needs additional imaging evaluation). Result letter will be mailed to the patient. Note: At least 10% of breast cancer is not imaged by mammography. Dictated by: Dictated on workstation # [id number]
--- NOTE | 2019-01-24 19:01 | Diagnostic Imaging Report ---
INDICATION: Abnormal mammogram. EXAMINATION: Left breast ultrasound, limited. FINDINGS: The screening mammogram performed on 07/19/2018 noted a nodular density in the lateral aspect of left breast. The subsequent diagnostic mammogram and ultrasound exam of 08/03/2018 suggested a few small cysts in this region. On the diagnostic mammogram, performed prior to this study, the mammographic density appeared to have resolved or diminished significantly in size. On this study, however, the cysts seen on the previous study are again evident and do not appear to have changed significantly. The cysts measure approximately 4 x 4 x 5 mm and 3 x 3 x 3 mm. There may be 2 or 3 other even smaller cysts in this region. I do suspect that these cysts are benign although both cysts contain a few internal echoes. I would recommend that the left breast be reevaluated by ultrasound when the patient has her annual bilateral mammogram in July of this year. IMPRESSION: There are still a few small benign-appearing cysts in the 2-3 o'clock position of the left breast. There is no solid mass to suggest malignancy. Recommendations as above. ACR BI-RADS Category 3: Probably benign findings. Result letter will be mailed to the patient. Note: At least 10% of breast cancer is not imaged by mammography. Dictated by: Dictated on workstation # [id number]
== END ==
LOC: RAD 13:28
PROVIDERS: ATTEND Internal Medicine
DX: N60.02 Solitary cyst of left breast (principal)
CPT/HCPCS: 76642

== ENCOUNTER 2019-04-22 17:38 | Emergency (ER) | payer BC ==
[~2019-04-22] VITALS: Ht 160 cm; Wt 64.4 kg
[2019-04-22 18:00] LABS: BILIRUBIN,URINE NEGATIVE (NEGATIVE); CLARITY,URINE CLEAR; COLOR,URINE YELLOW; GLUCOSE, URINE (UA) NEGATIVE (NEGATIVE); KETONES,URINE 1+ (NEGATIVE); LEUKOCYTE ESTERASE ,URINE NEGATIVE (NEGATIVE); NITRITE,URINE NEGATIVE (NEGATIVE); PH,URINE 6.5 (5-9); PROTEIN,URINE NEGATIVE (NEGATIVE); UROBILINOGEN,URINE NORMAL (NORMAL)
[2019-04-22 18:09] LABS: BACTERIA,URINE FEW /HPF
[2019-04-22] MEDS ORDERED: CYCLOBENZAPRINE 10 MG (FLEXERIL) TAB PO STA (18:26)
[2019-04-22] MEDS ORDERED: RX-CYCLOBENZAPRINE 10 MG (FLEXERIL) TAB PPK#3 PO STA (19:21)
--- NOTE | 2019-04-22 19:25 | ED Back Pain ---
General Chief Complaint: Back Problems Stated Complaint: BACK PAIN Nursing Triage Note: Pt ambulates to RM 10 with complaints of left lower back pain that radiates down to leg. Pt has Hx of chronic back pain but states it's been worse the past 2 days after a chiropractor appt. Pt reports taking tylenol and ibuprofen for the pain but is unrelieved. Nursing Sepsis Screen: No Definite Risk History of Present Illness Date Seen by Provider: Apr 22, 2019 Time Seen by Provider: 18:00 Initial Comments 39-year-old female presents with left arm and back pain from her neck as well as low back and left hip pain. She has had a chronic history of multiple diagnoses to her cervical and lumbar spine. Last imaging that we have is from 2017. But she has seen Dr. Recio in [place] and had further studies there. Her symptoms of been getting worse in the last week and she has had 2 chiropractic adjustments last week which she believes may have worsened her symptoms. Location: C-Spine, Lumbar Spine Timing/Duration: Getting Worse, Intermittent Severity: Moderate Pain/Injury Location: Back, Lower Extremity, Upper Extremity (left), Neck Associated Symptoms: muscle spasms; No numbness in legs/feet, No tingling in legs/feet, No sensory/motor loss; lower back pain; No loss of bladder control, No loss of bowel control Allergies and Home Medications Allergies Coded Allergies: Penicillins (Verified Allergy, Unknown, 10/25/06) erythromycin base (Verified Allergy, Unknown, 10/25/06) prochlorperazine (Verified Allergy, Unknown, 10/25/06) Home Medications Atenolol 50 Mg Tablet, 50 MG PO DAILY, (Reported) Desvenlafaxine Succinate 50 Mg Tab.er.24h, 50 MG PO DAILY, (Reported) Hydrocodone Bit/Acetaminophen 1 Tab Tab, 1 EACH PO Q4-6HR PRN for PAIN-MODERATE Prescribed by: WENCESLAO AUSTIN on 07/30/18 1515 Ondansetron 4 Mg Tab.rapdis, 4 MG PO Q6H PRN for NAUSEA/VOMITING, (Reported) Ondansetron HCl 8 Mg Tablet, 8 MG PO Q6H Prescribed by: MICHEL RAYO on 06/22/18 1627 Sertraline HCl 50 Mg Tablet, 50 MG PO DAILY, (Reported) Valsartan/Hydrochlorothiazide 1 Each Tablet, 1 EACH PO DAILY, (Reported) Patient Home Medication List Home Medication List Reviewed: Yes Review of Systems Constitutional: no symptoms reported, see HPI Musculoskeletal: see HPI, back pain, muscle pain (left upper leg and left arm); No muscle weakness; neck pain All Other Systems Reviewed Negative Unless Noted: Yes Past Yvqibmv-Bshbwi-Aqnlkd Hx Past Med/Social Hx: Reviewed Nursing Past Med/Soc Hx Patient Social History Alcohol Use: Rarely Uses Number of Drinks Today: Alcohol Beverage of Choice: Wine Recreational Drug Use: No Smoking Status: Former Smoker Type Used: Cigarettes Former Smoker, Quit: May 20, 2006 Recent Foreign Travel: No Contact w/Someone Who Travel: No Recent Infectious Disease Expo: No Recent Hopitalizations: No Physical Abuse: No Sexual Abuse: No Mistreated: No Fear: No Immunizations Up To Date Tetanus Booster (TDap): More than 5yrs PED Vaccines UTD: No Date of Influenza Vaccine: May 19, 2017 Seasonal Allergies Seasonal Allergies: No Past Medical History Surgeries: Yes (uterine ablation) Appendectomy, Hysterectomy Respiratory: No Currently Using CPAP: No Currently Using BIPAP: No Cardiac: Yes ( history of preeclampsia with severe hypertension) Hypertension Neurological: No Reproductive Disorders: No Female Reproductive Disorders: Denies Sexually Transmitted Disease: No HIV/AIDS: No Gastrointestinal: Yes (rectal bleeding) Gall Bladder Disease Musculoskeletal: Yes (CHRONIC neck PAIN) Chronic Back Pain, Fractures, Spasms Endocrine: No HEENT: No Cancer: No Did You Recieve Any Treatments: No Psychosocial: Yes Anxiety, Depression Integumentary: No Blood Disorders: No Family Medical History Heart Disease, CAD Over 55 Years Old, Hypertension Physical Exam Vital Signs Vital Signs - First Documented 04/22/19 17:49 Temp 97.3 Pulse 89 Resp 18 B/P (MAP) 132/63 (86) Pulse Ox 96 O2 Delivery Room Air Capillary Refill : Less Than 3 Seconds Height, Weight, BMI Height: 5'3.00" Weight: 142lbs. 0.0oz. 64.131313jd; 25.7 BMI Method:Stated General Appearance: No Apparent Distress, WD/WN HEENT: PERRL/EOMI, TMs Normal, Normal ENT Inspection, Pharynx Normal Neck: Full Range of Motion, Normal Inspection, Non Tender, Supple, Tender Lateral, Other ( Power V/V C5-T1. No paresthesias or radicular symptoms in either upper extremity) Cardiovascular: Regular Rate, Rhythm, No Murmur, Normal Peripheral Pulses Respiratory: Chest Non Tender, Lungs Clear, Normal Breath Sounds Gastrointestinal: Normal Bowel Sounds, Non Tender, Soft Back: Normal Inspection, Decreased Range of Motion (secondary to pain), Muscle Spasm, Vertebral Tenderness, Other (Power V/V L4-S1, trace weakness secondary to pain in left hip flexors. Positive straight leg raising sign on the left. ) Extremity: Normal Capillary Refill, Normal Inspection, Normal Range of Motion, No Calf Tenderness, No Pedal Edema Neurologic/Psychiatric: Alert, Oriented x3, No Motor/Sensory Deficits, Normal Mood/Affect Skin: Normal Color, Warm/Dry Progress/Results/Core Measures Results/Orders Lab Results Laboratory Tests Test 04/22/19 17:53 Range/Units Urine Color YELLOW Urine Clarity CLEAR Urine pH 6.5 5-9 Urine Specific [place] 1.010 L 1.016-1.022 Urine Protein NEGATIVE NEGATIVE Urine Glucose (UA) NEGATIVE NEGATIVE Urine Ketones 1+ H NEGATIVE Urine Nitrite NEGATIVE NEGATIVE Urine Bilirubin NEGATIVE NEGATIVE Urine Urobilinogen NORMAL NORMAL MG/DL Urine Leukocyte Esterase NEGATIVE NEGATIVE Urine RBC (Auto) NEGATIVE NEGATIVE Urine RBC NONE /HPF Urine WBC NONE /HPF Urine Squamous Epithelial Cells 5-10 /HPF Urine Crystals NONE /LPF Urine Bacteria FEW H /HPF Urine Casts NONE /LPF Urine Mucus NEGATIVE /LPF Urine Culture Indicated NO My Orders Orders - MICHEL HOFFMANN Ua Culture If Indicated (04/22/19 17:39) Tramadol Tablet (Ultram Tablet) (04/22/19 18:30) Cyclobenzaprine Tablet (Flexeril Tablet) (04/22/19 18:26) Rx-Cyclobenzaprine Tablet (Rx-Flexeril T (04/22/19 19:21) Rx-Tramadol Hcl (Rx-Ultram) (04/22/19 19:27) Medications Given in ED Current Medications Medications Dose Ordered Sig/Brigido Route Start Time Stop Time Status Last Admin Dose Admin Tramadol HCl 50 mg ONCE ONCE PO 04/22/19 18:30 04/22/19 18:31 DC 04/22/19 18:37 50 MG Vital Signs/I&O 04/22/19 04/22/19 17:49 19:31 Temp 97.3 97.3 Pulse 89 82 Resp 18 18 B/P (MAP) 132/63 (86) 125/72 (89) Pulse Ox 96 96 O2 Delivery Room Air Blood Pressure Mean: 86 Progress Progress Note : Time: 18:00 Progress Note Patient seen and evaluated, will give tramadol 50 mg orally and cyclobenzaprine 10 mg. 184 patient reports trace improvement in her symptoms. Discussed importance of follow-up. She has been steroids in the past [address] Wren so would not recommend repeating this time. 1914 discharge instructions and return precautions reviewed with patient. All questions answered. Departure Impression Primary Impression: Chronic back pain Qualified Codes: M54.41 - Lumbago with sciatica, right side; G89.29 - Other chronic pain Additional Impressions: Chronic neck pain Right sided sciatica Left sided sciatica Disposition: HOME, SELF-CARE Condition: Improved Departure-Patient Inst. Decision time for Depature: 19:15 Referrals: TAYLOR WREN MD (PCP/Family) Primary Care Physician Patient Instructions: Low Back Pain (DC), Sciatica (DC), Chronic Neck Pain (D C) Add. Discharge Instructions: Follow up with Dr. Wren to see about repeating imaging studies. Follow up with Dr. Lozano. Try [place] balm to neck and low back. Ice to neck and low back. Limit activities. Take the cyclobenzaprine 1 tablet every 8 hours as needed for muscle spasm. Take the tramadol 1 tablet every 8 hours as needed for pain. Continue to alternate between ibuprofen 600 mg and Tylenol 650 mg every 4 hours. Return to emergency department for new, urgent health care needs. All discharge instructions reviewed with patient and/or family. Voiced understanding. Copy Copies To 1: TAYLOR WREN MD, AMY ARNP Apr 22, 2019 19:25
[2019-04-22] MEDS ORDERED: RX-TRAMADOL 50 MG (ULTRAM) TAB PPK#4 PO STA (19:27)
[2019-04-22 19:31] VITALS: BP 125/72
== END 2019-04-22 19:31 | disposition home or self-care (01) ==
LOC: EDUNIT# 17:38 → ER 17:39
DX: M54.41 Lumbago with sciatica, right side (principal); M54.42 Lumbago with sciatica, left side; M54.2 Cervicalgia; G89.29 Other chronic pain; I10 Essential (primary) hypertension; F41.9 Anxiety disorder, unspecified; F32.9 Major depressive disorder, single episode, unspecified; Z88.0 Allergy status to penicillin; Z88.1 Allergy status to other antibiotic agents; Z88.8 Allergy status to other drugs, medicaments and biological substances; Z87.891 Personal history of nicotine dependence; Z90.49 Acquired absence of other specified parts of digestive tract; Z90.710 Acquired absence of both cervix and uterus; Z82.49 Family history of ischemic heart disease and other diseases of the circulatory system
CPT/HCPCS: 81000; 99283

== ENCOUNTER 2019-06-08 05:55 | Outpatient (CLI) | payer BC ==
[~2019-06-08] VITALS: Ht 160 cm; Wt 60.9 kg
[2019-06-08] MEDS ORDERED: HYDR-3812 PO (09:24)
[2019-06-08] MEDS ORDERED: DESV100T16 PO (09:24)
[2019-06-08] MEDS ORDERED: BUPR150T7 PO (09:24)
[2019-06-08] MEDS ORDERED: GABA-488 PO (09:24)
== END 2019-06-08 09:28 | disposition home or self-care (01) ==
LOC: PREOP 05:55
PROVIDERS: ATTEND Specialist
DX: Z01.818 Encounter for other preprocedural examination (principal)

== ENCOUNTER 2019-06-13 09:06 | Day surgery (SDC) | payer BC ==
[~2019-06-13] VITALS: Ht 160 cm
[~2019-06-13 09:06] MED LIST changes: +BUPR150T7 PO; +DESV100T16 PO; +GABA-488 PO; +HYDR-3812 PO
[2019-06-13 10:15] VITALS: BP 109/81
[2019-06-13] MEDS ORDERED: TIMOLOL MALEATE 0.5% 5 ML (TIMOPTIC) BTL OU PRN (10:30)
[2019-06-13] MEDS ORDERED: LIDOCAINE PF 1% 2 ML AMP IR PRN (10:30)
[2019-06-13] MEDS ORDERED: POVIDONE (BETADINE) OPHTH SOLN 5% 30 ML OP ONE (10:30)
[2019-06-13] MEDS ORDERED: MOXIFLOXACIN OPHTH SOLN 5 MG/ML 0.3 ML SYRINGE OP ONE (10:30)
[2019-06-13] MEDS: TETRACAINE 0.5% OPHTH SOLN 4 ML BTL (SINGLE DOSE ONLY) OU PRN ×4 (10:31→10:49)
[2019-06-13] MEDS: CYCLOPENTOLATE 1% (CYCLOGYL) 2 ML DROPS OP SCH ×3 (10:38→10:49)
[2019-06-13] MEDS: PHENYLEPHRINE 10% OPHTH (NEO-SYN) 5 ML BTL OU SCH ×3 (10:38→10:49)
[2019-06-13] MEDS ORDERED: acetaZOLAMIDE ER 500 MG CAP (DIAMOX SEQUELS) PO ONE (11:00)
[2019-06-13] MEDS ORDERED: MIDAZOLAM 2 MG/2 ML (VERSED) VIAL ONE ×3 (11:17→11:45)
--- NOTE | 2019-06-13 11:32 | Ophthalmologist Pre-Op Note ---
Pre-Operative Progress Note H&P Reviewed The H&P was reviewed, patient examined and no changes noted. Date H&P Reviewed: Jun 13, 2019 Time H&P Reviewed: 11:32 Pre-Op Dx Cataract, Left Eye LYRIC TORRES MD Jun 13, 2019 11:32 POS
[2019-06-13] MEDS ORDERED: fentaNYL INJECTION 100 MCG/2 ML AMP ONE (11:43)
--- NOTE | 2019-06-13 12:02 | Ophthalmology Operative Report ---
Cataract removal/placement IOL PREOPERATIVE DIAGNOSIS: Cataract Left Eye POSTOPERATIVE DIAGNOSIS: Cataract Left Eye PROCEDURE: Cataract removal and placement of posterior chamber implant, left eye SURGEON: Cameron Torres ANESTHESIA: Topical with sedation COMPLICATIONS: None ESTIMATED BLOOD LOSS: Minimal DESCRIPTION OF PROCEDURE: After proper informed consent was obtained, the patient, a 39 female, was taken to the Operating Room and the left eye was anesthetized with tetracaine. The left eye was then prepped and draped in the usual manner. A wire lid speculum was placed. A paracentesis was made at the left hand position. Preservative free lidocaine was injected into the anterior chamber followed by viscoelastic. A clear corneal incision was made in the temporal position. A capsulorrhexis was preformed and the central nuclear and cortical material were removed. The posterior capsule was polished and an Ru 15.0 [id number] was placed into the capsular bag. The residual viscoelastic was aspirated and balanced saline solution was injected into the anterior chamber. Moxifloxacin was injected into the anterior chamber. The wound was checked and found to be water tight. The patient tolerated the procedure well without complications. CAMERON TORRES MD Jun 13, 2019 12:02 POS
[2019-06-13 12:12] VITALS: BP 103/78
--- NOTE | 2019-06-13 13:03 | Anesthesia-General Post-Op ---
MAC Patient Condition Mental Status/LOC: Same as Preop Cardiovascular: Satisfactory Nausea/Vomiting: Absent Respiratory: Satisfactory Pain: Controlled Complications: Absent Post Op Complications Complications None Follow Up Care/Instructions Patient Instructions None needed. Anesthesiology Discharge Order Discharge Order Patient is doing well, no complaints, stable vital signs, no apparent adverse anesthesia problems. No complications reported per nursing. MAGO MILLER CRNA Jun 13, 2019 13:03 POS
== END 2019-06-13 12:12 | disposition home or self-care (01) ==
LOC: SDC 09:06
PROVIDERS: ATTEND Specialist
DX: H25.12 Age-related nuclear cataract, left eye (principal); I10 Essential (primary) hypertension; G62.9 Polyneuropathy, unspecified; F41.8 Other specified anxiety disorders; Z90.89 Acquired absence of other organs; Z90.49 Acquired absence of other specified parts of digestive tract; Z90.710 Acquired absence of both cervix and uterus; Z79.899 Other long term (current) drug therapy

== ENCOUNTER 2019-06-26 05:37 | Outpatient (CLI) | payer BC ==
[~2019-06-26] VITALS: Ht 160 cm; Wt 60.9 kg
== END 2019-06-26 09:45 | disposition home or self-care (01) ==
LOC: PREOP 05:37
PROVIDERS: ATTEND Specialist
DX: Z01.818 Encounter for other preprocedural examination (principal)

== ENCOUNTER 2019-06-29 06:43 | Day surgery (SDC) | payer BC ==
[~2019-06-29] VITALS: Ht 160 cm; Wt 60.9 kg
[2019-06-29] MEDS: TETRACAINE 0.5% OPHTH SOLN 4 ML BTL (SINGLE DOSE ONLY) OU PRN ×4 (06:54→07:14)
[2019-06-29 07:00] VITALS: BP 137/89
[2019-06-29] MEDS ORDERED: POVIDONE (BETADINE) OPHTH SOLN 5% 30 ML OP ONE (07:00)
[2019-06-29] MEDS ORDERED: MOXIFLOXACIN OPHTH SOLN 5 MG/ML 0.3 ML SYRINGE OP ONE (07:00)
[2019-06-29] MEDS ORDERED: TIMOLOL MALEATE 0.5% 5 ML (TIMOPTIC) BTL OU PRN (07:00)
[2019-06-29] MEDS ORDERED: LIDOCAINE PF 1% 2 ML AMP IR PRN (07:00)
[2019-06-29] MEDS: CYCLOPENTOLATE 1% (CYCLOGYL) 2 ML DROPS OP SCH ×3 (07:04→07:14)
[2019-06-29] MEDS: PHENYLEPHRINE 10% OPHTH (NEO-SYN) 5 ML BTL OU SCH ×3 (07:04→07:14)
[2019-06-29] MEDS ORDERED: MIDAZOLAM 2 MG/2 ML (VERSED) VIAL ONE (07:34)
--- NOTE | 2019-06-29 07:46 | Ophthalmologist Pre-Op Note ---
Pre-Operative Progress Note H&P Reviewed The H&P was reviewed, patient examined and no changes noted. Date H&P Reviewed: Jun 29, 2019 Time H&P Reviewed: 07:46 Pre-Op Dx Cataract, Right Eye LYRIC TORRES MD Jun 29, 2019 07:46 POS
--- NOTE | 2019-06-29 08:13 | Ophthalmology Operative Report ---
Cataract removal/placement IOL PREOPERATIVE DIAGNOSIS: Cataract Right Eye POSTOPERATIVE DIAGNOSIS: Cataract Right Eye PROCEDURE: Cataract removal and placement of posterior chamber implant, right eye SURGEON: Cameron Torres ANESTHESIA: Topical with sedation COMPLICATIONS: None ESTIMATED BLOOD LOSS: Minimal DESCRIPTION OF PROCEDURE: After proper informed consent was obtained, the patient, a 39 female, was taken to the Operating Room and the right eye was anesthetized with tetracaine. The right eye was then prepped and draped in the usual manner. A wire lid speculum was placed. A paracentesis was made at the left hand position. Preservative free lidocaine was injected into the anterior chamber followed by viscoelastic. A clear corneal incision was made in the temporal position. A capsulorrhexis was preformed and the central nuclear and cortical material were removed. The posterior capsule was polished and Ru [id number] 13.5 IOL was placed into the capsular bag. The residual viscoelastic was aspirated and balanced saline solution was injected into the anterior chamber. Moxifloxacin was injected into the anterior chamber. The wound was checked and found to be water tight. The patient tolerated the procedure well without complications. CAMERON TORRES MD Jun 29, 2019 08:13 POS
[2019-06-29 08:20] VITALS: BP 131/94
[2019-06-29] MEDS ORDERED: acetaZOLAMIDE ER 500 MG CAP (DIAMOX SEQUELS) PO ONE (08:30)
--- NOTE | 2019-06-29 13:02 | Anesthesia-General Post-Op ---
MAC Patient Condition Mental Status/LOC: Same as Preop Cardiovascular: Satisfactory Nausea/Vomiting: Absent Respiratory: Satisfactory Pain: Controlled Complications: Absent Post Op Complications Complications None Follow Up Care/Instructions Patient Instructions None needed. Anesthesiology Discharge Order Discharge Order Patient is doing well, no complaints, stable vital signs, no apparent adverse anesthesia problems. No complications reported per nursing. MICHEL RODRÍGUEZ CRNA Jun 29, 2019 13:02 POS
== END 2019-06-29 08:20 | disposition home or self-care (01) ==
LOC: SDC 06:43
PROVIDERS: ATTEND Specialist
DX: H25.11 Age-related nuclear cataract, right eye (principal); F41.9 Anxiety disorder, unspecified; F32.9 Major depressive disorder, single episode, unspecified; I10 Essential (primary) hypertension; G62.9 Polyneuropathy, unspecified; Z88.0 Allergy status to penicillin; Z88.1 Allergy status to other antibiotic agents; Z88.8 Allergy status to other drugs, medicaments and biological substances; Z80.3 Family history of malignant neoplasm of breast; Z83.3 Family history of diabetes mellitus; Z83.511 Family history of glaucoma; Z87.891 Personal history of nicotine dependence; Z90.49 Acquired absence of other specified parts of digestive tract

== ENCOUNTER → 2019-10-15 | Outpatient (CLI) | payer BC ==
[~2019-10-15] MED LIST changes: -CLON0.5T13; +CLON0.5T4; -HYDR-3812 PO; -TRAZ-222; +TRZ50T
--- NOTE | 2019-10-15 13:45 | Diagnostic Imaging Report ---
EXAMINATION: Digital mammogram bilateral diagnostic. INDICATION: Followup cysts. COMPARISON: This study was compared to the prior exams of 01/24/2019, 07/19/2018, and 05/26/2017. PERSONAL HISTORY: At this time, there are no current complaints. TECHNIQUE: Digital diagnostic mammography was performed bilaterally with a Computer Aided Detection (CAD) system. FINDINGS: The fibroglandular tissue in both breasts is heterogeneously dense. This does limit the sensitivity of this exam. The diagnostic mammogram and ultrasound exam performed on 01/24/2019 noted a few benign-appearing cysts in the 2-3 o'clock position of the left breast. On this exam, those cysts are difficult to appreciate; however, ultrasound is pending for further study. In the interval since the prior exam, a vague roughly 1 cm asymmetry has developed in the midportion of the right breast on the craniocaudad view roughly 6 cm from the nipple. There is no corresponding abnormality seen on the MLO view although the density in the superior aspect of the breast does seem somewhat greater than on the prior exam. The compression views of this area show no definite abnormality. A true lateral view was also performed and it, too, is unremarkable for malignancy. Even so, I would recommend that ultrasound of the right breast also be performed. IMPRESSION: Ultrasound of both breasts would be recommended for further study. ACR BI-RADS Category 0: Incomplete. (Needs additional imaging evaluation). Result letter will be mailed to the patient. Note: At least 10% of breast cancer is not imaged by mammography. Dictated by: Dictated on workstation # [id number]
--- NOTE | 2019-10-15 18:07 | Diagnostic Imaging Report ---
EXAM: Bilateral breast ultrasound INDICATION: Follow-up cysts The previous left breast ultrasound exam performed on 08/03/2018 noted 2 benign-appearing cysts in the upper outer aspect of the left breast. These cysts did contain a few internal echoes however. On this exam, though cysts are again evident and do not seem to have changed significantly in size or appearance. The cysts measure 5 x 3 x 5 mm and 4 x 3 x 4 mm. The diagnostic right breast mammogram performed earlier today noted an area of increased density in the midportion of the breast. The additional mammographic views failed to show any sign of malignancy. On this study, there is no discrete solid or cystic mass evident. I suspect that the area in question was related to fibroglandular tissue alone. IMPRESSION: 1. The small slightly complicated cysts in the left breast appear stable. Most likely they are benign. 2. There is no solid or cystic mass involving the right breast. 3. A follow-up exam in one year would be recommended for continued evaluation. ACR category 1 ACR BI-RADS Category 1: Negative. Result letter will be mailed to the patient. Note: At least 10% of breast cancer is not imaged by mammography. Dictated by: Dictated on workstation # [id number]
== END ==
LOC: RAD 13:05
PROVIDERS: ATTEND Internal Medicine
DX: N60.02 Solitary cyst of left breast (principal)
CPT/HCPCS: 76642; 77066

== ENCOUNTER 2019-10-23 15:26 | Emergency (ER) | payer BC ==
[~2019-10-23] VITALS: Ht 160 cm; Wt 58.0 kg
[2019-10-23] MEDS ORDERED: ASPIRIN 81 MG CHEW (CHILDREN'S ASA) PO ONE (15:45)
[2019-10-23] MEDS ORDERED: ORPHENADRINE 60 MG/2 ML (NORFLEX) AMP IV STA (15:47)
[2019-10-23] MEDS ORDERED: KETOROLAC 30 MG/ML VIAL IVP STA (15:47)
[2019-10-23] MEDS ORDERED: LACTATED RINGERS 1,000 ML IV ONE (15:47)
--- NOTE | 2019-10-23 16:02 | ED Chest Pain ---
General Chief Complaint: General Problems/Pain Stated Complaint: TIGHTNESS IN CHEST Nursing Triage Note: patient states has been feeling "jittery" states hx of panic attacks. Nursing Sepsis Screen: No Definite Risk Source: patient Exam Limitations: no limitations History of Present Illness Date Seen by Provider: Oct 23, 2019 Time Seen by Provider: 15:40 Initial Comments Here with report of back pain and neck pain as well as tightness in the chest and feeling jittery. States she does not feel well. Pain can be intense and she went to the chiropractor today and had 2 ribs out the or fixed. Pain is not resolved. She's had the chest pain for 3 days now. Does have history of hypertension. Denies nausea, vomiting or sweating. Does have history of anxiety. Timing/Duration: 3-4 days Severity/Quality: moderate, aching, tightness Location: central, shoulder, back Radiation: neck Activities at Onset: emotional stress Prior CP/Workup: echocardiography, stress test ASA po SECURITY ASSURANCE ANALYST: No NTG SL SECURITY ASSURANCE ANALYST: No Associated Symptoms: No abdominal pain; back pain; No nausea/vomiting, No shortness of breath, No weakness Allergies and Home Medications Allergies Coded Allergies: Penicillins (Verified Allergy, Unknown, 10/25/06) erythromycin base (Verified Allergy, Unknown, 10/25/06) prochlorperazine (Verified Allergy, Unknown, 10/25/06) Home Medications Atenolol 50 Mg Tablet, 50 MG PO DAILY, (Reported) Bupropion HCl 150 Mg Tab.er.24h, 150 MG PO DAILY, (Reported) Desvenlafaxine Succinate 100 Mg Tab.er.24h, 100 MG PO DAILY, (Reported) Gabapentin 300 Mg Capsule, 300 MG PO HS, (Reported) Hydrocodone Bit/Acetaminophen 1 Each Tablet, 1 TAB PO Q6H PRN for PAIN-MODERATE, (Reported) Valsartan/Hydrochlorothiazide 1 Each Tablet, 1 EACH PO DAILY, (Reported) Patient Home Medication List Home Medication List Reviewed: Yes Review of Systems Review of Systems Constitutional: see HPI; No chills, No fever EENTM: No Symptoms Reported Respiratory: Denies Shortness of Air, Denies Wheezing Cardiovascular: Chest Pain, Palpitations Gastrointestinal: No Symptoms Reported Genitourinary: No Symptoms Reported Musculoskeletal: no symptoms reported Skin: no symptoms reported All Other Systems Reviewed Negative Unless Noted: Yes Past Jzxxhmr-Lokabo-Mpzzij Hx Past Med/Social Hx: Reviewed Nursing Past Med/Soc Hx Patient Social History Alcohol Use: Denies Use Alcohol Beverage of Choice: Wine Recreational Drug Use: No Type Used: Cigarettes Former Smoker, Quit: May 20, 2006 2nd Hand Smoke Exposure: No Recent Foreign Travel: No Contact w/Someone Who Travel: No Recent Infectious Disease Expo: No Recent Hopitalizations: No Physical Abuse: No Sexual Abuse: No Mistreated: No Immunizations Up To Date Tetanus Booster (TDap): More than 5yrs PED Vaccines UTD: No Date of Influenza Vaccine: May 14, 2019 Seasonal Allergies Seasonal Allergies: No Past Medical History Surgeries: Yes (uterine ablation) Appendectomy, Hysterectomy Respiratory: No Currently Using CPAP: No Currently Using BIPAP: No Cardiac: Yes ( history of preeclampsia with severe hypertension) Hypertension Neurological: No Reproductive Disorders: No Female Reproductive Disorders: Denies Sexually Transmitted Disease: No HIV/AIDS: No Gastrointestinal: Yes (rectal bleeding) Gall Bladder Disease Musculoskeletal: Yes (CHRONIC neck PAIN) Chronic Back Pain, Fractures, Spasms Endocrine: No HEENT: No Cancer: No Did You Recieve Any Treatments: No Psychosocial: Yes Anxiety, Depression Integumentary: No Blood Disorders: No Family Medical History Reviewed Nursing Family Hx Heart Disease, CAD Over 55 Years Old, Hypertension Physical Exam Vital Signs Vital Signs - First Documented 10/23/19 15:31 Temp 36.8 Pulse 84 Resp 18 B/P (MAP) 120/75 (90) Pulse Ox 100 O2 Delivery Room Air Capillary Refill : Less Than 3 Seconds Height, Weight, BMI Height: 5'3.00" Weight: 142lbs. 0.0oz. 64.207962dm; 22.00 BMI Method:Stated General Appearance: No Apparent Distress, WD/WN HEENT: PERRL/EOMI, Pharynx Normal Neck: Full Range of Motion, Non Tender, Supple, Tender Lateral Respiratory: Lungs Clear, Normal Breath Sounds Cardiovascular: Regular Rate, Rhythm, No Murmur Gastrointestinal: Non Tender, Soft Extremity: Normal Inspection, Normal Range of Motion Neurologic/Psychiatric: Alert, Oriented x3 Skin: Normal Color, Warm/Dry Progress/Results/Core Measures Results/Orders Lab Results Laboratory Tests Test 10/23/19 15:55 Range/Units White Blood Count 6.8 4.3-11.0 10^3/uL Red Blood Count 4.39 4.35-5.85 10^6/uL Hemoglobin 13.4 11.5-16.0 G/DL Hematocrit 39 35-52 % Mean Corpuscular Volume 90 80-99 FL Mean Corpuscular Hemoglobin 31 25-34 PG Mean Corpuscular Hemoglobin Concent 34 32-36 G/DL Red Cell Distribution Width 12.3 10.0-14.5 % Platelet Count 299 130-400 10^3/uL Mean Platelet Volume 9.1 7.4-10.4 FL Neutrophils (%) (Auto) 59 42-75 % Lymphocytes (%) (Auto) 34 12-44 % Monocytes (%) (Auto) 6 0-12 % Eosinophils (%) (Auto) 2 0-10 % Basophils (%) (Auto) 0 0-10 % Neutrophils # (Auto) 4.0 1.8-7.8 X 10^3 Lymphocytes # (Auto) 2.3 1.0-4.0 X 10^3 Monocytes # (Auto) 0.4 0.0-1.0 X 10^3 Eosinophils # (Auto) 0.1 0.0-0.3 10^3/uL Basophils # (Auto) 0.0 0.0-0.1 10^3/uL Sodium Level 139 135-145 MMOL/L Potassium Level 3.3 L 3.6-5.0 MMOL/L Chloride Level 101 98-107 MMOL/L Carbon Dioxide Level 29 21-32 MMOL/L Anion Gap 9 5-14 MMOL/L Blood Urea Nitrogen 11 7-18 MG/DL Creatinine 0.85 0.60-1.30 MG/DL Estimat Glomerular Filtration Rate > 60 BUN/Creatinine Ratio 13 Glucose Level 116 H 70-105 MG/DL Calcium Level 9.4 8.5-10.1 MG/DL Corrected Calcium 9.0 8.5-10.1 MG/DL Magnesium Level 2.0 1.6-2.4 MG/DL Total Bilirubin 0.4 0.1-1.0 MG/DL Aspartate Amino Transf (AST/SGOT) 20 5-34 U/L Alanine Aminotransferase (ALT/SGPT) 17 0-55 U/L Alkaline Phosphatase 55 40-136 U/L Myoglobin 16.5 10.0-92.0 NG/ML Troponin I < 0.028 <0.028 NG/ML Total Protein 7.5 6.4-8.2 GM/DL Albumin 4.5 3.2-4.5 GM/DL Lipase 45 8-78 U/L My Orders Orders - SARA CASTANEDA MD Cbc With Automated Diff (10/23/19 15:39) Magnesium (10/23/19 15:39) Chest 1 View, Ap/Pa Only (10/23/19 15:39) Ekg Tracing (10/23/19 15:39) Comprehensive Metabolic Panel (10/23/19 15:39) Myoglobin Serum (10/23/19 15:39) Protime With Inr (10/23/19 15:39) Partial Thromboplastin Time (10/23/19 15:39) O2 (10/23/19 15:39) Monitor-Rhythm Ecg Trace Only (10/23/19 15:39) Lipid Panel (10/24/19 06:00) Ed Iv/Invasive Line Start (10/23/19 15:39) Lipase (10/23/19 15:39) Troponin I (10/23/19 15:39) Aspirin Chewable Tablet (Baby Aspirin Ch (10/23/19 15:45) Lactated Ringers (Lr 1000 Ml Iv Solution (10/23/19 15:47) Ketorolac Injection (Toradol Injection) (10/23/19 15:47) Orphenadrine Injection (Norflex Injectio (10/23/19 15:47) Fibrin Degradation Products (10/23/19 15:55) Lorazepam Injection (Ativan Injection) (10/23/19 16:45) Medications Given in ED Current Medications Medications Dose Ordered Sig/Brigido Route Start Time Stop Time Status Last Admin Dose Admin Aspirin 324 mg ONCE ONCE PO 10/23/19 15:45 10/23/19 15:46 DC 10/23/19 15:49 324 MG Lactated Ringer's 1,000 ml @ 0 mls/hr Q0M ONCE IV 10/23/19 15:47 10/23/19 15:49 DC 10/23/19 16:00 0 MLS/HR Lorazepam 0.5 mg ONCE ONCE IVP 10/23/19 16:45 10/23/19 16:46 DC 10/23/19 16:44 0.5 MG Vital Signs/I&O 10/23/19 15:31 Temp 36.8 Pulse 84 Resp 18 B/P (MAP) 120/75 (90) Pulse Ox 100 O2 Delivery Room Air 2 Blood Pressure Mean: 90 Progress Progress Note : Progress Note Seen and evaluated. IV, labs, EKG and chest x-ray ordered. ASA 324 mg by mouth ordered. LR 1 L bolus. Toradol 30 mg IV and Norflex 60 mg IV ordered. Monitor patient. 1640: Overall doing better with some labs still pending. Negative thus far. Ativan 0.5 mg IV ordered for anxiety. Patient does have a long history of anxiety disorder. She is describing the pain more now that radiates up her back and neck over the top of her head to the frontal area and I believe she is describing stress headache pretty well. We will see how things go with further testing and monitoring. Patient is feeling better and appreciative of the care thus far. 1712: Overall feeling better. We did talk about home therapy. She will follow-up with her doctor. Discharged home with return precautions. Patient verbalize understanding instructions and agreement with plan. Initial ECG Impression Date: Oct 23, 2019 Initial ECG Impression Time: 15:40 Initial ECG Rate: 1540 Initial ECG Rhythm: Normal Sinus Initial ECG Comparisson: Unchanged Comment Sinus rhythm with left ventricular hypertrophy. Left atrial abnormality noted. No evidence of ST elevation [place]. Similar to 12/28/18. Interpreted by me. Diagnostic Imaging Diagonstic Imaging: Xray Plain Films/CT/US/NM/MRI: chest Comments [facility]. [place], [place] NAME: PER HERNANDEZDANNIELLE Gallego [facility] REC#: [id number] PT STATUS: REG ER : 1980 PHYSICIAN: SARA CASTANEDA MD ADMIT DATE: 10/23/19/ER Draft Date of Exam:10/23/19 CHEST 1 VIEW, AP/PA ONLY INDICATION: Anxiety and panic attacks. Frontal chest obtained at 4:18 p.m. Heart and mediastinal silhouette are normal in appearance. Lungs are clear. There is no pneumothorax or pleural fluid. There is mild dextroscoliotic changes in the thoracic spine. IMPRESSION: Negative chest, no change from 12/28/2018. Dictated on workstation # [id number] Dict: 10/23/19 1628 Trans: 10/23/19 1630 [facility] [id number] Interpreted by: HARMAN VASQUEZ MD Electronically signed by: Departure Impression Primary Impression: Muscle tension headache Additional Impressions: Chest pain Qualified Codes: R07.9 - Chest pain, unspecified Upper back pain Disposition: HOME, SELF-CARE Condition: Improved Departure-Patient Inst. Decision time for Depature: 17:26 Referrals: TAYLOR WRIGHT MD (PCP/Family) Primary Care Physician Patient Instructions: Tension Headache (DC), Upper Back Pain (DC), Chest Pain (DC) Add. Discharge Instructions: All discharge instructions reviewed with patient and/or family. Voiced understanding. Continue home medications as previously prescribed. You may take ibuprofen 600 mg every 8 hours as needed for pain starting at 10 PM tonight. You may take Tylenol/acetaminophen up to 4000 mg daily but would prefer that you keep it at 3000 mg daily by taking 2 extra strength tablets every 8 hours. If you're taking the hydrocodone-containing compound then you would only take one extra strength tablet at that time so as not to exceed 1000 mg single dose of acetaminophen. You may use [id number] preparations such as icy hot with lidocaine or similar to the muscles in the upper back and neck to help reduce strain and pain. Return for worse pain, fever, vomiting, weakness, breathing problems or other concerns as needed. You should go home and rest. Copy Copies To 1: TAYLOR WRIGHT MD, TIMOTHY D MD Oct 23, 2019 16:02
[2019-10-23 16:04] LABS: BASOPHILS % (AUTO) 0 % (0-10); EOSINOPHILS # (AUTO) 0.1 10^3/uL (0.0-0.3); EOSINOPHILS % (AUTO) 2 % (0-10); HEMATOCRIT 39 % (35-52); HEMOGLOBIN 13.4 G/DL (11.5-16.0); LYMPHOCYTES # (AUTO) 2.3 X 10^3 (1.0-4.0); LYMPHOCYTES % (AUTO) 34 % (12-44); MEAN CORPUSCULAR HEMOGLOBIN 31 PG (25-34); MEAN CORPUSCULAR HGB CONC 34 G/DL (32-36); MEAN CORPUSCULAR VOLUME 90 FL (80-99); MEAN PLATELET VOLUME 9.1 FL (7.4-10.4); MONOCYTES # (AUTO) 0.4 X 10^3 (0.0-1.0); MONOCYTES % (AUTO) 6 % (0-12); NEUTROPHILS % (AUTO) 59 % (42-75); PLATELET COUNT 299 10^3/uL (130-400); RED CELL DISTRIBUTION WIDTH 12.3 % (10.0-14.5); WHITE BLOOD COUNT 6.8 10^3/uL (4.3-11.0)
[2019-10-23 16:22] LABS: ALANINE AMINOTRANSFERASE 17 U/L (0-55); ALBUMIN 4.5 GM/DL (3.2-4.5); ALKALINE PHOSPHATASE 55 U/L (40-136); BILIRUBIN,TOTAL 0.4 MG/DL (0.1-1.0); BUN/CREATININE RATIO 13; CALCIUM 9.4 MG/DL (8.5-10.1); CARBON DIOXIDE 29 MMOL/L (21-32); CHLORIDE 101 MMOL/L (98-107); CREATININE SERUM 0.85 MG/DL (0.60-1.30); GFR ESTIMATED > 60; GLUCOSE 116 MG/DL (70-105); LIPASE 45 U/L (8-78); POTASSIUM 3.3 MMOL/L (3.6-5.0); SODIUM 139 MMOL/L (135-145); TOTAL PROTEIN 7.5 GM/DL (6.4-8.2)
--- NOTE | 2019-10-23 16:30 | Diagnostic Imaging Report ---
INDICATION: Anxiety and panic attacks. Frontal chest obtained at 4:18 p.m. Heart and mediastinal silhouette are normal in appearance. Lungs are clear. There is no pneumothorax or pleural fluid. There is mild dextroscoliotic changes in the thoracic spine. IMPRESSION: Negative chest, no change from 12/28/2018. Dictated by: Dictated on workstation # [id number]
[2019-10-23] MEDS ORDERED: LORazepam INJ 2 MG/ML (ATIVAN) VIAL IVP ONE (16:45)
[2019-10-23 17:45] VITALS: BP 107/70
[2019-10-23 18:23] LABS: FIBRIN DEGRADATION PRODUCTS 0.36 UG/ML (0.00-0.49); INR 0.9 (0.8-1.4); PROTHROMBIN TIME PATIENT 12.4 SEC (12.2-14.7)
== END 2019-10-23 17:45 | disposition home or self-care (01) ==
LOC: EDUNIT# 15:26 → ER 15:27
DX: G44.209 Tension-type headache, unspecified, not intractable (principal); R07.89 Other chest pain; M54.6 Pain in thoracic spine; I10 Essential (primary) hypertension; F32.9 Major depressive disorder, single episode, unspecified; F41.9 Anxiety disorder, unspecified; Z88.0 Allergy status to penicillin; Z88.1 Allergy status to other antibiotic agents; Z88.8 Allergy status to other drugs, medicaments and biological substances; Z87.891 Personal history of nicotine dependence; Z82.49 Family history of ischemic heart disease and other diseases of the circulatory system
CPT/HCPCS: 36415; 71045; 80053; 83690; 83735; 83874; 84484; 85025; 85379; 85610; 85730; 93005; 93041

== ENCOUNTER 2020-01-24 06:05 | Emergency (ER) | payer BC ==
[~2020-01-24] VITALS: Ht 160 cm; Wt 60.0 kg
[2020-01-24 06:21] LABS: BILIRUBIN,URINE NEGATIVE (NEGATIVE); CLARITY,URINE SL CLOUDY; COLOR,URINE AMBER; GLUCOSE, URINE (UA) NEGATIVE (NEGATIVE); KETONES,URINE NEGATIVE (NEGATIVE); LEUKOCYTE ESTERASE ,URINE NEGATIVE (NEGATIVE); NITRITE,URINE NEGATIVE (NEGATIVE); PH,URINE 5.5 (5-9); PROTEIN,URINE NEGATIVE (NEGATIVE)
[2020-01-24 06:29] LABS: BACTERIA,URINE FEW /HPF; RBC,URINE RARE /HPF; WBC,URINE 0-2 /HPF
[2020-01-24] MEDS ORDERED: ONDANSETRON 4 MG/2 ML (SDV) Z0FRAN IVP ONE (07:15)
[2020-01-24] MEDS ORDERED: KETOROLAC 30 MG/ML VIAL IVP ONE ×2 (07:15→14:15)
--- NOTE | 2020-01-24 07:33 | ED Abdominal Pain ---
General Chief Complaint: General Problems/Pain Stated Complaint: RT SIDE ABD PAIN Nursing Triage Note: Pt states she has chronic back pain d/t scoliosis but reports that today she woke up with R flank pain different than usual that radiates to RUQ and down to R groin and R leg. States she has a hx of kidney stones but they have never been symptomatic. Also reports urinary hesitancy. Sepsis Screen: No Definite Risk Source of Information: Patient Exam Limitations: No Limitations (CINDY KIRBY,MED STUDENT) History of Present Illness Date Seen by Provider: Jan 24, 2020 Time Seen by Provider: 06:22 Initial Comments Ms. Pierce is a 40 year old female presenting to the emergency department today with right sided abdominal pain that began yesterday afternoon. She states she had chronic right mid back but yesterday it began to radiate around to the RUQ. It is a sharp, stabbing pain rated at a 7/10 on the pain scale. It has worsened in intensity since it began and is now present in the RLQ radiating to her left inner thigh. She back pain is due to scoliosis and is managed by pain management, her average pain prior to yesterday was a 3/10 well controlled with her pain regimen of tramadol, ibuprofen, acetaminophen, and tizanadine. She has had no relief of her abdominal pain with her pain medications. The pain is worsened with laying flat. Ms. Pierce does note some nausea that is worse with food but denies vomiting, constipation, diarrhea. Her last bowel movement was yesterday. She admits to urinary hesitancy for 2 weeks duration in addition to an increased frequency, she denies dysuria. She has had several abdominal surgeries including a hysterectomy (for endometriosis), cholecystectomy, and appendectomy. She states she was told she had 1 ovary which they left during her hysterectomy, she is unsure which side it was. During her back pain work up several years ago she states they found a kidney stone. Our most recent imaging was in 2018 and showed a 2mm right renal stone. She denies pain/problems from the stone in the past. She is currently sexual active. She states she had a full STI workup including vaginal swabs and blood work last March after her infidelity from her . The workup was negative and she has since been with a single partner. She denies any vaginal discharge, itching, irritation, or pain with intercourse. Timing/Duration: 1 Day, 1-2 Days Severity/Quality: Sharp, Stabbing Location: RUQ, RLQ Radiation: Groin Activities at Onset: Rest Modifying Factors: Worsens With Lying down Associated Symptoms: Back Pain; No Chest Pain, No Fever/Chills, No Fatigue; Nausea/Vomiting (no vomiting); No Shortness of Air (CINDY KIRBY,MARGARITA WOODY) Allergies and Home Medications Allergies Coded Allergies: Penicillins (Verified Allergy, Unknown, 10/25/06) erythromycin base (Verified Allergy, Unknown, 10/25/06) prochlorperazine (Verified Allergy, Unknown, 10/25/06) Home Medications Atenolol 50 Mg Tablet, 50 MG PO DAILY, (Reported) Bupropion HCl 150 Mg Tab.er.24h, 150 MG PO DAILY, (Reported) Desvenlafaxine Succinate 100 Mg Tab.er.24h, 100 MG PO DAILY, (Reported) Gabapentin 300 Mg Capsule, 300 MG PO HS, (Reported) Hydrocodone Bit/Acetaminophen 1 Each Tablet, 1 TAB PO Q6H PRN for PAIN-MODERATE, (Reported) Hydrocodone/Acetaminophen 1 Each Tablet, 1 EACH PO Q6H PRN for PAIN-BREAKTHROUGH Prescribed by: QUITA SHELBY on 01/24/20 1453 Valsartan/Hydrochlorothiazide 1 Each Tablet, 1 EACH PO DAILY, (Reported) Patient Home Medication List Home Medication List Reviewed: Yes (CINDY KIRBY,MARGARITA WOODY) Review of Systems Review of Systems Constitutional: no symptoms reported EENTM: No Symptoms Reported Respiratory: No Symptoms Reported Cardiovascular: No Symptoms Reported Gastrointestinal: Denies Abdomen Distended; Abdominal Pain; Denies Constipated, Denies Diarrhea; Nausea, Poor Appetite; Denies Vomiting Genitourinary: Denies Burning, Denies Discharge; Frequency; Denies Hematuria; Other (hesitancy) Musculoskeletal: back pain, other (left leg pain) Skin: no symptoms reported Psychiatric/Neurological: No Symptoms Reported Endocrine: No Symptoms Reported (CINDY KIRBY,MARGARITA STUDENT) Past Jcmlitj-[id number]-[id number] Hx Patient Social History Alcohol Use: Occasionally Uses Number of Drinks Today: Alcohol Beverage of Choice: Wine Recreational Drug Use: No Smoking Status: Former Smoker Type Used: Cigarettes Former Smoker, Quit: May 20, 2006 2nd Hand Smoke Exposure: No Recent Foreign Travel: No Contact w/Someone Who Travel: No Recent Infectious Disease Expo: No Recent Hopitalizations: No Physical Abuse: No Sexual Abuse: No Mistreated: No Fear: No (CINDY KIRBY,MARGARITA STUDENT) Immunizations Up To Date Tetanus Booster (TDap): More than 5yrs PED Vaccines UTD: No Date of Influenza Vaccine: May 14, 2019 (CINDY KIRBY,MARGARITA STUDENT) Seasonal Allergies Seasonal Allergies: No (CINDY KIRBY MED STUDENT) Past Medical History Surgeries: Yes (uterine ablation) Appendectomy, Ear Surgery (bilateral cataract repair), Gallbladder, Hysterectomy Respiratory: No Currently Using CPAP: No Currently Using BIPAP: No Cardiac: Yes ( history of preeclampsia with severe hypertension) Hypertension Neurological: No Reproductive Disorders: Yes Female Reproductive Disorders: Endometriosis [employer] History: Hysterectomy Sexually Transmitted Disease: No HIV/AIDS: No Genitourinary: Yes Kidney Stones Gastrointestinal: Yes (rectal bleeding) Gall Bladder Disease Musculoskeletal: Yes (CHRONIC neck PAIN) Chronic Back Pain, Fractures, Spasms Endocrine: No HEENT: No Cancer: No Did You Recieve Any Treatments: No Psychosocial: Yes Anxiety, Depression Integumentary: No Blood Disorders: No (CINDY KIRBY,MARGARITA STUDENT) Family Medical History Heart Disease, CAD Over 55 Years Old, Hypertension (CINDY KIRBY MED STUDENT) Physical Exam Vital Signs Vital Signs - First Documented 01/24/20 01/24/20 06:23 14:57 Temp 36.8 Pulse 81 Resp 16 B/P (MAP) 131/74 (93) Pulse Ox 98 O2 Delivery Room Air (QUITA LOPEZ MD) Vital Signs Capillary Refill : Less Than 3 Seconds (CINDY KIRBY,MARGARITA STUDENT) Height/Weight/BMI Height: 5'3.00" Weight: 142lbs. 0.0oz. 64.790019cw; 23.00 BMI Method:Stated General Appearance: WD/WN, mild distress HEENT: PERRL/EOMI, other (bilateral lens replaced) Neck: non-tender, supple Respiratory: chest non-tender, lungs clear, normal breath sounds, no respirator y distress, no accessory muscle use Cardiovascular: regular rate, rhythm, no murmur Peripheral Pulses: 2+ Radial Pulses (R), 2+ Radial Pulses (L) Gastrointestinal: normal bowel sounds, soft, no organomegaly; No rebound; tenderness (RLQ, suprapubic, RUQ), other (positive rovsing, negative heel tap, negative murpheys sign ) Extremities: normal range of motion, no pedal edema, no calf tenderness, other (negative straight leg raise bilateral) Back: vertebral tenderness (right lower thoracic ) Neurologic/Psychiatric: no motor/sensory deficits, alert, normal mood/affect, oriented x 3 Skin: normal color, warm/dry (MIRTA,CINDY,MED STUDENT) Progress/Results/Core Measures Results/Orders Lab Results Laboratory Tests Test 01/24/20 06:15 Range/Units White Blood Count 5.1 4.3-11.0 10^3/uL Red Blood Count 4.31 L 4.35-5.85 10^6/uL Hemoglobin 13.2 11.5-16.0 G/DL Hematocrit 38 35-52 % Mean Corpuscular Volume 89 80-99 FL Mean Corpuscular Hemoglobin 31 25-34 PG Mean Corpuscular Hemoglobin Concent 35 32-36 G/DL Red Cell Distribution Width 12.9 10.0-14.5 % Platelet Count 267 130-400 10^3/uL Mean Platelet Volume 9.5 7.4-10.4 FL Neutrophils (%) (Auto) 35 L 42-75 % Lymphocytes (%) (Auto) 53 H 12-44 % Monocytes (%) (Auto) 10 0-12 % Eosinophils (%) (Auto) 2 0-10 % Basophils (%) (Auto) 0 0-10 % Neutrophils # (Auto) 1.8 1.8-7.8 X 10^3 Lymphocytes # (Auto) 2.7 1.0-4.0 X 10^3 Monocytes # (Auto) 0.5 0.0-1.0 X 10^3 Eosinophils # (Auto) 0.1 0.0-0.3 10^3/uL Basophils # (Auto) 0.0 0.0-0.1 10^3/uL Urine Color JOSESITO H Urine Clarity SL CLOUDY Urine pH 5.5 5-9 Urine Specific [place] >=1.030 1.016-1.022 Urine Protein NEGATIVE NEGATIVE Urine Glucose (UA) NEGATIVE NEGATIVE Urine Ketones NEGATIVE NEGATIVE Urine Nitrite NEGATIVE NEGATIVE Urine Bilirubin NEGATIVE NEGATIVE Urine Urobilinogen 0.2 < = 1.0 MG/DL Urine Leukocyte Esterase NEGATIVE NEGATIVE Urine RBC (Auto) NEGATIVE NEGATIVE Urine RBC RARE /HPF Urine WBC 0-2 /HPF Urine Squamous Epithelial Cells 2-5 /HPF Urine Crystals NONE /LPF Urine Bacteria FEW H /HPF Urine Casts NONE /LPF Urine Mucus LARGE H /LPF Urine Culture Indicated YES Sodium Level 139 135-145 MMOL/L Potassium Level 3.6 3.6-5.0 MMOL/L Chloride Level 103 98-107 MMOL/L Carbon Dioxide Level 28 21-32 MMOL/L Anion Gap 8 5-14 MMOL/L Blood Urea Nitrogen 13 7-18 MG/DL Creatinine 0.90 0.60-1.30 MG/DL Estimat Glomerular Filtration Rate > 60 BUN/Creatinine Ratio 14 Glucose Level 100 70-105 MG/DL Calcium Level 9.4 8.5-10.1 MG/DL Corrected Calcium 9.2 8.5-10.1 MG/DL Total Bilirubin 0.5 0.1-1.0 MG/DL Aspartate Amino Transf (AST/SGOT) 23 5-34 U/L Alanine Aminotransferase (ALT/SGPT) 25 0-55 U/L Alkaline Phosphatase 41 40-136 U/L C-Reactive Protein High Sensitivity 0.04 0.00-0.50 MG/DL Total Protein 7.4 6.4-8.2 GM/DL Albumin 4.3 3.2-4.5 GM/DL Lipase 36 8-78 U/L (QUITA LOPEZ MD) My Orders Orders - QUITA LOPEZ MD Ua Culture If Indicated (01/24/20 06:09) Cbc With Automated Diff (01/24/20 07:13) Comprehensive Metabolic Panel (01/24/20 07:13) Lipase (01/24/20 07:13) Ed Iv/Invasive Line Start (01/24/20 07:13) Ketorolac Injection (Toradol Injection) (01/24/20 07:15) Ondansetron Injection (Zofran Injectio (01/24/20 07:15) Hs C Reactive Protein (01/24/20 08:16) Fentanyl Injection (Sublimaze Injection (01/24/20 08:30) Ns Iv 1000 Ml (Sodium Chloride 0.9%) (01/24/20 08:22) Us Non Ob Pelvis Comp/Transvag (01/24/20 08:31) Ct Abd/Pelvis Wo(Kidney Stone) (01/24/20 10:33) Fentanyl Injection (Sublimaze Injection (01/24/20 10:45) Ct Abdomen/Pelvis W (01/24/20 13:16) Iohexol Injection (Omnipaque 350 Mg/Ml 1 (01/24/20 13:30) Received Contrast (Hold Metformin- Contr (01/24/20 13:30) Sodium Chloride Flush (Catheter Flush Sy (01/24/20 13:30) Ns (Ivpb) (Sodium Chloride 0.9% Ivpb Bag (01/24/20 13:30) Ketorolac Injection (Toradol Injection) (01/24/20 14:15) (QUITA LOPEZ MD) Medications Given in ED Current Medications Medications Dose Ordered Sig/Brigido Route Start Time Stop Time Status Last Admin Dose Admin Fentanyl Citrate 50 mcg ONCE ONCE IVP 01/24/20 08:30 01/24/20 08:31 DC 01/24/20 08:32 50 MCG Fentanyl Citrate 50 mcg ONCE ONCE IVP 01/24/20 10:45 01/24/20 10:46 DC 01/24/20 10:55 50 MCG Iohexol 75 ml ONCE ONCE IV 01/24/20 13:30 01/24/20 13:31 DC 01/24/20 13:51 75 ML Ketorolac Tromethamine 15 mg ONCE ONCE IVP 01/24/20 14:15 01/24/20 14:16 DC 01/24/20 14:12 15 MG Sodium Chloride 10 ml NEEDED PRN IV 01/24/20 13:30 01/24/20 14:58 DC 01/24/20 13:51 10 ML Sodium Chloride 100 ml ONCE ONCE IV 01/24/20 13:30 01/24/20 13:31 DC 01/24/20 13:51 80 ML (QUITA LOPEZ MD) Vital Signs/I&O 01/24/20 01/24/20 06:23 14:57 Temp 36.8 Pulse 81 60 Resp 16 18 B/P (MAP) 131/74 (93) 112/72 Pulse Ox 98 O2 Delivery Room Air (QUITA LOPEZ MD) Blood Pressure Mean: 93 Progress Progress Note : Progress Note Patient continues to complain of pain after receiving toradol. Ordered fentanyl for pain relief. Urine showed no evidence of blood. Unknown which ovary remains, previous imaging studies have no remarks. Will order ultrasound to determine location. Verbal US report from analytical lab technician was WNL. Abdomen and pelvis CT w/o contrast ordered to determine presence of kidney stone. (CINDY KIRBY,MED STUDENT) Diagnostic Imaging Diagonstic Imaging: CT, Ultrasound Comments US NON OB PELVIS COMP/TRANSVAG PROCEDURE: US Non-ob pelvis comp/trans. TECHNIQUE: Multiple realtime grayscale images were obtained of the pelvis in various projections endovaginally. Transabdominal imaging was also performed. INDICATION: Pelvic pain. Patient has had prior hysterectomy and unilateral oophorectomy. Uterus and right ovary are surgically absent. Left ovary measures 3.6 x 2.5 x 2.2 cm. No adnexal mass or free fluid is detected. There is blood flow to the left ovary. IMPRESSION: Status post hysterectomy and right oophorectomy. No other significant abnormality is detected. CT ABD/PELVIS WO(KIDNEY STONE) PROCEDURE: CT urinary tract, rule out kidney stone. TECHNIQUE: Multiple contiguous axial images were obtained through the abdomen and pelvis without the use of intravenous contrast. Auto Exposure Controls were utilized during the CT exam to meet ALARA standards for radiation dose reduction. INDICATION: Right flank pain radiating into the right leg. Correlation is made with prior CT from 05/10/2018. The lung bases are clear. No discrete liver mass is detected. Gallbladder is surgically absent. No biliary duct dilatation is seen. Pancreas and spleen are unremarkable. No adrenal mass is detected. There are several tiny nonobstructing calculi in the right kidney. No definite ureteral calculi or hydronephrosis is identified. No bladder calculi are detected. Aorta is non-aneurysmal. Bowel loops appear to be normal caliber. No obstruction is seen. Appendix is not definitely visualized but no inflammatory changes in the right lower quadrant or pelvis are seen. There is trace free fluid in the pelvis. There is moderate stool throughout the colon. Uterus is surgically absent. IMPRESSION: 1. Right-sided nonobstructing nephrolithiasis. 2. No acute feature in the abdomen or pelvis is identified. There is moderate stool within the colon, suggestive of constipation. CT ABDOMEN/PELVIS W/ PROCEDURE: CT abdomen and pelvis with contrast. TECHNIQUE: Multiple contiguous axial images were obtained through the abdomen and pelvis after administration of intravenous contrast. Auto Exposure Controls were utilized during the CT exam to meet ALARA standards for radiation dose reduction. INDICATION: Right flank pain radiating to the right leg. COMPARISON: Correlation is made with noncontrast study performed earlier today. FINDINGS: Lung bases are clear. The liver is unremarkable. Gallbladder is surgically absent. No biliary ductal dilatation is seen. The pancreas and spleen are unremarkable. There is no adrenal or renal mass. No hydronephrosis is detected. Delayed images demonstrate contrast within the proximal aspects of both ureters. The mid and distal ureters are not opacified and therefore are somewhat difficult to follow. Calcifications in the right paramidline aspect of the upper pelvis appear to be somewhat medial to the expected location of the right ureter. Calcifications just inferior to this level also appear to be somewhat medial in location and may represent phleboliths or fecaliths. Bladder is unremarkable. Bowel loops are unremarkable. There are no inflammatory changes seen. There is no evidence of bowel obstruction, free fluid, fluid collection, or free air. Uterus is surgically absent. Left ovary is unremarkable. Bony structures demonstrate some mild left convexity scoliotic curvature to the lumbar spine. No acute bony abnormality is detected. IMPRESSION: Essentially unremarkable postcontrast CT of the abdomen and pelvis. The right paramidline pelvic calcifications are felt to be somewhat medial in location to the expected course of the ureter and likely are extra-ureteric, perhaps phleboliths or fecaliths. No definite ureteral calculi or evidence of hydronephrosis is identified. No acute feature is detected. (CINDY KIRBY,MED STUDENT) Departure Impression Primary Impression: Right-sided abdominal pain of unknown cause Disposition: 01 HOME, SELF-CARE Condition: Improved Departure-Patient Inst. Decision time for Depature: 14:49 (QUITA LOPEZ MD) Referrals: TAYLOR WREN MD (PCP/Family) Primary Care Physician Patient Instructions: Acute Abdomen (Belly Pain) Add. Discharge Instructions: Follow-up with your primary care provider as soon as possible. Discuss possible interventions for further assessment such as endoscopy or surgical consult. Please also discuss with your chronic car painter as there may be a radicular component to your pain. For primary control of pain take ibuprofen up to 600 mg every 6 hours as needed. Add hydrocodone as prescribed for pain not controlled by ibuprofen. Return to care if you have worsening symptoms, especially if you develop new symptoms such as fever. All discharge instructions reviewed with patient and/or family. Voiced understanding. Scripts Hydrocodone/Acetaminophen (Hydrocodone-Acetamin 5-325 mg) 1 Each Tablet 1 EACH PO Q6H PRN for PAIN-BREAKTHROUGH, #10 TAB Prov: QUITA LOPEZ MD 01/24/20 This patient was seen, examined, and interviewed by me personally along with Cindy Kirby, MS4. I agree with MS 4 history, physical, assessment, and documentation with the following additions and changes: Patient was found to have significant right sided abdominal tenderness. There was no significant RBCs in the urine to suggest ureteral stone. Patient is absent gallbladder, uterus, and appendix. Ultrasound was obtained to evaluate the remaining ovary which appeared to be on the left side. It was normal. Further workup was offered with CT scan stone search to determine if her pain was from a ureteral stone. Patient was noted to have stones in the kidney previously. CT stone search was negative. Patient's pain etiology was still undetermined. We discussed the risks and benefits of further evaluation with a contrast study. This was also discussed with Dr. Dickson, radiologist. Acknowledging the risks of cost, contrast exposure, and radiation exposure, andrew machado elected to proceed with CT with contrast to hopefully rule out as much pathology as possible during the ER visit. There is some question about calcifications in the right abdomen/pelvis and proximity to ureter could not be 100 percent determined because contrast was not present throughout the entire ureter on the enhanced study. Patient's pain was treated with Toradol and f entanyl during her ER stay. Other possible causes of her pain were discussed. These might include remnant endometriosis, adhesive disease, or bowel problems. I recommended further investigation in the outpatient setting which might include endoscopy and/or laparoscopically. Patient is being referred back to Dr. Wren. I also encouraged her to discuss this pain syndrome with her car painter as there may be a radicular component. Patient's recent weight loss was noted. She states this is due to poor appetite and depression/anxiety during and after her divorce. Exam: Gen.: Alert, oriented, thin, no acute distress HEENT: Normocephalic and atraumatic Heart: Regular rate and rhythm without murmur Lungs: Clear to auscultation bilaterally. Normal effort Abdomen: Soft, normal bowel sounds, negative Roach sign, tenderness throughout the right abdomen, positive Rovsing sign, no rebound, no distention Extremities: Normal to inspection Neuro psych: Alert, no focal deficits, normal mood and affect. (QUITA LOPEZ MD) Copy Copies To 1: TAYLOR WREN MD [facility],MED STUDENT Jan 24, 2020 07:33 QUITA LOPEZ MD Jan 24, 2020 14:53
[2020-01-24 08:20] LABS: BASOPHILS % (AUTO) 0 % (0-10); EOSINOPHILS # (AUTO) 0.1 10^3/uL (0.0-0.3); EOSINOPHILS % (AUTO) 2 % (0-10); HEMATOCRIT 38 % (35-52); HEMOGLOBIN 13.2 G/DL (11.5-16.0); LYMPHOCYTES # (AUTO) 2.7 X 10^3 (1.0-4.0); LYMPHOCYTES % (AUTO) 53 % (12-44); MEAN CORPUSCULAR HEMOGLOBIN 31 PG (25-34); MEAN CORPUSCULAR HGB CONC 35 G/DL (32-36); MEAN CORPUSCULAR VOLUME 89 FL (80-99); MEAN PLATELET VOLUME 9.5 FL (7.4-10.4); MONOCYTES # (AUTO) 0.5 X 10^3 (0.0-1.0); MONOCYTES % (AUTO) 10 % (0-12); NEUTROPHILS # (AUTO) 1.8 X 10^3 (1.8-7.8); NEUTROPHILS % (AUTO) 35 % (42-75); PLATELET COUNT 267 10^3/uL (130-400); RED CELL DISTRIBUTION WIDTH 12.9 % (10.0-14.5); WHITE BLOOD COUNT 5.1 10^3/uL (4.3-11.0)
[2020-01-24] MEDS ORDERED: NS IV 1000 ML 1,000 ML IV SCH (08:22)
[2020-01-24 08:24] LABS: ALBUMIN 4.3 GM/DL (3.2-4.5); CHLORIDE 103 MMOL/L (98-107); POTASSIUM 3.6 MMOL/L (3.6-5.0); SODIUM 139 MMOL/L (135-145)
[2020-01-24 08:26] LABS: CALCIUM 9.4 MG/DL (8.5-10.1)
[2020-01-24 08:27] LABS: GLUCOSE 100 MG/DL (70-105); TOTAL PROTEIN 7.4 GM/DL (6.4-8.2)
[2020-01-24 08:28] LABS: BILIRUBIN,TOTAL 0.5 MG/DL (0.1-1.0); CARBON DIOXIDE 28 MMOL/L (21-32)
[2020-01-24 08:30] LABS: ALKALINE PHOSPHATASE 41 U/L (40-136); GFR ESTIMATED > 60
[2020-01-24] MEDS ORDERED: fentaNYL INJECTION 100 MCG/2 ML AMP IVP ONE ×2 (08:30→10:45)
[2020-01-24 08:31] LABS: BUN/CREATININE RATIO 14
[2020-01-24 08:33] LABS: ALANINE AMINOTRANSFERASE 25 U/L (0-55)
[2020-01-24 08:34] LABS: LIPASE 36 U/L (8-78)
--- NOTE | 2020-01-24 11:31 | Diagnostic Imaging Report ---
PROCEDURE: US Non-ob pelvis comp/trans. TECHNIQUE: Multiple realtime grayscale images were obtained of the pelvis in various projections endovaginally. Transabdominal imaging was also performed. INDICATION: Pelvic pain. Patient has had prior hysterectomy and unilateral oophorectomy. Uterus and right ovary are surgically absent. Left ovary measures 3.6 x 2.5 x 2.2 cm. No adnexal mass or free fluid is detected. There is blood flow to the left ovary. IMPRESSION: Status post hysterectomy and right oophorectomy. No other significant abnormality is detected. Dictated by: Dictated on workstation # [id number]
--- NOTE | 2020-01-24 11:36 | Diagnostic Imaging Report ---
PROCEDURE: CT urinary tract, rule out kidney stone. TECHNIQUE: Multiple contiguous axial images were obtained through the abdomen and pelvis without the use of intravenous contrast. Auto Exposure Controls were utilized during the CT exam to meet ALARA standards for radiation dose reduction. INDICATION: Right flank pain radiating into the right leg. Correlation is made with prior CT from 05/10/2018. The lung bases are clear. No discrete liver mass is detected. Gallbladder is surgically absent. No biliary duct dilatation is seen. Pancreas and spleen are unremarkable. No adrenal mass is detected. There are several tiny nonobstructing calculi in the right kidney. No definite ureteral calculi or hydronephrosis is identified. No bladder calculi are detected. Aorta is non-aneurysmal. Bowel loops appear to be normal caliber. No obstruction is seen. Appendix is not definitely visualized but no inflammatory changes in the right lower quadrant or pelvis are seen. There is trace free fluid in the pelvis. There is moderate stool throughout the colon. Uterus is surgically absent. IMPRESSION: 1. Right-sided nonobstructing nephrolithiasis. 2. No acute feature in the abdomen or pelvis is identified. There is moderate stool within the colon, suggestive of constipation. Dictated by: Dictated on workstation # [id number]
[2020-01-24] MEDS ORDERED: NS 100 ML (IVPB) BAG IV ONE (13:30)
[2020-01-24] MEDS ORDERED: CATHETER FLUSH 10 ML SYR IV PRN (13:30)
[2020-01-24] MEDS ORDERED: IOHEXOL 350 MG/ML 100 ML (OMNIPAQUE 350) VIAL IV ONE (13:30)
[2020-01-24] MEDS ORDERED: HOLD METFORMIN - RECEIVED CONTRAST 20 ML VIAL IV SCH (13:30)
--- NOTE | 2020-01-24 14:09 | Diagnostic Imaging Report ---
PROCEDURE: CT abdomen and pelvis with contrast. TECHNIQUE: Multiple contiguous axial images were obtained through the abdomen and pelvis after administration of intravenous contrast. Auto Exposure Controls were utilized during the CT exam to meet ALARA standards for radiation dose reduction. INDICATION: Right flank pain radiating to the right leg. COMPARISON: Correlation is made with noncontrast study performed earlier today. FINDINGS: Lung bases are clear. The liver is unremarkable. Gallbladder is surgically absent. No biliary ductal dilatation is seen. The pancreas and spleen are unremarkable. There is no adrenal or renal mass. No hydronephrosis is detected. Delayed images demonstrate contrast within the proximal aspects of both ureters. The mid and distal ureters are not opacified and therefore are somewhat difficult to follow. Calcifications in the right paramidline aspect of the upper pelvis appear to be somewhat medial to the expected location of the right ureter. Calcifications just inferior to this level also appear to be somewhat medial in location and may represent phleboliths or fecaliths. Bladder is unremarkable. Bowel loops are unremarkable. There are no inflammatory changes seen. There is no evidence of bowel obstruction, free fluid, fluid collection, or free air. Uterus is surgically absent. Left ovary is unremarkable. Bony structures demonstrate some mild left convexity scoliotic curvature to the lumbar spine. No acute bony abnormality is detected. IMPRESSION: Essentially unremarkable postcontrast CT of the abdomen and pelvis. The right paramidline pelvic calcifications are felt to be somewhat medial in location to the expected course of the ureter and likely are extra-ureteric, perhaps phleboliths or fecaliths. No definite ureteral calculi or evidence of hydronephrosis is identified. No acute feature is detected. Dictated by: Dictated on workstation # [id number]
[2020-01-24] MEDS ORDERED: HYDR-83 PO (14:52)
[2020-01-24 14:57] VITALS: BP 112/72
== END 2020-01-24 14:58 | disposition home or self-care (01) ==
LOC: EDUNIT# 06:05 → ER 06:08
DX: R10.11 Right upper quadrant pain (principal); R10.31 Right lower quadrant pain; I10 Essential (primary) hypertension; F41.9 Anxiety disorder, unspecified; F32.9 Major depressive disorder, single episode, unspecified; Z88.0 Allergy status to penicillin; Z88.1 Allergy status to other antibiotic agents; Z88.8 Allergy status to other drugs, medicaments and biological substances; Z87.891 Personal history of nicotine dependence; Z82.49 Family history of ischemic heart disease and other diseases of the circulatory system
CPT/HCPCS: 36415; 74176; 74177; 76830; 76856; 80053; 81000; 83690; 85025; 86141

== ENCOUNTER 2020-02-15 09:48 | Outpatient (RCR) | payer BC | END 2020-05-05 | disposition home or self-care (01) | PROVIDERS: ATTEND Nurse Practitioner Psychiatric/Mental Health | DX: M54.2 Cervicalgia (principal); M54.9 Dorsalgia, unspecified ==

== ENCOUNTER 2020-04-12 13:03 | Emergency (ER) | payer BC ==
[~2020-04-12] VITALS: Ht 160 cm; Wt 58.9 kg
[~2020-04-12 13:03] MED LIST changes: +HYDR-3812 PO
[2020-04-12] MEDS ORDERED: LACTATED RINGERS 1,000 ML IV ONE (13:34)
[2020-04-12] MEDS ORDERED: KETOROLAC 30 MG/ML VIAL IVP STA (13:34)
[2020-04-12] MEDS ORDERED: fentaNYL INJECTION 100 MCG/2 ML AMP IVP STA (13:34)
[2020-04-12 13:45] LABS: BILIRUBIN,URINE NEGATIVE (NEGATIVE); CLARITY,URINE CLEAR; COLOR,URINE YELLOW; GLUCOSE, URINE (UA) NEGATIVE (NEGATIVE); KETONES,URINE NEGATIVE (NEGATIVE); LEUKOCYTE ESTERASE ,URINE NEGATIVE (NEGATIVE); NITRITE,URINE NEGATIVE (NEGATIVE); PROTEIN,URINE NEGATIVE (NEGATIVE)
[2020-04-12] MEDS ORDERED: ONDANSETRON 4 MG/2 ML (SDV) Z0FRAN IVP ONE (13:45)
--- NOTE | 2020-04-12 13:52 | ED GU-Female ---
General Chief Complaint: Abdominal/GI Problems Stated Complaint: ABD/STOMACH PAIN Source: patient Exam Limitations: no limitations (ARI [place]AS) History of Present Illness Date Seen by Provider: Apr 12, 2020 Time Seen by Provider: 13:15 Initial Comments This is a 40 y/o F here w C/o R flank pain which onset 4 days ago, radiates down to front of her R back, abd and groin, is "sharp and deep" in nature, and is associated with nausea, dysuria, and frequency. States her pain is worse when lying down & Rates her pain 7/10 stating "I just cannot get comfortable". Denies hematuria, dysparunia, change in vaginal discharge, abnormal vaginal bleeding, fevers, chills, or blood in stool. She has taken 200mg ibuprofen @ ~0900 and 1tab of Hydrocodone 5-325 @ 1000 w/o any improvement of her pain. Pt has hx of endometriosis, hysterectomy, and chronic back pain 2/2 scoliosis but notes this pain is different from her usual pain associated with endom etriosis or scoliosis. Pt also has hx of cycling b/w episodes of constipation and diarrhea ever since her cholecystectomy; reports she is having episodes of loose stools. Does not think these are related to her current sx. Pt is sexually active with one partner, was last active last night. Pt drinks 2 cups of coffee per day and 3-4 cans of diet pepsi. Timing/Duration: other (4 days) Severity/Quality: moderate Location: right flank Radiation: back (R lower back), groin Activities at Onset: none Prior Genitourinary Problems: similar symptoms (has hx of kidney stones) Sexual [place] History: less than 2 months ago, single partner Modifying Factors: Worsens With Lying down, Worsens With Urinating Associated Symptoms: abdominal pain, dysuria; No fever/chills, No loss of bladder control; lower back pain, nausea/vomiting, polyuria, urinary frequency (RAI [place]) Timing/Duration: getting worse, other (4 days) Severity/Quality: moderate Location: right flank Radiation: back (R lower back), suprapubic Sexual [place] History: less than 2 months ago, single partner Associated Symptoms: abdominal pain, dysuria; No fever/chills; urinary frequency (SARA CASTANEDA MD) Allergies and Home Medications Allergies Coded Allergies: Penicillins (Verified Allergy, Unknown, 10/25/06) erythromycin base (Verified Allergy, Unknown, 10/25/06) prochlorperazine (Verified Allergy, Unknown, 10/25/06) Home Medications Atenolol 50 Mg Tablet, 50 MG PO DAILY, (Reported) Bupropion HCl 150 Mg Tab.er.24h, 150 MG PO DAILY, (Reported) Desvenlafaxine Succinate 100 Mg Tab.er.24h, 100 MG PO DAILY, (Reported) Gabapentin 300 Mg Capsule, 300 MG PO HS, (Reported) Hydrocodone Bit/Acetaminophen 1 Each Tablet, 1 TAB PO Q6H PRN for PAIN-MODERATE, (Reported) Hydrocodone/Acetaminophen 1 Each Tablet, 1 EACH PO Q6H PRN for PAIN-BREAKTHROUGH Prescribed by: QUITA SHELBY on 01/24/20 1453 Valsartan/Hydrochlorothiazide 1 Each Tablet, 1 EACH PO DAILY, (Reported) Patient Home Medication List Home Medication List Reviewed: Yes (SARA CASTANEDA MD) Review of Systems Review of Systems Constitutional: No chills, No fever EENTM: no symptoms reported Respiratory: No cough, No dyspnea on exertion, No short of breath Cardiovascular: No chest pain, No palpitations Gastrointestinal: see HPI Genitourinary: burning; denies discharge; dysuria, frequency, flank pain; denies hematuria; pain : No Musculoskeletal: see HPI Skin: No pruritus, No rash (ARI [place]) All Other Systemes Reviewed Negative Unless Noted: Yes (SARA CASTANEDA MD) Past Fbahklk-Ybojlb-Sgjfto Hx Past Med/Social Hx: Reviewed Nursing Past Med/Soc Hx (SARA CASTANEDA MD) Patient Social History Alcohol Beverage of Choice: Wine Type Used: Cigarettes Former Smoker, Quit: May 20, 2006 2nd Hand Smoke Exposure: No Recent Foreign Travel: No Contact w/Someone Who Travel: No Recent Hopitalizations: No (ARI [place]AS) Immunizations Up To Date Tetanus Booster (TDap): More than 5yrs PED Vaccines UTD: No Date of Influenza Vaccine: May 14, 2019 (ARI [place]GAS) Seasonal Allergies Seasonal Allergies: No (ARI [place]AS) Past Medical History Surgeries: Yes (uterine ablation) Appendectomy, Ear Surgery, Gallbladder, Hysterectomy Respiratory: No Currently Using CPAP: No Currently Using BIPAP: No Cardiac: Yes ( history of preeclampsia with severe hypertension) Hypertension Neurological: No Reproductive Disorders: Yes Female 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 Sexually Transmitted Disease: No HIV/AIDS: No Genitourinary: Yes Kidney Stones Gastrointestinal: Yes (rectal bleeding) Gall Bladder Disease Musculoskeletal: Yes (CHRONIC neck PAIN) Chronic Back Pain, Fractures, Spasms Endocrine: No HEENT: No Cancer: No Did You Recieve Any Treatments: No Psychosocial: Yes Anxiety, Depression Integumentary: No Blood Disorders: No (ARI [place]AS) Family Medical History Reviewed Nursing Family Hx (SARA CASTANEDA MD) Heart Disease, CAD Over 55 Years Old, Hypertension (ARI [place]GAS) Physical Exam Vital Signs Vital Signs - First Documented 04/12/20 13:14 Temp 37.5 Pulse 80 Resp 20 B/P (MAP) 156/88 (110) Pulse Ox 95 O2 Delivery Room Air (SARA CASTANEDA MD) Vital Signs Capillary Refill : (ARI [place]) Height, Weight, BMI Height: 5'3.00" Weight: 142lbs. 0.0oz. [id number]; 23.00 BMI Method:Stated General Appearance: WD/WN, no apparent distress, other (appears uncomfortable) Cardiovascular: regular rate, rhythm, no gallop, no JVD, no murmur Respiratory: chest non-tender, lungs clear, normal breath sounds Gastrointestinal: normal bowel sounds, non tender Back: normal inspection, no CVA tenderness, no vertebral tenderness Neurologic/Psychiatric: alert, oriented x 3 Skin: normal color, warm/dry Lymphatic: no adenopathy ([place]I [place]) General Appearance: WD/WN, no apparent distress Neck: full range of motion, supple Cardiovascular: regular rate, rhythm, no murmur Respiratory: lungs clear, normal breath sounds Gastrointestinal: non tender, soft Back: normal inspection, no CVA tenderness, no vertebral tenderness Neurologic/Psychiatric: alert, oriented x 3 Skin: normal color, warm/dry (SARA CASTANEDA MD) Progress/Results/Core Measures Suspected Sepsis SIRS Temperature: Pulse: Respiratory Rate: Laboratory Tests 04/12/20 14:04: Blood Pressure / Mean: Laboratory Tests 04/12/20 14:04: ([facility]) Results/Orders Lab Results Laboratory Tests Test 04/12/20 13:21 04/12/20 14:04 Range/Units Urine Color YELLOW Urine Clarity CLEAR Urine pH 6.0 5-9 Urine Specific [place] 1.010 L 1.016-1.022 Urine Protein NEGATIVE NEGATIVE Urine Glucose (UA) NEGATIVE NEGATIVE Urine Ketones NEGATIVE NEGATIVE Urine Nitrite NEGATIVE NEGATIVE Urine Bilirubin NEGATIVE NEGATIVE Urine Urobilinogen 0.2 < = 1.0 MG/DL Urine Leukocyte Esterase NEGATIVE NEGATIVE Urine RBC (Auto) NEGATIVE NEGATIVE Urine RBC NONE /HPF Urine WBC RARE /HPF Urine Squamous Epithelial Cells 5-10 /HPF Urine Crystals NONE /LPF Urine Bacteria TRACE /HPF Urine Casts NONE /LPF Urine Mucus NEGATIVE /LPF Urine Culture Indicated NO White Blood Count 5.4 4.3-11.0 10^3/uL Red Blood Count 4.46 4.35-5.85 10^6/uL Hemoglobin 13.6 11.5-16.0 G/DL Hematocrit 39 35-52 % Mean Corpuscular Volume 88 80-99 FL Mean Corpuscular Hemoglobin 31 25-34 PG Mean Corpuscular Hemoglobin Concent 35 32-36 G/DL Red Cell Distribution Width 12.8 10.0-14.5 % Platelet Count 291 130-400 10^3/uL Mean Platelet Volume 9.0 7.4-10.4 FL Neutrophils (%) (Auto) 52 42-75 % Lymphocytes (%) (Auto) 38 12-44 % Monocytes (%) (Auto) 8 0-12 % Eosinophils (%) (Auto) 2 0-10 % Basophils (%) (Auto) 0 0-10 % Neutrophils # (Auto) 2.9 1.8-7.8 X 10^3 Lymphocytes # (Auto) 2.1 1.0-4.0 X 10^3 Monocytes # (Auto) 0.4 0.0-1.0 X 10^3 Eosinophils # (Auto) 0.1 0.0-0.3 10^3/uL Basophils # (Auto) 0.0 0.0-0.1 10^3/uL Sodium Level 136 135-145 MMOL/L Potassium Level 3.8 3.6-5.0 MMOL/L Chloride Level 101 98-107 MMOL/L Carbon Dioxide Level 24 21-32 MMOL/L Anion Gap 11 5-14 MMOL/L Blood Urea Nitrogen 14 7-18 MG/DL Creatinine 0.75 0.60-1.30 MG/DL Estimat Glomerular Filtration Rate > 60 BUN/Creatinine Ratio 19 Glucose Level 94 70-105 MG/DL Calcium Level 8.9 8.5-10.1 MG/DL Corrected Calcium 8.8 8.5-10.1 MG/DL Total Bilirubin 0.3 0.1-1.0 MG/DL Aspartate Amino Transf (AST/SGOT) 20 5-34 U/L Alanine Aminotransferase (ALT/SGPT) 22 0-55 U/L Alkaline Phosphatase 40 40-136 U/L Total Protein 7.1 6.4-8.2 GM/DL Albumin 4.1 3.2-4.5 GM/DL (SARA CASTANEDA MD) My Orders Orders - SARA CASTANEDA MD Cbc With Automated Diff (04/12/20 13:34) Comprehensive Metabolic Panel (04/12/20 13:34) Ua Culture If Indicated (04/12/20 13:34) Ed Iv/Invasive Line Start (04/12/20 13:34) Lactated Ringers (Lr 1000 Ml Iv Solution (04/12/20 13:34) Fentanyl Injection (Sublimaze Injection (04/12/20 13:34) Ketorolac Injection (Toradol Injection) (04/12/20 13:34) Ondansetron Injection (Zofran Injectio (04/12/20 13:45) Ketamine Syringe (Ed Only) (Ketamine Syr (04/12/20 15:30) Lorazepam Injection (Ativan Injection) (04/12/20 15:30) (SARA CASTANEDA MD) Medications Given in ED Current Medications Medications Dose Ordered Sig/Brigido Route Start Time Stop Time Status Last Admin Dose Admin Ketamine HCl 25 mg ONCE ONCE IV 04/12/20 15:30 04/12/20 15:32 DC 04/12/20 15:47 25 MG Lactated Ringer's 1,000 ml @ 0 mls/hr Q0M ONCE IV 04/12/20 13:34 04/12/20 13:37 DC 04/12/20 13:54 1,000 MLS/HR Lorazepam 0.5 mg ONCE ONCE IVP 04/12/20 15:30 04/12/20 15:32 DC 04/12/20 15:47 0.5 MG Ondansetron HCl 4 mg ONCE ONCE IVP 04/12/20 13:45 04/12/20 13:46 DC 04/12/20 13:53 4 MG (SARA CASTANEDA MD) Vital Signs/I&O 04/12/20 13:14 Temp 37.5 Pulse 80 Resp 20 B/P (MAP) 156/88 (110) Pulse Ox 95 O2 Delivery Room Air (SARA CASTANEDA MD) Vital Signs/I&O Capillary Refill : ([place] [facility]) Progress Note : Time: 13:58 Progress Note Seen and evaluated. ddx include UTI, nephrolithiasis, interstitial cystitis, pyelonephritis, endometriosis, chronic back pain, bacterial vaginosis, STI, constipation, IBS. Will order 1L of NS IVF, 75mg of Fentanyl and 4mg of Zofran, basic labs and UA. Imaging deferred at this time pending UA results. (ARI [place] [facility]) Progress Note : Progress Note I have seen and evaluated the patient and agree with above except as indicated. I have directed the plan of care. Patient is here with lower abdominal pain and right-sided abdominal pain. This is not an uncommon pain complaint for her but seems to be more marketed today. Was sexually active last night. This is been going on for a few days. Patient admits to drinking soda pop as well as caffeine daily. Reports that she's had dysuria and frequency. Has tried ibuprofen at home and that is not working. Denies fever, nausea or vomiting. Denies constipation currently but does have periods of diarrhea followed by constipation and cycle continues. Plan as above. Patient was better after fentanyl but pain returned. We will try ketamine with small dose of Ativan prior to reduce anxiety. 1633: Patient feels much better and has tolerated ketamine therapy well. Currently pain-free but states she does feel a little bit loopy. She is comfortable going home. I have instructed her to stop drinking soda pop and to talk with Dr. Wren this week for recheck and further evaluation. Patient does have components of possible interstitial cystitis versus irritable bowel syndrome versus pelvic pain of undetermined etiology. She will discuss this further with Dr. Wren and I we'll send a copy of the chart to him. Discharged home with return precautions. Patient verbalize understanding instructions and agreement with plan. Of note, labs and UA are normal. (SARA CASTANEDA MD) Departure Impression Primary Impression: Lower abdominal pain Disposition: HOME, SELF-CARE Condition: Improved Departure-Patient Inst. Decision time for Depature: 16:36 (SARA CASTANEDA MD) Referrals: CASANDRA CHAUDHRY APRN (PCP) Primary Care Physician TAYLOR WREN MD Patient Instructions: Interstitial Cystitis (DC), Severe Abdominal Pain, Adult (DC) Add. Discharge Instructions: All discharge instructions reviewed with patient and/or family. Voiced understanding. Follow-up with Dr. Wren for recheck and further evaluation. Stop drinking soda pop. Drink plenty of fluids including water and non-ascitic juices or fluids. You may continue ibuprofen and your pain med regimen as previously prescribed. Return for worse pain, fever, vomiting, weakness, breathing problems or other concerns as needed. Copy Copies To 1: TAYLOR WREN MD, [facility] Apr 12, 2020 13:52 SARA CASTANEDA MD Apr 12, 2020 16:35
[2020-04-12 13:53] LABS: BACTERIA,URINE TRACE /HPF; WBC,URINE RARE /HPF
[2020-04-12 14:11] LABS: BASOPHILS % (AUTO) 0 % (0-10); EOSINOPHILS # (AUTO) 0.1 10^3/uL (0.0-0.3); EOSINOPHILS % (AUTO) 2 % (0-10); HEMATOCRIT 39 % (35-52); HEMOGLOBIN 13.6 G/DL (11.5-16.0); LYMPHOCYTES # (AUTO) 2.1 X 10^3 (1.0-4.0); LYMPHOCYTES % (AUTO) 38 % (12-44); MEAN CORPUSCULAR HEMOGLOBIN 31 PG (25-34); MEAN CORPUSCULAR HGB CONC 35 G/DL (32-36); MEAN CORPUSCULAR VOLUME 88 FL (80-99); MONOCYTES # (AUTO) 0.4 X 10^3 (0.0-1.0); MONOCYTES % (AUTO) 8 % (0-12); NEUTROPHILS # (AUTO) 2.9 X 10^3 (1.8-7.8); NEUTROPHILS % (AUTO) 52 % (42-75); PLATELET COUNT 291 10^3/uL (130-400); RED CELL DISTRIBUTION WIDTH 12.8 % (10.0-14.5); WHITE BLOOD COUNT 5.4 10^3/uL (4.3-11.0)
[2020-04-12 14:19] LABS: ALBUMIN 4.1 GM/DL (3.2-4.5); CHLORIDE 101 MMOL/L (98-107); POTASSIUM 3.8 MMOL/L (3.6-5.0); SODIUM 136 MMOL/L (135-145)
[2020-04-12 14:20] LABS: CALCIUM 8.9 MG/DL (8.5-10.1)
[2020-04-12 14:21] LABS: GLUCOSE 94 MG/DL (70-105)
[2020-04-12 14:22] LABS: TOTAL PROTEIN 7.1 GM/DL (6.4-8.2)
[2020-04-12 14:23] LABS: BILIRUBIN,TOTAL 0.3 MG/DL (0.1-1.0); CARBON DIOXIDE 24 MMOL/L (21-32)
[2020-04-12 14:25] LABS: ALKALINE PHOSPHATASE 40 U/L (40-136); CREATININE SERUM 0.75 MG/DL (0.60-1.30); GFR ESTIMATED > 60
[2020-04-12 14:26] LABS: BUN/CREATININE RATIO 19
[2020-04-12 14:28] LABS: ALANINE AMINOTRANSFERASE 22 U/L (0-55)
[2020-04-12] MEDS ORDERED: LORazepam INJ 2 MG/ML (ATIVAN) VIAL IVP ONE (15:30)
[2020-04-12] MEDS ORDERED: KETAMINE/NaCl 50 MG/5 ML SYRINGE (ED ONLY) IV ONE (15:30)
[2020-04-12 16:49] VITALS: BP 133/95
== END 2020-04-12 16:49 | disposition home or self-care (01) ==
LOC: EDUNIT# 13:03 → ER 13:04
DX: R10.30 Lower abdominal pain, unspecified (principal); I10 Essential (primary) hypertension; G89.29 Other chronic pain; M54.9 Dorsalgia, unspecified; F32.9 Major depressive disorder, single episode, unspecified; Z87.891 Personal history of nicotine dependence; Z82.49 Family history of ischemic heart disease and other diseases of the circulatory system; Z88.1 Allergy status to other antibiotic agents; Z88.0 Allergy status to penicillin; Z88.8 Allergy status to other drugs, medicaments and biological substances; Z79.891 Long term (current) use of opiate analgesic
CPT/HCPCS: 36415; 80053; 81000; 85025

== ENCOUNTER → 2020-07-15 | Outpatient (CLI) | payer BC ==
[~2020-07-15] MED LIST changes: -HYDR-3812 PO
== END ==
LOC: LABNPT 06:22
PROVIDERS: ATTEND Internal Medicine
DX: Z53.9 Procedure and treatment not carried out, unspecified reason (principal); Z11.59 Encounter for screening for other viral diseases

== ENCOUNTER → 2020-11-13 | Outpatient (CLI) | payer BC ==
[~2020-11-13] MED LIST changes: +BUPR150T24 PO; -BUPR150T7 PO; -OXYC-471 PO; +OXYC1TAB11 PO; +SERT-413 PO; +SERT-414; -SERT100T8; -SERT50TA9 PO
--- NOTE | 2020-11-13 14:52 | Diagnostic Imaging Report ---
INDICATION: Routine screening. COMPARISON: 10/15/2019 and 07/19/2018. TECHNIQUE: 2D and 3D bilateral screening mammography was performed with CAD. FINDINGS: Both breasts are heterogeneously dense, limiting the sensitivity of mammography. The parenchymal pattern is stable. No mass or malignant appearing microcalcifications are seen. There are benign calcifications present. The axillae are unremarkable. IMPRESSION: No mammographic features suspicious for malignancy are identified. ACR BI-RADS Category 2: Benign findings. Result letter will be mailed to the patient. Note: At least 10% of breast cancer is not imaged by mammography. Dictated by: Dictated on workstation # [id number]
== END ==
LOC: RAD 10:33
PROVIDERS: ATTEND Nurse Practitioner Family
DX: Z12.31 Encounter for screening mammogram for malignant neoplasm of breast (principal)
CPT/HCPCS: 77063; 77067

== ENCOUNTER 2021-01-29 22:32 | Emergency (ER) | payer BC, OTHER ==
[~2021-01-29] VITALS: Ht 160 cm; Wt 67.0 kg
--- NOTE | 2021-01-30 00:08 | ED Fall/Injury ---
General Chief Complaint: Trauma-Non Activation Stated Complaint: FALL - L WRIST / NECK / HEAD Nursing Triage Note: Pt ambulatory into ER with complaint of Head, Neck, Left shoulder/arm pain after fall on stairs. Pt is unsure if loss of consciousness after fall. Pt denies remembering cause of fall. Pt hit head on wall and broke sheetrock wall. Pt has no obvious signs of trauma. Pt is alert and oriented at this time. Source: patient History of Present Illness Date Seen by Provider: Jan 29, 2021 Time Seen by Provider: 23:00 Initial Comments PT ARRIVES VIA POV FROM HOME STATES JUST PRIOR TO ARRIVAL, SHE WAS AT THE TOP OF STAIRS, AND WAS TRYING TO OPEN A GATE AT THE TOP OF THE STAIRS, AND HER FOOT SLIPPED OFF THE TOP STEP, AND SHE LOST HER BALANCE AND SHE FELL BACKWARDS DOWN 4-5 STAIRS STATES SHE HIT HER HEAD ON THE WALL AND KNOCKED A HOLE IN THE WALL, AND THEN HIT THE BACK OF HER HEAD ON A WOODEN TRUNK UNSURE IF SHE HAD LOSS OF CONSCIOUSNESS C/O MUCH PAIN TO BACK OF HEAD C/O SEVERE PAIN TO NECK, ESPECIALLY ON THE LEFT SIDE C/O PAIN DOWN LEFT ARM C/O PAIN IN LEFT SHOULDER C/O PAIN DOWN MIDDLE OF BACK NO PARESTHESIAS OR MOTOR DEFICITS NO VISION CHANGES NO LOSS OF CONSCIOUSNESS NO CHEST OR ABDOMINAL PAIN OR INJURY NO PAIN ON INJURY TO LEGS NO LOSS OF BOWEL OR BLADDER CONTROL. DOES HAVE A HISTORY OF CHRONIC NECK AND BACK PAIN PCP: Allergies and Home Medications Allergies Coded Allergies: Penicillins (Verified Allergy, Unknown, 10/25/06) erythromycin base (Verified Allergy, Unknown, 10/25/06) prochlorperazine (Verified Allergy, Unknown, 10/25/06) Home Medications Atenolol 50 Mg Tablet, 50 MG PO DAILY, (Reported) Bupropion HCl 150 Mg Tab.er.24h, 150 MG PO DAILY, (Reported) Cyclobenzaprine HCl 10 Mg Tablet, 10 MG PO Q8H PRN for SPASMS Prescribed by: MARIANNE EVANS on 01/30/21 0123 Desvenlafaxine Succinate 100 Mg Tab.er.24h, 100 MG PO DAILY, (Reported) Gabapentin 300 Mg Capsule, 300 MG PO HS, (Reported) Hydrocodone Bit/Acetaminophen 1 Each Tablet, 1 TAB PO Q6H PRN for PAIN-MODERATE, (Reported) Hydrocodone/Acetaminophen 1 Each Tablet, 1 EACH PO Q6H PRN for PAIN-BREAKTHROUGH Prescribed by: QUITA SHELBY on 01/24/20 1453 Tramadol HCl 50 Mg Tablet, 50 MG PO Q4H Prescribed by: MARIANNE EVANS on 01/30/21 0123 Valsartan/Hydrochlorothiazide 1 Each Tablet, 1 EACH PO DAILY, (Reported) Patient Home Medication List Home Medication List Reviewed: Yes Review of Systems Review of Systems Constitutional: no symptoms reported Eyes: No Symptoms Reported Ears, Nose, Mouth, Throat: no symptoms reported Respiratory: no symptoms reported Cardiovascular: no symptoms reported Gastrointestinal: no symptoms reported Genitourinary: no symptoms reported Musculoskeletal: see HPI, back pain, neck pain Skin: no symptoms reported Psychiatric/Neurological: See HPI, Headache; Denies Numbness, Denies Paresthesia, Denies Seizure, Denies Tingling, Denies Weakness Past Gwrcyek-Gkkhod-Zhdnuy Hx Past Med/Social Hx: Reviewed and Corrections made Patient Social History Alcohol Use: Rarely Uses Number of Drinks Today: Alcohol Beverage of Choice: Wine Smoking Status: Former Smoker Type Used: Cigarettes Former Smoker, Quit: May 20, 2006 2nd Hand Smoke Exposure: No Recent Infectious Disease Expo: No Recent Hopitalizations: No Immunizations Up To Date Tetanus Booster (TDap): More than 5yrs PED Vaccines UTD: No Date of Influenza Vaccine: May 14, 2019 Seasonal Allergies Seasonal Allergies: No Past Medical History Surgeries: Yes (uterine ablation) Appendectomy, Ear Surgery, Gallbladder, Hysterectomy Respiratory: No Currently Using CPAP: No Currently Using BIPAP: No Cardiac: Yes ( history of preeclampsia with severe hypertension) Hypertension Neurological: No Reproductive Disorders: Yes 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 Sexually Transmitted Disease: No HIV/AIDS: No Genitourinary: Yes Kidney Stones Gastrointestinal: Yes (rectal bleeding) Gall Bladder Disease Musculoskeletal: Yes (CHRONIC neck PAIN) Chronic Back Pain, Fractures, Spasms Endocrine: No HEENT: No Cancer: No Did You Recieve Any Treatments: No Psychosocial: Yes Anxiety, Depression Integumentary: No Blood Disorders: No Family Medical History Heart Disease, CAD Over 55 Years Old, Hypertension Physical Exam Vital Signs Vital Signs - First Documented 01/29/21 22:38 Temp 36.8 Pulse 82 Resp 18 B/P (MAP) 139/88 (105) Pulse Ox 97 O2 Delivery Room Air Capillary Refill : Less Than 3 Seconds Height, Weight, BMI Height: 5'3.00" Weight: 142lbs. 0.0oz. 64.217752wy; 26.00 BMI Method:Stated General Appearance: WD/WN, no apparent distress HEENT: PERRL/EOMI, normal ENT inspection, TMs normal, pharynx normal Neck: other (DIFFUSE POSTERIOR NECK PAIN AND LEFT LATERAL NECK PAIN. ) Cardiovascular: normal peripheral pulses, regular rate, rhythm, no edema, no JVD, no murmur Respiratory: chest non-tender, normal breath sounds, no respiratory distress, no accessory muscle use Gastrointestinal: normal bowel sounds, non tender, soft Back: no CVA tenderness, other (DIFFUSE SPINAL TENDERNESS. 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 tested, no motor/sensory deficits, alert, normal mood/affect, oriented x 3 Skin: normal color, warm/dry; No ecchymosis Progress/Results/Core Measures Results/Orders My Orders Orders - MARIANNE EVANS DO Cervical Collar (01/29/21 23:18) Ct Head/Cervical Spine Wo (01/29/21 23:18) Ct Thoracic/Lumbar Spine Wo (01/29/21 23:18) Shoulder, Left, 3 Views (01/29/21 23:18) Orphenadrine Inj (Ed Only) (Norflex Inje (01/30/21 01:00) Fentanyl Inj (Sublimaze Injection) (01/30/21 01:00) Rx-Cyclobenzaprine Tablet (Rx-Flexeril T (01/30/21 01:23) Rx-Tramadol Hcl (Rx-Ultram) (01/30/21 01:23) Medications Given in ED Vital Signs/I&O 01/29/21 01/30/21 22:38 01:30 Temp 36.8 36.8 Pulse 82 65 Resp 18 17 B/P (MAP) 139/88 (105) 121/70 (105) Pulse Ox 97 98 O2 Delivery Room Air Room Air Blood Pressure Mean: 105 Progress Progress Note : Progress Note CERVICAL COLLAR PLACED ON PT AND LAID FLAT, SOON I EXAMINED / INTERVIEWED PT. LATER REMOVED ON RECEIVING CT REPORT FROM RADIOLOGIST NO DETERIORATION IN PT'S CONDITION DURING ER STAY PT WALKS UPRIGHT AND MOVES WITHOUT DIFFICULTY AT DISMISSAL Diagnostic Imaging Comments CT HEAD/CERVICAL SPINE--NO ACUTE PROCESS, PER [facility] VIA FAX [place] [address]30 CT THORACIC/LUMBAR SPINE--NO ACUTE PROCESS, PER [facility] VIA FAX AT 0107 SHOULDER XRAYS--NO ACUTE PROCESS, PENDING RADIOLOGIST REVIEW Reviewed: Reviewed by Me Departure Impression Primary Impression: Fall down stairs Additional Impressions: Concussion without loss of consciousness CERVICAL SPINE STRAIN Back strain Contusion of left shoulder Disposition: HOME, SELF-CARE Condition: Stable Departure-Patient Inst. Decision time for Depature: 01:10 Referrals: TAYLOR WRIGHT MD (PCP/Family) Primary Care Physician Patient Instructions: Back Muscle Strain (DC), Concussion, Adult ED, Contusion (DC), Neck Sprain (DC), Using Cold for Pain Add. Discharge Instructions: ICE TO SORE AREAS AT 20 MINUTE INTERVALS FOR FIRST 1-2 DAYS, THEN ALTERNATE ICE AND HEAT AT 20 MINUTE INTERVALS NO DRIVING FOR AT LEAST 24 HOURS NO STRENUOUS ACTIVITY FOR THE NEXT 2-3 DAYS TYLENOL NEEDED FOR PAIN FOLLOW UP WITH YOUR DR IN 1 WEEK IF NO BETTER, RETURN TO ER IF WORSE All discharge instructions reviewed with patient and/or family. Voiced un derstanding. Scripts Cyclobenzaprine HCl (Cyclobenzaprine HCl) 10 Mg Tablet 10 MG PO Q8H PRN for SPASMS, #15 TAB 0 Refills Prov: MARIANNE EVANS DO 01/30/21 Tramadol HCl (Ultram) 50 Mg Tablet 50 MG PO Q4H for Pain, #20 TAB Prov: MARIANNE EVANS DO 01/30/21 MARIANNE EVANS DO Jan 30, 2021 00:08
[2021-01-30] MEDS ORDERED: fentaNYL INJ 100 MCG/2 ML AMP IM ONE (01:00)
[2021-01-30] MEDS ORDERED: ORPHENADRINE 60 MG/2 ML (NORFLEX) AMP (ED ONLY) IM ONE (01:00)
[2021-01-30] MEDS ORDERED: RX-CYCLOBENZAPRINE 10 MG (FLEXERIL) TAB PPK#3 PO STA (01:23)
[2021-01-30] MEDS ORDERED: TRAM-42 PO (01:23)
[2021-01-30] MEDS ORDERED: CYCL10TA9 PO (01:23)
[2021-01-30 01:30] VITALS: BP 121/70
--- NOTE | 2021-01-30 05:37 | Diagnostic Imaging Report ---
INDICATION: Fall. Shoulder pain. COMPARISON: None. FINDINGS: 3 views of the left shoulder were obtained. There is no fracture, dislocation, or other acute bony abnormality identified. The soft tissues appear unremarkable. No radiopaque foreign bodies identified. The visualized portions of the lung are clear. IMPRESSION: No acute fractures or dislocations of the left shoulder. Dictated by: Dictated on workstation # [id number]
--- NOTE | 2021-01-30 07:01 | Diagnostic Imaging Report ---
PROCEDURE: CT head and CT cervical spine without contrast. TECHNIQUE: Multiple contiguous axial images were obtained through the brain and cervical spine without the use of intravenous contrast. Sagittal and coronal reformations through the cervical spine were then performed. Auto Exposure Controls were utilized during the CT exam to meet ALARA standards for radiation dose reduction. INDICATION: Recent fall. Pain and soreness. COMPARISON: 04/18/2018 FINDINGS: CT head: Ventricles and cortical sulci are normal in size and contour. There is no midline shift or mass-effect. No acute intra-axial hemorrhage is seen. There are no abnormal areas of increased or decreased density to suggest acute hemorrhage or edema. No extra-axial masses or collections are present. The bony calvarium is intact. The visualized paranasal sinuses are unremarkable. The mastoid air cells are clear. CT cervical spine: Evaluation static alignment shows reversal of normal lordotic curvature. This may be related to patient positioning, as well as spasm. There is no significant anteroretrolisthesis. There is no evidence of jumped facets. Vertebral body heights are maintained. There is no acute fracture. No bony fragments are seen within the spinal canal. There are mild multilevel degenerative changes consistent with intervertebral disc height loss with anterior and posterior disc osteophyte complex formations. These changes appear greatest at the C5-C6 level. Pre and paravertebral soft tissue structures are unremarkable. Included portions lung apices show no additional acute abnormalities. IMPRESSION: 1. No acute intracranial abnormality. No CT evidence of mass, acute infarct or intracranial hemorrhage. 2. No acute fracture or dislocation cervical spine. 3. Mild multilevel degenerative changes, greatest C5-6 level. Dictated by: Dictated on workstation # [id number]
--- NOTE | 2021-01-30 07:06 | Diagnostic Imaging Report ---
PROCEDURE: CT thoracic and lumbar spine without contrast. TECHNIQUE: Multiple contiguous axial images were obtained through the thoracic and lumbar spine without the use of intravenous contrast. Sagittal and coronal reformations were then performed. All CT scans use one or more of the following dose optimizing techniques: automated exposure control, MA and/or KvP adjustment based on a patient size and exam type, or iterative reconstruction. INDICATION: Fall, back pain. COMPARISON: Thoracic and lumbar spine MRIs from 05/30/2017 FINDINGS: Thoracic spine: Normal alignment of thoracic spine. No acute fracture is present. Visualized aspects of the posterior ribs are intact. No paravertebral hematoma or high-grade spinal canal narrowing. Lungs are clear. Lumbar spine: No acute fracture or malalignment in the lumbar spine. No acute fracture within the visualized aspects of the sacrum. SI joints are normal alignment. No high-grade spinal stenosis. Degenerative disc bulges at L3-L4 and L4-L5 do not cause spinal stenosis. No concerning abnormality in the retroperitoneum. IMPRESSION: 1. No acute fracture in the thoracic or lumbar spine. 2. Findings are in agreement with the preliminary report. Dictated by: Dictated on workstation # [id number]
== END 2021-01-30 01:30 | disposition home or self-care (01) ==
LOC: EDUNIT# 22:32 → ER 22:35
DX: S06.0X0A Concussion without loss of consciousness, initial encounter (principal); S16.1XXA Strain of muscle, fascia and tendon at neck level, initial encounter; S40.012A Contusion of left shoulder, initial encounter; I10 Essential (primary) hypertension; F32.9 Major depressive disorder, single episode, unspecified; G89.29 Other chronic pain; M54.9 Dorsalgia, unspecified; Z87.891 Personal history of nicotine dependence; Z79.891 Long term (current) use of opiate analgesic; Z79.899 Other long term (current) drug therapy; W10.9XXA Fall (on) (from) unspecified stairs and steps, initial encounter
CPT/HCPCS: 70450; 72125; 72128; 72131; 73030

== ENCOUNTER 2021-04-08 18:58 | Emergency (ER) | payer OTHER ==
[~2021-04-08] VITALS: Ht 160 cm; Wt 60.7 kg
[~2021-04-08 18:58] MED LIST changes: +CYCL10TA9 PO; +TRAM-42 PO
[2021-04-08] MEDS ORDERED: ASPIRIN 81 MG CHEW (CHILDREN'S ASA) PO ONE (19:45)
[2021-04-08 19:50] LABS: BASOPHILS % (AUTO) 0 % (0-10); EOSINOPHILS # (AUTO) 0.1 10^3/uL (0.0-0.3); EOSINOPHILS % (AUTO) 2 % (0-10); HEMATOCRIT 41 % (35-52); HEMOGLOBIN 14.1 g/dL (11.5-16.0); LYMPHOCYTES # (AUTO) 1.7 10^3/uL (1.0-4.0); LYMPHOCYTES % (AUTO) 37 % (12-44); MEAN CORPUSCULAR HEMOGLOBIN 31 pg (25-34); MEAN CORPUSCULAR HGB CONC 34 g/dL (32-36); MEAN CORPUSCULAR VOLUME 90 fL (80-99); MEAN PLATELET VOLUME 9.3 fL (9.0-12.2); MONOCYTES # (AUTO) 0.4 10^3/uL (0.0-1.0); MONOCYTES % (AUTO) 9 % (0-12); NEUTROPHILS # (AUTO) 2.3 10^3/uL (1.8-7.8); NEUTROPHILS % (AUTO) 51 % (42-75); PLATELET COUNT 317 10^3/uL (130-400); WHITE BLOOD COUNT 4.6 10^3/uL (4.3-11.0)
--- NOTE | 2021-04-08 19:53 | ED General ---
General Chief Complaint: Abdominal/GI Problems Stated Complaint: CHEST PAIN, CHEST FLUTTER, STOMACH PAIN Nursing Triage Note: abd. pain since tuesday. Source of Information: Patient History of Present Illness Date Seen by Provider: Apr 08, 2021 Time Seen by Provider: 19:35 Initial Comments PT ARRIVES VIA POV FROM HOME MULTIPLE COMPLAINTS--ALL SINCE TUESDAY C/O CHEST PAIN IN CENTER OF CHEST C/O PALPITATIONS C/O ANXIETY C/O NAUSEA , NO VOMITING C/O GERD-TYPE SYMPTOMS AND EPIGASTRIC DISCOMFORT C/O UTI SYMPTOMS WELL NO FEVER NO COUGH OR URI SYMPTOMS NO LOSS OF TASTE/SMELL NO SORE THROAT NO HEADACHE NO BODY ACHES HAS BEEN EATING AND DRINKING NORMALLY PT DID NOT TAKE HER VALIUM TODAY SYMPTOMS NO DIFFERENT TONISAAC HAS NOT SOUGHT CARE UNTIL TONIGHT HAS NOT TAKEN ANYTHING FOR SYMPTOMS PT SATES SHE HAD A "TUMMY TUCK" 8 WEEKS AGO. HAS ALSO HAD PRIOR CHOLECYSTECTOMY AND APPENDECTOMY PCP: DR. WRIGHT Allergies and Home Medications Allergies Coded Allergies: Penicillins (Verified Allergy, Unknown, 10/25/06) erythromycin base (Verified Allergy, Unknown, 10/25/06) prochlorperazine (Verified Allergy, Unknown, 10/25/06) Home Medications Atenolol 50 Mg Tablet, 50 MG PO DAILY, (Reported) Bupropion HCl 150 Mg Tab.er.24h, 150 MG PO DAILY, (Reported) Cyclobenzaprine HCl 10 Mg Tablet, 10 MG PO Q8H PRN for SPASMS Prescribed by: MARIANNE EVANS on 01/30/21 0123 Desvenlafaxine Succinate 100 Mg Tab.er.24h, 100 MG PO DAILY, (Reported) Gabapentin 300 Mg Capsule, 300 MG PO HS, (Reported) Hydrocodone Bit/Acetaminophen 1 Each Tablet, 1 TAB PO Q6H PRN for PAIN-MODERATE, (Reported) Hydrocodone/Acetaminophen 1 Each Tablet, 1 EACH PO Q6H PRN for PAIN-BREAKTHROUGH Prescribed by: QUITA SHELBY on 01/24/20 145 Nitrofurantoin Monohyd/M-Cryst 100 Mg Capsule, 1 TAB PO BID Prescribed by: MARIANNE EVANS on 04/08/212042 Ondansetron 8 Mg Tab.rapdis, 8 MG PO Q6H Prescribed by: MARIANNE EVANS on 8/25/21 2043 Pantoprazole Sodium 40 Mg Tablet.dr, 40 MG PO DAILY Prescribed by: MARIANNE EVANS on 04/08/212042 Phenazopyridine HCl 200 Mg Tablet, 1 TAB PO TID Prescribed by: MARIANNE EVANS on 04/08/212042 Tramadol HCl 50 Mg Tablet, 50 MG PO Q4H Prescribed by: MARIANNE EVANS on 01/30/21 0123 Valsartan/Hydrochlorothiazide 1 Each Tablet, 1 EACH PO DAILY, (Reported) Patient Home Medication List Home Medication List Reviewed: Yes Review of Systems Review of Systems Constitutional: no symptoms reported EENTM: no symptoms reported Respiratory: no symptoms reported Cardiovascular: see HPI, chest pain Gastrointestinal: see HPI, abdominal pain, nausea Genitourinary: see HPI, dysuria Musculoskeletal: No back pain Skin: no symptoms reported Psychiatric/Neurological: Anxiety; Denies Headache Hematologic/Lymphatic: No Symptoms Reported Immunological/Allergic: no symptoms reported Past Dnnwcfc-Hebeso-Icbrew Hx Patient Social History Tobacco Use?: No Substance use?: No Alcohol Use?: No Immunizations Up To Date Tetanus Booster (TDap): More than 5yrs PED Vaccines UTD: No Influenza Vaccine Up-to-Date: No; Not Current Seasonal Allergies Seasonal Allergies: No Past Medical History Surgery/Hospitalization HX: [facility] 01/2021 Surgeries: Yes (uterine ablation) Abdominal, Appendectomy, Ear Surgery, Gallbladder, Hysterectomy Respiratory: No Currently Using CPAP: No Currently Using BIPAP: No Cardiac: Yes ( history of preeclampsia with severe hypertension) Hypertension Neurological: No Last Menstrual Period: Feb 12, 2010 Reproductive Disorders: Yes Female Reproductive Disorders: Endometriosis 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 Sexually Transmitted Disease: No HIV/AIDS: No Genitourinary: Yes Kidney Stones Gastrointestinal: Yes (rectal bleeding) Gall Bladder Disease Musculoskeletal: Yes (CHRONIC neck PAIN) Chronic Back Pain, Fractures, Spasms Endocrine: No HEENT: No Cancer: No Did You Recieve Any Treatments: No Psychosocial: Yes Anxiety, Depression Integumentary: No Blood Disorders: No Family Medical History Heart Disease, CAD Over 55 Years Old, Hypertension Physical Exam Vital Signs Vital Signs - First Documented 04/08/21 19:07 Temp 37.1 Pulse 71 Resp 18 B/P (MAP) 158/92 (114) Pulse Ox 97 O2 Delivery Room Air Capillary Refill : Less Than 3 Seconds Height, Weight, BMI Height: 5'3.00" Weight: 142lbs. 0.0oz. 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 Norm as Tested Skin: Normal Color, Warm/Dry; No Rash Focused Exam Lactate Level 04/08/21 20:04: Lactic Acid Level 0.80 Lactic Acid Level Laboratory Tests Test 04/08/21 20:04 Lactic Acid Level 0.80 MMOL/L (0.50-2.00) Progress/Results/Core Measures Suspected Sepsis SIRS Temperature: Pulse: 71 Respiratory Rate: 18 Laboratory Tests 04/08/21 19:18: White Blood Count 4.6 Blood Pressure 158 /92 Mean: 114 04/08/21 20:04: Lactic Acid Level 0.80 Laboratory Tests 04/08/21 19:18: Creatinine 1.00, INR Comment 0.9, Platelet Count 317, Total Bilirubin 0.2 Results/Orders Lab Results Laboratory Tests Test 04/08/21 19:18 04/08/21 19:31 04/08/21 19:51 04/08/21 20:04 Range/Units White Blood Count 4.6 4.3-11.0 10^3/uL Red Blood Count 4.61 3.80-5.11 10^6/uL Hemoglobin 14.1 11.5-16.0 g/dL Hematocrit 41 35-52 % Mean Corpuscular Volume 90 80-99 fL Mean Corpuscular Hemoglobin 31 25-34 pg Mean Corpuscular Hemoglobin Concent 34 32-36 g/dL Red Cell Distribution Width 12.4 10.0-14.5 % Platelet Count 317 130-400 10^3/uL Mean Platelet Volume 9.3 9.0-12.2 fL Immature Granulocyte % (Auto) 0 % Neutrophils (%) (Auto) 51 42-75 % Lymphocytes (%) (Auto) 37 12-44 % Monocytes (%) (Auto) 9 0-12 % Eosinophils (%) (Auto) 2 0-10 % Basophils (%) (Auto) 0 0-10 % Neutrophils # (Auto) 2.3 1.8-7.8 10^3/uL Lymphocytes # (Auto) 1.7 1.0-4.0 10^3/uL Monocytes # (Auto) 0.4 0.0-1.0 10^3/uL Eosinophils # (Auto) 0.1 0.0-0.3 10^3/uL Basophils # (Auto) 0.0 0.0-0.1 10^3/uL Immature Granulocyte # (Auto) 0.0 0.0-0.1 10^3/uL Erythrocyte Sedimentation Rate 8 0-20 MM/HR Prothrombin Time 12.8 12.2-14.7 SEC INR Comment 0.9 0.8-1.4 Activated Partial Thromboplast Time 26 24-35 SEC D-Dimer < 0.20 0.00-0.49 UG/ML Sodium Level 138 135-145 MMOL/L Potassium Level 3.3 L 3.6-5.0 MMOL/L Chloride Level 102 98-107 MMOL/L Carbon Dioxide Level 27 21-32 MMOL/L Anion Gap 9 5-14 MMOL/L Blood Urea Nitrogen 10 7-18 MG/DL Creatinine 1.00 0.60-1.30 MG/DL Estimat Glomerular Filtration Rate 61 BUN/Creatinine Ratio 10 Glucose Level 92 70-105 MG/DL Calcium Level 10.2 H 8.5-10.1 MG/DL Corrected Calcium 9.9 8.5-10.1 MG/DL Magnesium Level 2.0 1.6-2.4 MG/DL Total Bilirubin 0.2 0.1-1.0 MG/DL Aspartate Amino Transf (AST/SGOT) 23 5-34 U/L Alanine Aminotransferase (ALT/SGPT) 19 0-55 U/L Alkaline Phosphatase 47 40-136 U/L Lactate Dehydrogenase 286 H 125-220 U/L Total Creatine Kinase 84 29-168 U/L Creatine Kinase MB 1.0 <6.6 NG/ML Myoglobin 27.6 10.0-92.0 NG/ML Troponin I < 0.028 <0.028 NG/ML C-Reactive Protein High Sensitivity 0.56 H 0.00-0.50 MG/DL B-Type Natriuretic Peptide 58.5 <100.0 PG/ML Total Protein 7.6 6.4-8.2 GM/DL Albumin 4.4 3.2-4.5 GM/DL Amylase Level 62 25-125 U/L Lipase 30 8-78 U/L Procalcitonin 0.02 <0.10 NG/ML Serum Test, Qualitative NEGATIVE NEGATIVE Influenza Type A (RT-PCR) Not Detected Not Detecte Influenza Type B (RT-PCR) Not Detected Not Detecte SARS-CoV-2 RNA (RT-PCR) Not Detected Not Detecte Urine Color YELLOW Urine Clarity SL CLOUDY Urine pH 8.0 5-9 Urine Specific [place] 1.025 H 1.016-1.022 Urine Protein NEGATIVE NEGATIVE Urine Glucose (UA) NEGATIVE NEGATIVE Urine Ketones NEGATIVE NEGATIVE Urine Nitrite NEGATIVE NEGATIVE Urine Bilirubin NEGATIVE NEGATIVE Urine Urobilinogen 1.0 < = 1.0 MG/DL Urine Leukocyte Esterase NEGATIVE NEGATIVE Urine RBC (Auto) NEGATIVE NEGATIVE Urine RBC 0-2 /HPF Urine WBC 25-50 H /HPF Urine Squamous Epithelial Cells 10-25 H /HPF Urine Renal Epithelial Cells NONE /HPF Urine Crystals NONE /LPF Urine Bacteria MODERATE H /HPF Urine Casts NONE /LPF Urine Mucus NEGATIVE /LPF Urine Culture Indicated YES Urine Opiates Screen NEGATIVE NEGATIVE Urine Oxycodone Screen NEGATIVE NEGATIVE Urine Methadone Screen NEGATIVE NEGATIVE Urine Propoxyphene Screen NEGATIVE NEGATIVE Urine Barbiturates Screen NEGATIVE NEGATIVE Ur Tricyclic Antidepressants Screen NEGATIVE NEGATIVE Urine Phencyclidine Screen NEGATIVE NEGATIVE Urine Amphetamines Screen NEGATIVE NEGATIVE Urine Methamphetamines Screen NEGATIVE NEGATIVE Urine Benzodiazepines Screen NEGATIVE NEGATIVE Urine Cocaine Screen NEGATIVE NEGATIVE Urine Cannabinoids Screen NEGATIVE NEGATIVE Lactic Acid Level 0.80 0.50-2.00 MMOL/L Micro Results Microbiology 04/08/21 Urine Culture - Final, Complete >=3 Gram Positive Isolates My Orders Orders - MARIANNE EVANS DO Ed Iv/Invasive Line Start (04/08/21 19:40) Ekg Tracing (04/08/21 19:40) O2 (04/08/21 19:40) Monitor-Rhythm Ecg Trace Only (04/08/21 19:40) Amylase (04/08/21 19:40) BNP (04/08/21 19:40) Cbc With Automated Diff (04/08/21 19:40) Comprehensive Metabolic Panel (04/08/21 19:40) Creatine Kinase (04/08/21 19:40) Creatine Kinase Mb (04/08/21 19:40) Hs C Reactive Protein (04/08/21 19:40) Fibrin Degradation Products (04/08/21 19:40) Drug Screen Stat (Urine) (04/08/21 19:40) Hcg,Qualitative Serum (04/08/21 19:40) Lactic Acid Analyzer (04/08/21 19:40) Lipase (04/08/21 19:40) Magnesium (04/08/21 19:40) Protime With Inr (04/08/21 19:40) Partial Thromboplastin Time (04/08/21 19:40) Ua Culture If Indicated (04/08/21 19:40) Erythrocyte Sedimentation Rate (04/08/21 19:40) Myoglobin Serum (04/08/21 19:40) Troponin I (04/08/21 19:40) Chest 1 View, Ap/Pa Only (04/08/21 19:40) Procalcitonin (Pct) (04/08/21 19:40) LDH (04/08/21 19:40) Covid 19 Inhouse Test (04/08/21 19:40) O2 (04/08/21 19:40) Ed Iv/Invasive Line Start (04/08/21 19:40) Aspirin Chewable Tablet (Baby Aspirin Ch (04/08/21 19:45) Influenza A And B By Pcr (04/08/21 19:40) Urine Culture (04/08/21 19:51) Ondansetron Injection (Zofran Injectio (04/08/21 20:15) Ceftriaxone (Rocephin) (04/08/21 20:45) Ondansetron Injection (Zofran Injectio (04/08/21 20:45) Phenazopyridine Tablet (Pyridium Tablet) (04/08/21 20:45) Pantoprazole Injection (Protonix Injecti (04/08/21 20:45) Acetaminophen Tablet (Tylenol Tablet) (04/08/21 21:00) Medications Given in ED Vital Signs/I&O 04/08/21 04/08/21 04/08/21 19:07 19:08 21:08 Temp 37.1 37.1 Pulse 71 73 Resp 18 18 B/P (MAP) 158/92 (114) 144/82 (114) Pulse Ox 97 97 96 O2 Delivery Room Air Room Air Room Air Capillary Refill : Less Than 3 Seconds Blood Pressure Mean: 114 Progress Note : Progress Note SYMPTOMS IMPROVED AT DISMISSAL ECG Initial ECG Impression Date: Apr 08, 2021 Initial ECG Impression Time: 19:10 Initial ECG Rate: 73 Initial ECG Rhythm: Normal Sinus Initial ECG Impression: Nonspecific Changes Diagnostic Imaging Comments CXR--PER RADIOLOGIST REPORT FINDINGS: The patient is slightly rotated to the left. There is right convex curvature of the thoracic spine which appears stable. There is mild right perihilar opacity. There is no pleural effusion or pneumothorax. The cardiac silhouette is normal in size. IMPRESSION: Mild right perihilar opacity, may be due to infiltrate versus artifact from rotation. Reviewed: Reviewed by Me Departure Impression Primary Impression: Urinary tract infection Additional Impressions: Chest pain GERD SYMPTOMS Disposition: 01 HOME, SELF-CARE Condition: Stable Departure-Patient Inst. Decision time for Depature: 20:35 Referrals: TAYLOR WRIGHT MD (PCP/Family) Primary Care Physician Patient Instructions: Acid Reflux and GERD in Adults (DC), Chest Pain (DC), Urinary Tract Infection, Adult (DC) Add. Discharge Instructions: LOTS OF CLEAR LIQUIDS--WATER, BROTH, JELLO, GATORADE TYLENOL AND MOTRIN NEEDED FOR PAIN FOLLOW UP WITH DR. WRIGHT IN 3-4 DAYS FOR FURTHER CARE All discharge instructions reviewed with patient and/or family. Voiced understanding. Scripts Pantoprazole Sodium (Protonix) 40 Mg Tablet. 40 MG PO DAILY, #15 TAB Prov: MARIANNE EVANS DO 04/08/21 Ondansetron (Ondansetron Odt) 8 Mg Tab.rapdis 8 MG PO Q6H, #10 TAB Prov: MARIANNE EVANS DO 04/08/21 Phenazopyridine HCl (Pyridium) 200 Mg Tablet 1 TAB PO TID, #15 TAB Prov: MARIANNE EVANS DO 04/08/21 Nitrofurantoin Monohyd/M-Cryst (Macrobid 100 mg Capsule) 100 Mg Capsule 1 TAB PO BID, #20 CAP Prov: MARIANNE EVANS DO 04/08/21 GEOVANNA EVANSYesica Mendoza DO Apr 08, 2021 19:53
[2021-04-08 19:59] LABS: BILIRUBIN,URINE NEGATIVE (NEGATIVE); CLARITY,URINE SL CLOUDY; COLOR,URINE YELLOW; GLUCOSE, URINE (UA) NEGATIVE (NEGATIVE); KETONES,URINE NEGATIVE (NEGATIVE); LEUKOCYTE ESTERASE ,URINE NEGATIVE (NEGATIVE); NITRITE,URINE NEGATIVE (NEGATIVE); PROTEIN,URINE NEGATIVE (NEGATIVE)
[2021-04-08 20:05] LABS: ALANINE AMINOTRANSFERASE 19 U/L (0-55); ALBUMIN 4.4 GM/DL (3.2-4.5); ALKALINE PHOSPHATASE 47 U/L (40-136); AMYLASE 62 U/L (25-125); BILIRUBIN,TOTAL 0.2 MG/DL (0.1-1.0); BUN/CREATININE RATIO 10; CALCIUM 10.2 MG/DL (8.5-10.1); CARBON DIOXIDE 27 MMOL/L (21-32); CHLORIDE 102 MMOL/L (98-107); CREATINE KINASE 84 U/L (29-168); GFR ESTIMATED 61; GLUCOSE 92 MG/DL (70-105); LIPASE 30 U/L (8-78); POTASSIUM 3.3 MMOL/L (3.6-5.0); SODIUM 138 MMOL/L (135-145); TOTAL PROTEIN 7.6 GM/DL (6.4-8.2)
[2021-04-08 20:07] LABS: BACTERIA,URINE MODERATE /HPF; RBC,URINE 0-2 /HPF; WBC,URINE 25-50 /HPF
[2021-04-08 20:11] LABS: AMPHETAMINE SCREEN, URINE NEGATIVE (NEGATIVE); BARBITURATE SCREEN URINE NEGATIVE (NEGATIVE); BENZODIAZEPINES SCREEN URINE NEGATIVE (NEGATIVE); CANNABINOID SCREEN, URINE NEGATIVE (NEGATIVE); COCAINE SCREEN URINE NEGATIVE (NEGATIVE); METHADONE STAT NEGATIVE (NEGATIVE); METHAMPHETAMINE SCREEN URINE S NEGATIVE (NEGATIVE); OPIATE SCREEN URINE NEGATIVE (NEGATIVE); OXYCODONE STAT NEGATIVE (NEGATIVE); PROPOXYPHENE STAT NEGATIVE (NEGATIVE); TRICYCLIC ANTIDEPRESSANTS SCRE NEGATIVE (NEGATIVE)
[2021-04-08 20:12] LABS: ERYTHROCYTE SEDIMENTATION RATE 8 MM/HR (0-20)
[2021-04-08] MEDS ORDERED: ONDANSETRON 4 MG/2 ML (SDV) Z0FRAN IVP ONE ×2 (20:15→20:45)
[2021-04-08 20:27] LABS: FIBRIN DEGRADATION PRODUCTS < 0.20 UG/ML (0.00-0.49); INR 0.9 (0.8-1.4); PARTIAL THROMBOPLASTIN TIME 26 SEC (24-35); PROTHROMBIN TIME PATIENT 12.8 SEC (12.2-14.7)
--- NOTE | 2021-04-08 20:29 | Diagnostic Imaging Report ---
HISTORY: Chest pain. COMPARISON: 10/23/2019. TECHNIQUE: Frontal view of the chest. FINDINGS: The patient is slightly rotated to the left. There is right convex curvature of the thoracic spine which appears stable. There is mild right perihilar opacity. There is no pleural effusion or pneumothorax. The cardiac silhouette is normal in size. IMPRESSION: Mild right perihilar opacity, may be due to infiltrate versus artifact from rotation. Dictated by: Dictated on workstation # [id number]
[2021-04-08] MEDS ORDERED: PHEN-640 PO (20:43)
[2021-04-08] MEDS ORDERED: PANT40TA2 PO (20:43)
[2021-04-08] MEDS ORDERED: NITR-65 PO (20:43)
[2021-04-08] MEDS ORDERED: ONDA8TAB13 PO (20:43)
[2021-04-08] MEDS ORDERED: cefTRIAXone 1,000 MG in WATER (STERILE) FOR INJECTION 10 ML IV ONE (20:45)
[2021-04-08] MEDS ORDERED: PHENAZOPYRIDINE 100 MG (PYRIDIUM) TABLET PO ONE (20:45)
[2021-04-08] MEDS ORDERED: PANTOPRAZOLE 40 MG (PROTONIX) VIAL IV ONE (20:45)
[2021-04-08] MEDS ORDERED: ACETAMINOPHEN 500 MG TAB (TYLENOL) PO ONE (21:00)
[2021-04-08 21:08] VITALS: BP 144/82
== END 2021-04-08 21:09 | disposition home or self-care (01) ==
LOC: EDUNIT# 18:58 → ER 19:01
DX: N39.0 Urinary tract infection, site not specified (principal); R07.9 Chest pain, unspecified; I10 Essential (primary) hypertension; G89.29 Other chronic pain; M54.9 Dorsalgia, unspecified; F32.9 Major depressive disorder, single episode, unspecified; Z20.822 Contact with and (suspected) exposure to COVID-19; Z90.49 Acquired absence of other specified parts of digestive tract; Z79.891 Long term (current) use of opiate analgesic
CPT/HCPCS: 36415; 71045; 80053; 80306; 81000; 82150; 82550; 82553; 83605; 83615; 83690; 83735; 83874; 83880; 84145; 84484; 84703; 85025; 85379; 85610; 85652; 85730; 86141; 87088; 87636; 93005; 93041

== ENCOUNTER → 2021-05-20 | Outpatient (CLI) | payer OTHER ==
[~2021-05-20] MED LIST changes: +NITR-65 PO; +ONDA8TAB13 PO; +PANT40TA2 PO; +PHEN-640 PO
== END ==
LOC: LAB 11:55
PROVIDERS: ATTEND Nurse Practitioner Family
DX: J02.9 Acute pharyngitis, unspecified (principal); R49.0 Dysphonia
CPT/HCPCS: 36415; 84443; 87070

== ENCOUNTER → 2021-05-25 | Outpatient (CLI) | payer OTHER | LOC: CARD 12:30 | PROVIDERS: ATTEND Nurse Practitioner Family | DX: J02.9 Acute pharyngitis, unspecified (principal); R00.2 Palpitations | CPT/HCPCS: 93225; 93226 ==

== ENCOUNTER 2021-06-23 05:36 | Outpatient (RCR) | payer OTHER ==
[~2021-06-23] VITALS: Ht 160 cm; Wt 60.8 kg
[2021-06-26] MEDS ORDERED: ESOM20CA PO (10:44)
[2021-06-26] MEDS ORDERED: METH36TA12 PO (10:44)
[2021-06-26] MEDS ORDERED: LITH300T PO (10:44)
== END 2021-06-25 09:15 | disposition home or self-care (01) ==
LOC: PREOP 05:36
PROVIDERS: ATTEND Internal Medicine
DX: Z01.818 Encounter for other preprocedural examination (principal)

== ENCOUNTER 2021-06-26 09:36 | Day surgery (SDC) | payer OTHER ==
--- NOTE | 2021-06-22 19:34 | HISTORY AND PHYSICAL ---
DATE OF SERVICE: EGD HISTORY AND PHYSICAL DATE OF ADMISSION: ____ HISTORY OF PRESENT ILLNESS: The patient is a 41-year-old white female, who presented to the office reporting dysphagia to solids predominantly with odynophagia. She is also having a sore throat pain with this. She denies coughing or choking. She reports that fluids have been painful to swallow as well at times. She has had several rounds of antibiotics last being penicillin and she did have a throat culture that was positive for beta-hemolytic group C strep. She did report a sore she first noted several days ago on the left side of her mouth. She does not report chills or fever, but she has noted fatigue. She has had decrease in appetite with this. Her weight has been stable over the past two months, but going back six months, she is down 12 pounds. She has noted no melena or bright red blood per rectum and denies abdominal pain. PHYSICAL EXAMINATION: GENERAL: Reveals a white female, appeared to be in mild distress. VITAL SIGNS: Blood pressure 120/80, heart rate 66 and regular. HEENT: Reveals her sclerae nonicteric. She does have three or four small 1 to 2 mm purpuric areas on the left buccal mucosa. This does not appear to be associated with trauma from her teeth. Her bite is unremarkable. There are no other soft or hard palate abnormalities. The posterior pharynx reveals some mild erythema without evidence for exudate. NECK: Reveals no JVD, adenopathy, bruits or thyroid abnormality to palpation. CHEST: Clear. CARDIOVASCULAR: Reveals a regular rate and rhythm without murmur, S3 or S4. ABDOMEN: Soft, supple without mass, organomegaly or tenderness. EXTREMITIES: Reveal no cyanosis, clubbing or edema. ASSESSMENT AND PLAN: For investigation of dysphagia and odynophagia with intermittent pharyngitis, the patient is being set up for EGD evaluation. Prep instructions were discussed. She will continue to abstain from aspirin and nonsteroidal medication, which she normally does not take. Job ID: [id number] DocumentID: [id number] Dictated Date: 06/22/2021 18:17:18 Wheel Buffer Date: 06/22/2021 19:34:18 Dictated By: TAYLOR WRIGHT MD
[~2021-06-26] VITALS: Ht 160 cm; Wt 60.8 kg
[2021-06-26] MEDS ORDERED: LACTATED RINGERS 1,000 ML IV STA (09:50)
[2021-06-26] MEDS ORDERED: LACTATED RINGERS 1,000 ML IV ONE (09:52)
[2021-06-26 09:55] VITALS: BP 115/80
[2021-06-26] MEDS ORDERED: LIDOCAINE JELLY 2% 6 ML SYRINGE MM PRN (10:00)
[2021-06-26] MEDS ORDERED: HURRICAINE EXT TUBE (BENZOCAINE) XX PRN (10:00)
[2021-06-26] MEDS ORDERED: proPOfol 200 MG/20 ML (DIPRIVAN) VIAL IV ONE (10:37)
[2021-06-26] MEDS ORDERED: ESOM20CA PO (10:44)
[2021-06-26] MEDS ORDERED: LITH300T PO (10:44)
[2021-06-26] MEDS ORDERED: METH36TA12 PO (10:44)
[2021-06-26 10:55] VITALS: BP 105/63
--- NOTE | 2021-06-26 10:59 | Anesthesia-General Post-Op ---
MAC Patient Condition Mental Status/LOC: Same as Preop Cardiovascular: Satisfactory Nausea/Vomiting: Absent Respiratory: Satisfactory Pain: Controlled Complications: Absent Post Op Complications Complications None Follow Up Care/Instructions Patient Instructions None needed. Anesthesiology Discharge Order Discharge Order Patient is doing well, no complaints, stable vital signs, no apparent adverse anesthesia problems. No complications reported per nursing. MAGO MILLER CRNA Jun 26, 2021 10:59
[2021-06-26 11:00] VITALS: BP 112/64
[2021-06-26 11:05] VITALS: BP 112/64
[2021-06-26 11:21] VITALS: BP 112/63
--- NOTE | 2021-06-26 15:27 | OPERATIVE REPORT ---
DATE OF SERVICE: EGD SUMMARY INDICATION FOR THE PROCEDURE: Dysphagia with chronic pharyngitis. DESCRIPTION OF PROCEDURE: The patient was placed in the left lateral decubitus position. The endoscope was inserted into the oral cavity and under direct visualization, the esophagus was intubated. The endoscope was passed down the esophagus through the stomach and second portion of the duodenum. Careful inspection was made as the endoscope was withdrawn. FINDINGS: The posterior pharynx, true and false vocal folds were unremarkable. The arytenoid aperture was slightly erythematous. No ulceration was noted. Epiglottis was unremarkable. The proximal, mid and distal esophagus were unremarkable with no evidence for extrinsic compression. No rings, webs or strictures were noted. It does appear to be laxity of the lower esophageal sphincter, but no evidence for hiatal hernia formation. The Z line was distinct. No evidence for Marquez's change was noted. A biopsy was obtained from the gastroesophageal junction and submitted for histopathology. The cardia and fundus of the stomach was unremarkable. There are linear streaking areas of erythema noted in the antrum. A biopsy was obtained and submitted for Helicobacter and histopathology. No evidence for peptic ulcer disease was noted. The pylorus, the pyloric channel, the duodenal bulb and second portion of the duodenum were unremarkable. ASSESSMENT: Gross inspection suggests antral gastritis. Biopsies were obtained and submitted for Helicobacter evaluation. There is no evidence for hiatal hernia formation, but there does appeared to be some degree of sphincter laxity. The patient is advised to continue Nexium and avoid nonsteroidal medication and aspirin. She will continue her other medications unchanged. No evidence for peptic ulcer disease was noted. Job ID: [id number] DocumentID: [id number] Dictated Date: 06/26/2021 11:02:41 Department Store General Manager Date: 06/26/2021 15:26:41 Dictated By: TAYLOR WRIGHT MD [facility]
== END 2021-06-26 11:35 | disposition home or self-care (01) ==
LOC: ENDO 09:36
PROVIDERS: ATTEND Internal Medicine
DX: K31.9 Disease of stomach and duodenum, unspecified (principal); K21.9 Gastro-esophageal reflux disease without esophagitis; I10 Essential (primary) hypertension; F32.A Depression, unspecified; F41.9 Anxiety disorder, unspecified; Z79.899 Other long term (current) drug therapy; Z88.1 Allergy status to other antibiotic agents
CPT/HCPCS: 87635; 88305

== ENCOUNTER → 2021-11-11 | Outpatient (CLI) | payer OTHER ==
[~2021-11-11] MED LIST changes: +CYCL10TA25 PO; -CYCL10TA9 PO; +ESOM20CA PO; +LITH300T PO; +METH36TA12 PO
--- NOTE | 2021-11-11 11:36 | Diagnostic Imaging Report ---
PROCEDURE: MR imaging cervical spine without contrast. TECHNIQUE: Multiplanar, multisequence MR imaging of the cervical spine was performed without contrast. INDICATION: Right C6-C7 radiculopathy x2 months. COMPARISON: CT cervical spine without contrast 01/29/2021. FINDINGS: Reversal of normal cervical lordosis centered at C5-C6 where there are also moderate to advanced degenerative endplate changes. Vertebral body heights preserved. Benign hemangioma in the C7 vertebral body. No abnormal signal in the cervical spinal cord. The visualized paravertebral soft tissues are unremarkable. C2-C3: No spinal canal or neural foraminal narrowing. C3-C4: Annular disc bulging results in mild spinal canal and bilateral neural foraminal narrowing. C4-C5: Annular disc bulging results in mild spinal canal and bilateral neural foraminal narrowing. C5-C6: Annular disc bulging results in moderate spinal canal and bilateral neural foraminal narrowing. C6-C7: Annular disc bulging results in mild spinal canal and bilateral neural foraminal narrowing. C7-T1: No spinal canal or neural foraminal narrowing. IMPRESSION: 1. Spondylotic changes are greatest at C5-C6 where there is moderate spinal canal and bilateral neural foraminal narrowing. 2. No abnormal signal in the cervical spinal cord. Dictated by: Dictated on workstation # [id number]
== END ==
LOC: RAD 09:30
PROVIDERS: ATTEND Internal Medicine
DX: M47.22 Other spondylosis with radiculopathy, cervical region (principal); M48.02 Spinal stenosis, cervical region
CPT/HCPCS: 72141

== ENCOUNTER → 2021-12-10 | Outpatient (CLI) | payer OTHER ==
--- NOTE | 2021-12-11 10:03 | Diagnostic Imaging Report ---
Indication: Routine screening. Comparison is made with prior mammograms from 11/13/2020 and 10/15/2019. 2-D and 3-D bilateral screening mammography was performed with CAD. Both breasts are heterogeneously dense, limiting the sensitivity of mammography. The parenchymal pattern is stable. No mass or malignant-appearing microcalcifications are seen. Axillae are unremarkable. IMPRESSION: BI-RADS Category 1 No mammographic features suspicious for malignancy are identified. ACR BI-RADS Category 1: Negative. Result letter will be mailed to the patient. Note: At least 10% of breast cancer is not imaged by mammography. Dictated by: Dictated on workstation # [id number]
== END ==
LOC: RAD 15:30
PROVIDERS: ATTEND Internal Medicine
DX: Z12.31 Encounter for screening mammogram for malignant neoplasm of breast (principal)
CPT/HCPCS: 77063; 77067

== ENCOUNTER 2021-12-11 15:19 | Outpatient (RCR) | payer OTHER | END 2021-12-12 | disposition home or self-care (01) | PROVIDERS: ATTEND Physical Medicine & Rehabilitation | DX: M54.2 Cervicalgia (principal); I10 Essential (primary) hypertension ==

== ENCOUNTER 2021-12-22 06:31 | Emergency (ER) | payer OTHER ==
[~2021-12-22] VITALS: Ht 160 cm; Wt 67.4 kg
--- NOTE | 2021-12-22 06:56 | ED Chest Pain ---
General Chief Complaint: Chest Pain Stated Complaint: CP,NAUSEA,JAW & BACK PAIN Source: patient Exam Limitations: no limitations History of Present Illness Date Seen by Provider: December 22, 2021 Time Seen by Provider: 06:40 Initial Comments The patient presents to the ER by private conveyance from home with chest pain on the right side of her chest radiating to the left side as well as her right shoulder and her right jaw. It has been intermittent for the past 4 days but this morning it became semipermanent, 4 out of 10, sharp with highs of 8 out of 10. She takes omeprazole daily for GERD. She does takes medications for blood pressure problems. She quit smoking in her 20s. She does have anxiety and tried a Valium last night which made her sleep for about an hour but when she woke her pain was still there. She has had a stress test [place] [address] Yee which was unremarkable. No history of coronary disease but her mother had a heart attack at age 58. She does not have diabetes or hyperlipidemia. She is followed by Dr. Wren and has had endoscopy in the past for esophagitis. Allergies and Home Medications Allergies Coded Allergies: Penicillins (Verified Allergy, Unknown, 10/25/06) erythromycin base (Verified Allergy, Unknown, 10/25/06) prochlorperazine (Verified Allergy, Unknown, 10/25/06) Patient Home Medication List Home Medication List Reviewed: Yes Atenolol (Atenolol) 50 Mg Tablet, 50 MG PO DAILY, (Reported) Entered as Reported by: FANY WAGNER on 08/19/17 1507 Bupropion HCl (Bupropion Xl) 150 Mg Tab.er.24h, 150 MG PO DAILY, (Reported) Entered as Reported by: FANY WAGNER on 06/08/19923 Desvenlafaxine Succinate (Desvenlafaxine Succinate ER) 100 Mg Tab.er.24h, 100 MG PO DAILY, (Reported) Entered as Reported by: FANY WAGNER on 06/08/19923 Esomeprazole Magnesium (Nexium) 20 Mg Capsule.dr, 20 MG PO DAILY, (Reported) Entered as Reported by: SHEN DALEY on 06/26/21 1044 [place] Carbonate ([place] Carbonate ER) 300 Mg Tablet.er, 300 MG PO DAILY, (Reported) Entered as Reported by: SHEN DALEY on 06/26/21 1044 Methylphenidate HCl (Methylphenidate ER) 36 Mg Tab.er.24, 36 MG PO DAILY, (Reported) Entered as Reported by: SHEN DALEY on 06/26/21 1044 Valsartan/Hydrochlorothiazide (Valsartan-Hctz 160-25 mg Tab) 1 Each Tablet, 1 EACH PO DAILY, (Reported) Entered as Reported by: FANY WAGNER on 08/19/17 1507 Review of Systems Review of Systems Constitutional: No chills, No fever EENTM: No Blurred Vision, No Double Vision Respiratory: Denies Cough, Denies Orthopnea Cardiovascular: Chest Pain; Denies Lightheadedness Gastrointestinal: Denies Abdominal Pain, Denies Constipated, Denies Diarrhea, Denies Nausea Genitourinary: Denies Burning, Denies Discharge Musculoskeletal: No back pain, No joint pain Skin: no symptoms reported Psychiatric/Neurological: See HPI, Anxiety, Depressed All Other Systems Reviewed Negative Unless Noted: Yes Past Jcucrev-Jalnyn-Aaxxsq Hx Patient Social History Tobacco Use?: No Use of E-Cig and/or Vaping dev: No Substance use?: No Alcohol Use?: Yes Alcohol type: Hard Liquor Alcohol Frequency: Several times a month Immunizations Up To Date Tetanus Booster (TDap): Unknown PED Vaccines UTD: No First/Initial COVID19 Vaccinat: NO Second COVID19 Vaccination Edilson: NO Third COVID19 Vaccination Date: NO Seasonal Allergies Seasonal Allergies: No Past Medical History Surgery/Hospitalization HX: [facility] 01/2021 Surgeries: Yes (uterine ablation) Abdominal, Appendectomy, Ear Surgery, Gallbladder, Hysterectomy Respiratory: No Currently Using CPAP: No Currently Using BIPAP: No Cardiac: Yes ( history of preeclampsia with severe hypertension) Hypertension Neurological: No Reproductive Disorders: Yes Female Reproductive Disorders: Endometriosis [employer] History: Hysterectomy Sexually Transmitted Disease: No HIV/AIDS: No Genitourinary: Yes Kidney Stones Gastrointestinal: Yes (rectal bleeding) Gall Bladder Disease Musculoskeletal: Yes (CHRONIC neck PAIN) Chronic Back Pain, Fractures, Spasms Endocrine: No HEENT: No Cancer: No Did You Recieve Any Treatments: No Psychosocial: Yes Anxiety, Depression Integumentary: No Blood Disorders: No Family Medical History Heart Disease, CAD Over 55 Years Old, Hypertension Physical Exam Vital Signs Vital Signs - First Documented 5/10/22 06:51 Temp 36.7 Pulse 92 Resp 20 B/P (MAP) 159/109 (126) Pulse Ox 98 O2 Delivery Room Air Capillary Refill : Height, Weight, BMI Height: 5'3.00" Weight: 142lbs. 0.0oz. 64.414830hu; 23.75 BMI Method:Stated General Appearance: WD/WN, Anxious HEENT: PERRL/EOMI, Pharynx Normal, Moist Mucous Membranes Neck: Full Range of Motion, Normal Inspection Respiratory: Chest Non Tender, Lungs Clear, Normal Breath Sounds, No Accessory Muscle Use, No Respiratory Distress Cardiovascular: Regular Rate, Rhythm, No Edema, Normal Peripheral Pulses Extremity: Normal Capillary Refill, Normal Inspection, No Pedal Edema Neurologic/Psychiatric: Alert, Oriented x3, Other (Anxious affect) Skin: Normal Color, Warm/Dry Progress/Results/Core Measures Results/Orders Lab Results Laboratory Tests Test 12/22/21 06:45 12/22/21 08:44 Range/Units White Blood Count 6.0 4.3-11.0 10^3/uL Red Blood Count 4.57 3.80-5.11 10^6/uL Hemoglobin 14.0 11.5-16.0 g/dL Hematocrit 41 35-52 % Mean Corpuscular Volume 90 80-99 fL Mean Corpuscular Hemoglobin 31 25-34 pg Mean Corpuscular Hemoglobin Concent 34 32-36 g/dL Red Cell Distribution Width 12.2 10.0-14.5 % Platelet Count 270 130-400 10^3/uL Mean Platelet Volume 8.9 L 9.0-12.2 fL Immature Granulocyte % (Auto) 0 % Neutrophils (%) (Auto) 44 42-75 % Lymphocytes (%) (Auto) 45 H 12-44 % Monocytes (%) (Auto) 8 0-12 % Eosinophils (%) (Auto) 3 0-10 % Basophils (%) (Auto) 1 0-10 % Neutrophils # (Auto) 2.7 1.8-7.8 10^3/uL Lymphocytes # (Auto) 2.7 1.0-4.0 10^3/uL Monocytes # (Auto) 0.5 0.0-1.0 10^3/uL Eosinophils # (Auto) 0.2 0.0-0.3 10^3/uL Basophils # (Auto) 0.0 0.0-0.1 10^3/uL Immature Granulocyte # (Auto) 0.0 0.0-0.1 10^3/uL Prothrombin Time 11.7 L 12.2-14.7 SEC INR Comment 0.8 0.8-1.4 Activated Partial Thromboplast Time 26 24-35 SEC D-Dimer < 0.27 0.00-0.49 UG/ML Sodium Level 137 135-145 MMOL/L Potassium Level 3.5 L 3.6-5.0 MMOL/L Chloride Level 103 98-107 MMOL/L Carbon Dioxide Level 23 21-32 MMOL/L Anion Gap 11 5-14 MMOL/L Blood Urea Nitrogen 19 H 7-18 MG/DL Creatinine 0.82 0.60-1.30 MG/DL Estimat Glomerular Filtration Rate 91 BUN/Creatinine Ratio 23 Glucose Level 99 70-105 MG/DL Calcium Level 9.2 8.5-10.1 MG/DL Corrected Calcium 9.1 8.5-10.1 MG/DL Magnesium Level 2.0 1.6-2.4 MG/DL Total Bilirubin 0.3 0.1-1.0 MG/DL Aspartate Amino Transf (AST/SGOT) 20 5-34 U/L Alanine Aminotransferase (ALT/SGPT) 20 0-55 U/L Alkaline Phosphatase 46 40-136 U/L Myoglobin 19.6 10.0-92.0 NG/ML Troponin I < 0.028 < 0.028 <0.028 NG/ML Total Protein 7.5 6.4-8.2 GM/DL Albumin 4.1 3.2-4.5 GM/DL Lipase 62 8-78 U/L My Orders Orders - ZOILA ANGEL Ekg Tracing (12/22/21 06:37) Continuous Ekg Monitoring (12/22/21 06:37) Cbc With Automated Diff (12/22/21 06:49) Magnesium (12/22/21 06:49) Chest 1 View, Ap/Pa Only (12/22/21 06:49) Comprehensive Metabolic Panel (12/22/21 06:49) Myoglobin Serum (12/22/21 06:49) Protime With Inr (12/22/21 06:49) Partial Thromboplastin Time (12/22/21 06:49) O2 (12/22/21 06:49) Lipid Panel (12/23/21 06:00) Ed Iv/Invasive Line Start (12/22/21 06:49) Lipase (12/22/21 06:49) Fibrin Degradation Products (12/22/21 06:49) Troponin I [place] (12/22/21 06:49) Nitroglycerin 0.4 Mg Btl 25's (Nitrostat (12/22/21 07:00) Aspirin Chewable Tablet (Baby Aspirin Ch (12/22/21 07:00) Lorazepam Injection (Ativan Injection) (12/22/21 07:00) Ondansetron Injection (Zofran Injectio (12/22/21 07:15) Lidocaine 2% Viscous 15 Ml (Xylocaine Vi (12/22/21 07:15) Antacid Suspension (Mylanta Suspension (12/22/21 07:15) Troponin I [place] (12/22/21 08:45) Medications Given in ED Current Medications Medications Dose Ordered Sig/Brigido Route Start Time Stop Time Status Last Admin Dose Admin Al Hydrox/Mg Hydrox/Simethicone 30 ml ONCE ONCE PO 12/22/21 07:15 12/22/21 07:16 DC 12/22/21 07:20 30 ML Aspirin 324 mg ONCE ONCE PO 12/22/21 07:00 12/22/21 07:01 DC 12/22/21 06:56 324 MG Lidocaine HCl 15 ml ONCE ONCE PO 12/22/21 07:15 12/22/21 07:16 DC 12/22/21 07:20 15 ML Lorazepam 0.5 mg ONCE ONCE IVP 12/22/21 07:00 12/22/21 07:01 DC 12/22/21 06:56 0.5 MG Nitroglycerin 0.4 mg UD PRN SL 12/22/21 07:00 12/22/21 06:56 0.4 MG Ondansetron HCl 8 mg ONCE ONCE IVP 12/22/21 07:15 12/22/21 07:16 DC 12/22/21 07:20 8 MG Vital Signs/I&O 12/22/21 06:51 Temp 36.7 Pulse 92 Resp 20 B/P (MAP) 159/109 (126) Pulse Ox 98 O2 Delivery Room Air Progress Progress Note #1: Time: 06:54 Progress Note Aspirin 325 mg and we will trial some nitroglycerin. She has hypertension and family history but no other significant risk factors. If her initial troponin is negative then her heart score would be 2 points HEART Pathway Score. Low risk; 0.9-1.7% 30-day MACE. We are going to give her half a milligram of Ativan as her anxiety is worked up by her chest pain. If the nitroglycerin does not help then we will trial GI cocktail. We will get a D-dimer. Progress Note #2: Time: 07:06 Progress Note The patient states the nitroglycerin gave her a headache but did nothing for her pain. She is still nauseated so we will order 8 mg of Zofran and a GI cocktail next to evaluate and help manage her pain. Her initial anxiety over her moderately elevated blood pressure of 160/100 has improved and her blood pressure is now 134/90. Initial ECG Impression Date: December 22, 2021 Initial ECG Impression Time: 06:43 Initial ECG Rate: 91 Initial ECG Rhythm: Normal Sinus Initial ECG Intervals: Normal Initial ECG Impression: Normal Initial ECG Comparisson: Unchanged Comment Normal sinus rhythm without clinically relevant ST elevation or depression. Diagnostic Imaging Diagonstic Imaging: Xray Plain Films/CT/US/NM/MRI: chest Comments [facility], [place] NAME: MP HERNANDEZ [facility] REC#: [id number] PT STATUS: REG ER : 1980 PHYSICIAN: ZOILA ANGEL MD ADMIT DATE: 12/22/21/ER Signed Date of Exam:12/22/21 CHEST 1 VIEW, AP/PA ONLY INDICATION: Chest pain. Comparison is made with prior examination from 04/08/2021. FINDINGS: The heart size, mediastinal configuration, and pulmonary vascularity are within normal limits. There is no pleural effusion, pneumothorax, or pneumonia. The osseous structures are unremarkable. IMPRESSION: No acute cardiopulmonary abnormality. Dictated by: Dictated on workstation # [id number] Dict: 12/22/21 0714 Trans: 12/22/21 0727 [id number] Interpreted by: ADI COLE MD Electronically signed by: ADI COLE MD 12/22/2127 Reviewed: Reviewed by Me Departure Impression Primary Impression: Chest pain Qualified Codes: R07.9 - Chest pain, unspecified Additional Impressions: Esophagitis with gastritis Anxiety about health Disposition: HOME, SELF-CARE Condition: Stable Departure-Patient Inst. Decision time for Depature: 11:02 Referrals: TAYLOR WREN MD (PCP) Primary Care Physician MOHIT YEE MD Patient Instructions: Chest Pain, Gastritis (DC) Add. Discharge Instructions: Make a follow-up appointment with Dr. Yee to discuss your heart health and evaluate your risk factors for heart disease. Make a follow-up appointment with Dr. Wren to discuss your gastritis and how to manage it. Starting omeprazole 20 mg twice a day for the next month. Carafate take half an hour before meals and at bedtime for a total of 4 times a day for the next 2 weeks. All discharge instructions reviewed with patient and/or family. Voiced understanding. Scripts Sucralfate (Carafate) 1 Gram Tablet 1 GM PO QIDACHS for 14 Days, #56 TAB 0 Refills Prov: ZOILA ANGEL 12/22/21 Omeprazole (Omeprazole) 20 Mg Capsule. 20 MG PO BID for 30 Days, #60 CAP 0 Refills Prov: ZOILA ANGEL 12/22/21 Work/School Note: Work Release Form Date Seen in the Emergency Department: December 22, 2021 Return to Work: December 23, 2021 Restrictions: No Restrictions Copy Copies To 1: TAYLOR WREN MD; MOHIT YEE MD, TITUS J December 22, 2021 06:56
[2021-12-22 06:58] LABS: BASOPHILS % (AUTO) 1 % (0-10); EOSINOPHILS # (AUTO) 0.2 10^3/uL (0.0-0.3); EOSINOPHILS % (AUTO) 3 % (0-10); HEMATOCRIT 41 % (35-52); LYMPHOCYTES # (AUTO) 2.7 10^3/uL (1.0-4.0); LYMPHOCYTES % (AUTO) 45 % (12-44); MEAN CORPUSCULAR HEMOGLOBIN 31 pg (25-34); MEAN CORPUSCULAR HGB CONC 34 g/dL (32-36); MEAN CORPUSCULAR VOLUME 90 fL (80-99); MEAN PLATELET VOLUME 8.9 fL (9.0-12.2); MONOCYTES # (AUTO) 0.5 10^3/uL (0.0-1.0); MONOCYTES % (AUTO) 8 % (0-12); NEUTROPHILS # (AUTO) 2.7 10^3/uL (1.8-7.8); NEUTROPHILS % (AUTO) 44 % (42-75); PLATELET COUNT 270 10^3/uL (130-400)
[2021-12-22 07:00] LABS: ALBUMIN 4.1 GM/DL (3.2-4.5); POTASSIUM 3.5 MMOL/L (3.6-5.0)
[2021-12-22] MEDS ORDERED: ASPIRIN 81 MG CHEW (CHILDREN'S ASA) PO ONE (07:00)
[2021-12-22] MEDS ORDERED: NITROGLYCERIN 0.4 MG SL TABS BTL 25'S SL PRN (07:00)
[2021-12-22] MEDS ORDERED: LORazepam INJ 2 MG/ML (ATIVAN) VIAL IVP ONE (07:00)
[2021-12-22 07:01] LABS: CALCIUM 9.2 MG/DL (8.5-10.1)
[2021-12-22 07:03] LABS: TOTAL PROTEIN 7.5 GM/DL (6.4-8.2)
[2021-12-22 07:04] LABS: BILIRUBIN,TOTAL 0.3 MG/DL (0.1-1.0)
[2021-12-22 07:06] LABS: CREATININE SERUM 0.82 MG/DL (0.60-1.30); INR 0.8 (0.8-1.4); PROTHROMBIN TIME PATIENT 11.7 SEC (12.2-14.7)
[2021-12-22] MEDS ORDERED: ANTACID SUSP 30 ML UDC (MYLANTA) PO ONE (07:15)
[2021-12-22] MEDS ORDERED: LIDOCAINE 2% VISCOUS 15 ML UDC PO ONE (07:15)
[2021-12-22] MEDS ORDERED: ONDANSETRON 4 MG/2 ML (SDV) Z0FRAN IVP ONE (07:15)
--- NOTE | 2021-12-22 07:16 | Diagnostic Imaging Report ---
INDICATION: Chest pain. Comparison is made with prior examination from 04/08/2021. FINDINGS: The heart size, mediastinal configuration, and pulmonary vascularity are within normal limits. There is no pleural effusion, pneumothorax, or pneumonia. The osseous structures are unremarkable. IMPRESSION: No acute cardiopulmonary abnormality. Dictated by: Dictated on workstation # [id number]
[2021-12-22 11:02] VITALS: BP 116/69
[2021-12-22] MEDS ORDERED: OMEP20CA18 PO (11:04)
[2021-12-22] MEDS ORDERED: SUCR1TAB36 PO (11:04)
== END 2021-12-22 11:11 | disposition home or self-care (01) ==
LOC: EDUNIT# 06:31 → ER 06:34
DX: K21.00 Gastro-esophageal reflux disease with esophagitis, without bleeding (principal); K29.70 Gastritis, unspecified, without bleeding; F41.1 Generalized anxiety disorder; I10 Essential (primary) hypertension; Z87.891 Personal history of nicotine dependence; Z79.899 Other long term (current) drug therapy; Z90.49 Acquired absence of other specified parts of digestive tract; Z90.710 Acquired absence of both cervix and uterus
CPT/HCPCS: 36415; 71045; 80053; 83690; 83735; 83874; 84484; 85025; 85379; 85610; 85730; 93005

== ENCOUNTER 2021-12-29 02:23 | Emergency (ER) | payer OTHER ==
[~2021-12-29] VITALS: Ht 160 cm; Wt 65.7 kg
[~2021-12-29 02:23] MED LIST changes: +OMEP20CA18 PO; +SUCR1TAB36 PO
[2021-12-29 02:34] VITALS: BP 143/89
--- NOTE | 2021-12-29 02:41 | ED Fall/Injury ---
General Stated Complaint: FALL,LEFT ANKLE INJURY History of Present Illness Date Seen by Provider: December 29, 2021 Time Seen by Provider: 02:32 Initial Comments 41-year-old female is here with complaints of left ankle pain and swelling after she tripped on a step and twisting her ankle and fell on she was taking the dog outside. Denies head strike or sensory loss. Allergies and Home Medications Allergies Coded Allergies: Penicillins (Verified Allergy, Unknown, 10/25/06) erythromycin base (Verified Allergy, Unknown, 10/25/06) prochlorperazine (Verified Allergy, Unknown, 10/25/06) Patient Home Medication List Home Medication List Reviewed: Yes Atenolol (Atenolol) 50 Mg Tablet, 50 MG PO DAILY, (Reported) Entered as Reported by: FANY AWGNER on 08/19/17 1507 Bupropion HCl (Bupropion Xl) 150 Mg Tab.er.24h, 150 MG PO DAILY, (Reported) Entered as Reported by: FANY WAGNER on 06/08/19 0924 Desvenlafaxine Succinate (Desvenlafaxine Succinate ER) 100 Mg Tab.er.24h, 100 MG PO DAILY, (Reported) Entered as Reported by: FANY WAGNER on 06/08/19 0924 Esomeprazole Magnesium (Nexium) 20 Mg Capsule., 20 MG PO DAILY, (Reported) Entered as Reported by: SHEN DALEY on 06/26/21 1044 [place] Carbonate ([place] Carbonate ER) 300 Mg Tablet.er, 300 MG PO DAILY, (Reported) Entered as Reported by: SHEN DALEY on 06/26/21 1044 Methylphenidate HCl (Methylphenidate ER) 36 Mg Tab.er.24, 36 MG PO DAILY, (Reported) Entered as Reported by: SHEN DALEY on 06/26/21 1044 Omeprazole (Omeprazole) 20 Mg Capsule., 20 MG PO BID Prescribed by: ZOILA ANGEL on 12/22/21 1104 Sucralfate (Carafate) 1 Gram Tablet, 1 GM PO QIDACHS Prescribed by: ZOILA ANGEL on 12/22/21 1104 Valsartan/Hydrochlorothiazide (Valsartan-Hctz 160-25 mg Tab) 1 Each Tablet, 1 EACH PO DAILY, (Reported) Entered as Reported by: FANY WAGNER on 08/19/17 2883 Review of Systems Review of Systems Constitutional: no symptoms reported Eyes: No Symptoms Reported Ears, Nose, Mouth, Throat: no symptoms reported Respiratory: no symptoms reported Cardiovascular: no symptoms reported Gastrointestinal: no symptoms reported Genitourinary: no symptoms reported Musculoskeletal: joint pain, joint swelling Skin: no symptoms reported Psychiatric/Neurological: No Symptoms Reported Past Zxxvran-Erleud-Rsoqhy Hx Immunizations Up To Date Tetanus Booster (TDap): Unknown PED Vaccines UTD: No First/Initial COVID19 Vaccinat: NO Second COVID19 Vaccination Edilson: NO Third COVID19 Vaccination Date: NO Seasonal Allergies Seasonal Allergies: No Past Medical History Surgery/Hospitalization HX: [facility] 01/2021 Surgeries: Yes (uterine ablation) Abdominal, Appendectomy, Ear Surgery, Gallbladder, Hysterectomy Respiratory: No Currently Using CPAP: No Currently Using BIPAP: No Cardiac: Yes ( history of preeclampsia with severe hypertension) Hypertension Neurological: No Reproductive Disorders: Yes Female Reproductive Disorders: Endometriosis [employer] History: Hysterectomy Sexually Transmitted Disease: No HIV/AIDS: No Genitourinary: Yes Kidney Stones Gastrointestinal: Yes (rectal bleeding) Gall Bladder Disease Musculoskeletal: Yes (CHRONIC neck PAIN) Chronic Back Pain, Fractures, Spasms Endocrine: No HEENT: No Cancer: No Did You Recieve Any Treatments: No Psychosocial: Yes Anxiety, Depression Integumentary: No Blood Disorders: No Family Medical History Heart Disease, CAD Over 55 Years Old, Hypertension Physical Exam Vital Signs Vital Signs - First Documented 12/29/21 02:34 Temp 36.9 Pulse 72 Resp 18 B/P (MAP) 143/89 (107) Pulse Ox 99 O2 Delivery Room Air Capillary Refill : Height, Weight, BMI Height: 5'3.00" Weight: 142lbs. 0.0oz. 64.602248su; 26.00 BMI Method:Stated General Appearance: no apparent distress HEENT: PERRL/EOMI Neck: full range of motion, supple Cardiovascular: normal peripheral pulses Extremities: normal range of motion, normal inspection Neurologic/Psychiatric: no motor/sensory deficits, alert, normal mood/affect, oriented x 3 Skin: normal color Progress/Results/Core Measures Results/Orders My Orders Orders - KATHERIN MENA MD Foot, Left, 3 Views (12/29/21 02:33) Ankle, Left, 3 Views (12/29/21 02:33) Naproxen Tablet (Naprosyn Tablet) (12/29/21 02:45) Vital Signs/I&O 12/29/21 02:34 Temp 36.9 Pulse 72 Resp 18 B/P (MAP) 143/89 (107) Pulse Ox 99 O2 Delivery Room Air Progress Progress Note : Progress Note 1, LEFT ANKLE INJURY: - XR LEFT ANKLE/ FOOT: - Naproxen 500mg stat Departure Impression Primary Impression: Left navicular fracture of foot Qualified Codes: S92.255A - Nondisplaced fracture of navicular [scaphoid] of left foot, initial encounter for closed fracture Additional Impression: Left ankle strain Qualified Codes: S96.912A - Strain of unspecified muscle and tendon at ankle and foot level, left foot, initial encounter Disposition: HOME, SELF-CARE Condition: Stable Departure-Patient Inst. Referrals: TAYLOR WRIGHT MD (PCP/Family) Primary Care Physician MICHEL BARNES MD, CORIN Q DPM Patient Instructions: Ankle Sprain (DC), Foot Fracture (DC) Add. Discharge Instructions: Left navicular fracture: Ortho shoe/crutches/Heath bandage -Ice, take-home pack of Percocet. Pain. Do not drive while taking this medication. -Follow-up with podiatry, Dr. Pascual. -Follow-up with Ortho clinic as well, if needed Work/School Note: Work Release Form Date Seen in the Emergency Department: December 29, 2021 Return to Work: December 31, 2021 Restrictions: Need Release from Doctor Other Restrictions Listed Below: restrictions : will require crutches KATHERIN MENA MD December 29, 2021 02:41
[2021-12-29] MEDS ORDERED: NAPROXEN 250 MG (NAPROSYN) TABLET PO ONE (02:45)
[2021-12-29] MEDS ORDERED: oxyCODONE/APAP 10/325MG (PERCOCET 10) TABLET PO STA (03:29)
[2021-12-29] MEDS ORDERED: RX-OXYCODONE/APAP 5-325 MG #4 TAB PK PO PRN (03:30)
[2021-12-29] MEDS ORDERED: RX-OXYCODONE/APAP 5-325 MG #4 TAB PK PO ONE (03:43)
[2021-12-29] MEDS ORDERED: oxyCODONE/APAP 5/325MG (PERCOCET 5) TABLET PO ONE (03:45)
--- NOTE | 2021-12-29 05:42 | Diagnostic Imaging Report ---
INDICATION: foot pain. TECHNIQUE: 3 views of the left foot CORRELATION STUDY: None FINDINGS: The osseous structures of the foot are intact. Joint spaces are maintained. Alignment anatomic. Soft tissues appearing unremarkable. IMPRESSION: 1. Negative for acute findings of the foot. Dictated by: Dictated on workstation # [id number]
--- NOTE | 2021-12-29 05:43 | Diagnostic Imaging Report ---
INDICATION: ankle pain TECHNIQUE: Three views of the left ankle CORRELATION STUDY: None FINDINGS: The bony alignment is anatomic. The talar dome is intact. The ankle mortise is maintained. There is no acute fracture or dislocation. Mild soft tissue edema. IMPRESSION: Negative for acute bony abnormality of the ankle. Dictated by: Dictated on workstation # [id number]
== END 2021-12-29 03:57 | disposition home or self-care (01) ==
LOC: EDUNIT# 02:23 → ER 02:26
DX: S92.255A Nondisplaced fracture of navicular [scaphoid] of left foot, initial encounter for closed fracture (principal); S96.912A Strain of unspecified muscle and tendon at ankle and foot level, left foot, initial encounter; W10.9XXA Fall (on) (from) unspecified stairs and steps, initial encounter
CPT/HCPCS: 73610; 73630

== ENCOUNTER 2022-05-28 13:20 | Outpatient (CLI) | payer OTHER ==
[~2022-05-28] VITALS: Ht 160 cm; Wt 63.6 kg
[2022-06-01] MEDS ORDERED: ESCI20TA PO (12:14)
[2022-06-01] MEDS ORDERED: TRAM50TA3 PO (12:14)
[2022-06-01] MEDS ORDERED: FAMO20TA3 PO (12:14)
[2022-06-01] MEDS ORDERED: GABA-486 PO (12:14)
== END 2022-06-01 12:30 | disposition home or self-care (01) ==
LOC: PREOP 13:20
PROVIDERS: ATTEND Specialist
DX: Z01.818 Encounter for other preprocedural examination (principal)

== ENCOUNTER 2022-06-04 09:02 | Outpatient (CLI) | payer OTHER ==
[~2022-06-04] VITALS: Ht 160 cm; Wt 63.6 kg
[~2022-06-04 09:02] MED LIST changes: +ESCI20TA PO; +FAMO20TA3 PO; +GABA-486 PO; +TRAM50TA3 PO
[2022-06-04 09:20] VITALS: BP 133/92
[2022-06-04] MEDS: TETRACAINE 0.5% OPHTH SOLN 4 ML BTL (SINGLE DOSE ONLY) OU PRN ×2 (09:25→09:28)
[2022-06-04] MEDS: PHENYLEPHRINE 10% OPHTH (NEO-SYN) 5 ML BTL OU PRN ×2 (09:25→09:28)
[2022-06-04] MEDS: TROPICAMIDE 1% OPH SOLN (MYDRIACYL) 15 ML BTL OU PRN ×2 (09:25→09:28)
--- NOTE | 2022-06-04 09:57 | Ophthalmologist Pre-Op Note ---
Pre-Operative Progress Note H&P Reviewed The H&P was reviewed, patient examined and no changes noted. Date H&P Reviewed: Jun 04, 2022 Time H&P Reviewed: 09:22 Pre-Op Dx Secondary Cataract, Bilateral Eyes LYRIC TORRES MD Jun 04, 2022 09:57
--- NOTE | 2022-06-04 09:57 | Ophthalmology Operative Report ---
YAG Capsulotomy PREOPERATIVE DIAGNOSIS: Secondary Cataract Bilateral POSTOPERATIVE DIAGNOSIS: Secondary Cataract Bilateral PROCEDURE: YAG Capsulotomy, Bilateral SURGEON: Cameron Torres ANESTHESIA: Topical anesthesia COMPLICATIONS: None ESTIMATED BLOOD LOSS: Minimal DESCRIPTION OF PROCEDURE: After proper informed consent was obtained, the patient's, a 42 female , received one drop of Tropicamide and one drop of Tetracaine in each eye. The patient was then placed at the YAG laser and using a power of [ 4.0] millijoules and bursts [ 18] right eye and [ 23] left eye were used to fashion a central capsulotomy. The patient tolerated the procedure well without complications. CAMERON TORRES MD Jun 04, 2022 09:57
== END 2022-06-04 09:40 ==
LOC: SDC 09:02
PROVIDERS: ATTEND Specialist
DX: H26.9 Unspecified cataract (principal)

== ENCOUNTER → 2023-01-26 | Outpatient (CLI) | payer OTHER ==
--- NOTE | 2023-01-26 23:28 | Diagnostic Imaging Report ---
INDICATION: Routine screening. COMPARISON: Prior mammograms from 12/10/2021 and 11/13/2020. EXAMINATION: 2D and 3D bilateral screening mammography was performed with CAD. The current study was also evaluated with a Computer Aided Detection (CAD) system. FINDINGS: Both breasts are heterogeneously dense, limiting the sensitivity of mammography. The parenchymal pattern is stable. No mass or malignant-appearing microcalcifications are seen. Axillae are unremarkable. IMPRESSION: No mammographic features suspicious for malignancy are identified. ACR BI-RADS Category 1: Negative. Result letter will be mailed to the patient. Note: At least 10% of breast cancer is not imaged by mammography. Dictated by: Dictated on workstation # [id number]
== END ==
LOC: RAD 10:15
PROVIDERS: ATTEND Internal Medicine
DX: Z12.31 Encounter for screening mammogram for malignant neoplasm of breast (principal)
CPT/HCPCS: 77063; 77067

== ENCOUNTER → 2023-02-08 | Outpatient (CLI) | payer OTHER, SELFPAY ==
--- NOTE | 2023-02-08 14:36 | Diagnostic Imaging Report ---
INDICATION: Family history of coronary artery disease. TECHNIQUE: CT coronary calcium study performed with noncontrast images of the heart followed by calculation of cardiac score. Dose reduction protocol was used. FINDINGS: Raw data images demonstrate no pleural fluid or overt adenopathy in the mediastinum. The visualized portions of the lung hardy show no focal abnormality. The entirety of the lungs is not included on this study. There are no significant coronary artery calcifications. IMPRESSION: CT coronary calcium score was 0. No significant coronary calcifications. Dictated by: Dictated on workstation # [id number]
== END ==
LOC: RAD 13:30
PROVIDERS: ATTEND Internal Medicine
DX: I10 Essential (primary) hypertension (principal); Z82.49 Family history of ischemic heart disease and other diseases of the circulatory system
CPT/HCPCS: 75571

== ENCOUNTER → 2023-05-20 | Outpatient (CLI) | payer OTHER ==
[~2023-05-20] MED LIST changes: +FAMO-356 PO; -FAMO20TA3 PO
== END ==
LOC: CARD 11:00
PROVIDERS: ATTEND Nurse Practitioner Family
DX: I11.9 Hypertensive heart disease without heart failure (principal)
CPT/HCPCS: 93005

== ENCOUNTER 2023-05-28 09:38 | Emergency (ER) | payer OTHER ==
[~2023-05-28] VITALS: Ht 160 cm; Wt 68.1 kg
[2023-05-28] MEDS ORDERED: FAMOTIDINE 20 MG TABLET PO STA (09:54)
[2023-05-28] MEDS ORDERED: NS IV 1000 ML 1,000 ML IV STA (09:58)
--- NOTE | 2023-05-28 09:58 | ED Cardiac General ---
History of Present Illness General Chief Complaint: Chest Pain Stated Complaint: CHEST PAIN Nursing Triage Note: PT TO ED WITH C/O CHEST PAIN ON AND OFF FOR THE PAST COUPOLE WEEKS, WORSE LAST NIGHT AND TODAY Source: patient Exam Limitations: no limitations History of Present Illness Date Seen by Provider: May 28, 2023 Time Seen by Provider: 10:16 Initial Comments 43-year-old female with no pertinent past medical history coming in due to chest pain.'s been off and on for several weeks, constant for the past week. Has had an EKG and cardiac enzymes done as an outpatient over the past week which were normal reportedly. Denies any family history of early cardiac . Denies any family history of blood clots. She also has no personal history of blood clots, no lower extremity swelling or pain, no recent surgery, no hormone use, no fever, cough, shortness of breath, or any other concerns. 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 Allergies and Home Medications Allergies Coded Allergies: Penicillins (Verified Allergy, Unknown, RASH, 06/01/22) prochlorperazine (Verified Allergy, Unknown, Anaphylaxis, 06/01/22) erythromycin base (Verified Adverse Reaction, Unknown, UPSET STOMACH, 06/01/22) Patient Home Medication List Home Medication List Reviewed: Yes Atenolol (Atenolol) 50 Mg Tablet, 100 MG PO DAILY, (Reported) Entered as Reported by: FANY WAGNER on 08/19/17 1507 Desvenlafaxine Succinate (Desvenlafaxine Succinate ER) 100 Mg Tab.er.24h, 100 MG PO DAILY, (Reported) Entered as Reported by: FANY WAGNER on 06/08/19 0924 Escitalopram Oxalate (Lexapro) 20 Mg Tablet, 20 MG PO DAILY, (Reported) Entered as Reported by: PERLA CAMEJO on 06/01/22 1214 Famotidine (Acid Dragline Engineer (FAMOTIDINE)) 20 Mg Tablet, 20 MG PO DAILY, (Reported) Entered as Reported by: PERLA CAMEJO on 06/01/22 1214 Gabapentin (Gabapentin) 100 Mg Capsule, 100 MG PO UD, (Reported) Entered as Reported by: PERLA CAMEJO on 06/01/22 1214 Tramadol HCl (Tramadol HCl) 50 Mg Tablet, 50 MG PO UD, (Reported) Entered as Reported by: PERLA CAMEJO on 06/01/22 1214 Valsartan/Hydrochlorothiazide (Valsartan-Hctz 160-25 mg Tab) 1 Each Tablet, 1 EACH PO DAILY, (Reported) Entered as Reported by: FANY WAGNER on 08/19/17 1507 Review of Systems Review of Systems Constitutional: No fever EENTM: No Symptoms Reported Respiratory: No Symptoms Reported Cardiovascular: See HPI Gastrointestinal: No Symptoms Reported Genitourinary: No Symptoms Reported Musculoskeletal: no symptoms reported Skin: no symptoms reported Psychiatric/Neurological: No Symptoms Reported Endocrine: No Symptoms Reported Hematologic/Lymphatic: No Symptoms Reported Past Jyexulh-Smdrhw-Yozyln Hx Patient Social History Tobacco Use?: No Substance use?: No Alcohol Use?: Yes Alcohol Frequency: Couple times a week Immunizations Up To Date Tetanus Booster (TDap): Unknown PED Vaccines UTD: No First/Initial COVID19 Vaccinat: NO Second COVID19 Vaccination Edilson: NO Third COVID19 Vaccination Date: NO Seasonal Allergies Seasonal Allergies: No Past Medical History Surgery/Hospitalization HX: [facility] 01/2021 Surgeries: Yes (uterine ablation) Abdominal, Appendectomy, Ear Surgery, Gallbladder, Hysterectomy Respiratory: No Currently Using CPAP: No Currently Using BIPAP: No Cardiac: Yes ( history of preeclampsia with severe hypertension) Hypertension Neurological: No Reproductive Disorders: Yes Female Reproductive Disorders: Endometriosis 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 Sexually Transmitted Disease: No HIV/AIDS: No Genitourinary: Yes Kidney Stones Gastrointestinal: Yes (rectal bleeding) Gall Bladder Disease Musculoskeletal: Yes (CHRONIC neck PAIN) Chronic Back Pain, Fractures, Spasms Endocrine: No HEENT: No Cancer: No Did You Recieve Any Treatments: No Psychosocial: Yes Anxiety, Depression Integumentary: No Blood Disorders: No Family Medical History Heart Disease, CAD Over 55 Years Old, Hypertension Physical Exam Vital Signs Vital Signs - First Documented 05/28/23 09:48 Pulse 83 Resp 23 B/P (MAP) 160/108 (125) Pulse Ox 98 Capillary Refill : Less Than 3 Seconds Height, Weight, BMI Height: 5'3.00" Weight: 142lbs. 0.0oz. [id number]; 26.00 BMI Method:Stated General Appearance: WD/WN, Anxious HEENT: PERRL/EOMI, Normal ENT Inspection, Pharynx Normal Neck: Full Range of Motion, Normal Inspection, Non Tender, Supple Respiratory: Chest Non Tender, Lungs Clear, Normal Breath Sounds, No Accessory Muscle Use, No Respiratory Distress Cardiovascular: Regular Rate, Rhythm, No Edema, Normal Peripheral Pulses Gastrointestinal: Normal Bowel Sounds, Non Tender, Soft Extremity: Normal Capillary Refill, Normal Inspection, Normal Range of Motion, Non Tender, No Calf Tenderness, No Pedal Edema Neurologic/Psychiatric: Alert, No Motor/Sensory Deficits, Normal Mood/Affect Skin: Normal Color, Warm/Dry Progress/Results/Core Measures Results/Orders Lab Results Laboratory Tests Test 05/28/23 09:47 Range/Units White Blood Count 7.2 4.3-11.0 10^3/uL Red Blood Count 4.39 3.80-5.11 10^6/uL Hemoglobin 13.6 11.5-16.0 g/dL Hematocrit 40 35-52 % Mean Corpuscular Volume 90 80-99 fL Mean Corpuscular Hemoglobin 31 25-34 pg Mean Corpuscular Hemoglobin Concent 34 32-36 g/dL Red Cell Distribution Width 12.5 10.0-14.5 % Platelet Count 301 130-400 10^3/uL Mean Platelet Volume 8.8 L 9.0-12.2 fL Immature Granulocyte % (Auto) 0 % Neutrophils (%) (Auto) 58 42-75 % Lymphocytes (%) (Auto) 33 12-44 % Monocytes (%) (Auto) 8 0-12 % Eosinophils (%) (Auto) 1 0-10 % Basophils (%) (Auto) 1 0-10 % Neutrophils # (Auto) 4.1 1.8-7.8 10^3/uL Lymphocytes # (Auto) 2.3 1.0-4.0 10^3/uL Monocytes # (Auto) 0.6 0.0-1.0 10^3/uL Eosinophils # (Auto) 0.1 0.0-0.3 10^3/uL Basophils # (Auto) 0.0 0.0-0.1 10^3/uL Immature Granulocyte # (Auto) 0.0 0.0-0.1 10^3/uL Prothrombin Time 12.7 12.2-14.7 SEC INR Comment 0.9 0.8-1.4 Activated Partial Thromboplast Time 26 24-35 SEC D-Dimer 0.50 H 0.00-0.49 UG/ML Sodium Level 139 135-145 MMOL/L Potassium Level 3.0 L 3.6-5.0 MMOL/L Chloride Level 101 98-107 MMOL/L Carbon Dioxide Level 27 21-32 MMOL/L Anion Gap 11 5-14 MMOL/L Blood Urea Nitrogen 10 7-18 MG/DL Creatinine 0.83 0.60-1.30 MG/DL Estimat Glomerular Filtration Rate 89 BUN/Creatinine Ratio 12 Glucose Level 96 70-105 MG/DL Calcium Level 9.0 8.5-10.1 MG/DL Corrected Calcium 9.0 8.5-10.1 MG/DL Magnesium Level 2.0 1.6-2.4 MG/DL Total Bilirubin 0.6 0.1-1.0 MG/DL Aspartate Amino Transf (AST/SGOT) 17 5-34 U/L Alanine Aminotransferase (ALT/SGPT) 14 0-55 U/L Alkaline Phosphatase 47 40-136 U/L Troponin I < 0.028 <0.028 NG/ML Total Protein 7.2 6.4-8.2 GM/DL Albumin 4.0 3.2-4.5 GM/DL Lipase 35 8-78 U/L Serum Test, Qualitative NEGATIVE NEGATIVE My Orders Orders - ADELINA LAWRENCE MD Ekg Tracing (05/28/23 09:48) Cbc And Automated Diff (05/28/23 09:54) Comprehensive Metabolic Panel (05/28/23 09:54) Fibrin Degradation Products (05/28/23 09:54) Hcg,Qualitative Serum (05/28/23 09:54) Lipase (05/28/23 09:54) Magnesium (05/28/23 09:54) Protime With Inr (05/28/23 09:54) Partial Thromboplastin Time (05/28/23 09:54) Troponin I [place] (05/28/23 09:54) Chest 1 View, Ap/Pa Only (05/28/23 09:54) Ekg Tracing (05/28/23 09:54) Ed Iv/Invasive Line Start (05/28/23 09:54) Aspirin Chewable Tablet (Aspirin Chewabl (05/28/23 10:00) Lidocaine 2% Viscous 15 Ml (Xylocaine Vi (05/28/23 10:00) Famotidine Tablet (Famotidine Tablet) (05/28/23 09:54) Antacid Suspension (Antacid Suspension (05/28/23 10:00) Lorazepam Injection (Lorazepam Injection (05/28/23 10:00) Ns Iv 1000 Ml (Ns Iv 1000 Ml) (05/28/23 09:58) Ct Angio Chest W (R/O Pe) (05/28/23 10:27) Iohexol Injection (Omnipaque 350 Mg/Ml 1 (05/28/23 10:45) Ns (Ivpb) 100 Ml (Sodium Chloride 0.9% 1 (05/28/23 10:45) Medications Given in ED Current Medications Medications Dose Ordered Sig/Brigido Route Start Time Stop Time Status Last Admin Dose Admin Al Hydrox/Mg Hydrox/Simethicone 30 ml ONCE ONCE PO 05/28/23 10:00 05/28/23 10:01 DC 05/28/23 10:21 30 ML Aspirin 324 mg ONCE ONCE PO 05/28/23 10:00 05/28/23 10:01 DC 05/28/23 10:21 324 MG Iohexol 100 ml ONCE ONCE IV 05/28/23 10:45 05/28/23 10:46 DC 05/28/23 11:00 75 ML Lidocaine HCl 15 ml ONCE ONCE PO 05/28/23 10:00 05/28/23 10:01 DC 05/28/23 10:21 15 ML Lorazepam 0.5 mg ONCE ONCE IVP 05/28/23 10:00 05/28/23 10:01 DC 05/28/23 10:21 0.5 MG Sodium Chloride 100 ml ONCE ONCE IV 05/28/23 10:45 05/28/23 10:46 DC 05/28/23 11:00 70 ML Vital Signs/I&O 05/28/23 09:48 Pulse 83 Resp 23 B/P (MAP) 160/108 (125) Pulse Ox 98 Blood Pressure Mean: 125 Progress Progress Note : Progress Note 43-year-old female with above history coming in due to chest pain. ABCs were intact and vitals were stable on presentation. EKG ordered and interpreted by me showing no acute ischemic changes. An IV was placed and basic labs were obtained and were significant for normal white blood cell count, negative troponin, slightly elevated D-dimer. Given the negative troponin with constant pain for over a week, very unlikely to be ACS. CTA was ordered and interpreted by me showing no pneumothorax, no pneumonia, no obvious pulmonary embolism. I believe the patient is stable for discharge with outpatient follow-up with cardiology. She was sent home with strict return precautions Initial ECG Impression Date: May 28, 2023 Initial ECG Impression Time: 09:50 Initial ECG Rate: 77 Initial ECG Rhythm: Normal Sinus Comment Narrow QRS, normal axis, no significant ST changes or T wave abnormalities Diagnostic Imaging Diagonstic Imaging: Xray (chest), CT (CTA chest) Comments [facility], [place] NAME: MP HERRERA [facility] REC#: [id number] PT STATUS: REG ER : 1980 PHYSICIAN: ADELINA LAWRENCE MD ADMIT DATE: 05/28/23/ER Signed Date of Exam:05/28/23 CHEST 1 VIEW, AP/PA ONLY INDICATION: Chest pain. EXAMINATION: Portable chest at 10:20 AM. FINDINGS: The heart size and pulmonary vascularity are normal. The lungs are clear. There are no effusions or pneumothoraces. There is mild scoliotic curvature of the thoracic spine, convex to the right. IMPRESSION: No acute abnormalities in the chest. Dictated by: Dictated on workstation # [id number] Dict: 05/28/23 1025 Trans: 05/28/23 1043 [id number] Interpreted by: SARA JARAMILLO MD Electronically signed by: SARA JARAMILLO MD 05/28/23 1043 NAME: MP HERRERA [facility] REC#: [id number] PT STATUS: REG ER : 1980 PHYSICIAN: ADELINA LAWRENCE MD ADMIT DATE: 05/28/23/ER Draft Date of Exam:05/28/23 CT ANGIO CHEST W (R/O PE) INDICATION: Intermittent chest pain, worsening. Shortness of breath. EXAMINATION: CTA chest. TECHNIQUE: Thin axial sections through the chest were obtained following intravenous contrast bolus. Multiplanar MIP images were reconstructed and reviewed. Dose reduction technique was used. FINDINGS: The lungs are clear. There are no effusions or pneumothoraces. The aorta is normal. There are no pulmonary emboli. There is no right ventricular strain. There is no hilar or mediastinal lymphadenopathy. IMPRESSION: Negative CTA chest. Dictated on workstation # [id number] Dict: 05/28/23 1106 Trans: 05/28/23 1113 [id number] Interpreted by: SARA JARAMILLO MD Electronically signed by: Departure Impression Primary Impression: Chest pain Qualified Codes: R07.82 - Intercostal pain Disposition: HOME, SELF-CARE Condition: Stable Departure-Patient Inst. Decision time for Depature: 11:40 Referrals: TAYLOR WRIGHT MD (PCP/Family) Primary Care Physician MOHIT YEE MD Patient Instructions: Chest Pain, Adult ED Add. Discharge Instructions: This does not appear to be a heart attack, blood clot, pneumonia, or anything life-threatening at this time. We do recommend given you are still having pain to follow-up with a carding machine feeder here in [facility], Dr. Yee is available. His number is in this paperwork. Work/School Note: Work Release Form Date Seen in the Emergency Department: May 28, 2023 Return to Work: May 30, 2023 Restrictions: No Restrictions ADELINA LAWRENCE MD May 28, 2023 09:58
[2023-05-28] MEDS ORDERED: ASPIRIN 81 MG CHEWABLE TABLET PO ONE (10:00)
[2023-05-28] MEDS ORDERED: LIDOCAINE 2% VISCOUS 15 ML UDC PO ONE (10:00)
[2023-05-28] MEDS ORDERED: ANTACID SUSPENSION 30 ML UDC PO ONE (10:00)
[2023-05-28 10:05] LABS: BASOPHILS % (AUTO) 1 % (0-10); EOSINOPHILS # (AUTO) 0.1 10^3/uL (0.0-0.3); EOSINOPHILS % (AUTO) 1 % (0-10); HEMATOCRIT 40 % (35-52); HEMOGLOBIN 13.6 g/dL (11.5-16.0); LYMPHOCYTES # (AUTO) 2.3 10^3/uL (1.0-4.0); LYMPHOCYTES % (AUTO) 33 % (12-44); MEAN CORPUSCULAR HEMOGLOBIN 31 pg (25-34); MEAN CORPUSCULAR HGB CONC 34 g/dL (32-36); MEAN CORPUSCULAR VOLUME 90 fL (80-99); MEAN PLATELET VOLUME 8.8 fL (9.0-12.2); MONOCYTES # (AUTO) 0.6 10^3/uL (0.0-1.0); MONOCYTES % (AUTO) 8 % (0-12); NEUTROPHILS # (AUTO) 4.1 10^3/uL (1.8-7.8); NEUTROPHILS % (AUTO) 58 % (42-75); PLATELET COUNT 301 10^3/uL (130-400); WHITE BLOOD COUNT 7.2 10^3/uL (4.3-11.0)
[2023-05-28 10:09] LABS: CHLORIDE 101 MMOL/L (98-107); SODIUM 139 MMOL/L (135-145)
[2023-05-28 10:11] LABS: GLUCOSE 96 MG/DL (70-105); TOTAL PROTEIN 7.2 GM/DL (6.4-8.2)
[2023-05-28 10:12] LABS: CARBON DIOXIDE 27 MMOL/L (21-32)
[2023-05-28 10:13] LABS: BILIRUBIN,TOTAL 0.6 MG/DL (0.1-1.0)
[2023-05-28 10:14] LABS: ALKALINE PHOSPHATASE 47 U/L (40-136)
[2023-05-28 10:15] LABS: CREATININE SERUM 0.83 MG/DL (0.60-1.30); GFR ESTIMATED 89; INR 0.9 (0.8-1.4); PROTHROMBIN TIME PATIENT 12.7 SEC (12.2-14.7)
[2023-05-28 10:16] LABS: BUN/CREATININE RATIO 12
[2023-05-28 10:18] LABS: ALANINE AMINOTRANSFERASE 14 U/L (0-55); FIBRIN DEGRADATION PRODUCTS 0.5 UG/ML (0.00-0.49); LIPASE 35 U/L (8-78)
--- NOTE | 2023-05-28 10:26 | Diagnostic Imaging Report ---
INDICATION: Chest pain. EXAMINATION: Portable chest at 10:20 AM. FINDINGS: The heart size and pulmonary vascularity are normal. The lungs are clear. There are no effusions or pneumothoraces. There is mild scoliotic curvature of the thoracic spine, convex to the right. IMPRESSION: No acute abnormalities in the chest. Dictated by: Dictated on workstation # [id number]
[2023-05-28] MEDS ORDERED: NS 100 ML (IVPB) BAG IV ONE (10:45)
[2023-05-28] MEDS ORDERED: IOHEXOL 350 MG/ML 100 ML (OMNIPAQUE 350) VIAL IV ONE (10:45)
--- NOTE | 2023-05-28 11:14 | Diagnostic Imaging Report ---
INDICATION: Intermittent chest pain, worsening. Shortness of breath. EXAMINATION: CTA chest. TECHNIQUE: Thin axial sections through the chest were obtained following intravenous contrast bolus. Multiplanar MIP images were reconstructed and reviewed. Dose reduction technique was used. FINDINGS: The lungs are clear. There are no effusions or pneumothoraces. The aorta is normal. There are no pulmonary emboli. There is no right ventricular strain. There is no hilar or mediastinal lymphadenopathy. IMPRESSION: Negative CTA chest. Dictated by: Dictated on workstation # [id number]
[2023-05-28 11:29] VITALS: BP 148/94
== END 2023-05-28 11:29 | disposition home or self-care (01) ==
LOC: EDUNIT# 09:38 → ER 09:40
DX: R07.9 Chest pain, unspecified (principal); Z28.310 Unvaccinated for COVID-19
CPT/HCPCS: 36415; 71045; 71275; 80053; 83690; 83735; 84484; 84703; 85025; 85379; 85610; 85730; 93005

== ENCOUNTER 2023-06-08 13:51 | Outpatient (RCR) | payer OTHER | END 2023-06-14 | disposition home or self-care (01) | PROVIDERS: ATTEND Physician Assistant | DX: M54.12 Radiculopathy, cervical region (principal); G44.86 Cervicogenic headache; Z98.890 Other specified postprocedural states ==

== ENCOUNTER → 2023-06-10 | Outpatient (CLI) | payer OTHER | LOC: CARD 10:30 | PROVIDERS: ATTEND Internal Medicine | DX: I34.0 Nonrheumatic mitral (valve) insufficiency (principal) | CPT/HCPCS: 93306 ==

== ENCOUNTER 2023-06-28 16:24 | Outpatient (RCR) | payer OTHER | END 2023-07-14 | disposition home or self-care (01) | PROVIDERS: ATTEND Physician Assistant | DX: M54.12 Radiculopathy, cervical region (principal); G44.86 Cervicogenic headache; Z98.890 Other specified postprocedural states ==